=== PATIENT | female | born 1955 | race African-American/Black ===

== ENCOUNTER 2020-02-21 07:45 | Outpatient (REF) | payer SELFPAY | END 2020-02-21 07:46 | disposition home or self-care (01) | LOC: HO.HAP 07:45 | PROVIDERS: Visit Provider Emergency Medicine | DX: Z46.1 Encounter for fitting and adjustment of hearing aid (principal) | CPT/HCPCS: 92700 ==

== ENCOUNTER → 2020-03-29 11:01 | Outpatient (BNVA) | payer MEDICARE, SELFPAY | PROVIDERS: Visit Provider Internal Medicine | DX: E05.20 Thyrotoxicosis with toxic multinodular goiter without thyrotoxic crisis or storm (principal); E21.3 Hyperparathyroidism, unspecified; E55.9 Vitamin D deficiency, unspecified; M85.80 Other specified disorders of bone density and structure, unspecified site; Z79.899 Other long term (current) drug therapy | CPT/HCPCS: Q3014 ==

== ENCOUNTER 2020-03-30 10:06 | Outpatient (REF) | payer MEDICARE, SELFPAY ==
[2020-03-30 11:06] LABS: Albumin Level 4.4 g/dL (3.5-5.0); Estimated Glomerular Filt Rate > 60; Phosphorus 2.7 mg/dL (2.7-4.5)
[2020-03-30 11:31] LABS: Free T4 (Free Thyroxine) 0.82 ng/dL (0.71-1.85); Vitamin D 25-OH Total 26.2 ng/mL (>30)
[2020-03-31 09:12] LABS: Triiodothyronine T3 Total 123 ng/dL (76-181)
[2020-04-02 13:12] LABS: Calcium (PTHI) 10.4 mg/dL (8.6-10.4); PTHI 72 pg/mL (14-64)
== END 2020-03-30 10:07 | disposition home or self-care (01) ==
LOC: HO.LAB 10:06
PROVIDERS: PCP Emergency Medicine; Visit Provider Internal Medicine
DX: E21.3 Hyperparathyroidism, unspecified (principal); E05.20 Thyrotoxicosis with toxic multinodular goiter without thyrotoxic crisis or storm; E55.9 Vitamin D deficiency, unspecified
CPT/HCPCS: 82040; 82306; 82310; 82565; 83970; 84100; 84439; 84443; 84480

== ENCOUNTER → 2020-05-14 12:40 | Outpatient (BNVA) | payer MEDICARE, SELFPAY | PROVIDERS: PCP Emergency Medicine; Visit Provider Internal Medicine | DX: E05.20 Thyrotoxicosis with toxic multinodular goiter without thyrotoxic crisis or storm (principal); E21.3 Hyperparathyroidism, unspecified; E55.9 Vitamin D deficiency, unspecified; M85.80 Other specified disorders of bone density and structure, unspecified site; Z79.899 Other long term (current) drug therapy | CPT/HCPCS: Q3014 ==

== ENCOUNTER 2020-05-15 13:45 | Outpatient (REF) | payer SELFPAY | END 2020-05-15 13:46 | disposition home or self-care (01) | LOC: HO.HAP 13:45 | PROVIDERS: Visit Provider Emergency Medicine | DX: Z46.1 Encounter for fitting and adjustment of hearing aid (principal) | CPT/HCPCS: V5266 ==

== ENCOUNTER 2020-05-18 10:39 | Outpatient (REF) | payer SELFPAY | END 2020-05-18 10:40 | disposition home or self-care (01) | LOC: HO.HAP 10:39 | PROVIDERS: Visit Provider Emergency Medicine | DX: Z46.1 Encounter for fitting and adjustment of hearing aid (principal); H90.3 Sensorineural hearing loss, bilateral | CPT/HCPCS: V5267 ==

== ENCOUNTER → 2020-05-23 11:17 | Outpatient (BNVA) | payer MEDICARE, SELFPAY | PROVIDERS: PCP Emergency Medicine; Visit Provider Internal Medicine | DX: E05.20 Thyrotoxicosis with toxic multinodular goiter without thyrotoxic crisis or storm (principal); E21.3 Hyperparathyroidism, unspecified; E55.9 Vitamin D deficiency, unspecified; M85.80 Other specified disorders of bone density and structure, unspecified site | CPT/HCPCS: Q3014 ==

== ENCOUNTER 2020-05-24 11:27 | Outpatient (REF) | payer MEDICARE, SELFPAY ==
[2020-05-24 12:52] LABS: Albumin Level 4.4 g/dL (3.5-5.0); Calcium 9.9 mg/dL (8.4-10.2); Estimated Glomerular Filt Rate > 60
[2020-05-24 13:19] LABS: Free T4 (Free Thyroxine) 0.81 ng/dL (0.71-1.85); Thyroid Stimulating Hormone 0.19 uIU/mL (0.32-4.0); Vitamin D 25-OH Total 23.5 ng/mL (>30)
[2020-05-25 05:27] LABS: Triiodothyronine T3 Total 127 ng/dL (76-181)
[2020-05-25 16:52] LABS: Calcium (PTHI) 10.4 mg/dL (8.6-10.4); PTHI 121 pg/mL (14-64)
[2020-05-26 10:33] LABS: Calcium, Ionized 5.5 mg/dL (4.8-5.6)
== END 2020-05-24 11:28 | disposition home or self-care (01) ==
LOC: HO.LAB 11:27
PROVIDERS: PCP Nurse Practitioner Primary Care; Visit Provider Internal Medicine
DX: E05.20 Thyrotoxicosis with toxic multinodular goiter without thyrotoxic crisis or storm (principal); E21.3 Hyperparathyroidism, unspecified; E55.9 Vitamin D deficiency, unspecified
CPT/HCPCS: 36415; 82040; 82306; 82310; 82330; 82565; 83970; 84100; 84439; 84443; 84480

== ENCOUNTER → 2020-06-05 08:10 | Outpatient (REF) | payer MEDICARE, SELFPAY ==
--- NOTE | 2020-06-05 08:12 | NM_ITS ---
EXAMINATION: NM PARATHYROID SCAN CLINICAL INFORMATION: Hyperparathyroidism. COMPARISON: None TECHNIQUE: A double radionuclide study of the thyroid bed region and upper chest in multiple projections was performed 4 hours after the oral administration of 0.920 microcuries I-123 sodium iodide and immediately following the intravenous administration of 30 mCi Tc-99m sestamibi. Repeat imaging was performed 2 hours later. The iodide images were electronically subtracted from the sestamibi images using different weighting factors. FINDINGS: There is homogeneous uptake of radioiodine throughout both lobes. The thyroid gland appears asymmetrical with the left thyroid lobe appearing larger and lobulated. There are no focal areas of increased or diminished uptake. Technetium 99m sestamibi images demonstrate increased activity in the left thyroid gland with lobulation. The right thyroid lobe has normal activity. There are no focal areas of increased or decreased Technetium 99m sestamibi activity. Computer-generated digital subtraction images reveal excess sestamibi activity along the lateral border of the lower pole of the enlarged left thyroid gland. NM/NM parathyroid IMPRESSION: On subtracted images, there is focal sestamibi activity seen along the lateral aspect of the lower pole of the left thyroid gland highly suspicious for parathyroid adenoma.
== END ==
LOC: HO.NUCMED 08:10
PROVIDERS: Visit Provider Internal Medicine
DX: E21.3 Hyperparathyroidism, unspecified (principal)
CPT/HCPCS: 78070; A9500; A9516

== ENCOUNTER → 2020-06-27 08:01 | Outpatient (BNVA) | payer MEDICARE, SELFPAY | PROVIDERS: PCP Nurse Practitioner Primary Care; Visit Provider Internal Medicine | DX: Z76.89 Persons encountering health services in other specified circumstances (principal) | CPT/HCPCS: Q3014 ==

== ENCOUNTER 2020-07-05 12:15 | Outpatient (REF) | payer MEDICARE, SELFPAY ==
[2020-07-05 13:34] LABS: Albumin Level 4.5 g/dL (3.5-5.0); Calcium 10.8 mg/dL (8.4-10.2); Phosphorus 3.8 mg/dL (2.7-4.5)
[2020-07-05 13:50] LABS: Free T4 (Free Thyroxine) 0.76 ng/dL (0.71-1.85); Thyroid Stimulating Hormone 0.29 uIU/mL (0.32-4.0); Vitamin D 25-OH Total 30.5 ng/mL (>30)
[2020-07-06 02:06] LABS: Triiodothyronine T3 Total 140 ng/dL (76-181)
[2020-07-09 13:56] LABS: Calcium (PTHI) 11.2 mg/dL (8.6-10.4); PTHI 62 pg/mL (14-64)
== END 2020-07-05 12:16 | disposition home or self-care (01) ==
LOC: HO.LAB 12:15
PROVIDERS: Visit Provider Internal Medicine
DX: E21.3 Hyperparathyroidism, unspecified (principal); E05.20 Thyrotoxicosis with toxic multinodular goiter without thyrotoxic crisis or storm; E55.9 Vitamin D deficiency, unspecified
CPT/HCPCS: 36415; 82040; 82306; 82310; 83970; 84100; 84439; 84443; 84480

== ENCOUNTER 2020-08-14 11:59 | Outpatient (REF) | payer MEDICARE, SELFPAY ==
[2020-08-14 12:55] LABS: Albumin Level 4.4 g/dL (3.5-5.0); Calcium 9.4 mg/dL (8.4-10.2)
[2020-08-14 13:24] LABS: Free T4 (Free Thyroxine) 0.67 ng/dL (0.71-1.85); Vitamin D 25-OH Total 29.7 ng/mL (>30)
[2020-08-15 09:47] LABS: Triiodothyronine T3 Total 107 ng/dL (76-181)
[2020-08-15 15:01] LABS: Calcium (PTHI) 9.3 mg/dL (8.6-10.4); PTHI 72 pg/mL (14-64)
== END 2020-08-14 12:00 | disposition home or self-care (01) ==
LOC: HO.LAB 11:59
PROVIDERS: PCP Nurse Practitioner Primary Care; Visit Provider Internal Medicine
DX: E21.3 Hyperparathyroidism, unspecified (principal); E55.9 Vitamin D deficiency, unspecified; E05.20 Thyrotoxicosis with toxic multinodular goiter without thyrotoxic crisis or storm
CPT/HCPCS: 36415; 82040; 82306; 82310; 83970; 84439; 84480

== ENCOUNTER → 2020-08-22 12:38 | Outpatient (BNVA) | payer MEDICARE, SELFPAY | PROVIDERS: PCP Nurse Practitioner Primary Care; Visit Provider Internal Medicine | DX: E05.20 Thyrotoxicosis with toxic multinodular goiter without thyrotoxic crisis or storm (principal); E21.3 Hyperparathyroidism, unspecified; E55.9 Vitamin D deficiency, unspecified; M85.80 Other specified disorders of bone density and structure, unspecified site | CPT/HCPCS: 99212 ==

== ENCOUNTER 2020-10-01 09:43 | Outpatient (REF) | payer MEDICARE, SELFPAY ==
--- NOTE | ~2020-10-01 | MM_ITS ---
EXAMINATION: MM SCREENING DIGITAL BREAST TOMOSYNTHESIS, BILATERAL CLINICAL INFORMATION: Screening. Asymptomatic. The lifetime risk of breast cancer based on the Tyrer-Cuzick Model is 2.9%. COMPARISON: Mammography: September 23, 2018 TECHNIQUE: Digital breast tomosynthesis is performed in both the craniocaudal and mediolateral oblique views along with computer-aided detection (CAD). Synthesized 2D images are generated from the tomosynthesis. FINDINGS: The breasts are extremely dense, which lowers the sensitivity of mammography (ACR BI-RADS breast composition Category d). There is a stable parenchymal pattern of the left breast no new abnormal dominant mass or suspicious grouping of microcalcifications. There is a well-circumscribed slightly lobulated density about the lateral aspect of the right breast measuring approximately 1 x 0.7 cm in size approximately 7 cm from the nipple. This was seen on one view on previous study (craniocaudal) and appears stable. This likely represents intramammary lymph node. MM/MM tomosynthesis screening BI IMPRESSION: There are no significant changes from prior study. ASSESSMENT: BI-RADS 2: Benign RECOMMENDATION: Routine annual mammography screening. This patient's information was entered into a reminder system with a target due date for their next mammogram.
== END 2020-10-01 09:44 | disposition home or self-care (01) ==
LOC: HO.MAMMO 09:43
PROVIDERS: PCP Nurse Practitioner Primary Care; Visit Provider Nurse Practitioner Primary Care
DX: Z12.31 Encounter for screening mammogram for malignant neoplasm of breast (principal)
CPT/HCPCS: 77063; 77067

== ENCOUNTER 2020-10-15 09:14 | Outpatient (REF) | payer SELFPAY | END 2020-10-15 09:15 | disposition home or self-care (01) | LOC: HO.HAP 09:14 | PROVIDERS: Visit Provider Nurse Practitioner Primary Care | DX: E05.20 Thyrotoxicosis with toxic multinodular goiter without thyrotoxic crisis or storm (principal); E21.3 Hyperparathyroidism, unspecified; M85.80 Other specified disorders of bone density and structure, unspecified site; E55.9 Vitamin D deficiency, unspecified; H90.3 Sensorineural hearing loss, bilateral; Z46.1 Encounter for fitting and adjustment of hearing aid | CPT/HCPCS: Q3014; V5266 ==

== ENCOUNTER 2020-10-18 10:02 | Outpatient (REF) | payer MEDICARE, SELFPAY ==
[2020-10-18 11:53] LABS: Alanine Aminotransferase 14 U/L (0-31); Albumin Level 4.3 g/dL (3.5-5.0); Alkaline Phosphatase 110 U/L (39-117); Anion Gap 11 (12-20); Aspartate Amino Transferase 15 U/L (5-31); Bilirubin Total 0.6 mg/dL (0.0-1.0); Blood Urea Nitrogen 13 mg/dL (9-16); Calcium 9.4 mg/dL (8.4-10.2); Carbon Dioxide 22 mmol/L (22-29); Chloride 112 mmol/L (96-108); Estimated Glomerular Filt Rate > 60; Glucose Random 105 mg/dL (60-115); Phosphorus 3.8 mg/dL (2.7-4.5); Sodium 141 mmol/L (135-145)
[2020-10-18 11:58] LABS: Free T4 (Free Thyroxine) 0.74 ng/dL (0.71-1.85); Thyroid Stimulating Hormone 0.63 uIU/mL (0.32-4.0); Vitamin D 25-OH Total 31.1 ng/mL (>30)
[2020-10-19 12:42] LABS: Triiodothyronine T3 Total 112 ng/dL (76-181)
[2020-10-19 15:57] LABS: Calcium (PTHI) 9.5 mg/dL (8.6-10.4); PTHI 78 pg/mL (14-64)
== END 2020-10-18 10:03 | disposition home or self-care (01) ==
LOC: HO.LAB 10:02
PROVIDERS: PCP Nurse Practitioner Primary Care; Visit Provider Internal Medicine
DX: E05.20 Thyrotoxicosis with toxic multinodular goiter without thyrotoxic crisis or storm (principal); E55.9 Vitamin D deficiency, unspecified; E21.3 Hyperparathyroidism, unspecified
CPT/HCPCS: 36415; 80053; 82306; 83970; 84100; 84439; 84443; 84480

== ENCOUNTER 2020-10-18 10:41 | Outpatient (REF) | payer SELFPAY ==
--- NOTE | 2020-10-18 11:44 | MHC.AU.HFU ---
Hearing Instrument Follow-Up Date of Visit: 10/18/20 Tree Climber Used: [place]ger- In Person Right Ear: [place] Sampler: Phonak Model: Simplex HealthcareEO [id number] Serial Number: [id number] Repair Warranty: 06/20/2022 Loss and Damage Warranty: Service Plan: Battery Size: 13 Color: SAND BEIGE Doll Eye Setter: 0M Type of Dome: SMALL POWER Type of Wax Guard: CERUSHIELD Dispensed By: [facility] Follow-Up Summary: Patient reports that after the hearing aid visit on 10/15/20, the hearing aid was initially working okay. Later in the day, it started producing beeps again. Patient describes these beeps as the same as the volume control alerts, even though nothing is touching the volume button. She also feels she has not been hearing well from it. It will be sent to [employer] for repair. Patient was provided with a loaner Phonak Audeo [id number] #[id number] w/size 0S build automation engineer and small power dome. Recommendations: Recommendations: Patient will be contacted when materials have arrived. Diagnosis Code(s): Primary Diagnosis: H90.3 Bilateral Sensorineural Hearing Loss Signature: Provider: Uri Del Valle CCC-A
== END 2020-10-18 10:42 | disposition home or self-care (01) ==
LOC: HO.HAP 10:41
PROVIDERS: Visit Provider Nurse Practitioner Primary Care
DX: Z13.89 Encounter for screening for other disorder (principal)

== ENCOUNTER 2020-10-29 10:38 | Outpatient (REF) | payer SELFPAY | END 2020-10-29 10:39 | disposition home or self-care (01) | LOC: HO.HAP 10:38 | PROVIDERS: Visit Provider Nurse Practitioner Primary Care | DX: Z13.89 Encounter for screening for other disorder (principal) ==

== ENCOUNTER 2021-01-01 07:54 | Outpatient (REF) | payer MEDICARE, SELFPAY ==
--- NOTE | ~2021-01-01 | MM_ITS ---
EXAMINATION: BONE DENSITOMETRY CLINICAL INDICATION: Osteopenia. COMPARISON: Baseline BD dated 11/30/2018. TECHNIQUE: Using a [employer] DXA System (software version: 13.1) manufactured by [employer], dual-energy x-ray absorptiometry was performed of the lumbar spine, left hip, and right forearm radius 33%. The images are of good technical quality. Summary results are attached. FINDINGS: AP SPINE L1-L4: Current: BMD 0.945 g/cm2, Z-score -0.4, T-score -2.0, osteopenia, 2.6% increase from baseline (<5% change is not significant). Baseline: BMD 0.921 g/cm2. LEFT FEMUR, NECK: Current: BMD 0.776 g/cm2, Z-score -0.4, T-score -1.9, osteopenia. Baseline: BMD 0.735 g/cm2. LEFT FEMUR, TOTAL: Current: BMD 0.846 g/cm2, Z-score 0.0, T-score -1.3, osteopenia, 2.3% increase from baseline (<5% change is not significant). Baseline: BMD 0.827 g/cm2. RIGHT FOREARM RADIUS 33%: BMD 0.642 g/cm2, Z-score -1.1, T-score -2.7, osteoporosis. IDENTIFIED RISK FACTORS: Early menopause, family history (parent hip fracture), hyperparathyroid, hysterectomy, low calcium intake, secondary osteoporosis, tobacco use (current smoker). HISTORY OF FRACTURE: None listed. MEDICATIONS: Calcium, vitamin D. MM/XR DEXA appendicular skeleton IMPRESSION: 1. DIAGNOSIS: Osteoporosis based on the lowest T-score value of -2.7 in the forearm radius 33% applying World Health Organization criteria. 2. 10-YEAR FRACTURE RISK PREDICTION, FRAX: Major osteoporotic fracture (clinical spine, forearm, hip or shoulder) 11.0%. Hip fracture 2.4%. 3. Treatment Recommendations: NOF guidelines recommend consideration for treatment in postmenopausal women and men age 50 and older presenting with the following: -A hip or vertebral (clinical or morphometric) fracture. -T-score less than or equal to -2.5 at the femoral neck or spine after appropriate evaluation to exclude secondary causes. -Low bone mass at the hip or spine and a 10-year fracture probability by FRAX of greater than or equal to 3% for hip fracture or greater than or equal to 20% for major osteoporotic fracture based on the [place] adapted WHO algorithm. 4. Other Recommendations: All treatment decisions require clinical judgment and consideration of individual patient factors, including patient preferences, comorbidities, previous drug use, risk factors not captured in the FRAX model (e.g. frailty, falls, vitamin D deficiency, increased bone turnover, interval significant decline in bone density) and possible under or overestimation of fracture risk by FRAX. Additional medical evaluation for secondary cause of low bone mineral density may be appropriate. FUTURE SCAN RECOMMENDATION: People with diagnosed cases of osteoporosis or at high risk for fracture should have regular bone mineral density tests. For patients eligible for Medicare, routine testing is allowed once every 2 years. The testing frequency can be increased to one year for patients who have rapidly progressing disease, those who are receiving or discontinuing medical therapy to restore bone mass, or have additional risk factors.
== END 2021-01-01 07:55 | disposition home or self-care (01) ==
LOC: HO.MAMMO 07:54
PROVIDERS: Visit Provider Internal Medicine
DX: Z13.820 Encounter for screening for osteoporosis (principal); M85.80 Other specified disorders of bone density and structure, unspecified site; E21.3 Hyperparathyroidism, unspecified; F17.200 Nicotine dependence, unspecified, uncomplicated; Z90.710 Acquired absence of both cervix and uterus; Z78.0 Asymptomatic menopausal state
CPT/HCPCS: 77081

== ENCOUNTER → 2021-01-03 11:00 | Outpatient (BNVA) | payer SELFPAY | PROVIDERS: PCP Nurse Practitioner Primary Care; Visit Provider Internal Medicine | DX: Z13.89 Encounter for screening for other disorder (principal) ==

== ENCOUNTER 2021-04-22 13:42 | Outpatient (REF) | payer SELFPAY ==
--- NOTE | 2021-04-22 14:13 | MHC.AU.P13 ---
Hearing Instrument Problem Date of Visit: 04/22/21 Right Ear: Regulatory Attorney: [employer] Model: AUDEO M50-13T Serial Number: [id number] Repair Warranty: 06/20/2022 Battery Size: 13 Color: SAND BEIGE Roller Leveler: 0 Power Type of Dome: SMALL POWER Type of Wax Guard: STEPHANIEUSHIELD Dispensed By: [facility] Date of Fittin04/05/2019 Follow-Up Summary: Right hearing aid making intermittent clicking sound even with new glacing machine tender. Sent to [employer] for in warranty repair. Recommendations: Recommendations: Patient will be contacted when materials have arrived. Diagnosis Code(s): Primary Diagnosis: H90.3 Bilateral Sensorineural Hearing Loss Signature: Provider: MICK Verdugo
== END 2021-04-22 13:43 | disposition home or self-care (01) ==
LOC: HO.HAP 13:42
DX: Z46.1 Encounter for fitting and adjustment of hearing aid (principal); H90.3 Sensorineural hearing loss, bilateral
CPT/HCPCS: V5266

== ENCOUNTER 2021-04-30 11:27 | Outpatient (REF) | payer SELFPAY | END 2021-04-30 11:28 | disposition home or self-care (01) | LOC: HO.HAP 11:27 | PROVIDERS: Visit Provider Nurse Practitioner Primary Care | DX: Z13.89 Encounter for screening for other disorder (principal) ==

== ENCOUNTER 2021-05-02 08:53 | Outpatient (REF) | payer MEDICARE, SELFPAY | END 2021-05-02 08:54 | disposition home or self-care (01) | LOC: HO.LAB 08:53 | PROVIDERS: PCP Nurse Practitioner Primary Care | DX: N39.0 Urinary tract infection, site not specified (principal); N32.81 Overactive bladder | CPT/HCPCS: 51798; 87086; 99212 ==

== ENCOUNTER 2021-06-27 13:51 | Outpatient (REF) | payer MEDICARE, SELFPAY | END 2021-06-27 13:52 | disposition home or self-care (01) | LOC: HO.LAB 13:51 | PROVIDERS: PCP Nurse Practitioner Primary Care; Referring Provider Nurse Practitioner Primary Care; Visit Provider Nurse Practitioner | DX: Z01.818 Encounter for other preprocedural examination (principal) | CPT/HCPCS: 36415; 80053; 85025; 99202 ==

== ENCOUNTER 2021-07-04 10:50 | Outpatient (REF) | payer MEDICARE, SELFPAY ==
[2021-07-04 12:09] LABS: Alanine Aminotransferase 17 U/L (0-31); Albumin Level 4.1 g/dL (3.5-5.0); Alkaline Phosphatase 87 U/L (39-117); Anion Gap 8 (12-20); Aspartate Amino Transferase 14 U/L (5-31); Bilirubin Total 0.4 mg/dL (0.0-1.0); Blood Urea Nitrogen 13 mg/dL (9-16); Calcium 9.3 mg/dL (8.4-10.2); Carbon Dioxide 28 mmol/L (22-29); Chloride 110 mmol/L (96-108); Estimated Glomerular Filt Rate > 60; Glucose Random 103 mg/dL (60-115); Phosphorus 3.5 mg/dL (2.7-4.5); Sodium 142 mmol/L (135-145); Total Protein 6.8 g/dL (6.5-8.0)
[2021-07-04 12:20] LABS: Free T4 (Free Thyroxine) 0.67 ng/dL (0.71-1.85); Thyroid Stimulating Hormone 0.93 uIU/mL (0.32-4.0); Vitamin D 25-OH Total 25.8 ng/mL (>30)
[2021-07-05 17:16] LABS: Calcium (PTHI) 9.1 mg/dL (8.6-10.4); PTHI 66 pg/mL (14-64)
[2021-07-08 20:36] LABS: N-Telopeptide 46 (see note); NTXCreaRU 125 mg/dL (20-275)
== END 2021-07-04 10:51 | disposition home or self-care (01) ==
LOC: HO.LAB 10:50
PROVIDERS: PCP Nurse Practitioner Primary Care; Visit Provider Internal Medicine
DX: M81.0 Age-related osteoporosis without current pathological fracture (principal); E05.20 Thyrotoxicosis with toxic multinodular goiter without thyrotoxic crisis or storm; E55.9 Vitamin D deficiency, unspecified
CPT/HCPCS: 36415; 80053; 82306; 82523; 83970; 84100; 84439; 84443

== ENCOUNTER → 2021-07-08 08:09 | Outpatient (BNVA) | payer MEDICARE, SELFPAY | PROVIDERS: PCP Nurse Practitioner Primary Care; Visit Provider Internal Medicine | DX: E21.3 Hyperparathyroidism, unspecified (principal); E05.20 Thyrotoxicosis with toxic multinodular goiter without thyrotoxic crisis or storm; E55.9 Vitamin D deficiency, unspecified; M81.0 Age-related osteoporosis without current pathological fracture; Z79.899 Other long term (current) drug therapy | CPT/HCPCS: Q3014 ==

== ENCOUNTER 2021-10-09 08:06 | Day surgery (SDC) | payer MEDICARE, SELFPAY ==
--- NOTE | 2021-10-08 10:17 | HO.ANESPROP2 ---
Documented by User: Regina Dutta NP 10/08/21 10:17 HPI - Anesthesia Eval Consult details Narrative: 66yo F forColonoscopy PMFSH Active Problems Active Problems: All Active Problems (Updated 06/27/21 @ 14:32 by FIDEL Gandara) Colon cancer screening (Acute) Subclinical hyperthyroidism (Acute) High cholesterol (Acute) Hard of hearing (Acute) OAB (overactive bladder) (Acute) UTI (urinary tract infection) (Acute) Osteoporosis (Acute) Hyperparathyroidism (Acute) Vitamin D deficiency (Acute) Osteopenia (Acute) Toxic multinodul goiter (Acute) Past Medical History Medical History Hyperparathyroidism OAB (overactive bladder) Osteopenia Osteoporosis Stress incontinence in female Toxic multinodul goiter UTI (urinary tract infection) Vitamin D deficiency Family History Family History Father No problems noted. Mother Hypertension Arthritis Osteoporosis Surgical History Surgical History H/O parathyroidectomy History of ear surgery Hx of hysterectomy Social History Social History Alcohol intake: current Alcohol intake frequency: does not drink Patient Tobacco Use Status: Current everyday Tobacco user Tobacco use type: Cigarette Cigarettes Per Day: 4 Years Smoked: 45 Use of substances other than those prescribed or required for medical reasons: No Are you DNR?: No Advance Directives: No Advance Directives Information Provided: Yes Meds Allergies Allergy/AdvReac Type Severity Reaction Status Date / Time No Known Allergies Allergy Verified 10/03/21 12:27 Home Medications Medication Instructions Recorded Confirmed Last Taken Type atorvastatin 10 mg tablet 10 mg PO DAILY 10/15/20 10/03/21 Unknown History calcium 325 mg-vit D3 12.5 1 tab PO DAILY 07/08/21 07/08/21 Unknown History mcg-zinc 2.75 [id number]-hjiblgxga tablet (Citracal-D3 Maximum Plus) Exam Exam Date and Time: October 08, 2021 1017 Assessment and Plan Assessment Anesthesia Assessment: Chart Reviewed Documented by User: Tonja Ng MD 10/09/21 09:26 ON LICENSE OF [facility] Past Medical History Medical History Hyperparathyroidism OAB (overactive bladder) Osteopenia Osteoporosis Stress incontinence in female Toxic multinodul goiter UTI (urinary tract infection) Vitamin D deficiency Family History Family History Father No problems noted. Mother Hypertension Arthritis Osteoporosis Family history of problems with anesthesia: No Surgical History Surgical History H/O parathyroidectomy History of ear surgery Hx of hysterectomy History of Problems with Anesthesia: No Social History Social History Alcohol intake: current Alcohol intake frequency: does not drink Patient Tobacco Use Status: Current everyday Tobacco user Tobacco use type: Cigarette Cigarettes Per Day: 4 Years Smoked: 45 Use of substances other than those prescribed or required for medical reasons: No Are you DNR?: No Advance Directives: No Advance Directives Information Provided: Yes Meds Allergies Allergy/AdvReac Type Severity Reaction Status Date / Time No Known Allergies Allergy Verified 10/03/21 12:27 Home Medications Medication Instructions Recorded Confirmed Last Taken Type atorvastatin 10 mg tablet 10 mg PO DAILY 10/15/20 10/03/21 Unknown History calcium 325 mg-vit D3 12.5 1 tab PO DAILY 07/08/21 07/08/21 Unknown History mcg-zinc 2.75 uh-dtkzlr-lbggcpbjk tablet (Citracal-D3 Maximum Plus) Exam Airway Mallampati Class: II TM Dist: >3cm Neck ROM: Full Heart: rrr Lungs: cta Assessment and Plan Assessment Anesthesia Assessment: Anesthesia Plan Discussed and Chart Reviewed Final Anesthetic Review Family History of Problems with Anesthesia: No History of Problems with Anesthesia: No NPO: Yes ASA Class: II Final Preanesthetic Review: No Changes in Pt Med Stat, Meds/Allgs Chart Reviewed and Consent Obtained/Reviewed Patient Risk: Intermediate Procedure Risk: Intermediate Anesthetic Plan Anesthetic Plan: MAC: Disposition: Standard PACU
--- NOTE | 2021-10-09 08:30 | MHC.SHP ---
Pre-Procedural Eval Section A Date of Service: 10/09/21 Section B Chief Complaint: screening Relevant Family History (Specify if Yes): No Relevant Social History: Tobacco Use Present Medications: see Short Stay Collaborative assessment Medical History: Significant History (Hyperparathyroidism OAB (overactive bladder) Osteopenia Osteoporosis Stress incontinence in female Toxic multinodul goiter UTI (urinary tract infection) Vitamin D deficiency) History of Previous Operations: Relevant previous surgery/procedure and date(s) (H/O parathyroidectomy History of ear surgery Hx of hysterectomy) Allergies: Allergies Allergy/AdvReac Type Severity Reaction Status Date / Time No Known Allergies Allergy Verified 10/03/21 12:27 Review of Systems Sugical H&P ROS: Negative: Constitution, Cardiovascular, Respiratory, Neurological, Psychiatric, Hem-Onc, Allergic/Immunologic, Gastrointestinal, Genitourinary, Musculoskeletal, Integumentary, Endocrine and Eyes/Ears/Nose/Throat Exam Surgical H&P Exam: Normal: HEENT, Normal: Heart, Normal: Lungs, Normal: Extremities, Normal: Abdomen, Normal: Skin and Normal: Neurological Plan Diagnosis/Plan: Unchanged I have reviewed the history and physical and performed a pertinent physical examination on my patient. No changes have occurred unless specified.
[2021-10-09 08:48] VITALS: BMI 29.9
[2021-10-09 08:53] VITALS: BP 134/71; PULSE 64; RESP 16; TEMP 36.1; O2SAT 98
[2021-10-09] MEDS: Lactated Ringers 1,000 ML 100 ML IVCONT (08:56)
--- NOTE | 2021-10-09 09:16 | P.BOP_ITS ---
Brief Operative Note Date of Service: 10/09/21 Pre-op diagnosis: colon screening Post-op diagnosis: same Procedure: see op note Surgeon: Alley Trinidad MD Anesthesia: MAC Was an Investment Broker used for this Procedure?: No Estimated blood loss (mL): 0 Condition: stable Disposition: PACU
--- NOTE | 2021-10-09 09:16 | W.PM.OPN ---
Operative Note Operative Note Date of Service: 10/09/21 Narrative: Operative Information Procedure Description: Colonoscopy Indication: screening Anesthesia: MAC COLONOSCOPY Instrument: Olympus variable stiffness pediatric scope 190L Colonoscopy Monitoring: Vital signs and clinical assessment, continuous EKG monitoring, Pulse oximetry, Carbon Dioxide monitoring and blood pressure monitoring were done throughout the procedure. Colon withdrawal time was 9 minutes. Procedure: The patient was placed in the left lateral decubitis position and pre-procedure medications were administered. After a digital rectal examination of the ano-rectum, the video colonoscope was inserted into the rectum and advanced through the colon to the cecum/TI. The colonoscope was slowly withdrawn in a retrograde panoramic fashion and the colon mucosa was carefully examined including a retroflexed view of the rectum. Findings and interventions are described below. Procedure Difficulty: easy Findings: Terminal Ileum-normal Cecum:normal Ascending Colon: normal Transverse Colon -normal Descending Colon:normal Sigmoid Colon: moderate dvierticulosis Rectum: Retroflexion with small internal hemorrhoids, grade I Anorectum - normal Colon preparation: [place] Bowel Preparation Scale Right colon; 2 Transverse colon: 2 Left colon; 2 (0 = Unprepared colon segment with mucosa not seen due to solid stool that cannot be cleared. 1 = Portion of mucosa of the colon segment seen, but other areas of the colon segment not well seen due to staining, residual stool and/or opaque liquid. 2 = Minor amount of residual staining, small fragments of stool and/or opaque liquid, but mucosa of colon segment seen well. 3 = Entire mucosa of colon segment seen well with no residual staining, small fragments of stool or opaque liquid) Impression and Post Procedure Diagnosis: internal hemorrhoids diverticular disease Plan: High fiber diet leaflet Avoid straining at stool, epsom salts and sitz bath, anusol supps or cream Repeat Colonoscopy in 10 years or earlier if clinically indicated Above findings were reviewed with the patient and relevant handouts were provided if indicated.
[2021-10-09 09:51] VITALS: BP 117/69; PULSE 62; RESP 16; TEMP 36.3; O2SAT 98
[2021-10-09 10:30] VITALS: BP 136/94; PULSE 61; RESP 16; TEMP 36.7; O2SAT 99
== END 2021-10-09 11:37 | disposition home or self-care (01) ==
PROVIDERS: PCP Nurse Practitioner Primary Care; Visit Provider Internal Medicine Gastroenterology
PROC: 0DJD8ZZ Inspection of Lower Intestinal Tract, Via Natural or Artificial Opening Endoscopic (ICD-10-PCS; CPT 45378; principal; 2021-10-09 09:20)
DX: Z12.11 Encounter for screening for malignant neoplasm of colon (principal); K57.30 Diverticulosis of large intestine without perforation or abscess without bleeding; K64.0 First degree hemorrhoids; H91.90 Unspecified hearing loss, unspecified ear; E05.80 Other thyrotoxicosis without thyrotoxic crisis or storm; E21.3 Hyperparathyroidism, unspecified; E78.00 Pure hypercholesterolemia, unspecified; E55.9 Vitamin D deficiency, unspecified; M85.80 Other specified disorders of bone density and structure, unspecified site; Z79.899 Other long term (current) drug therapy; F17.210 Nicotine dependence, cigarettes, uncomplicated; Z98.890 Other specified postprocedural states
CPT/HCPCS: G0121

== ENCOUNTER 2021-10-16 11:03 | Outpatient (REF) | payer SELFPAY | END 2021-10-16 11:04 | disposition home or self-care (01) | LOC: HO.HAP 11:03 | PROVIDERS: Visit Provider Nurse Practitioner Primary Care | DX: Z46.1 Encounter for fitting and adjustment of hearing aid (principal); H90.3 Sensorineural hearing loss, bilateral | CPT/HCPCS: V5266 ==

== ENCOUNTER 2021-11-07 13:52 | Outpatient (REF) | payer MEDICARE, SELFPAY ==
--- NOTE | ~2021-11-07 | US_ITS ---
EXAMINATION: US PELVIS CLINICAL INFORMATION: Pelvic and perineal pain. COMPARISON: None TECHNIQUE: Ultrasound of the pelvis is performed using both transabdominal and transvaginal transducers along with Doppler. Transvaginal imaging is performed due to inadequate visualization transabdominally. FINDINGS: The uterus has been surgically removed and not visualized. Ovaries are not visualized. No adnexal mass or free fluid seen. The exam is slightly limited due to peristalsing bowel loops within the pelvis. US/US pelvic and transvaginal IMPRESSION: Unremarkable pelvis exam.
== END 2021-11-07 13:53 | disposition home or self-care (01) ==
LOC: HO.HMGCX 13:52
PROVIDERS: Visit Provider Advanced Practice Midwife
DX: R10.2 Pelvic and perineal pain (principal)
CPT/HCPCS: 76830; 76856

== ENCOUNTER 2021-11-21 10:49 | Outpatient (REF) | payer MEDICARE, SELFPAY ==
[2021-11-21 12:31] LABS: Alanine Aminotransferase 19 U/L (0-31); Albumin Level 4.5 g/dL (3.5-5.0); Alkaline Phosphatase 98 U/L (39-117); Anion Gap 12 (12-20); Aspartate Amino Transferase 15 U/L (5-31); Bilirubin Total 0.6 mg/dL (0.0-1.0); Blood Urea Nitrogen 16 mg/dL (9-16); Calcium 9.4 mg/dL (8.4-10.2); Carbon Dioxide 25 mmol/L (22-29); Chloride 111 mmol/L (96-108); Estimated Glomerular Filt Rate > 60; Glucose Random 96 mg/dL (60-115); Phosphorus 3.9 mg/dL (2.7-4.5); Potassium 4.3 mmol/L (3.3-5.1); Sodium 144 mmol/L (135-145); Total Protein 7.4 g/dL (6.5-8.0)
[2021-11-21 12:55] LABS: Free T4 (Free Thyroxine) 0.84 ng/dL (0.71-1.85); Thyroid Stimulating Hormone 0.98 uIU/mL (0.32-4.0); Vitamin D 25-OH Total 28.2 ng/mL (>30)
[2021-11-22 13:26] LABS: Calcium (PTHI) 9.4 mg/dL (8.6-10.4); PTHI 50 pg/mL (16-77)
== END 2021-11-21 10:50 | disposition home or self-care (01) ==
LOC: HO.LAB 10:49
PROVIDERS: PCP Nurse Practitioner Primary Care; Visit Provider Internal Medicine
DX: E05.20 Thyrotoxicosis with toxic multinodular goiter without thyrotoxic crisis or storm (principal); E55.9 Vitamin D deficiency, unspecified; E21.3 Hyperparathyroidism, unspecified
CPT/HCPCS: 36415; 80053; 82306; 83970; 84100; 84439; 84443

== ENCOUNTER → 2021-11-28 13:35 | Outpatient (BNVA) | payer MEDICARE, SELFPAY | PROVIDERS: PCP Nurse Practitioner Primary Care; Visit Provider Internal Medicine | DX: E05.20 Thyrotoxicosis with toxic multinodular goiter without thyrotoxic crisis or storm (principal); E21.3 Hyperparathyroidism, unspecified; E55.9 Vitamin D deficiency, unspecified; M81.0 Age-related osteoporosis without current pathological fracture | CPT/HCPCS: Q3014 ==

== ENCOUNTER → 2021-11-29 09:34 | Outpatient (BNVA) | payer MEDICARE, SELFPAY | PROVIDERS: PCP Nurse Practitioner Primary Care; Visit Provider Nurse Practitioner | DX: K57.30 Diverticulosis of large intestine without perforation or abscess without bleeding (principal); K64.0 First degree hemorrhoids; Z98.890 Other specified postprocedural states | CPT/HCPCS: 99212 ==

== ENCOUNTER 2022-03-25 10:29 | Outpatient (REF) | payer SELFPAY | END 2022-03-25 10:30 | disposition home or self-care (01) | LOC: HO.HAP 10:29 | PROVIDERS: Visit Provider Nurse Practitioner Primary Care | DX: Z13.89 Encounter for screening for other disorder (principal) ==

== ENCOUNTER 2022-03-26 10:48 | Outpatient (REF) | payer SELFPAY | END 2022-03-26 10:49 | disposition home or self-care (01) | LOC: HO.HAP 10:48 | PROVIDERS: Visit Provider Nurse Practitioner Primary Care | DX: Z46.1 Encounter for fitting and adjustment of hearing aid (principal); H90.3 Sensorineural hearing loss, bilateral | CPT/HCPCS: V5266 ==

== ENCOUNTER 2022-06-24 08:54 | Outpatient (REF) | payer MEDICARE, SELFPAY ==
[2022-06-24 11:26] LABS: Blood Urea Nitrogen 16 mg/dL (9-16); Estimated Glomerular Filt Rate > 60
[2022-06-24 11:32] LABS: Urine Cytology See Pathology rpt
== END 2022-06-24 08:55 | disposition home or self-care (01) ==
LOC: HO.LAB 08:54
PROVIDERS: PCP Nurse Practitioner Primary Care; Visit Provider Nurse Practitioner Family
DX: R31.29 Other microscopic hematuria (principal); R32 Unspecified urinary incontinence; N32.81 Overactive bladder
CPT/HCPCS: 36415; 51798; 82565; 84520; 88112; 99212

== ENCOUNTER 2022-07-31 10:27 | Outpatient (REF) | payer MEDICARE, SELFPAY ==
[2022-07-31 13:12] LABS: Alanine Aminotransferase 20 U/L (0-31); Albumin Level 4.3 g/dL (3.5-5.0); Alkaline Phosphatase 89 U/L (39-117); Anion Gap 11 (12-20); Aspartate Amino Transferase 18 U/L (5-31); Bilirubin Total 0.7 mg/dL (0.0-1.0); Blood Urea Nitrogen 12 mg/dL (9-16); Calcium 9.1 mg/dL (8.4-10.2); Carbon Dioxide 26 mmol/L (22-29); Chloride 112 mmol/L (96-108); Estimated Glomerular Filt Rate > 60; Glucose Random 96 mg/dL (60-115); Phosphorus 3.1 mg/dL (2.7-4.5); Potassium 4.4 mmol/L (3.3-5.1); Sodium 145 mmol/L (135-145); Total Protein 6.9 g/dL (6.5-8.0)
[2022-07-31 13:17] LABS: Free T4 (Free Thyroxine) 0.79 ng/dL (0.71-1.85); Thyroid Stimulating Hormone 1.11 uIU/mL (0.32-4.0); Vitamin D 25-OH Total 34.4 ng/mL (>30)
[2022-08-01 16:23] LABS: Calcium (PTHI) 9.3 mg/dL (8.6-10.4); PTHI 63 pg/mL (16-77)
== END 2022-07-31 10:28 | disposition home or self-care (01) ==
LOC: HO.LAB 10:27
PROVIDERS: PCP Nurse Practitioner Primary Care; Visit Provider Internal Medicine
DX: E05.20 Thyrotoxicosis with toxic multinodular goiter without thyrotoxic crisis or storm (principal); M81.0 Age-related osteoporosis without current pathological fracture; E55.9 Vitamin D deficiency, unspecified
CPT/HCPCS: 36415; 80053; 82306; 83970; 84100; 84439; 84443

== ENCOUNTER 2022-08-04 13:20 | Outpatient (REF) | payer MEDICARE, SELFPAY ==
--- NOTE | ~2022-08-04 | MM_ITS ---
EXAMINATION: MM SCREENING DIGITAL BREAST TOMOSYNTHESIS, BILATERAL CLINICAL INFORMATION: Screening. Asymptomatic. The lifetime risk of breast cancer based on the Tyrer-Cuzick Model is 2%. COMPARISON: Mammography: 10/01/2020, 09/23/2018 (new baseline), right breast ultrasound 09/23/2018 TECHNIQUE: Digital breast tomosynthesis is performed in both the craniocaudal and mediolateral oblique views along with computer-aided detection (CAD). Synthesized 2D images are generated from the tomosynthesis. FINDINGS: The breasts are heterogeneously dense, which may obscure small masses (ACR BI-RADS breast composition Category c). The left breast has a new circumscribed smooth nodule mid upper outer quadrant measuring 0.9 cm, possibly a cyst. Patient will be recalled for additional imaging with targeted ultrasound. The remainder the breasts show no significant changes in the parenchymal pattern from prior studies. There is no architectural abnormality or abnormal calcifications. The axilla and skin contours are unremarkable. MM/MM tomosynthesis screening BI IMPRESSION: Left: -New smooth circumscribed 0.9 cm nodule mid upper outer quadrant, possibly a cyst. Right: -No mammographic evidence of malignancy. ASSESSMENT: BI-RADS 0: Incomplete - Need Additional Imaging Evaluation RECOMMENDATION: 1. Targeted ultrasound left breast. 2. Radiology department staff will contact the patient for additional imaging. This patient's information was entered into a reminder system with a target due date for their next mammogram.
== END 2022-08-04 13:21 | disposition home or self-care (01) ==
LOC: HO.MAMMO 13:20
PROVIDERS: PCP Nurse Practitioner Primary Care; Visit Provider Nurse Practitioner Primary Care
DX: Z12.31 Encounter for screening mammogram for malignant neoplasm of breast (principal)
CPT/HCPCS: 77063; 77067

== ENCOUNTER 2022-08-08 08:53 | Outpatient (REF) | payer MEDICARE, SELFPAY ==
--- NOTE | ~2022-08-08 | US_ITS ---
EXAMINATION: US DIAGNOSTIC ULTRASOUND BREAST, LEFT CLINICAL INFORMATION: Left breast nodule. COMPARISON: 08/04/2022 and studies dating back to 09/23/2018. TECHNIQUE: Ultrasound of the breast is performed with real-time warren scale imaging and color Doppler. FINDINGS: About the 2 o'clock position approximately 7 cm from the nipple there is a well-circumscribed nearly anechoic structure with smooth back wall and increased through sound transmission. No internal vascularity is identified. This measures approximately 8 x 7 x 7 mm in size. There is no solid mass, architectural abnormality, duct ectasia, or edema in the soft tissue planes. Results are discussed with the patient at time of visit. US/US breast LT limited IMPRESSION: Mammographic density corresponds to a simple cyst. ASSESSMENT: BI-RADS 2: Benign. RECOMMENDATION: Routine annual mammography screening due in 12 months. This patient's information was entered into a reminder system with a target due date for their next mammogram.
== END 2022-08-08 08:54 | disposition home or self-care (01) ==
LOC: HO.MAMMO 08:53
PROVIDERS: PCP Nurse Practitioner Primary Care; Visit Provider Nurse Practitioner Primary Care
DX: N63.21 Unspecified lump in the left breast, upper outer quadrant (principal)
CPT/HCPCS: 76642

== ENCOUNTER → 2022-08-11 13:25 | Outpatient (BNVA) | payer MEDICARE, SELFPAY | PROVIDERS: PCP Nurse Practitioner Primary Care; Visit Provider Internal Medicine | DX: E21.3 Hyperparathyroidism, unspecified (principal); E05.20 Thyrotoxicosis with toxic multinodular goiter without thyrotoxic crisis or storm; E55.9 Vitamin D deficiency, unspecified; E04.2 Nontoxic multinodular goiter; M81.0 Age-related osteoporosis without current pathological fracture | CPT/HCPCS: 99212 ==

== ENCOUNTER 2022-08-12 14:21 | Outpatient (REF) | payer MEDICARE, SELFPAY ==
--- NOTE | ~2022-08-12 | CT_ITS ---
EXAMINATION: CT ABDOMEN AND PELVIS WITHOUT AND WITH CONTRAST CLINICAL INFORMATION: Microscopic hematuria COMPARISON: None available. TECHNIQUE: Noncontrast CT of the abdomen and pelvis is performed followed by split bolus contrast-enhanced images using 85 mL Omnipaque 350 contrast.? Postcontrast imaging is performed during the combined nephrogram and excretion phase. Sagittal and coronal reformatted images were obtained on the technologist's workstation for both the precontrast and postcontrast phases. This CT examination was performed using dose optimization techniques as appropriate, variously including the following: *Automated exposure control *Adjustment of mA and/or kV according to patient size (this includes techniques or standardized protocols for targeted exams where dose is matched to indication/reason for exam; i.e. extremities or head) *Use of iterative reconstruction technique DLP: 677 mGy-cm FINDINGS: LUNG BASES: 3 mm calcified right base pulmonary nodule probably representing a calcified granuloma. Lung bases are otherwise clear. LIVER, GALLBLADDER, AND BILIARY TREE: The liver is normal in size, shape, and attenuation. No focal hepatic lesion or biliary ductal dilatation is present. The gallbladder is unremarkable with no evidence of radiopaque gallstones, gallbladder wall thickening, or obvious pericholecystic inflammatory changes. PANCREAS: Unremarkable. SPLEEN: Unremarkable. ADRENAL GLANDS: Unremarkable. KIDNEYS AND URETERS: The kidneys are normal in size, shape, and attenuation. No hydronephrosis, hydroureter, or calculi seen. The collecting systems are normal-appearing. Small bilateral renal cysts. Largest cyst measures 1.6 cm in the posterior upper pole of the right kidney. Tiny subcentimeter hyperdense cyst exophytic to the upper pole of the right kidney. No imaging follow-up. BLADDER: Unremarkable. GASTROINTESTINAL TRACT: Mild diverticulosis. No evidence of diverticulitis. The small and large bowel are otherwise unremarkable. The appendix is unremarkable. ABDOMINAL WALL: Small umbilical hernia containing fat. LYMPH NODES: Normal. VASCULAR: Unremarkable. PELVIC VISCERA: The uterus has been removed. No pelvic mass. OSSEUS STRUCTURES: Degenerative changes of the lower lumbar spine. CT/CT urogram IMPRESSION: No cause of hematuria seen.
[2022-08-12] MEDS: iohexoL 350 MG/ML 100 ML INFUS..BTL IV (16:27)
== END 2022-08-12 14:22 | disposition home or self-care (01) ==
LOC: HO.CT 14:21
PROVIDERS: PCP Nurse Practitioner Primary Care; Visit Provider Nurse Practitioner Family
DX: R31.29 Other microscopic hematuria (principal)
CPT/HCPCS: 74178; Q9967

== ENCOUNTER 2022-09-01 15:06 | Outpatient (REF) | payer MEDICARE, SELFPAY ==
[2022-09-01 17:11] LABS: Urine Cytology See Pathology rpt
== END 2022-09-01 15:07 | disposition home or self-care (01) ==
LOC: HO.LAB 15:06
PROVIDERS: PCP Nurse Practitioner Primary Care; Visit Provider Urology
DX: R31.29 Other microscopic hematuria (principal); R39.15 Urgency of urination; N32.81 Overactive bladder; R32 Unspecified urinary incontinence; Z87.891 Personal history of nicotine dependence
CPT/HCPCS: 52000; 88112; 99212

== ENCOUNTER → 2022-09-17 11:05 | Outpatient (BNVA) | payer MEDICARE, SELFPAY | PROVIDERS: PCP Nurse Practitioner Primary Care; Visit Provider Urology | DX: R39.15 Urgency of urination (principal); R32 Unspecified urinary incontinence; R35.0 Frequency of micturition | CPT/HCPCS: 99212 ==

== ENCOUNTER 2022-10-14 10:48 | Outpatient (REF) | payer SELFPAY | END 2022-10-14 10:49 | disposition home or self-care (01) | LOC: HO.HAP 10:48 | PROVIDERS: Visit Provider Nurse Practitioner Primary Care | DX: Z46.1 Encounter for fitting and adjustment of hearing aid (principal); H90.3 Sensorineural hearing loss, bilateral | CPT/HCPCS: V5266 ==

== ENCOUNTER → 2023-01-02 08:45 | Outpatient (BNV) | payer MEDICARE, SELFPAY | PROVIDERS: PCP Nurse Practitioner Primary Care; Visit Provider Radiology Diagnostic Radiology | DX: E21.3 Hyperparathyroidism, unspecified (principal) | CPT/HCPCS: 77080; 77081 ==

== ENCOUNTER 2023-01-02 08:49 | Outpatient (REF) | payer MEDICARE, SELFPAY ==
--- NOTE | ~2023-01-02 | MM_ITS ---
EXAMINATION: BONE DENSITOMETRY CLINICAL INDICATION: Hyperparathyroidism, unspecified. COMPARISON: Previous BD dated 01/01/2021 and baseline BD dated 11/30/2018, spine and left hip. TECHNIQUE: Using a Xradia DXA System (software version: 13.1) manufactured by [employer], dual-energy x-ray absorptiometry was performed of the lumbar spine, left hip and left forearm radius 33%. The images are of good technical quality. Summary results are attached. FINDINGS: LEFT FEMUR, NECK: Current: BMD 0.747 g/cm2, Z-score -0.6, T-score -2.1, osteopenia. Prior: BMD 0.776 g/cm2. Baseline: BMD 0.735 g/cm2. LEFT FEMUR, TOTAL: Current: BMD 0.831 g/cm2, Z-score -0.1, T-score -1.4, osteopenia, 1.8% decrease from previous, 0.5% increase from baseline (<5% change is not significant). Prior: BMD 0.846 g/cm2. Baseline: BMD 0.827 g/cm2. AP SPINE L1-L4: Current: BMD 0.922 g/cm2, Z-score -0.7, T-score -2.2, osteopenia, 2.4% decrease from previous, 0.1% increase from baseline (<5% change is not significant). Prior: BMD 0.945 g/cm2. Baseline: BMD 0.921 g/cm2. LEFT FOREARM RADIUS 33%: BMD 0.627 g/cm2, Z-score -1.1, T-score -2.8, osteoporosis. IDENTIFIED RISK FACTORS: Early menopause, secondary osteoporosis, family history (parental hip fracture), hyperparathyroidism, hysterectomy, low calcium intake, osteoporosis, recurrent falls, tobacco use (current smoker). HISTORY OF FRACTURE: None listed. MEDICATIONS: Calcium supplements or multivitamin, vitamin D. MM/XR DEXA appendicular skeleton IMPRESSION: 1. DIAGNOSIS: Osteoporosis based on the lowest T-score value of -2.8 in the forearm radius 33% applying World Health Organization criteria. 2. 10-YEAR FRACTURE RISK PREDICTION, FRAX: According to the guidelines, FRAX calculation should only be performed on patients in the osteopenia bone density category. Therefore, FRAX was not performed on this patient. 3. Treatment Recommendations: NOF guidelines recommend consideration for treatment in postmenopausal women and men age 50 and older presenting with the following: -A hip or vertebral (clinical or morphometric) fracture. -T-score less than or equal to -2.5 at the femoral neck or spine after appropriate evaluation to exclude secondary causes. -Low bone mass at the hip or spine and a 10-year fracture probability by FRAX of greater than or equal to 3% for hip fracture or greater than or equal to 20% for major osteoporotic fracture based on the [place] adapted WHO algorithm. 4. Other Recommendations: All treatment decisions require clinical judgment and consideration of individual patient factors, including patient preferences, comorbidities, previous drug use, risk factors not captured in the FRAX model (e.g. frailty, falls, vitamin D deficiency, increased bone turnover, interval significant decline in bone density) and possible under or overestimation of fracture risk by FRAX. Additional medical evaluation for secondary cause of low bone mineral density may be appropriate. FUTURE SCAN RECOMMENDATION: People with diagnosed cases of osteoporosis or at high risk for fracture should have regular bone mineral density tests. For patients eligible for Medicare, routine testing is allowed once every 2 years. The testing frequency can be increased to one year for patients who have rapidly progressing disease, those who are receiving or discontinuing medical therapy to restore bone mass, or have additional risk factors.
== END 2023-01-02 08:50 | disposition home or self-care (01) ==
LOC: HO.MAMMO 08:49
PROVIDERS: PCP Nurse Practitioner Primary Care; Visit Provider Internal Medicine
DX: E21.3 Hyperparathyroidism, unspecified (principal)
CPT/HCPCS: 77081

== ENCOUNTER 2023-01-22 09:24 | Outpatient (AMB) | payer MEDICARE, SELFPAY ==
--- NOTE | 2023-01-22 09:29 | A.OFFVIS_ITS ---
Intake Intake Visit Reasons: Urinary incontinence Allergies No Known Allergies Allergy (Verified 01/22/23 09:30) HPI HPI Comments History of Present Illness Details Chelsie is a 67-year-old female who presents today to the office for a follow-up. 01/22/2023? She is followed today for?urinary incontinence. The patient is a [place] speaking female. Certified language interpreter was present during the visit. She was last seen by me on 09/17/2022 for urodynamics procedure. Trial of Gemtesa ? was discussed and the patient was instructed that the medication will not help with ISD, and she is here for follow up. She states having urinary leakage with standing, and walking. Patient states that the medication has not helped with her urinary incontinence. She is not t aking any blood thinners. I reviewed the risks related to the sling procedure to include infections, bleeding, and exposure of mesh material. Discussed need for the other procedures related to the complications. 01/22/2023: Evaluation today--UA--leukoc ytes: negative; blood: 3 +; bladder scan PVR: 0 mL. Review of chart: CMG phase: there was no instability noted during the filling phase.? There was leakage with cough and valsalva, with? a leak low point pressure? Max capacity 400 ml.? the findings were consistent with pelvic floor weakness and intrinsic sphincter deficiency.? Treatment plan discussed to include pelvic floor physical therapy; minimally invasive therapy to include bulking agent to the urethra as well as sling procedure.? The patient stated she wanted try a medication. she is not interested in pelvic floor physical therapy. CT urogram results --08/12/2022 revealed urinary tract within normal limits; small renal cyst; no renal calculi; bladder: unremarkable. 01/22/2023: Plan: Schedule transvaginal sling with mesh. [facility] Medical History Multinodular thyroid OAB (overactive bladder) UTI (urinary tract infection) Stress incontinence in female Osteoporosis Hyperparathyroidism Vitamin D deficiency Osteopenia Toxic multinodul goiter Surgical History H/O parathyroidectomy Hx of hysterectomy History of ear surgery Family History Father No problems noted. Mother Hypertension Arthritis Osteoporosis Social History Alcohol intake: current Alcohol intake frequency: does not drink Patient Tobacco Use Status: Current everyday Tobacco user Tobacco use type: Cigarette Cigarettes Per Day: 4 Years Smoked: 45 Review of Systems Const Reports as per HPI Eyes Reports no additional complaints ENT Reports no additional complaints Card Reports no additional complaints Resp Reports no additional complaints GI Reports no additional complaints Reports as per HPI Musc Reports no additional complaints Neuro Reports no additional complaints Psych Reports no additional complaints Endo Reports no additional complaints Kristian/Lymph Reports no additional complaints Aller/Immun Reports no additional complaints Office Procedures Post Void Residual Post Residual Void Post Void Residual (PVR): 0 [id number] Void Residual by ultrasound Results AMB Urinalysis, Automated UA Leukoctes Bud/uL Last Edit by Radha York CMA on 01/22/23 09:43 UA Nitrite Last Edit by Radha York CMA on 01/22/23 09:43 UA Urobilinogen 0.2 mg/dL Last Edit by Radha York CMA on 01/22/23 09:43 UA Protein 15 mg/dL Last Edit by Radha York CMA on 01/22/23 09:43 UA pH 5.5 Last Edit by Radha York CMA on 01/22/23 09:43 UA Blood 200 Taye/uL Last Edit by Radha York CMA on 01/22/23 09:43 UA Specific Piru 1.025 Last Edit by Radha York CMA on 01/22/23 09:43 UA Ketone Positive Last Edit by Radha York CMA on 01/22/23 09:43 UA Bilirubin 1 mg/dL Last Edit by Radha York CMA on 01/22/23 09:43 UA Glucose mg/dL Last Edit by Radha York CMA on 01/22/23 09:43 Results Reviewed Results Reviewed: Laboratory Last Values Urine pH (Auto) 5.5 01/22/23 09:42 Specific Piru (Auto) 1.025 01/22/23 09:42 Urine Protein (Auto) 15 mg/dL 01/22/23 09:42 Urine Ketones (Auto) Positive 01/22/23 09:42 Urine Blood (Auto) 200 Taye/uL 01/22/23 09:42 Urine Bilirubin (Auto) 1 mg/dL 01/22/23 09:42 Urine Urobilinogen (Auto) 0.2 mg/dL 01/22/23 09:42 Date of Service: 08/12/22 EXAMINATION: CT ABDOMEN AND PELVIS WITHOUT AND WITH CONTRAST CLINICAL INFORMATION: Microscopic hematuria COMPARISON: None available. FINDINGS: LUNG BASES: 3 mm calcified right base pulmonary nodule probably representing a calcified granuloma. Lung bases are otherwise clear. LIVER, GALLBLADDER, AND BILIARY TREE: The liver is normal in size, shape, and attenuation. No focal hepatic lesion or biliary ductal dilatation is present. The gallbladder is unremarkable with no evidence of radiopaque gallstones, gallbladder wall thickening, or obvious pericholecystic inflammatory changes. PANCREAS: Unremarkable. SPLEEN: Unremarkable. ADRENAL GLANDS: Unremarkable. KIDNEYS AND URETERS: The kidneys are normal in size, shape, and attenuation. No hydronephrosis, hydroureter, or calculi seen. The collecting systems are normal-appearing. Small bilateral renal cysts. Largest cyst measures 1.6 cm in the posterior upper pole of the right kidney. Tiny subcentimeter hyperdense cyst exophytic to the upper pole of the right kidney. No imaging follow-up. BLADDER: Unremarkable. GASTROINTESTINAL TRACT: Mild diverticulosis. No evidence of diverticulitis. The small and large bowel are otherwise unremarkable. The appendix is unremarkable. ABDOMINAL WALL: Small umbilical hernia containing fat. LYMPH NODES: Normal. VASCULAR: Unremarkable. PELVIC VISCERA: The uterus has been removed. No pelvic mass. OSSEUS STRUCTURES: Degenerative changes of the lower lumbar spine. IMPRESSION: No cause of hematuria seen. Assessment & Plan Assessment & Plan (1) Urinary urgency: Code(s): R39.15 - Urgency of urination (2) Urinary incontinence: Code(s): R32 - Unspecified urinary incontinence (3) Urinary frequency: Code(s): R35.0 - Frequency of micturition Plan To schedule a vaginal sling.? Orders: Orders AMB Urinalysis Automated 01/22/23 R32 - Unspecified urinary incontinence Urine Culture 01/22/23 N39.0 - Urinary tract infection, site not specified AMB Post Void Residual by ultrasound 01/22/23 R32 - Unspecified urinary incontinence Complete Blood Count Auto Diff 01/23/23 Z01.818 - Encounter for other prepr ocedural examination Electrolytes 01/23/23 Z01.818 - Encounter for other preprocedural examination Patient Instructions: The patient had an opportunity to ask questions regarding treatment plan. All questions were answered. Imaging, Laboratory studies and physical exam results were discussed and reviewed in detail. No major barriers to understanding were identified. The patient expressed understanding and agreement with the above treatment plan.? ? ? The patient is aware they should contact our office by phone for worsening of their current condition or the appearance of new symptoms. Compliance is encouraged with any medications and followup testing that is ordered.? ? ? It is a privilege to be allowed the opportunity to participate in the urologic care of your patient. If you have any questions or concerns regarding treatment for the above conditions please do not hesitate to contact me. The office t elephone contact is [phone].? ? ? This note is constructed in part using voice recognition software. While every effort has been made to ensure accuracy card services specialist errors may have been included.? ? ? Yours sincerely,? ? ? Odalis Engel MD? Coding Level of Care Code Est Pt Level 4 (03359) Diagnoses Urinary urgency R39.15 Urinary incontinence R32 Urinary frequency R35.0 CPT Codes Post Residual Void - PVR CPT Code: 77672-Iwdc Void Residual by ultrasound ([id number]) Time Spent (min) 35
== END 2023-01-22 10:29 | disposition home or self-care (01) ==
PROVIDERS: PCP Nurse Practitioner Primary Care; Visit Provider Urology
DX: R39.15 Urgency of urination (principal); R32 Unspecified urinary incontinence; R35.0 Frequency of micturition
CPT/HCPCS: 99214

== ENCOUNTER 2023-01-22 09:24 | Outpatient (REF) | payer MEDICARE, SELFPAY | END 2023-01-22 09:25 | disposition home or self-care (01) | LOC: HO.LAB 09:24 | PROVIDERS: PCP Nurse Practitioner Primary Care; Visit Provider Urology | DX: N39.0 Urinary tract infection, site not specified (principal) | CPT/HCPCS: 51798; 81003; 87086; 99212 ==

== ENCOUNTER 2023-02-05 08:29 | Outpatient (AMB) | payer MEDICARE, SELFPAY ==
--- NOTE | 2023-02-05 08:30 | A.OFFVIS_ITS ---
Intake Intake Visit Reasons: Follow up to Discuss gel Intake Note: Patient presents today via phone visit to discuss gel: Meds- Pyridium & Tolterodine Allergies to Antibiotic- No Known Allergies Blood Thinner- None Caregivers Non Medical Required: Yes Caregivers Non Medical Language: Kinyarwanda Information Interpreted: non-clinical & clinical Accompanied by: Self / Same As Patient Allergies No Known Allergies Allergy (Verified 01/22/23 09:30) HPI HPI Comments History of Present Illness Details I have Discussed the risks of bulking injection to the bladder neck/urethra to include but not limited to urine retention, requiring a lino catheter and need to repeat the procedure, hematuria, urgency. She had UDS 09/17/22 with findings c/w ISD. PFSH Medical History Multinodular thyroid OAB (overactive bladder) UTI (urinary tract infection) Stress incontinence in female Osteoporosis Hyperparathyroidism Vitamin D deficiency Osteopenia Toxic multinodul goiter Surgical History H/O parathyroidectomy Hx of hysterectomy History of ear surgery Family History Father No problems noted. Mother Hypertension Arthritis Osteoporosis Social History Alcohol intake: current Alcohol intake frequency: does not drink Patient Tobacco Use Status: Current everyday Tobacco user Tobacco use type: Cigarette Cigarettes Per Day: 4 Years Smoked: 45 Results Reviewed Results Reviewed: Ordered:? Urine Culture? Procedure?Result?Verified?Site ? Urine Culture? Final?01/24/23-8 ? Report Result?10,000 to 50,000 cfu/ml ? Mixed bacterial vick characteristic of ? urogenital contamination Assessment & Plan Assessment & Plan (1) Urinary incontinence: Code(s): R32 - Unspecified urinary incontinence (2) Intrinsic (urethral) sphincter deficiency (ISD): Code(s): N36.42 - Intrinsic sphincter deficiency (ISD) Plan To schedule Cystoscopy bulking agent injection. Discussed the risks that include but not limited to urine retention, and need to repeat the procedure. Patient Instructions: The patient had an opportunity to ask questions regarding treatment plan. All questions were answered. Imaging, Laboratory studies and physical exam results were discussed and reviewed in detail. No major barriers to understanding were identified. The patient expressed understanding and agreement with the above treatment plan.? ? ? The patient is aware they should contact our office by phone for worsening of their current condition or the appearance of new symptoms. Compliance is encouraged with any medications and followup testing that is ordered.? ? ? It is a privilege to be allowed the opportunity to participate in the urologic care of your patient. If you have any questions or concerns regarding treatment for the above conditions please do not hesitate to contact me. The office telephone contact is [phone].? ? ? This note is constructed in part using voice recognition software. While every effort has been made to ensure accuracy greenhouse instructor errors may have been included.? ? ? Yours sincerely,? ? ? Odalis Engel MD? Telehealth Telehealth Location of provider rendering services: practice address Location of patient: address on file Patient Identification confirmed using: Name, : Yes Telehealth method: voice only Patient verbally consented to treatment: Yes Patient verbally consented to billing insurance company: Yes Patient informed of any privacy concerns related to visit: Yes Minutes spent on Phone/Video with Pt.: 21 Coding Level of Care Code Tele New Pt Level 4 (40267) Diagnoses Urinary incontinence R32 Intrinsic (urethral) sphincter deficiency (ISD) N36.42
== END 2023-02-05 15:32 | disposition home or self-care (01) ==
LOC: HO.HUSH 08:29
PROVIDERS: PCP Nurse Practitioner Primary Care; Visit Provider Urology
DX: R32 Unspecified urinary incontinence (principal); N36.42 Intrinsic sphincter deficiency (ISD)
CPT/HCPCS: 99443

== ENCOUNTER → 2023-02-05 08:29 | Outpatient (BNVA) | payer MEDICARE, SELFPAY | PROVIDERS: PCP Nurse Practitioner Primary Care; Visit Provider Urology ==

== ENCOUNTER 2023-03-19 12:54 | Outpatient (REF) | payer MEDICARE, SELFPAY ==
[2023-03-19 13:09] LABS: MANUAL DIFF FLAG NO
[2023-03-19 13:28] LABS: Basophils Percent Auto 0.4 % (0-2); Eosinophils Absolute Auto 0.1 X10*3/uL (0.0-0.4); Eosinophils Percent Auto 1.5 % (0-4); Hematocrit 37.5 % (37.0-47.0); Hemoglobin 12.6 g/dl (12.0-16.0); Imm Gran Abs Auto 0.03 X10*3/uL (0.00-0.03); Imm Gran Pct Auto 0.4 % (0.0-0.4); Lymphocytes Absolute Auto 2.1 X10*3/uL (1.2-4.9); Lymphocytes Percent Auto 25.5 % (20-40); Mean Corpuscular HGB Conc 33.6 g/dl (31.0-35.0); Mean Corpuscular Hemoglobin 31.5 pg (27.0-33.0); Mean Corpuscular Volume 93.8 fL (80.0-98.0); Mean Platelet Volume 10.3 fL (9.4-12.3); Monocytes Absolute Auto 0.5 X10*3/uL (0.1-1.2); Monocytes Percent Auto 6.1 % (2-11); Neutrophils Absolute Auto 5.4 x10*3/uL (2.0-8.3); Neutrophils Percent Auto 66.1 % (45-73); Platelet Count 211 X10*3/uL (160-400); White Blood Count 8.2 X10*3/uL (4.8-10.8)
[2023-03-19 14:07] LABS: Alanine Aminotransferase 16 U/L (0-31); Albumin Level 4.4 g/dL (3.5-5.0); Alkaline Phosphatase 91 U/L (39-117); Anion Gap 11 (12-20); Aspartate Amino Transferase 16 U/L (5-31); Bilirubin Total 0.4 mg/dL (0.0-1.0); Blood Urea Nitrogen 15 mg/dL (9-16); Calcium 9.1 mg/dL (8.4-10.2); Carbon Dioxide 26 mmol/L (22-29); Chloride 108 mmol/L (96-108); Estimated Glomerular Filt Rate > 60; Glucose Random 94 mg/dL (60-115); Phosphorus 3.5 mg/dL (2.7-4.5); Sodium 141 mmol/L (135-145); Total Protein 7.5 g/dL (6.5-8.0)
[2023-03-19 14:22] LABS: Thyroid Stimulating Hormone 0.79 uIU/mL (0.32-4.0)
[2023-03-19 14:26] LABS: Free T4 (Free Thyroxine) 0.79 ng/dL (0.71-1.85); Vitamin D 25-OH Total 32.7 ng/mL (>30)
[2023-03-23 17:17] LABS: Calcium (PTHI) 9.4 mg/dL (8.6-10.4); PTHI 81 pg/mL (16-77)
== END 2023-03-19 12:55 | disposition home or self-care (01) ==
LOC: HO.LAB 12:54
PROVIDERS: Absent Provider Urology; PCP Nurse Practitioner Primary Care; Visit Provider Internal Medicine
DX: Z01.818 Encounter for other preprocedural examination (principal); E21.3 Hyperparathyroidism, unspecified; E04.2 Nontoxic multinodular goiter; E05.20 Thyrotoxicosis with toxic multinodular goiter without thyrotoxic crisis or storm; E55.9 Vitamin D deficiency, unspecified
CPT/HCPCS: 36415; 80053; 82306; 83970; 84100; 84439; 84443; 85025

== ENCOUNTER 2023-03-25 14:33 | Outpatient (REF) | payer OTHER, SELFPAY | END 2023-03-25 14:34 | disposition home or self-care (01) | LOC: HO.US 14:33 | PROVIDERS: PCP Nurse Practitioner Primary Care; Visit Provider Internal Medicine Endocrinology, Diabetes & Metabolism | DX: E04.2 Nontoxic multinodular goiter (principal) | CPT/HCPCS: 76536 ==

== ENCOUNTER 2023-03-25 15:35 | Outpatient (REF) | payer SELFPAY ==
--- NOTE | ~2023-03-25 | US_ITS ---
EXAMINATION: US THYROID CLINICAL INFORMATION: Nontoxic multinodular goiter. COMPARISON: Ultrasound-guided thyroid biopsy 12/15/2019. Thyroid ultrasound 06/16/2019. TECHNIQUE: Linear transducer warren-scale and color Doppler examination with attention to the region of the thyroid. FINDINGS: SIZE: Measurements of the solitary right thyroid lobe and nodules are given in sagittal, anteroposterior and transverse dimensions respectively. Right Thyroid Lobe: 4.8 x 1.2 x 2.1 cm, volume 6.5 mL. Previously 4.9 x 1.4 x 1.6 cm, volume 5.7 mL. Parenchyma: The gland echotexture is homogeneous. Thyroid vascularity is normal. Left Thyroid Lobe: Surgically absent. Isthmus: 0.2 cm in maximum AP dimension. Previously 0.3 cm. Estimated total number of nodules greater than or equal to 1 cm: 0. Largest 3 nodules are described as follows: Multiple small colloid cysts. 1. Location: Right mid. Size: 0.7 x 0.5 x 0.7 cm, volume 0.1 mL. Previously: 0.6 x 0.5 x 0.6 cm, volume 0.09 mL. Nodule characteristics: Composition: Solid (2). Echogenicity: Very hypoechoic (3). Shape: Not taller than wide (0). Margins: Lobulated (2). Echogenic Foci: None (0). ACR TI-RADS total points: 7 ACR TI-RADS category: 4 Significant change in size (>/= 20% in 2 dimensions and minimal increase of 2 mm or 50% or greater increase in volume): No Change in features: Yes Change in ACR TI-RADS risk category: Yes 2. Location: Right mid inferior. Size: 0.8 x 0.6 x 0.7 cm, volume 0.2 mL. Previously: 0.5 x 0.3 x 0.4 cm, volume 0.03 mL. Nodule characteristics: Composition: Spongiform (0). Echogenicity: Anechoic (0). Shape: Not taller than wide (0). Margins: Smooth (0). Echogenic Foci: None (0). ACR TI-RADS total points: 0 ACR TI-RADS category: 1 Significant change in size (>/= 20% in 2 dimensions and minimal increase of 2 mm or 50% or greater increase in volume): No Change in features: No Change in ACR TI-RADS risk category: No 3. Location: Right inferior. Size: 0.9 x 0.7 x 0.9 cm, volume 0.3 mL. Previously: 0.8 x 0.7 x 0.7 cm, volume 0.2 mL. Nodule characteristics: Composition: Solid (2). Echogenicity: Hypoechoic (2). Shape: Not taller than wide (0). Margins: Ill-defined (0). Echogenic Foci: None (0). ACR TI-RADS total points: 4 ACR TI-RADS category: 4 Significant change in size (>/= 20% in 2 dimensions and minimal increase of 2 mm or 50% or greater increase in volume): No Change in features: No Change in ACR TI-RADS risk category: No NODES: No lymphadenopathy is seen in the tissue surrounding the thyroid gland. US/US thyroid IMPRESSION: Multiple solid and cystic right nodules. Suspicious nodule in the mid right lobe. According to TI RADS criteria, follow-up ultrasound every year for 5 years would be recommended. ACR TI-RADS RECOMMENDATION REFERENCE: Ultrasound-guided fine-needle aspiration, follow up ultrasound, no further followup. * TR1 (0 point) and TR2 (2 points): No FNA or followup * TR3 (3 points): FNA if more than or equal to 2.5 cm in maximum dimension, follow up ultrasound in 1, 3 and 5 years if 1.5 to 2.4 cm in maximum dimension. * TR4 (4-6 points): FNA if more than or equal to 1.5 cm in maximum dimension, follow up ultrasound in 1, 2, 3 and 5 years if 1 to 1.4 cm in maximum dimension. * TR5 (more than or equal to 7 points): FNA if more than or equal to 1 cm in maximum dimension, follow up ultrasound every year for 5 years if 0.5 to 0.9 cm in maximum dimension. * TR3, TR4 or TR5 nodules that are below the size threshold for follow up receive no followup.
== END 2023-03-25 15:36 | disposition home or self-care (01) ==
LOC: HO.HAP 15:35
PROVIDERS: Visit Provider Nurse Practitioner Primary Care
DX: Z46.1 Encounter for fitting and adjustment of hearing aid (principal); H90.3 Sensorineural hearing loss, bilateral
CPT/HCPCS: 76536; V5266

== ENCOUNTER 2023-04-01 13:45 | Outpatient (AMB) | payer MEDICARE, SELFPAY ==
[2023-04-01 13:47] VITALS: BP 132/76; PULSE 68; BMI 29.6
--- NOTE | 2023-04-01 13:47 | MHC.OFFVIS ---
Intake Vital Signs 04/01/23 13:47 Height 5 ft 2.2 in Weight 163 lb 2.273 oz BMI 29.6 BP 132/76 Blood Pressure Location Lt brachial Position Sitting Pulse 68 Pulse Source Pulse Oximeter Intake Visit Reasons: ultrasound results-CONFIRMED Intake Note: Patient present for results of Ultrasound of the Thyroid done on 03/25/23 at [facility] [place] Pattern Fitter Required: Yes Pattern Fitter Language: Associate Professor Of Automation Name: [facility] medical staff Information Interpreted: non-clinical & clinical Accompanied by: Self / Same As Patient Allergies No Known Allergies Allergy (Verified 04/01/23 13:54) Medication List - Last Reconciled 04/01/23 by Rufus Banuelos MD atorvastatin 10 mg PO DAILY [id number]-[id number]-[id number]-copper-puja 325 mg-12.5 mcg -2.75 mg (Citracal-D3 Maximum Plus) 1 tab PO DAILY cholecalciferol (vitamin D3) 100 mcg (2 x 50 mcg (2,000 unit)) PO DAILY ibuprofen 800 mg PO TID HPI HPI Comments History of Present Illness Details 67 YO F with PMHx Osteopenia who is seen in F/U for 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 She is now S/P a L thyroid lobectomy and a L inferior parathyroidectomy. . The patient last saw Dr. Garcia on 08/11/2002 1) Toxic MNG: She had TSH checked 09/14/18 which revealed hyperthyroidism with TSH of 0.08. This was repeated 11/09/18 with TSH of 0.14 with FT4 WNL at 0.75 and TT3 WNL at 132. TRAB antibodies were checked and were negative. Labs were then repeated 12/27/18 with TSH 0.1 with FT4 and TT3 WNL, and negative TSI, TRAB, TPO, and TG Antibodies. She had a thyroid US which revealed a multinodular thyroid with multiple nodules within the L lobe meeting indication for FNA biopsy. She had a Thyroid Uptake and Scan completed 07/27/2019 which revealed normal uptake but marked heterogeneity within the gland, consistent with a toxic MNG. She was subsequently started on Methimazole 5 mg PO daily, and this was later titrated upward to 7.5 mg PO daily. She was scheduled for FNA biopsy of her L upper pole 1.2 cm nodule, L mid pole 2.1 cm nodule, L lower 1.5 cm nodule and her L lower 1.0 cm nodule. She was unable to tolerate even the first pass of the first nodule, and refused further attempts at FNA. She refused additional FNA. She was referred to Dr. Styles to discuss a surgical thyroidectomy. After her intitial consultation she opted not to proceed with this, but subsequently changed her mind. She underwent L hemithyroidectomy 08/06/2020. Official surgical path was benign. She was not started on thyroid hormone replacement postoperatively. TSH has remained WNL. She reports feeling well currently. She was also noted to have hyperparathyroidism, and underwent a L inferior parathyroidectomy. Postoperative her PTH remains WNL. However, her last PTH was slightly elevated with borderline low 25- vitamin-D levels DEXA revealed Osteoporosis of the distal forearm, and Osteopenia of the hip and spine. DXA 01/01/2021: FINDINGS: AP SPINE L1-L4: Current: BMD 0.945 g/cm2, Z-score -0.4, T-score -2.0, osteopenia, 2.6% increase from baseline (<5% change is not significant). Baseline: BMD 0.921 g/cm2. LEFT FEMUR, NECK: Current: BMD 0.776 g/cm2, Z-score -0.4, T-score -1.9, osteopenia. Baseline: BMD 0.735 g/cm2. LEFT FEMUR, TOTAL: Current: BMD 0.846 g/cm2, Z-score 0.0, T-score -1.3, osteopenia, 2.3% increase from baseline (<5% change is not significant). Baseline: BMD 0.827 g/cm2. RIGHT FOREARM RADIUS 33%: BMD 0.642 g/cm2, Z-score -1.1, T-score -2.7, osteoporosis. Labs: Laboratory Tests Recent thyroid ultrasound showed subcentimeter nodules in the right lobe with 1 nodule subcentimeter containing some suspicious features 07/31/22 07/31/22 10:40 10:40 Creatinine 0.80 Estimated GFR > 60 25-OH Vitamin D To sneha 34.4 TSH 1.11 Free T4 0.79 PTH Intact 63 Calcium (PTH Intac t) 9.3 [facility] Medical History Multinodular thyroid OAB (overactive bladder) UTI (urinary tract infection) Stress incontinence in female Osteoporosis Hyperparathyroidism Vitamin D deficiency Osteopenia Toxic multinodul goiter Surgical History H/O parathyroidectomy Hx of hysterectomy History of ear surgery Family History Father No problems noted. Mother Hypertension Arthritis Osteoporosis Alcohol intake: current Alcohol intake frequency: does not drink Patient Tobacco Use Status: Current everyday Tobacco user Tobacco use type: Cigarette Cigarettes Per Day: 4 Years Smoked: 45 Physical Exam Vital Signs: Last Vital Signs Pulse 68 04/01/23 13:47 BP 132/76 04/01/23 13:47 BMI result Body Mass Index 29.6 Const Other: Healed scar status post hemithyroidectomy Assessment & Plan Assessment & Plan (1) Hyperparathyroidism: Code(s): E21.3 - Hyperparathyroidism, unspecified (2) Vitamin D deficiency: Code(s): E55.9 - Vitamin D deficiency, unspecified Plan: Mild vitamin-D deficiency with slight elevation of PTH status post parathyroidectomy with removal of 1 parathyroid gland. Differential includes persistent primary hyperparathyroidism with failed parathyroid exploration versus secondary hyperparathyroidism due to vitamin-D deficiency. Plan is to increase the vitamin D3 to 4000-units per day. Will recheck 25 hydroxy vitamin-D, calcium, PTH in 3 months (3) Toxic multinodul goiter: Code(s): E05.20 - Thyrotoxicosis with toxic multinodular goiter without thyrotoxic crisis or storm Plan: Status post hemithyroidectomy with normalization of TSH. There are subcentimeter nodules on recent ultrasound of the right lobe 1 which has suspicious feature. She appears to be clinically and biochemically euthyroid The plan is for follow-up thyroid ultrasound in about 6 months to 1 year's time Orders: Orders Vitamin D 25-OH Total 3 Months E21.3 - Hyperparathyroidism, unspecified, E55.9 - Vitamin D deficiency, unspecified PTHI 3 Months E21.3 - Hyperparathyroidism, unspecified, E55.9 - Vitamin D deficiency, unspecified Albumin Level 3 Months E21.3 - Hyperparathyroidism, unspecified, E55.9 - Vitamin D deficiency, unspecified Medications: Changed From cholecalciferol (vitamin D3) 50 mcg PO DAILY 30 caps 0RF E55.9 - Vitamin D deficiency, unspecified To cholecalciferol (vitamin D3) 100 mcg (2 x 50 mcg (2,000 unit)) PO DAILY 60 caps 4RF E55.9 - Vitamin D deficiency, unspecified Coding Level of Care Code Est Pt Level 3 (63655) Diagnoses Hyperparathyroidism E21.3 Vitamin D deficiency E55.9 Toxic multinodul goiter E05.20
== END 2023-04-01 14:57 | disposition home or self-care (01) ==
PROVIDERS: PCP Nurse Practitioner Primary Care; Visit Provider Internal Medicine Endocrinology, Diabetes & Metabolism
DX: E21.3 Hyperparathyroidism, unspecified (principal); E55.9 Vitamin D deficiency, unspecified; E05.20 Thyrotoxicosis with toxic multinodular goiter without thyrotoxic crisis or storm
CPT/HCPCS: 99213

== ENCOUNTER → 2023-04-01 13:45 | Outpatient (BNVA) | payer MEDICARE, SELFPAY | PROVIDERS: PCP Nurse Practitioner Primary Care; Visit Provider Internal Medicine Endocrinology, Diabetes & Metabolism | DX: E89.0 Postprocedural hypothyroidism (principal); E21.3 Hyperparathyroidism, unspecified; E05.20 Thyrotoxicosis with toxic multinodular goiter without thyrotoxic crisis or storm; M81.0 Age-related osteoporosis without current pathological fracture; E55.9 Vitamin D deficiency, unspecified | CPT/HCPCS: 99212 ==

== ENCOUNTER 2023-06-30 | Outpatient (REF) | payer OTHER, SELFPAY | END 2023-06-30 00:01 | disposition home or self-care (01) | LOC: HO.HHCX | PROVIDERS: Visit Provider Registered Nurse | DX: M54.6 Pain in thoracic spine (principal); M25.561 Pain in right knee; G89.29 Other chronic pain | CPT/HCPCS: 72070; 73564 ==

== ENCOUNTER 2023-06-30 11:17 | Outpatient (REF) | payer SELFPAY ==
--- NOTE | ~2023-06-30 | XR_ITS ---
EXAMINATION: XR THORACIC SPINE XR KNEE, RIGHT CLINICAL INFORMATION: Acute thoracic back pain, fell from standing height 3 weeks ago. Patient stated it is mid back pain and chronic right knee pain, suspect osteoarthritis. COMPARISON: None TECHNIQUE: Three views of the thoracic spine. Five views of the right knee. FINDINGS: RIGHT KNEE: Trace joint effusion. Tiny tricompartmental osteophytes. Minimal bilateral medial joint space narrowing. THORACIC SPINE: Slight leftward curvature of the thoracic spine. Skhw-hp-qgsfmrbe multilevel degenerative changes in the thoracic spine. Slight loss of height of T12 vertebral body of indeterminate age. The visualization of the upper thoracic spine is limited due to overlying bone and soft tissues. Degenerative changes noted incidentally on very limited imaging of the cervical spine. XR/XR knee RT 4V IMPRESSION: 1. Mild degenerative changes right knee. 2. Qjjr-mp-ogbzaxso multilevel degenerative changes in the thoracic spine. 3. Slight loss of height of T12 vertebral body of indeterminate age. Additional imaging with CT scan or MRI should be considered for better visualization as these modalities are much more sensitive for detection of fracture or other underlying pathology.
--- NOTE | ~2023-06-30 | XR_ITS ---
EXAMINATION: XR THORACIC SPINE XR KNEE, RIGHT CLINICAL INFORMATION: Acute thoracic back pain, fell from standing height 3 weeks ago. Patient stated it is mid back pain and chronic right knee pain, suspect osteoarthritis. COMPARISON: None TECHNIQUE: Three views of the thoracic spine. Five views of the right knee. FINDINGS: RIGHT KNEE: Trace joint effusion. Tiny tricompartmental osteophytes. Minimal bilateral medial joint space narrowing. THORACIC SPINE: Slight leftward curvature of the thoracic spine. Zyyx-ou-gqizeuua multilevel degenerative changes in the thoracic spine. Slight loss of height of T12 vertebral body of indeterminate age. The visualization of the upper thoracic spine is limited due to overlying bone and soft tissues. Degenerative changes noted incidentally on very limited imaging of the cervical spine. XR/XR thoracic spine 2V IMPRESSION: 1. Mild degenerative changes right knee. 2. Gdza-kb-ykyxikau multilevel degenerative changes in the thoracic spine. 3. Slight loss of height of T12 vertebral body of indeterminate age. Additional imaging with CT scan or MRI should be considered for better visualization as these modalities are much more sensitive for detection of fracture or other underlying pathology.
== END 2023-06-30 11:18 | disposition home or self-care (01) ==
LOC: HO.HAP 11:17
PROVIDERS: Visit Provider Nurse Practitioner Primary Care
DX: Z46.1 Encounter for fitting and adjustment of hearing aid (principal); H90.3 Sensorineural hearing loss, bilateral
CPT/HCPCS: 72070; 73564; V5266

== ENCOUNTER 2023-07-15 16:24 | Outpatient (REF) | payer OTHER, SELFPAY | END 2023-07-15 16:25 | disposition home or self-care (01) | LOC: HO.HHCLNP 16:24 | PROVIDERS: Visit Provider Advanced Practice Midwife | DX: N39.3 Stress incontinence (female) (male) (principal); R82.90 Unspecified abnormal findings in urine | CPT/HCPCS: 87086 ==

== ENCOUNTER → 2023-08-10 13:30 | Outpatient (BNV) | payer OTHER, SELFPAY | PROVIDERS: PCP Nurse Practitioner Primary Care; Visit Provider Radiology Diagnostic Radiology | DX: Z12.31 Encounter for screening mammogram for malignant neoplasm of breast (principal) | CPT/HCPCS: 77063; 77067 ==

== ENCOUNTER 2023-08-10 13:49 | Outpatient (REF) | payer OTHER, SELFPAY ==
--- NOTE | ~2023-08-10 | MM_ITS ---
EXAMINATION: MM SCREENING DIGITAL BREAST TOMOSYNTHESIS, BILATERAL CLINICAL INFORMATION: Screening. Asymptomatic. COMPARISON: Mammography: This study is compared with prior exams dating back to 2020. TECHNIQUE: Digital breast tomosynthesis is performed in both the craniocaudal and mediolateral oblique views along with computer-aided detection (CAD). Synthesized 2D images are generated from the tomosynthesis. FINDINGS: The breasts are heterogeneously dense, which may obscure small masses (ACR BI-RADS breast composition Category c). There are no significant masses, abnormal calcifications, or other abnormalities. MM/MM tomosynthesis screening BI IMPRESSION: No mammographic evidence of malignancy. ASSESSMENT: BI-RADS BI-RADS 1 - Negative RECOMMENDATION: Routine annual mammography screening. 1 year F/U This examination should not preclude the clinical evaluation of a suspicious palpable abnormality. This patient's information was entered into a reminder system with a target due date for their next mammogram.
== END 2023-08-10 13:50 | disposition home or self-care (01) ==
LOC: HO.MAMMO 13:49
PROVIDERS: PCP Nurse Practitioner Primary Care; Visit Provider Nurse Practitioner Primary Care
DX: Z12.31 Encounter for screening mammogram for malignant neoplasm of breast (principal)
CPT/HCPCS: 77063; 77067

== ENCOUNTER 2023-08-28 12:19 | Outpatient (REF) | payer MEDICARE, SELFPAY ==
[2023-08-28 16:42] LABS: Albumin Level 4.2 g/dL (3.5-5.0)
[2023-08-28 17:10] LABS: Vitamin D 25-OH Total 37.2 ng/mL (>30)
== END 2023-08-28 12:20 | disposition home or self-care (01) ==
LOC: HO.LAB 12:19
PROVIDERS: PCP Nurse Practitioner Primary Care; Visit Provider Internal Medicine Endocrinology, Diabetes & Metabolism
DX: E21.3 Hyperparathyroidism, unspecified (principal); E55.9 Vitamin D deficiency, unspecified
CPT/HCPCS: 36415; 82040; 82306

== ENCOUNTER 2023-08-31 12:46 | Outpatient (AMB) | payer MEDICARE, SELFPAY ==
[2023-08-31 12:50] VITALS: BP 126/68; PULSE 70; BMI 29.5
--- NOTE | 2023-08-31 12:50 | MHC.OFFVIS ---
Vital Signs 08/31/23 12:50 Height 5 ft 2.2 in Weight 162 lb 4.163 oz BMI 29.5 BP 126/68 Blood Pressure Location Lt brachial Position Sitting Pulse 70 Pulse Source Pulse Oximeter Intake Visit Reasons: f/u MNG/ hyperthyroidism-confirmed Intake Note: Patient presents today for MNG and Hyperthyroidism follow up. 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 She is now S/P a L thyroid lobectomy and a L inferior parathyroidectomy. . The patient last saw Dr. Garcia on 08/11/2002 1) Toxic MNG: She had TSH checked 09/14/18 which revealed hyperthyroidism with TSH of 0.08. This was repeated 11/09/18 with TSH of 0.14 with FT4 WNL at 0.75 and TT3 WNL at 132. TRAB antibodies were checked and were negative. Labs were then repeated 12/27/18 with TSH 0.1 with FT4 and TT3 WNL, and negative TSI, TRAB, TPO, and TG Antibodies. She had a thyroid US which revealed a multinodular thyroid with multiple nodules within the L lobe meeting indication for FNA biopsy. She had a Thyroid Uptake and Scan completed 07/27/2019 which revealed normal uptake but marked heterogeneity within the gland, consistent with a toxic MNG. She was subsequently started on Methimazole 5 mg PO daily, and this was later titrated upward to 7.5 mg PO daily. She was scheduled for FNA biopsy of her L upper pole 1.2 cm nodule, L mid pole 2.1 cm nodule, L lower 1.5 cm nodule and her L lower 1.0 cm nodule. She was unable to tolerate even the first pass of the first nodule, and refused further attempts at FNA. She refused additional FNA. She was referred to Dr. Styles to discuss a surgical thyroidectomy. After her intitial consultation she opted not to proceed with this, but subsequently changed her mind. She underwent L hemithyroidectomy 08/06/2020. Official surgical path was benign. She was not started on thyroid hormone replacement postoperatively. TSH has remained WNL. She reports feeling well currently. She was also noted to have hyperparathyroidism, and underwent a L inferior parathyroidectomy. Postoperative her PTH remains WNL. However, her last PTH was slightly elevated with borderline low 25- vitamin-D levels DEXA revealed Osteoporosis of the distal forearm, and Osteopenia of the hip and spine. DXA 01/01/2021: FINDINGS: AP SPINE L1-L4: Current: BMD 0.945 g/cm2, Z-score -0.4, T-score -2.0, osteopenia, 2.6% increase from baseline (<5% change is not significant). Baseline: BMD 0.921 g/cm2. LEFT FEMUR, NECK: Current: BMD 0.776 g/cm2, Z-score -0.4, T-score -1.9, osteopenia. Baseline: BMD 0.735 g/cm2. LEFT FEMUR, TOTAL: Current: BMD 0.846 g/cm2, Z-score 0.0, T-score -1.3, osteopenia, 2.3% increase from baseline (<5% change is not significant). Baseline: BMD 0.827 g/cm2. RIGHT FOREARM RADIUS 33%: BMD 0.642 g/cm2, Z-score -1.1, T-score -2.7, osteoporosis. Labs: Laboratory Tests Recent thyroid ultrasound showed subcentimeter nodules in the right lobe with 1 nodule subcentimeter containing some suspicious features 07/31/22 07/31/22 10:40 10:40 Creatinine 0.80 Estimated GFR > 60 25-OH Vitamin D Total 34.4 TSH 1.11 Free T4 0.79 PTH Intact 63 Calcium (PTH Intact) 9.3 PFSH Medical History Multinodular thyroid OAB (overactive bladder) UTI (urinary tract infection) Stress incontinence in female Osteoporosis Hyperparathyroidism Vitamin D deficiency Osteopenia Toxic multinodul goiter Surgical History H/O parathyroidectomy Hx of hysterectomy History of ear surgery Family History Father No problems noted. Mother Hypertension Arthritis Osteoporosis Social History Alcohol intake: current Alcohol intake frequency: does not drink Patient Tobacco Use Status: Current everyday Tobacco user Tobacco use type: Cigarette Cigarettes Per Day: 4 Years Smoked: 45 Physical Exam Vital Signs: Last Vital Signs Pulse 70 08/31/23 12:50 BP 126/68 08/31/23 12:50 BMI result Body Mass Index 29.5 Const Other: Healed scar status post hemithyroidectomy Assessment & Plan Assessment & Plan (1) Toxic multinodul goiter: Code(s): E05.20 - Thyrotoxicosis with toxic multinodular goiter without thyrotoxic crisis or storm Category: Medical Plan: Status post hemithyroidectomy with normalization of TSH. There are subcentimeter nodules on recent ultrasound of the right lobe 1 which has suspicious feature. She appears to be clinically and biochemically euthyroid The plan is check a follow-up thyroid ultrasound (2) Hyperparathyroidism: Code(s): E21.3 - Hyperparathyroidism, unspecified Category: Medical Plan: See plan for vitamin-D deficiency (3) Vitamin D deficiency: Code(s): E55.9 - Vitamin D deficiency, unspecified Category: Medical Plan: Mild vitamin-D deficiency with slight elevation of PTH status post parathyroidectomy with removal of 1 parathyroid gland. Differential includes persistent primary hyperparathyroidism with failed parathyroid exploration versus secondary hyperparathyroidism due to vitamin-D deficiency. Plan is to recheck 25 hydroxy vitamin-D, calcium, PTH in 3 months Orders: Orders Calcium Today E21.3 - Hyperparathyroidism, unspecified Albumin Level Today E21.3 - Hyperparathyroidism, unspecified US thyroid Today E05.20 - Thyrotoxicosis with toxic multinodular goiter without thyrotoxic crisis or storm Vitamin D 25-OH Total Today E21.3 - Hyperparathyroidism, unspecified Free T4 (Free Thyroxine) Today E05.20 - Thyrotoxicosis with toxic multinodular goiter without thyrotoxic crisis or storm Thyroid Stimulating Hormone Today E05.20 - Thyrotoxicosis with toxic multinodular goiter without thyrotoxic crisis or storm
== END 2023-08-31 13:08 | disposition home or self-care (01) ==
LOC: HO.ENCR 12:48
PROVIDERS: PCP Nurse Practitioner Primary Care; Visit Provider Internal Medicine Endocrinology, Diabetes & Metabolism
DX: E05.20 Thyrotoxicosis with toxic multinodular goiter without thyrotoxic crisis or storm (principal); E21.3 Hyperparathyroidism, unspecified; E55.9 Vitamin D deficiency, unspecified
CPT/HCPCS: 99213

== ENCOUNTER → 2023-08-31 12:48 | Outpatient (BNVA) | payer MEDICARE, SELFPAY | PROVIDERS: PCP Nurse Practitioner Primary Care; Visit Provider Internal Medicine Endocrinology, Diabetes & Metabolism | DX: E05.20 Thyrotoxicosis with toxic multinodular goiter without thyrotoxic crisis or storm (principal); E21.3 Hyperparathyroidism, unspecified; E55.9 Vitamin D deficiency, unspecified | CPT/HCPCS: 99212 ==

== ENCOUNTER 2023-09-18 13:44 | Outpatient (AMB) | payer MEDICARE, SELFPAY ==
--- NOTE | 2023-09-18 14:38 | A.OFFVIS_ITS ---
Intake Visit Reasons: H&P Bulkamid Intake Note: Patient presents today H&P BULKAMID: Meds- Pyridium & Tolterodine Allergies to Antibiotic- No Known Allergies Blood Thinner- None City Engineer Required: Yes City Engineer Language: Latvian Information Interpreted: non-clinical & clinical Accompanied by: Self / Same As Patient Allergies No Known Allergies Allergy (Verified 08/31/23 12:55) HPI Comments Details: 09/18/23--Chelsie is a 68-year-old female who presents today to the office for a follow-up for urinary incontinence. The patient is stateless speaking, certified labeler present. The patient states that her urinary leakage is getting worse. She leaks with coughing as well as exertional activity. CMG- 09/17/22- findings c/w ISD. Treatment options discussed including sling procedure and bulking agent. The patient wants to proceed with minimally invasive procedure. I have Discussed the risks of bulking injection to the bladder neck/urethra to include but not limited to urine retention, requiring a lino catheter and need to repeat the procedure, hematuria, urgency. The patien t asked excellent questions. All patient's questions were answered.30 minutes spent in review of records pertaining to this visit and including rikn-tu-uhor discussion with the patient and documentation of this visit. Review of chart: 01/22/2023? She is followed today for?urinary incontinence. The patient is a Latvian speaking female. Certified mental hygiene consultant was present during the visit. She was last seen by me on 09/17/2022 for urodynamics procedure. Trial of Gemtesa ? was discussed and the patient was instructed that the medication will not help with ISD, and she is here for follow up. She states having urinary leakage with standing, and walking. Patient states that the medication has not helped with her urinary incontinence. She is not taking any blood thinners. I reviewed the risks related to the sling procedure to include infections, bleeding, and exposure of mesh material. Discussed need for the other procedures related to the complications. --UA--leukocytes: negative; blood: 3 +; bladder scan PVR: 0 mL. 09/17/22--CMG --no instability noted during the filling phase.?There was leakage with cough and valsalva, with? a leak low point pressure?Max capacity 400 ml.?the findings were consistent with pelvic floor weakness and intrinsic sphincter deficiency.? Treatment plan discussed to include pelvic floor physical therapy; minimally invasive therapy to include bulking agent to the urethra as well as sling procedure.?The patient stated she wanted try a medication. she is not interested in pelvic floor physical therapy. CT urogram results --08/12/2022 revealed urinary tract within normal limits; small renal cyst; no renal calculi; bladder: unremarkable. 09/18/2023: Plan:Schedule cystoscopy bulking urethral injection with bulkamid.. PFSH Medical History Multinodular thyroid OAB (overactive bladder) UTI (urinary tract infection) Stress incontinence in female Osteoporosis Hyperparathyroidism Vitamin D deficiency Osteopenia Toxic multinodul goiter Surgical History H/O parathyroidectomy Hx of hysterectomy History of ear surgery Family History Father No problems noted. Mother Hypertension Arthritis Osteoporosis Social History Alcohol intake: current Alcohol intake frequency: does not drink Patient Tobacco Use Status: Current everyday Tobacco user Tobacco use type: Cigarette Cigarettes Per Day: 4 Years Smoked: 45 Review of Systems Const All systems reviewed & are unremarkable except as noted in HPI and below Reports no additional complaints Eyes Reports no additional complaints ENT Reports no additional complaints Card Reports no additional complaints Resp Reports no additional complaints GI Reports no additional complaints Reports as per HPI Musc Reports no additional complaints Skin/Breast Reports system reviewed and no additional complaints, except as documented Neuro Reports no additional complaints Psych Reports no additional complaints Endo Reports no additional complaints Kristian/Lymph Reports no additional complaints Aller/Immun Reports no additional complaints Physical Exam Const General: cooperative, healthy appearing and no acute distress Orientation/consciousness: patient oriented x3 HEENT Head: Yes normal to inspection, Yes normocephalic and Yes atraumatic Eyes Conjunctivae: conjunctivae normal Neck Neck: Yes normal visual inspection and Yes trachea midline Chest Chest palpation & inspection: normal inspection of the chest Resp Effort & Inspection: normal respiratory effort Cardio Rate: regular rate GI Inspection: Yes normal to inspection Neuro General: patient oriented x3 Psych Appearance: grossly normal Results AMB Urinalysis, Automated UA Leukoctes 0 Bud/uL Last Edit by Lindsey Nagy [facility] on 09/18/23 14:53 UA Nitrite Negative Last Edit by Lindsey Nagy [facility] on 09/18/23 14:53 UA Urobilinogen 0.2 mg/dL Last Edit by Lindsey Nagy [facility] on 09/18/23 14:5 3 UA Protein 0 mg/dL Last Edit by Lindsey Nagy [facility] on 09/18/23 14:53 UA pH 6.0 Last Edit by Lindsey Nagy [facility] on 09/18/23 14:53 UA Blood 80 Taye/uL Last Edit by Lindsey Nagy [facility] on 09/18/23 14:53 2+ Lindsey Nagy 09/18/23 14:53 UA Specific Theriot 1.010 Last Edit by Lindsey Nagy [facility] on 09/18/23 14: 53 UA Ketone Negative Last Edit by Lindsey Nagy [facility] on 09/18/23 14:53 UA Bilirubin 0 mg/dL Last Edit by Lindsey Nagy [facility] on 09/18/23 14:53 UA Glucose 0 mg/dL Last Edit by Lindsey Nagy [facility] on 09/18/23 14:53 Results Reviewed Results Reviewed: Laboratory Last Values Urine pH (Auto) 6.0 09/18/23 14:39 Specific Theriot (Auto) 1.010 09/18/23 14:39 Urine Protein (Auto) 0 mg/dL 09/18/23 14:39 Glucose (UA)(Auto) 0 mg/dL 09/18/23 14:39 Urine Ketones (Auto) Negative 09/18/23 14:39 Urine Blood (Auto) 80 Taye/uL 09/18/23 14:39 Urine Nitrite (Auto) Negative 09/18/23 14:39 Urine Bilirubin (Auto) 0 mg/dL 09/18/23 14:39 Urine Urobilinogen (Auto) 0.2 mg/dL 09/18/23 14:39 Leukocyte Esterase (Auto) 0 Bud/uL 09/18/23 14:39 Assessment & Plan Assessment & Plan (1) Pre-op testing: Code(s): Z01.818 - Encounter for other preprocedural examination Category: Medical (2) Urinary incontinence: Code(s): R32 - Unspecified urinary incontinence Category: Medical (3) Intrinsic (urethral) sphincter deficiency (ISD): Code(s): N36.42 - Intrinsic sphincter deficiency (ISD) Category: Medical Plan Cystoscopy bulking agent injection. Bulkamid. Discussed the risks that include but not limited to urine retention, and need to repeat the procedure. Orders: Orders Complete Blood Count Auto Diff 09/18/23 Z.818 - Encounter for other preprocedural examination Basic Metabolic Panel 09/18/23 Z.818 - Encounter for other preprocedural examination ECG 12 lead EKG 09/18/23 Z.818 - Encounter for other preprocedural examination AMB Urinalysis Automated 09/18/23 Z13.9 - Encounter for screening, unspecified Patient Instructions: The patient had an opportunity to ask questions regarding treatment plan. The patient expressed understanding and agreement with the above treatment plan. The patient is aware they should contact our office by phone for worsening of their current condition or the appearance of new symptoms. Compliance is encouraged with any medications and followup testing that is ordered. It is a privilege to be allowed the opportunity to participate in the urologic care of your patient. If you have any questions or concerns regarding treatment for the above conditions please do not hesitate to contact me. The office telephone contact is [phone]. This note is constructed in part using voice recognition software. While every effort has been made to ensure accuracy medical review specialist errors may have been included. Yours sincerely, Odalis Engel MD Coding Level of Care Code Est Pt Level 4 (07244) Diagnoses Pre-op testing Z01.818 Urinary incontinence R32 Intrinsic (urethral) sphincter deficiency (ISD) N36.42
== END 2023-09-18 15:26 | disposition home or self-care (01) ==
PROVIDERS: PCP Nurse Practitioner Primary Care; Visit Provider Urology
DX: Z01.818 Encounter for other preprocedural examination (principal); R32 Unspecified urinary incontinence; N36.42 Intrinsic sphincter deficiency (ISD)
CPT/HCPCS: 99214

== ENCOUNTER → 2023-09-18 13:44 | Outpatient (BNVA) | payer MEDICARE, SELFPAY | PROVIDERS: PCP Nurse Practitioner Primary Care; Visit Provider Urology | DX: Z01.818 Encounter for other preprocedural examination (principal); R32 Unspecified urinary incontinence; N36.42 Intrinsic sphincter deficiency (ISD) | CPT/HCPCS: 81003; 99212 ==

== ENCOUNTER → 2023-09-22 14:16 | Outpatient (BNV) | payer MEDICARE, SELFPAY | PROVIDERS: PCP Nurse Practitioner Primary Care; Visit Provider Internal Medicine Cardiovascular Disease | DX: R00.1 Bradycardia, unspecified (principal); Z01.810 Encounter for preprocedural cardiovascular examination | CPT/HCPCS: 93010 ==

== ENCOUNTER 2023-10-06 05:53 | Day surgery (SDC) | payer MEDICARE, SELFPAY ==
[2023-09-22 14:16] LABS: MANUAL DIFF FLAG NO
--- NOTE | 2023-09-22 14:16 | ECG_ITS ---
Test Reason : PREOP Blood Pressure : / mmHG Vent. Rate : 059 BPM Atrial Rate : 059 BPM P-R Int : 174 ms QRS Dur : 090 ms QT Int : 430 ms P-R-T Axes : 046 049 034 degrees QTc Int : 425 ms Sinus bradycardia Otherwise normal ECG No previous ECGs available Referred By: Odalis Engel Electronically Signed By:PRACHI HODGES MD
[2023-09-22 14:40] LABS: Basophils Percent Auto 0.6 % (0-2); Eosinophils Absolute Auto 0.1 X10*3/uL (0.0-0.4); Eosinophils Percent Auto 1.3 % (0-4); Hematocrit 35.1 % (37.0-47.0); Hemoglobin 12.3 g/dl (12.0-16.0); Imm Gran Abs Auto 0.01 X10*3/uL (0.00-0.03); Imm Gran Pct Auto 0.1 % (0.0-0.4); Lymphocytes Absolute Auto 2.2 X10*3/uL (1.2-4.9); Mean Corpuscular Hemoglobin 31.9 pg (27.0-33.0); Mean Corpuscular Volume 90.9 fL (80.0-98.0); Mean Platelet Volume 9.9 fL (9.4-12.3); Monocytes Absolute Auto 0.4 X10*3/uL (0.1-1.2); Monocytes Percent Auto 5.5 % (2-11); Neutrophils Percent Auto 59.5 % (45-73); Platelet Count 213 X10*3/uL (160-400); Red Blood Count 3.86 X10*6/uL (4.20-5.50); White Blood Count 6.8 X10*3/uL (4.8-10.8)
[2023-09-22 15:09] LABS: Alanine Aminotransferase 21 U/L (0-31); Albumin Level 4.2 g/dL (3.5-5.0); Alkaline Phosphatase 81 U/L (39-117); Anion Gap 14 (12-20); Aspartate Amino Transferase 19 U/L (5-31); Bilirubin Total 0.4 mg/dL (0.0-1.0); Blood Urea Nitrogen 18 mg/dL (9-16); Calcium 9.2 mg/dL (8.4-10.2); Carbon Dioxide 22 mmol/L (22-29); Chloride 110 mmol/L (96-108); Cholesterol 133 mg/dL (<200); Estimated Glomerular Filt Rate > 60; Glucose Random 107 mg/dL (60-115); HDL Cholesterol 37 mg/dL (>40); LDL Cholesterol Calculated 52 mg/dL (<100); Potassium 4.2 mmol/L (3.3-5.1); Sodium 142 mmol/L (135-145); Total Protein 7.2 g/dL (6.5-8.0); Triglycerides 220 mg/dL (<150)
[2023-09-23 07:55] LABS: Estimated Average Glucose 120 mg/dL; Hemoglobin A1c % 5.8 % (<6.0)
[2023-10-01 11:12] VITALS: BMI 29.5
--- NOTE | 2023-10-01 12:54 | HO.ANESPROP2 ---
Documented by User: Regina Dutta NP 10/01/23 12:56 HPI - Anesthesia Eval Consult details Narrative: 68yo F for Cystoscopy with Bulkamid PMFSH Active Problems Active Problems: All Active Problems Intrinsic (urethral) sphincter deficiency (ISD) (Acute) Pre-op testing (Acute) Urinary frequency (Acute) Urinary urgency (Acute) Urinary incontinence (Acute) Microhematuria (Acute) Colon cancer screening (Acute) Subclinical hyperthyroidism (Acute) High cholesterol (Acute) Hard of hearing (Acute) Multinodular thyroid (Acute) OAB (overactive bladder) (Acute) UTI (urinary tract infection) (Acute) Osteoporosis (Acute) Hyperparathyroidism (Acute) Vitamin D deficiency (Acute) Osteopenia (Acute) Toxic multinodul goiter (Acute) Past Medical History Medical History Multinodular thyroid OAB (overactive bladder) UTI (urinary tract infection) Stress incontinence in female Osteoporosis Hyperparathyroidism Vitamin D deficiency Osteopenia Toxic multinodul goiter Family History Family History Father No problems noted. Mother Hypertension Arthritis Osteoporosis Family history of problems with anesthesia: No Surgical History Surgical History (Updated 10/01/23 @ 11:10 by Kimberly Martinez RN) H/O colonoscopy H/O parathyroidectomy Hx of hysterectomy History of ear surgery History of Problems with Anesthesia: No Social History Social History Alcohol intake: current Alcohol intake frequency: holidays/special occasions only Patient Tobacco Use Status: Former Tobacco user Tobacco use type: Cigarette Cigarettes Per Day: 4 Years Smoked: 45 Use of substances other than those prescribed or required for medical reasons: No Are you DNR?: No Advance Directives: No Advance Directives Information Provided: Yes Meds Allergies Allergy/AdvReac Type Severity Reaction Status Date / Time No Known Allergies Allergy Verified 08/31/23 12:55 Home Medications ?Medication ?Instructions ?Recorded ?Confirmed ?Last Taken ?Type atorvastatin 10 mg tablet 10 mg PO DAILY 10/15/20 10/01/23 Unknown History calcium 325 mg-vit D3 12.5 1 tab PO DAILY 07/08/21 10/01/23 Unknown History mcg-zinc 2.75 qp-iywsov-jfcescped tablet (Citracal-D3 Maximum Plus) ibuprofen 800 mg tablet 800 mg PO TID 08/11/22 10/01/23 Unknown History Exam Height,Weight and Vital Signs: Height 5 ft 2.2 in Weight 73.6 kg Pertinent Lab Results Pertinent Lab Results: Laboratory Tests 09/22/23 14:15 WBC 6.8 RBC 3.86 L Hgb 12.3 Hct 35.1 L MCV 90.9 MCH 31.9 MCHC 35.0 RDW 13.0 Plt Count 213 MPV 9.9 Immature Gran % (Auto) 0.1 Neut % (Auto) 59.5 Lymph % (Auto) 33.0 Gaston % (Auto) 5.5 Eos % (Auto) 1.3 Baso % (Auto) 0.6 Lymph # (Auto) 2.2 Gaston # (Auto) 0.4 Eos # (Auto) 0.1 Baso # (Auto) 0.0 Abs Immat Gran (auto) 0.01 Absolute Neuts (auto) 4.0 Absolute Nucleated RBC 0.000 Nucleated RBC % (auto) 0.0 Sodium 142 Potassium 4.2 Chloride 110 H Carbon Dioxide 22 Anion Gap 14 BUN 18 H Creatinine 0.74 Estim Creat Clear Calc TNP Estimated GFR > 60 Random Glucose 107 Estimat Average Glucose 120 Hemoglobin A1c % 5.8 Calcium 9.2 Total Bilirubin 0.4 AST 19 ALT 21 Alkaline Phosphatase 81 Total Protein 7.2 Albumin 4.2 Triglycerides 220 H Cholesterol 133 LDL Cholesterol, Calc 52 HDL Cholesterol 37 L Narrative Narrative: EKG 09/2023 Vent. Rate : 059 BPM Atrial Rate : 059 BPM P-R Int : 174 ms QRS Dur : 090 ms QT Int : 430 ms P-R-T Axes : 046 049 034 degrees QTc Int : 425 ms Sinus bradycardia Otherwise normal ECG No previous ECGs available Assessment and Plan Assessment Anesthesia Assessment: Chart Reviewed Final Anesthetic Review Family History of Problems with Anesthesia: No History of Problems with Anesthesia: No Documented by User: Roberto Fuentes MD 10/06/23 08:36 [facility] Past Medical History Medical History Multinodular thyroid OAB (overactive bladder) UTI (urinary tract infection) Stress incontinence in female Osteoporosis Hyperparathyroidism Vitamin D deficiency Osteopenia Toxic multinodul goiter Family History Family History Father No problems noted. Mother Hypertension Arthritis Osteoporosis Surgical History Surgical History (Updated 10/01/23 @ 11:10 by Kimberly Martinez RN) H/O colonoscopy H/O parathyroidectomy Hx of hysterectomy History of ear surgery Social History Social History Alcohol intake: current Alcohol intake frequency: holidays/special occasions only Patient Tobacco Use Status: Former Tobacco user Tobacco use type: Cigarette Cigarettes Per Day: 4 Years Smoked: 45 Use of substances other than those prescribed or required for medical reasons: No Are you DNR?: No Advance Directives: No Advance Directives Information Provided: Yes Meds Allergies Allergy/AdvReac Type Severity Reaction Status Date / Time No Known Allergies Allergy Verified 08/31/23 12:55 Home Medications ?Medication ?Instructions ?Recorded ?Confirmed ?Last Taken ?Type atorvastatin 10 mg tablet 10 mg PO DAILY 10/15/20 10/01/23 Unknown History calcium 325 mg-vit D3 12.5 1 tab PO DAILY 07/08/21 10/01/23 Unknown History mcg-zinc 2.75 nl-idlswb-wdvvobhgy tablet (Citracal-D3 Maximum Plus) ibuprofen 800 mg tablet 800 mg PO TID 08/11/22 10/01/23 Unknown History Exam Airway Mallampati Class: II TM Dist: >3cm Neck ROM: Full Denture: Upper Loose/Missing/Broken Teeth: Yes Assessment and Plan Assessment Anesthesia Assessment: Anesthesia Plan Discussed Final Anesthetic Review NPO: Yes ASA Class: III Final Preanesthetic Review: No Changes in Pt Med Stat, Meds/Allgs Chart Reviewed, Consent Obtained/Reviewed and Anes Risks/Benef Reviewed Patient Risk: Low Procedure Risk: Low Anesthetic Plan Anesthetic Plan: MAC: Disposition: Standard PACU
[2023-10-06 07:04] VITALS: BP 140/77; PULSE 69; RESP 18; TEMP 36.1; O2SAT 96
--- NOTE | 2023-10-06 08:34 | MHC.SHP ---
Pre-Procedural Eval Section A - 24 Hr Update-Section A only Date of Service: 10/06/23 The patient is an INPATIENT: No The patient has been examined within 24 hours of the surgical procedure. The History & Physical has been completed within 30 days and I have reviewed it.: Yes Section B - Complete if H&P > 30 days Chief Complaint: Stress urinary incontinence Allergies: Allergies Allergy/AdvReac Type Severity Reaction Status Date / Time No Known Allergies Allergy Verified 08/31/23 12:55 Plan Diagnosis/Plan: Unchanged I have reviewed the history and physical and performed a pertinent physical examination on my patient. No changes have occurred unless specified. Intrinsic sphincter deficiency. Cystoscopy urethral bulking with bulkamid, proximal urethra/bladder neck Time Spent With Patient Time: Total time managing care of this patient today ____ minutes.
[2023-10-06 09:35] VITALS: BP 88/56; PULSE 73; RESP 16; TEMP 36.3; O2SAT 95
--- NOTE | 2023-10-06 09:45 | W.PM.OPN ---
Operative Note Operative Note Date of Service: 10/06/23 Narrative: Preop diagnosis: Intrinsic sphincter deficiency Postop diagnosis: Intrinsic sphincter deficiency Procedure: Cystoscopy urethral bulking with bulkamid system at the proximal urethra/bladder neck Surgeon: Dr. Odalis Engel Details of procedure: The patient was brought into the operating room placed on the OR table in supine position IV sedation was administered. Antibiotics confirmed. The patient was placed in lithotomy position prepped and draped in the usual sterile fashion. Safety time-out was done. A 14 Faroese straight catheter was used to send urine for culture. 2% lidocaine jelly was inserted transurethrally 5 mL. Using the 0 degree 11 cm cystoscope with the light cord in the 6 o'clock position, the bladder was filled with sterile water to 150 mL the bladder was visualized. With the sheath at the 5 o'clock position the needle was inserted to the 1 cm andrea and 0.5 mL of gel was injected there was good bulking noted. This was repeated on the 7 o'clock position. The 2nd needle was inserted into the sheath and an injection was done at the 2 o'clock position and again at the 11 o'clock position. There was good coaptation at the bladder neck. The patient tolerated the procedure and was taken to recovery in stable condition. Complications: None Drains: None
[2023-10-06 09:50] VITALS: BP 92/55; PULSE 56; RESP 18; O2SAT 95
[2023-10-06 10:05] VITALS: BP 95/72; PULSE 62; RESP 18; TEMP 36.3; O2SAT 95
== END 2023-10-06 11:09 | disposition home or self-care (01) ==
PROVIDERS: PCP Nurse Practitioner Primary Care; Visit Provider Urology
PROC: (CPT 51715; principal; 2023-10-06 08:30)
DX: N36.42 Intrinsic sphincter deficiency (ISD) (principal); R32 Unspecified urinary incontinence; N32.81 Overactive bladder
CPT/HCPCS: 51715; 36415; 80053; 80061; 83036; 85025; 87086; 93005; J1956; J2704; J3010; L8606; Q9967

== ENCOUNTER → 2023-10-06 05:53 | Outpatient (BNV) | payer MEDICARE, SELFPAY | PROVIDERS: PCP Nurse Practitioner Primary Care; Visit Provider Urology | DX: N36.42 Intrinsic sphincter deficiency (ISD) (principal) | CPT/HCPCS: 51715 ==

== ENCOUNTER → 2023-10-08 09:37 | Outpatient (BNVA) | payer MEDICARE, SELFPAY | PROVIDERS: PCP Nurse Practitioner Primary Care; Visit Provider Urology | DX: N32.81 Overactive bladder (principal); R32 Unspecified urinary incontinence; R35.0 Frequency of micturition; R39.15 Urgency of urination | CPT/HCPCS: 51798 ==

== ENCOUNTER 2023-12-09 10:29 | Outpatient (REF) | payer MEDICARE, SELFPAY ==
[2023-12-09 12:03] LABS: Albumin Level 4.2 g/dL (3.5-5.0); Anion Gap 10 (12-20); Blood Urea Nitrogen 16 mg/dL (9-16); Calcium 9.6 mg/dL (8.4-10.2); Carbon Dioxide 26 mmol/L (22-29); Chloride 110 mmol/L (96-108); Estimated Glomerular Filt Rate > 60; Glucose Random 105 mg/dL (60-115); Sodium 142 mmol/L (135-145)
[2023-12-09 12:22] LABS: Free T4 (Free Thyroxine) 0.71 ng/dL (0.71-1.85); Thyroid Stimulating Hormone 1.02 uIU/mL (0.32-4.0); Vitamin D 25-OH Total 42.3 ng/mL (>30)
== END 2023-12-09 10:30 | disposition home or self-care (01) ==
LOC: HO.LAB 10:29
PROVIDERS: Absent Provider Internal Medicine Endocrinology, Diabetes & Metabolism; PCP Nurse Practitioner Primary Care; Visit Provider Urology
DX: Z01.818 Encounter for other preprocedural examination (principal); E21.3 Hyperparathyroidism, unspecified; E05.20 Thyrotoxicosis with toxic multinodular goiter without thyrotoxic crisis or storm
CPT/HCPCS: 36415; 80048; 82040; 82306; 84439; 84443

== ENCOUNTER 2023-12-28 14:22 | Outpatient (REF) | payer SELFPAY | END 2023-12-28 14:23 | disposition home or self-care (01) | LOC: HO.HAP 14:22 | PROVIDERS: Visit Provider Nurse Practitioner Primary Care | DX: Z46.1 Encounter for fitting and adjustment of hearing aid (principal); H90.3 Sensorineural hearing loss, bilateral | CPT/HCPCS: V5266 ==

== ENCOUNTER 2023-12-31 13:15 | Outpatient (AMB) | payer MEDICARE, SELFPAY ==
[2023-12-31 13:30] VITALS: BP 104/64; PULSE 64; BMI 28.9
--- NOTE | 2023-12-31 13:30 | MHC.OFFVIS ---
Vital Signs 12/31/23 13:30 Height 5 ft 2.2 in Weight 159 lb 2.78 oz BMI 28.9 BP 104/64 Blood Pressure Location Rt brachial Position Sitting Pulse 64 Pulse Source Pulse Oximeter Intake Visit Reasons: f/u MNG/ secondary hyperparathyroidism Intake Note: Patient present today for MNG and Secondary Hyperparathyroidism follow up. Experimental Mechanic Spacecraft Required: Yes Experimental Mechanic Spacecraft Language: Geophysical Support Specialist Services: Experimental Mechanic Spacecraft Present Experimental Mechanic Spacecraft Name: Kimberly SWARTZ Accompanied by: Self / Same As Patient Allergies No Known Allergies Allergy (Verified 12/31/23 13:33) HPI Comments Details: 68 YO F with PMHx Osteopenia who is seen in F/U for 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 She is now S/P a L thyroid lobectomy and a L inferior parathyroidectomy. . 1) Toxic MNG: She had TSH checked 09/14/18 which revealed hyperthyroidism with TSH of 0.08. This was repeated 11/09/18 with TSH of 0.14 with FT4 WNL at 0.75 and TT3 WNL at 132. TRAB antibodies were checked and were negative. Labs were then repeated 12/27/18 with TSH 0.1 with FT4 and TT3 WNL, and negative TSI, TRAB, TPO, and TG Antibodies. She had a thyroid US which revealed a multinodular thyroid with multiple nodules within the L lobe meeting indication for FNA biopsy. She had a Thyroid Uptake and Scan completed 07/27/2019 which revealed normal uptake but marked heterogeneity within the gland, consistent with a toxic MNG. She was subsequently started on Methimazole 5 mg PO daily, and this was later titrated upward to 7.5 mg PO daily. She was scheduled for FNA biopsy of her L upper pole 1.2 cm nodule, L mid pole 2.1 cm nodule, L lower 1.5 cm nodule and her L lower 1.0 cm nodule. She was unable to tolerate even the first pass of the first nodule, and refused further attempts at FNA. She refused additional FNA. She was referred to Dr. Styles to discuss a surgical thyroidectomy. After her intitial consultation she opted not to proceed with this, but subsequently changed her mind. She underwent L hemithyroidectomy 08/06/2020. Official surgical path was benign. She was not started on thyroid hormone replacement postoperatively. TSH has remained WNL. She reports feeling well currently. She was also noted to have hyperparathyroidism, and underwent a L inferior parathyroidectomy. Postoperative her PTH remains WNL. However, her last PTH was slightly elevated with borderline low 25- vitamin-D levels DEXA revealed Osteoporosis of the distal forearm, and Osteopenia of the hip and spine. DXA 01/01/2021: FINDINGS: AP SPINE L1-L4: Current: BMD 0.945 g/cm2, Z-score -0.4, T-score -2.0, osteopenia, 2.6% increase from baseline (<5% change is not significant). Baseline: BMD 0.921 g/cm2. LEFT FEMUR, NECK: Current: BMD 0.776 g/cm2, Z-score -0.4, T-score -1.9, osteopenia. Baseline: BMD 0.735 g/cm2. LEFT FEMUR, TOTAL: Current: BMD 0.846 g/cm2, Z-score 0.0, T-score -1.3, osteopenia, 2.3% increase from baseline (<5% change is not significant). Baseline: BMD 0.827 g/cm2. RIGHT FOREARM RADIUS 33%: BMD 0.642 g/cm2, Z-score -1.1, T-score -2.7, osteoporosis. Labs: Laboratory Tests Recent thyroid ultrasound showed subcentimeter nodules in the right lobe with 1 nodule subcentimeter containing some suspicious features 07/31/22 07/31/22 10:40 10:40 Creatinine 0.80 Estimated GFR > 60 25-OH Vitamin D Total 34.4 TSH 1.11 Free T4 0.79 PTH Intact 63 Calcium (PTH Intact) 9.3 Taking calcium and vitamin D [facility] Medical History Multinodular thyroid OAB (overactive bladder) UTI (urinary tract infection) Stress incontinence in female Osteoporosis Hyperparathyroidism Vitamin D deficiency Osteopenia Toxic multinodul goiter Surgical History (Updated 10/01/23 @ 11:10 by Kimberly Martinez RN) H/O colonoscopy H/O parathyroidectomy Hx of hysterectomy History of ear surgery Family History Father No problems noted. Mother Hypertension Arthritis Osteoporosis Social History Alcohol intake: current Alcohol intake frequency: holidays/special occasions only Patient Tobacco Use Status: Former Tobacco user Tobacco use type: Cigarette Cigarettes Per Day: 4 Years Smoked: 45 Physical Exam Vital Signs: BMI result Body Mass Index 28.9 Const Other: Healed scar status post hemithyroidectomy Assessment & Plan Assessment & Plan (1) Toxic multinodul goiter: Code(s): E05.20 - Thyrotoxicosis with toxic multinodular goiter without thyrotoxic crisis or storm Category: Medical Plan: Status post hemithyroidectomy with normalization of TSH. There are subcentimeter nodules on recent ultrasound of the right lobe 1 which has suspicious feature. She appears to be clinically and biochemically euthyroid The plan is check a follow-up thyroid ultrasound . Patient was previously scheduled but did not have this performed (2) Hyperparathyroidism: Code(s): E21.3 - Hyperparathyroidism, unspecified Category: Medical Plan: See plan for vitamin-D deficiency (3) Vitamin D deficiency: Code(s): E55.9 - Vitamin D deficiency, unspecified Category: Medical Plan: Mild vitamin-D deficiency with slight elevation of PTH status post parathyroidectomy with removal of 1 parathyroid gland. Differential includes persistent primary hyperparathyroidism with failed parathyroid exploration versus secondary hyperparathyroidism due to vitamin-D deficiency. PTH was slightly elevated Plan is to recheck 25 hydroxy vitamin-D, calcium, PTH at [facility] ([facility]) to verify if PTH is elevated Orders: Orders Calcium Today E21.3 - Hyperparathyroidism, unspecified Albumin Level Today E21.3 - Hyperparathyroidism, unspecified Vitamin D 25-OH Total Today E21.3 - Hyperparathyroidism, unspecified Parathyroid Hormone Intact Today E21.3 - Hyperparathyroidism, unspecified Medications: New qcjocwi-O6-rkzd-copper-puja 325 mg-12.5 mcg -2.75 mg (Citracal-D3 Maximum Plus) 1 tab PO DAILY 30 tabs 4RF Coding Level of Care Code Est Pt Level 3 (75414) Diagnoses Toxic multinodul goiter E05.20 Hyperparathyroidism E21.3 Vitamin D deficiency E55.9
== END 2023-12-31 13:52 | disposition home or self-care (01) ==
PROVIDERS: PCP Nurse Practitioner Primary Care; Visit Provider Internal Medicine Endocrinology, Diabetes & Metabolism
DX: E05.20 Thyrotoxicosis with toxic multinodular goiter without thyrotoxic crisis or storm (principal); E21.3 Hyperparathyroidism, unspecified; E55.9 Vitamin D deficiency, unspecified
CPT/HCPCS: 99213

== ENCOUNTER → 2023-12-31 13:15 | Outpatient (BNVA) | payer MEDICARE, SELFPAY | PROVIDERS: PCP Nurse Practitioner Primary Care; Visit Provider Internal Medicine Endocrinology, Diabetes & Metabolism | DX: E05.20 Thyrotoxicosis with toxic multinodular goiter without thyrotoxic crisis or storm (principal); N25.81 Secondary hyperparathyroidism of renal origin; E89.0 Postprocedural hypothyroidism; E55.9 Vitamin D deficiency, unspecified | CPT/HCPCS: 99212 ==

== ENCOUNTER 2024-01-06 12:53 | Outpatient (AMB) | payer MEDICARE, SELFPAY ==
--- NOTE | 2024-01-06 12:54 | MHC.OFFVIS ---
Intake Visit Reasons: Bulkamid follow up/PVR Intake Note: Patient is present for bulkamid f/u PVR Urology Medication:pyridium, levofloxacin Antibiotic Allergy:none Blood Thinner:none today's pvr: 0ml's Nursing Informatics Specialist Required: Yes Nursing Informatics Specialist Services: Nursing Informatics Specialist Present Nursing Informatics Specialist Name: Jeffery Information Interpreted: non-clinical & clinical Allergies No Known Allergies Allergy (Verified 01/06/24 12:56) Medication List - Last Reconciled 01/06/24 by Odalis Engel MD atorvastatin 10 mg PO DAILY oearsax-U2-vxcw-copper-puja 325 mg-12.5 mcg -2.75 mg (Citracal-D3 Maximum Plus) 1 tab PO DAILY cholecalciferol (vitamin D3) 100 mcg (2 x 50 mcg (2,000 unit)) PO DAILY ibuprofen 800 mg PO TID levofloxacin 250 mg PO DAILY HPI Comments Details: 01/06/24--status post bulkamid 3 months ago. Patient states she no longer needs to wear a pad daily. She does get leakage with coughing but much less. She is happy with her bladder control at this time. She denies irritative voiding symptoms. Plan follow-up in 1 year. Review of chart: 09/18/23--Chelsie is a 68-year-old female who presents today to the office for a follow-up for urinary incontinence. The patient is occitan speaking, certified laborer wood preserving plant present. The patient states that her urinary leakage is getting worse. She leaks with coughing as well as exertional activity. CMG- 09/17/22- findings c/w ISD. Treatment options discussed including sling procedure and bulking agent. The patient wants to proceed with minimally invasive procedure. I have Discussed the risks of bulking injection to the bladder neck/urethra to include but not limited to urine retention, requiring a lino catheter and need to repeat the procedure, hematuria, urgency. The patient asked excellent questions. All patient's questions were answered.30 minutes spent in review of records pertaining to this visit and including iiyv-wn-awoz discussion with the patient and documentation of this visit. 01/22/2023? She is followed today for?urinary incontinence. The patient is a Greek speaking female. Certified completions manager was present during the visit. She was last seen by me on 09/17/2022 for urodynamics procedure. Trial of Gemtesa ? was discussed and the patient was instructed that the medication will not help with ISD, and she is here for follow up. She states having urinary leakage with standing, and walking. Patient states that the medication has not helped with her urinary incontinence. She is not taking any blood thinners. I reviewed the risks related to the sling procedure to include infections, bleeding, and exposure of mesh material. Discussed need for the other procedures related to the complications. --UA--leukocytes: negative; blood: 3 +; bladder scan PVR: 0 mL. 09/17/22--CMG --no instability noted during the filling phase.?There was leakage with cough and valsalva, with? a leak low point pressure?Max capacity 400 ml.?the findings were consistent with pelvic floor weakness and intrinsic sphincter deficiency.? Treatment plan discussed to include pelvic floor physical therapy; minimally invasive therapy to include bulking agent to the urethra as well as sling procedure.?The patient stated she wanted try a medication. she is not interested in pelvic floor physical therapy. CT urogram results --08/12/2022 revealed urinary tract within normal limits; small renal cyst; no renal calculi; bladder: unremarkable. [facility] Medical History Multinodular thyroid OAB (overactive bladder) UTI (urinary tract infection) Stress incontinence in female Osteoporosis Hyperparathyroidism Vitamin D deficiency Osteopenia Toxic multinodul goiter Surgical History H/O colonoscopy H/O parathyroidectomy Hx of hysterectomy History of ear surgery Family History Father No problems noted. Mother Hypertension Arthritis Osteoporosis Social History Alcohol intake: current Alcohol intake frequency: holidays/special occasions only Patient Tobacco Use Status: Former Tobacco user Tobacco use type: Cigarette Cigarettes Per Day: 4 Years Smoked: 45 Review of Systems Const All systems reviewed & are unremarkable except as noted in HPI and below Reports no additional complaints Eyes Reports no additional complaints ENT Reports no additional complaints Card Reports no additional complaints Resp Reports no additional complaints GI Reports no additional complaints Reports as per HPI Musc Reports no additional complaints Skin/Breast Reports system reviewed and no additional complaints, except as documented Neuro Reports no additional complaints Psych Reports no additional complaints Endo Reports no additional complaints Kristian/Lymph Reports no additional complaints Aller/Immun Reports no additional complaints Office Procedures Post Void Residual Post Residual Void Post Void Residual (PVR): 0 [id number]-[id number] Void Residual by ultrasound Results AMB Urinalysis, Automated UA Leukoctes 0 Bud/uL Last Edit by ROHIT Aj on 01/06/24 13:05 UA Nitrite Negative Last Edit by Adali Diggs [facility] on 01/06/24 13:05 UA Urobilinogen 0.2 mg/dL Last Edit by Adali Diggs [facility] on 01/06/24 13:05 UA Protein 15 mg/dL Last Edit by Adali Diggs [facility] on 01/06/24 13:05 UA pH 6.0 Last Edit by Adali Diggs [facility] on 01/06/24 13:05 UA Blood 200 Taye/uL Last Edit by Adali Diggs [facility] on 01/06/24 13:05 UA Specific [place] 1.030 Last Edit by Adali Diggs [facility] on 01/06/24 13:05 UA Ketone Positive Last Edit by Adali Diggs [facility] on 01/06/24 13:05 UA Bilirubin 1 mg/dL Last Edit by Adali Diggs [facility] on 01/06/24 13:05 UA Glucose 0 mg/dL Last Edit by Adali Diggs [facility] on 01/06/24 13:05 Results Reviewed Results Reviewed: Laboratory Last Values Urine pH (Auto) 6.0 01/06/24 13:04 Specific [place] (Auto) 1.030 01/06/24 13:04 Urine Protein (Auto) 15 mg/dL 01/06/24 13:04 Glucose (UA)(Auto) 0 mg/dL 01/06/24 13:04 Urine Ketones (Auto) Positive 01/06/24 13:04 Urine Blood (Auto) 200 Taye/uL 01/06/24 13:04 Urine Nitrite (Auto) Negative 01/06/24 13:04 Urine Bilirubin (Auto) 1 mg/dL 01/06/24 13:04 Urine Urobilinogen (Auto) 0.2 mg/dL 01/06/24 13:04 Leukocyte Esterase (Auto) 0 Bud/uL 01/06/24 13:04 Assessment & Plan Assessment & Plan (1) Urinary incontinence: Code(s): R32 - Unspecified urinary incontinence Category: Medical (2) Intrinsic (urethral) sphincter deficiency (ISD): Code(s): N36.42 - Intrinsic sphincter deficiency (ISD) Category: Medical Plan Stress urinary incontinence/ISD. Status post bulkamid urethral injection. Urinary symptoms significantly improved still has some dribbling with coughing. Follow-up in 1 year. She will call if urinary symptoms change. Orders: Orders AMB Urinalysis Automated Today Z13.9 - Encounter for screening, unspecified Medications: Discontinued levofloxacin Discontinued Reason: Patient Completed Course 250 mg PO DAILY 3 tabs 0RF Patient Instructions: The patient had an opportunity to ask questions regarding treatment plan. The patient expressed understanding and agreement with the above treatment plan. The patient is aware they should contact our office by phone for worsening of their current condition or the appearance of new symptoms. Compliance is encouraged with any medications and followup testing that is ordered. It is a privilege to be allowed the opportunity to participate in the urologic care of your patient. If you have any questions or concerns regarding treatment for the above conditions please do not hesitate to contact me. The office telephone contact is [phone]. This note is constructed in part using voice recognition software. While every effort has been made to ensure accuracy retort operator errors may have been included. Yours sincerely, Odalis Engel MD Coding Level of Care Code Est Pt Level 3 (55013) Diagnoses Urinary incontinence R32 Intrinsic (urethral) sphincter deficiency (ISD) N36.42 CPT Codes Post Residual Void - PVR CPT Code: 93371-[id number] Void Residual by ultrasound ([id number])
== END 2024-01-06 13:29 | disposition home or self-care (01) ==
PROVIDERS: PCP Nurse Practitioner Primary Care; Visit Provider Urology
DX: R32 Unspecified urinary incontinence (principal); N36.42 Intrinsic sphincter deficiency (ISD); Z13.9 Encounter for screening, unspecified
CPT/HCPCS: 99213

== ENCOUNTER → 2024-01-06 12:53 | Outpatient (BNVA) | payer MEDICARE, SELFPAY | PROVIDERS: PCP Nurse Practitioner Primary Care; Visit Provider Urology | DX: R32 Unspecified urinary incontinence (principal); N36.42 Intrinsic sphincter deficiency (ISD) | CPT/HCPCS: 51798; 81003; 99212 ==

== ENCOUNTER 2024-08-10 14:09 | Outpatient (REF) | payer MEDICARE, SELFPAY ==
--- OUTSIDE RECORDS SUMMARY | 2024-08-10 16:53 | XMS_ITS | Encounter Summary ---
Author Organization [employer] [facility] Address [address] [place] [address] Care Team Providers Care Siderographer Name Role Phone Sneha Tipton Primary Care Provider [phone] Encounter Details Date Type Department Care Team (Latest Contact Info) Description 12/15/2018 Abstract [facility] Dental, Provider, DDS Social History Tobacco Use Types Packs/Day Years Used Date Smoking Tobacco: Never Assessed Comments Unknown Sex and Gender Information Value Date Recorded Sex Assigned at Female 03/10/2022 10:35 AM EDT Legal Sex Female 10:35 AM EDT Gender Identity Choose not to disclose 10:35 AM EDT Sexual Orientation Choose not to disclose 2021 10:35 AM EDT documented as of this encounter Plan of Treatment Not on file documented as of this encounter Visit Diagnoses Not on filedocumented in this encounter Care Teams Siderographer Relationship Specialty Start Date End Date Sneha Tipton ANP [address] [place] [id number] PCP - General Family Medicine 03/26/20 documented as of this encounter
--- OUTSIDE RECORDS SUMMARY | 2024-08-10 16:53 | XMS_ITS | Clinical Summary ---
[facility] [address] [place] [address] Care Team Providers Care Magnetic Locater Name Role Phone Unavailable Primary Care Provider Unavailabl e Social History Tobacco Use Types Packs/Day Years Used Date Smoking Tobacco: Never Assessed Comments Unknown Sex and Gender Information Value Date Recorded Sex Assigned at Not on file Legal Sex Female 12:50 PM EST Gender Identity Not on file Sexual Orientation Not on file Plan of Treatment Health Maintenance Due Date Last Done Comments Breast Cancer Screening 1955 DTaP,Tdap,and Td Vaccines (1 - Tdap) 1972 Pneumococcal Vaccine: 50+ Ye ars (1 of 1 - PCV) 07/16/2003 Zoster Vaccines (1 of 2) 07/16/2003 COVID-19 Vaccine ( - 2023-2 5 season) 2024 Influenza Vaccine (#1) 2024 RSV Immunization Adult Patie nts (1 - 1-dose 75+ series) 2028 HIB Vaccines Aged Out No longer eligi ble based on patient's age to complete this topic HPV Vaccines Aged Out No longer eligi ble based on patient's age to complete this topic Hepatitis A Vaccines Aged Out No long er eligible based on patient's age to complete this topic Hepatitis B Vaccines Aged Out No long er eligible based on patient's age to complete this topic IPV Vaccines Aged Out No longer eligi ble based on patient's age to complete this topic MMR Vaccines Aged Out No longer eligi ble based on patient's age to complete this topic Meningococcal ACWY Vaccine Aged Out N o longer eligible based on patient's age to complete this topic Meningococcal B Vacine Aged Out No lo nger eligible based on patient's age to complete this topic RSV Immunization Patients Un tirsha 20 months Aged Out No longer eligible b ased on patient's age to complete this topic Varicella Vaccines Aged Out No longer eligible based on patient's age to complete this topic
--- OUTSIDE RECORDS SUMMARY | 2024-08-10 16:53 | XMS_ITS | Clinical Summary ---
Author Organization [employer] Address [address] [facility] [address] [place] [address] Care Team Providers Care Paper Final Inspector Name Role Phone Nilsa Brennan GENESIS Primary Care Provider [phone] Allergies No known active allergies Medications diphenhydrAMINE (BENADryl) 25 MG tablet Take 1 tablet by mouth every 4 (four) hours. Active ergocalciferol (Vitamin D-2) 1.25 MG (40587 UT) capsule take 1 capsule by oral route every week 9 Active nicotine (Nicoderm, Step 3) 7 MG/24HR patch Place 1 patch on the skin at bed time. 9 Active oxybutynin (Ditropan) 5 MG tablet Take 1 tablet by mouth every 12 (twelve) hours. 1 Active phenazopyridine (Pyridium) 200 MG tablet Take 1 tablet by mouth every 8 (eight) hours. 2 Active ibuprofen 800 MG tabletIndications: Complaint of flank pain take 1 tablet by oral route 3 times every day with food, try to avoid using more than 3 days in 1 wk 60 tablet 1 2 Active baclofen (Lioresal) 10 MG tablet Take 0.5 tablets (5 mg) by mouth 3 times daily for 10 days. 15 tablet 3 Active lidocaine (Lidoderm) 5 % patchIndications:A cute bilateral thoracic back pain Apply topically to affected areas. Leave on for up to 12 hours 30 patch 1 4 Active estradiol (Estrace) 0.1 MG/GM vaginal cream 1 g vaginally at night x 14 days, then continue to use 1g vaginally twice a week thereafter 42.5 g 1 4 Active atorvastatin (Lipitor) 10 MG tabletIndications: Mixed hyperlipidemia 1 tablet once daily at bedtime 90 tablet 1 4 Active famotidine (Pepcid) 20 MG tabletIndications: Gastroesophageal reflux disease, unspecified whether esophagitis present Take 1 tablet twice daily as needed for acid reflux 30 tablet 1 4 Active cholecalciferol VITAMIN D (Vitamin D-3) 50 MCG (2000 UT) capsule Take by mouth Once per day. 4 Active calcium citrate 315 mg + D2 6.25 mcg tablet 1 tablet. 2 Active levoFLOXacin (Levaquin) 250 MG tablet Take 1 tablet by mouth Once per day. 4 Active Active Problems Problem Noted Date Diagnosed Date Healthcare maintenance 12/28/2023 Overview (12/28/2023): Pap: no cervix Colonoscopy: Colonoscopy 10/09/2021: diverticulosis and hemorrhoids. Mammo: BIRADS1 09/01 DEXA 12/2022 Osteoporosis Izs: Shingrix at pharmacy, RSV flyer given to pt. Screening for lung cancer 10/21/2023 Overview (12/28/2023): started at 14yo, quit at [age]. Smoked 2ppd for most of the time, cutting down to 6 cigs/d around 65yo. LDCT [place] [facility] waiting for her urology bill to be paid off before seeing additional specialists. 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 Assessment & Plan (04/24/2022 3:52 PM EST): Follows w/ Dr. Ohri Toxic multinodular goiter 08/04/2019 Overview (04/24/2022): Follows w/ Dr. Garcia, Endocrinology. 07/2020 L parathyroidectomy & L annabella thyroidectomy. Microscopic hematuria 09/17/2018 Bilateral hearing loss 09/06/2018 Stress incontinence of urine 09/06/2018 Resolved Problems Problem Noted Date Diagnosed Date Resolved Date Abnormal mammogram 08/08/2022 4 Overview (12/28/2023): BI-RADS 0: Incomplete - 08/05/22, radiology coordinating w/ pt, imaging was obtained and resumed screening schedule. BIRADS 1 08/2023 Subclinical hyperthyroidism 09/20/2018 12/28/2023 Abnormal thyroid function test 09/17/2018 04/24/2022 Encounters Date Type Department Care Team Description 05/20/2024 Telephone [facility] [address] [place] [id number] Sheryl Nielsen MA July recall from Last 3 Months Immunizations Name Administration Dates Next Due Pfizer Covid-19 Vaccine 12+ 10/09/2020, Pneumococcal Conjugate PCV 13 05/25/2020 Tdap 05/25/2020 Family History Medical History Relation Name Comments Prostate cancer Father Relation Name Status Comments Father Mother Social History Tobacco Use Types Packs/Day Years Used Date Smoking Tobacco: Former Passive Smoke Exposure: Past Smokeless Tobacco: Never Tobacco Cessation:Counseling Given: Not Answered Comments:6 mo since last cigarette Alcohol Use Standard Drinks/Week Comments Yes 0 (1 standard drink = 0.6 oz pur e alcohol) socially Depression Answer Date Recorded Patient Health Questionnaire-9 Score 4 09/22/2023 Patient Health Questionnaire-9 Score 4 09/22/2023 Last PHQ-9: Questionnaire Data Not on file 0 09/22/2023 Housing Stability Answer Date Recorded What is your housing situation today? I have tonio fontaine 09/22/[address] you li ve. Do you have problems with any of the following? None of the above 09/22/2023 Food Insecurity Answer Date Recorded Within the past 12 months, y ou worried that your food would run out before you got money to buy more: Never True 09/22/2023 Within the past 12 months,th e food you bought just didn't last and you didn't have enough money to get more: Never True Transportation Answer Date Recorded In the past 12 months, has l ack of transportation kept you from medical appts, meetings, work or from getting things needed for daily living? No 09/22/2023 Utilities Answer Date Recorded In the past 12 months, has t he electric, gas, oil or water company threatened to shut off services in your home? No 09/22/2023 Depression Answer Date Recorded Patient Health Questionnaire-2 Score 0 09/22/2023 Comments No Sex and Gender Information Value Date Recorded Sex Assigned at Female 03/10/2022 10:35 AM EDT Legal Sex Female 10:35 AM EDT Gender Identity Choose not to disclose 10:35 AM EDT Sexual Orientation Choose not to disclose 2021 10:35 AM EDT Last Filed Vital Signs Vital Sign Reading Time Taken Comments Blood Pressure 126/84 12/28/2023 3:09 PM EDT Pulse 75 12/28/2023 3:09 PM EDT Temperature 36.4 ??C (97.6 ??F) 12/28/2023 3:09 PM ED T Respiratory Rate 20 12/28/2023 3:09 PM EDT Oxygen Saturation 97% 12/28/2023 3:09 PM EDT Inhaled Oxygen Concentration - - Weight 72.2 kg (159 lb 3.2 oz) 12/28/2023 3:09 P M EDT Height 157.5 cm (5' 2 ) 12/28/2023 3:09 PM EDT Body Mass Index 29.12 12/28/2023 3:09 PM EDT Plan of Treatment Health Maintenance Due Date Last Done Comments CT Colonography 1955 FIT DNA/Cologuard 1955 FIT 1955 FOBT 1955 Sigmoidoscopy 1955 Alcohol/Substance Use Screening 1965 Hepatitis C Screening 07/16/1971 Hepatitis A Vaccines (1 of 2 - Risk 2-dose series) 1972 Zoster Vaccines (1 of 2) 07/16/2003 Hepatitis B Vaccines (1 of 3 - Risk 3-dose series) 2013 Pneumococcal Vaccine: 50+ Years (2 of 2 - PPSV23) 05/25/2021 05/25/2020 COVID-19 Vaccine (4 - season) 2024 04/27/2021, 10/09/2020, 08/26/2020 Influenza Vaccine (#1) 2024 Mammogram 08/25/2024 08/26/2023, 040 05/2023, 08/08/2022, Additional history exists Depression Screening 09/21/2024 09/22/2023, 09/22/19 Diabetes: Hemoglobin A1C 09/21/2024 09/22/2023, 07/2020 SDOH Screening 09/21/2024 09/22/2023 Tobacco Screening 02/04/2025 02/05/2024 RSV Patients and Patients Aged 60 years or older (1 - 1-dose 75+ series) 2028 DTaP/Tdap/Td Vaccines (2 - Td or Tdap) 05/25/2030 05/25/2020 Colonoscopy 11/30/2031 11/29/2021 Colorectal Cancer Screening 11/30/2031 HIB Vaccines Aged Out No longer eligi ble based on patient's age to complete this topic HPV Vaccines Aged Out No longer eligi ble based on patient's age to complete this topic IPV Vaccines Aged Out No longer eligi ble based on patient's age to complete this topic Meningococcal Vaccine Aged Out No wil fredi eligible based on patient's age to complete this topic RSV under 20 months Aged Out No longe r eligible based on patient's age to complete this topic Rotavirus Vaccines Aged Out No longer eligible based on patient's age to complete this topic Procedures Procedure Name Priority Date/Time Associated Diagnosis Comments HEMOGLOBIN A1C Routine 09/22/2023 2:15 PM EDT Mixed hyperlipidemia BI MAMMOGRAM SCREENING TOMOSYNTHESIS BILATERAL Routine 08/10/2023 2:15 PM EDT Breast cancer screening by mammogram HM COLONOSCOPY Routine 11/29/2021 from Last 3 Months or Most Recently Relevant to Health Maintenance Results * Hemoglobin A1c (09/22/2023 2:15 PM EDT) Hemoglobin A1c 5.8 <6.0 % [facility] Comment:Hemoglobin A1C Refer ence Range Adults: 4.8 - 6.0 % Non diabetic: < 6.0 % Goal: < 7.0 %Additional Action Suggested: > 8.0 %Note: Hemoglobin A1c results are invalid for patients with abnormal amounts of HbF. Blood transfusions may impact the HbA1c concentration in the patient sample. Estimated Average Glucose 120 mg/dL [facility] Comment:eAG = Estimated ave rage glucose which is %A1C expressed asaverage glucose, using the formula of the P2L-JqpnymlJonyfox Glucose study (ADAG), Diabetes Care, Vol.31,#8,Dec. 2007 Blood Venous blood specimen / Unknown 09/22/2023 2:15 PM EDT 09/22/2023 8:53 PM EDT [facility] LAB BLOOD ORDERABLES Final Resul t [facility] [address] [place] [address] [phone] * BI Mammogram Screening Tomosynthesis Bilateral (08/10/2023 2:15 PM EDT) Anatomical Region Laterality Modality Breast Bilateral Mammography 08/10/2023 2:15 PM EDT Narrative 08/24/2023 5:04 AM EDT ? [facility] ? [address] ?[place] [address] ? Mammography Report ? Signed ? Patient: Capo Ayala,Chelsie L ?MR#: [id number] ?? [id number] ? : 1955 ?Acct:[id number] ? Age/Sex: 68 / F ?ADM Date: 04/01/24 ? Loc: HO.MAMMO ? Attending Dr: Nilsa Brennan GOODS LAYER ? Ordering Physician: RUBY BETANCOURT CNM ?Results: 1 ?? Negative ? Date of Service: 08/10/23 ?Follow Up: 1 Year From Orig ?? inal Mammogram ? Procedure(s): MM tomosynthesis screening BI ?? Accession Number(s): [id number] ? cc: RUBY BETANCOURT CNM; NILSA BRENNAN NP ? EXAMINATION: ?? MM SCREENING DIGITAL BREAST TOMOSYNTHESIS, BILATERAL ? CLINICAL INFORMATION: ? Screening. Asymptomatic. ? COMPARISON: ?? Mammography: This study is compared with prior exams dating back to ?? 2020. ? TECHNIQUE: ?? Digital breast tomosynthesis is performed in both the craniocaudal and ?? mediolateral oblique views along with computer-aided detection (CAD). ?? Synthesized 2D images are generated from the tomosynthesis. ? FINDINGS: ?? The breasts are heterogeneously dense, which may obscure small masses ?? (ACR BI-RADS breast composition Category c). ? There are no significant masses, abnormal calcifications, or other ?? abnormalities. ? MM/MM tomosynthesis screening BI ?? IMPRESSION: ?? No mammographic evidence of malignancy. ? ASSESSMENT: ? BI-RADS BI-RADS 1 - Negative ? RECOMMENDATION: ?? Routine annual mammography screening. ? 1 year F/U ? This examination should not preclude the clinical evaluation of a ?? suspicious palpable abnormality. ? This patient's information was entered into a reminder system with a ?? target due date for their next mammogram. ? Dictated By: ?Leatha Hatfield MD ? Signed By: ?<Electronically signed by Leatha Hatfield MD in OV> ? 08/24/23 0501 ? DD/ 1415 ? TD/TT: ? Welfare Centre Manager: ? Procedure Note Donotbillter, Image - [facility] [address] [place] [address] Mammography Report Signed Patient: Chelsie Nick LMR#: [id number] : 4Acct:[id number] Age/Sex: 68 / FADM Date: 08/10/23 Loc: HO.MAMMO Attending Dr: Nilsa Brennan NP Ordering Physician: RUBY BETANCOURTults: 1 Negative Date of Service: 08/10/23Follow Up: 1 Year From Orig inal Mammogram Procedure(s): MM tomosynthesis screening BI Accession Number(s): [id number] cc: RUBY BETANCOURT CNM; NILSA BRENNAN NP EXAMINATION: MM SCREENING DIGITAL BREAST TOMOSYNTHESIS, BILATERAL CLINICAL INFORMATION: Screening. Asymptomatic. COMPARISON: Mammography: This study is compared with prior exams dating back to 2020. TECHNIQUE: Digital breast tomosynthesis is performed in both the craniocaudal and mediolateral oblique views along with computer-aided detection (CAD). Synthesized 2D images are generated from the tomosynthesis. FINDINGS: The breasts are heterogeneously dense, which may obscure small masses (ACR BI-RADS breast composition Category c). There are no significant masses, abnormal calcifications, or other abnormalities. MM/MM tomosynthesis screening BI IMPRESSION: No mammographic evidence of malignancy. ASSESSMENT: BI-RADS BI-RADS 1 - Negative RECOMMENDATION: Routine annual mammography screening. 1 year F/U This examination should not preclude the clinical evaluation of a suspicious palpable abnormality. This patient's information was entered into a reminder system with a target due date for their next mammogram. Dictated By: Leatha Hatfield MD Signed By: <Electronically signed by Leatha Hatfield MD in OV> 08/24/23 0501 DD/ 1415 TD/TT: Welfare Centre Manager: Ruby Betancourt CNM IMG BI PROCEDURES Final R esult * Hm Colonoscopy (11/29/2021) Colonoscopy performed Historical Provider HEALTH MAINTENANCE Edited Result - Final from Last 3 Months or Most Recently Relevant to Health Maintenance [place] [address] [place] [address] [employer] Member Subscriber Plan / Payer ( fective 2023-Present) Name:Tamrafael TuckerChelsie buitrago Relation to Subscriber:Self Name:Chelsie Nick Payer ID:Not on file Group ID:[id number] Type:Not on file Address: [address] [place] [address] Care Teams Paper Final Inspector Relationship Specialty Start Date End Date Nilsa Brennan ANP [address] [place] [address] PCP - General Family Medicine 03/26/20
--- OUTSIDE RECORDS SUMMARY | 2024-08-10 16:53 | XMS_ITS | Encounter Summary ---
Author Organization [employer] Address [address] [facility] [address] [place] [address] Care Team Providers Care Maintenance Scheduler Name Role Phone Sneha Tipton Primary Care Provider [phone] Reason for Visit * Reason Comments Med Refill Encounter Details Date Type Department Care Team ([facility] st Contact Info) Description 07/29/2023 Refill [facility] [address] [place], [place] [id number] Sneha Tipton ANP [address] [place] [address] Mixed hyperlipidemia Social History Tobacco Use Types Packs/Day Years Used Date Smoking Tobacco: Former Passive Smoke Exposure: Current Smokeless Tobacco: Never Alcohol Use Standard Drinks/Week Comments Yes 0 (1 standard drink = 0.6 oz pur e alcohol) socially Housing Stability Answer Date Recorded What is your housing situation today? I have tonio fontaine 03/07/[address] you li ve. Do you have problems with any of the following? None of the above 03/07/2023 Food Insecurity Answer Date Recorded Within the past 12 months, y ou worried that your food would run out before you got money to buy more: Never True 03/07/2023 Within the past 12 months,th e food you bought just didn't last and you didn't have enough money to get more: Never True Transportation Answer Date Recorded In the past 12 months, has l ack of transportation kept you from medical appts, meetings, work or from getting things needed for daily living? No 03/07/2023 Utilities Answer Date Recorded In the past 12 months, has t he electric, gas, oil or water too.me threatened to shut off services in your home? No 03/07/2023 Depression Answer Date Recorded Patient Health Questionnaire-2 Score 0 04/24/2022 Comments No Sex and Gender Information Value Date Recorded Sex Assigned at Female 03/10/2022 10:35 AM EDT Legal Sex Female 10:35 AM EDT Gender Identity Choose not to disclose 10:35 AM EDT Sexual Orientation Choose not to disclose 2021 10:35 AM EDT documented as of this encounter Plan of Treatment Not on file documented as of this encounter Visit Diagnoses Diagnosis Mixed hyperlipidemia documented in this encounter Care Teams Maintenance Scheduler Relationship Specialty Start Date End Date Sneha Tipton ANP [address] [place] [id number] PCP - General Family Medicine 03/26/20 documented as of this encounter
--- OUTSIDE RECORDS SUMMARY | 2024-08-10 16:53 | XMS_ITS | Encounter Summary ---
Author Organization [employer] Address [address] [facility] [address] [place] [address] Care Team Providers Care Yard Caller Name Role Phone Sneha Tipton Primary Care Provider [phone] Encounter Details Date Type Department Care Team (Late st Contact Info) Description 08/26/2023 Abstract [facility] [address] [place], [place] [phone] Sneha Tipton ANP [address] [place] [address] Social History Tobacco Use Types Packs/Day Years [...] on filedocumented in this encounter Care Teams Yard Caller Relationship Specialty Start Date End Date Sneha Tipton ANP [address] [place] [id number] PCP - General Family Medicine 03/26/20 documented as of this encounter
== END 2024-08-10 14:10 | disposition home or self-care (01) ==
LOC: HO.MAMMO 14:09
PROVIDERS: PCP Nurse Practitioner Primary Care; Visit Provider Nurse Practitioner Primary Care
DX: Z12.31 Encounter for screening mammogram for malignant neoplasm of breast (principal)
CPT/HCPCS: 77063; 77067

== ENCOUNTER → 2024-08-10 15:15 | Outpatient (BNV) | payer MEDICARE, SELFPAY | PROVIDERS: PCP Nurse Practitioner Primary Care; Visit Provider Internal Medicine | DX: Z12.31 Encounter for screening mammogram for malignant neoplasm of breast (principal) | CPT/HCPCS: 77063; 77067 ==

== ENCOUNTER 2024-11-28 08:48 | Outpatient (AMB) | payer MEDICARE, SELFPAY ==
[2024-11-28 08:50] VITALS: BP 144/84; PULSE 63; O2SAT 100; BMI 29.0
--- NOTE | 2024-11-28 08:50 | MHC.OFFVIS ---
Vital Signs 11/28/24 08:50 Height 5 ft 2.2 in Weight 159 lb 6.307 oz BMI 29.0 BP 144/84 H Blood Pressure Location Lt brachial Position Sitting Pulse 63 Pulse Source Pulse Oximeter Pulse Oximetry (%) 100 Oxygen Delivery Method Room Air Intake Visit Reasons: MNG/secondary hyperparathyroidism Intake Note: Patient present today for MNG and secondary hyperparathyroidism. 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 Pietro Styles at [facility] July 2020 w pathology benign, not requiring levothyroxine postoperatively, also with a history of hyperparathyroidism status post left inferior parathyroidectomy July 2020, with a history of osteoporosis. 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 This was repeated 11/09/18 with TSH of 0.14 with FT4 WNL at 0.75 and TT3 WNL at 132. TRAB antibodies were checked and were negative. Labs were then repeated 12/27/18 with TSH 0.1 with FT4 and TT3 WNL, and negative TSI, TRAB, TPO, and TG Antibodies. She had a thyroid US which revealed a multinodular thyroid with multiple nodules within the L lobe meeting indication for FNA biopsy. She had a Thyroid Uptake and Scan completed 07/27/2019 which revealed normal uptake but marked heterogeneity within the gland, consistent with a toxic MNG. She was subsequently started on Methimazole 5 mg PO daily, and this was later titrated upward to 7.5 mg PO daily. She was scheduled for FNA biopsy of her L upper pole 1.2 cm nodule, L mid pole 2.1 cm nodule, L lower 1.5 cm nodule and her L lower 1.0 cm nodule. She was unable to tolerate even the first pass of the first nodule, and refused further attempts at FNA. She refused additional FNA. She was referred to Dr. Styles to discuss a surgical thyroidectomy. After her intitial consultation she opted not to proceed with this, but subsequently changed her mind. She underwent L hemithyroidectomy 08/06/2020. Official surgical path was benign. She was not started on thyroid hormone replacement postoperatively. TSH has remained WNL. Interval history She reports feeling well currently. Last thyroid ultrasound March 2023 showed multiple subcentimeter right-sided nodules, including a right mid 0.7 cm TR 5 solid very hypoechoic lobulated nodule, a right mid inferior 0.8 cm spongiform nodule, and a right inferior 0.9 cm solid hypoechoic TR 4 nodule. 12/09/2023: TSH 1.02, free T4 0.71 2)Hyperparathyroidism status post left inferior parathyroidectomy July 2020 Osteoporosis She was also noted to have hyperparathyroidism, and underwent a L inferior parathyroidectomy. Postoperative her PTH was WNL. However, in March 2023 PTH was slightly elevated with borderline low 25- vitamin-D levels Then No recent labs. DEXA December 2020 revealed Osteoporosis of the distal forearm, and Osteopenia of the hip and spine. last DExa Last DExa December 2022 osteopenia of the hip left fem neck -2.1, left fem total t score -1.4 , 1.8 % decrease from 202, meaning stable osteopenia of hip , spine t score -2.2, 2.4 % decrease from previous , left forearm t score -2.8 , osteoporosis. same as 2020 Due for repeat bone density Quit smoking 1.5 years ago in 2022 Calcium supplements : none, milk : none , cheese: everyday , yogurt: everyday one serving Vitamin D : supplements none currently she has been out of it Fractures: none Dental cleaning : has implants on the top, no issues currenlty , regular with dental cleaning Physical exam General: sitting comfortably in no acute distress HEENT: normocephalic/atraumatic, Neck: supple, symmetrical, Cardiac: normal heart sounds Pulm: normal breath sounds B/L, no added breath sounds Abd: not distended, no tenderness Extremities: no edema, no signs of myxedema Laboratory Tests 05/24/20 07/05/20 08/14/20 11:41 12:34 12:15 Creatinine Estimated GFR Calcium Phosphorus 25-OH Vitamin D Total TSH Free T4 PTH Intact 121 H 62 72 H 10/18/20 06/27/21 07/04/21 10:35 15:49 11:21 Creatinine Estimated GFR Calcium 9.4 9.9 9.3 D Phosphorus 25-OH Vitamin D Total TSH Free T4 PTH Intact 78 H 66 H 11/21/21 07/31/22 03/19/23 10:59 10:40 13:07 Creatinine Estimated GFR Calcium 9.4 9.1 9.1 Phosphorus 3.5 25-OH Vitamin D Total 32.7 TSH 0.79 Free T4 0.79 PTH Intact 50 63 81 H 08/28/23 09/22/23 12/09/23 12:25 14:15 10:49 Creatinine 0.76 Estimated GFR > 60 Calcium 9.2 9.6 Phosphorus 25-OH Vitamin D Total 37.2 42.3 TSH 1.02 Free T4 0.71 PTH Intact US THYROID 04/02 CLINICAL INFORMATION: Nontoxic multinodular goiter. COMPARISON: Ultrasound-guided thyroid biopsy 12/15/2019. Thyroid ultrasound 06/16/2019. TECHNIQUE: Linear transducer warren-scale and color Doppler examination with attention to the region of the thyroid. FINDINGS: SIZE: Measurements of the solitary right thyroid lobe and nodules are given in sagittal, anteroposterior and transverse dimensions respectively. Right Thyroid Lobe: 4.8 x 1.2 x 2.1 cm, volume 6.5 mL. Previously 4.9 x 1.4 x 1.6 cm, volume 5.7 mL. Parenchyma: The gland echotexture is homogeneous. Thyroid vascularity is normal. Left Thyroid Lobe: Surgically absent. Isthmus: 0.2 cm in maximum AP dimension. Previously 0.3 cm. Estimated total number of nodules greater than or equal to 1 cm: 0. Largest 3 nodules are described as follows: Multiple small colloid cysts. 1. Location: Right mid. Size: 0.7 x 0.5 x 0.7 cm, volume 0.1 mL. Previously: 0.6 x 0.5 x 0.6 cm, volume 0.09 mL. Nodule characteristics: Composition: Solid (2). Echogenicity: Very hypoechoic (3). Shape: Not taller than wide (0). Margins: Lobulated (2). Echogenic Foci: None (0). ACR TI-RADS total points: 7 ACR TI-RADS category: 4 Significant change in size (>/= 20% in 2 dimensions and minimal increase of 2 mm or 50% or greater increase in volume): No Change in features: Yes Change in ACR TI-RADS risk category: Yes 2. Location: Right mid inferior. Size: 0.8 x 0.6 x 0.7 cm, volume 0.2 mL. Previously: 0.5 x 0.3 x 0.4 cm, volume 0.03 mL. Nodule characteristics: Composition: Spongiform (0). Echogenicity: Anechoic (0). Shape: Not taller than wide (0). Margins: Smooth (0). Echogenic Foci: None (0). ACR TI-RADS total points: 0 ACR TI-RADS category: 1 Significant change in size (>/= 20% in 2 dimensions and minimal increase of 2 mm or 50% or greater increase in volume): No Change in features: No Change in ACR TI-RADS risk category: No 3. Location: Right inferior. Size: 0.9 x 0.7 x 0.9 cm, volume 0.3 mL. Previously: 0.8 x 0.7 x 0.7 cm, volume 0.2 mL. Nodule characteristics: Composition: Solid (2). Echogenicity: Hypoechoic (2). Shape: Not taller than wide (0). Margins: Ill-defined (0). Echogenic Foci: None (0). ACR TI-RADS total points: 4 ACR TI-RADS category: 4 Significant change in size (>/= 20% in 2 dimensions and minimal increase of 2 mm or 50% or greater increase in volume): No Change in features: No Change in ACR TI-RADS risk category: No NODES: No lymphadenopathy is seen in the tissue surrounding the thyroid gland. US/US thyroid IMPRESSION: Multiple solid and cystic right nodules. Suspicious nodule in the mid right lobe. According to TI RADS criteria, follow-up ultrasound every year for 5 years would be recommended. BONE DENSITOMETRY 01/02/23 CLINICAL INDICATION: Hyperparathyroidism, unspecified. COMPARISON: Previous BD dated 01/01/2021 and baseline BD dated 11/30/2018, spine and left hip. TECHNIQUE: Using a [employer] DXA System (software version: 13.1) manufactured by [employer], dual-energy x-ray absorptiometry was performed of the lumbar spine, left hip and left forearm radius 33%. The images are of good technical quality. Summary results are attached. FINDINGS: LEFT FEMUR, NECK: Current: BMD 0.747 g/cm2, Z-score -0.6, T-score -2.1, osteopenia. Prior: BMD 0.776 g/cm2. Baseline: BMD 0.735 g/cm2. LEFT FEMUR, TOTAL: Current: BMD 0.831 g/cm2, Z-score -0.1, T-score -1.4, osteopenia, 1.8% decrease from previous, 0.5% increase from baseline (<5% change is not significant). Prior: BMD 0.846 g/cm2. Baseline: BMD 0.827 g/cm2. AP SPINE L1-L4: Current: BMD 0.922 g/cm2, Z-score -0.7, T-score -2.2, osteopenia, 2.4% decrease from previous, 0.1% increase from baseline (<5% change is not significant). Prior: BMD 0.945 g/cm2. Baseline: BMD 0.921 g/cm2. LEFT FOREARM RADIUS 33%: BMD 0.627 g/cm2, Z-score -1.1, T-score -2.8, osteoporosis. IDENTIFIED RISK FACTORS: Early menopause, secondary osteoporosis, family history (parental hip fracture), hyperparathyroidism, hysterectomy, low calcium intake, osteoporosis, recurrent falls, tobacco use (current smoker). HISTORY OF FRACTURE: None listed. MEDICATIONS: Calcium supplements or multivitamin, vitamin D. MM/XR DEXA appendicular skeleton IMPRESSION: 1. DIAGNOSIS: Osteoporosis based on the lowest T-score value of -2.8 in the forearm radius 33% applying World Health Organization criteria. 2. 10-YEAR FRACTURE RISK PREDICTION, FRAX: According to the guidelines, FRAX calculation should only be performed on patients in the osteopenia bone density category. Therefore, FRAX was not performed on this patient. DXA 01/01/2021: FINDINGS: AP SPINE L1-L4: Current: BMD 0.945 g/cm2, Z-score -0.4, T-score -2.0, osteopenia, 2.6% increase from baseline (<5% change is not significant). Baseline: BMD 0.921 g/cm2. LEFT FEMUR, NECK: Current: BMD 0.776 g/cm2, Z-score -0.4, T-score -1.9, osteopenia. Baseline: BMD 0.735 g/cm2. LEFT FEMUR, TOTAL: Current: BMD 0.846 g/cm2, Z-score 0.0, T-score -1.3, osteopenia, 2.3% increase from baseline (<5% change is not significant). Baseline: BMD 0.827 g/cm2. RIGHT FOREARM RADIUS 33%: BMD 0.642 g/cm2, Z-score -1.1, T-score -2.7, osteoporosis. [facility] Medical History Multinodular thyroid OAB (overactive bladder) UTI (urinary tract infection) Stress incontinence in female Osteoporosis Hyperparathyroidism Vitamin D deficiency Osteopenia Toxic multinodul goiter Surgical History H/O colonoscopy H/O parathyroidectomy Hx of hysterectomy History of ear surgery Family History Father No problems noted. Mother Hypertension Arthritis Osteoporosis Social History Alcohol intake: current Alcohol intake frequency: holidays/special occasions only Patient Tobacco Use Status: Former Tobacco user Tobacco use type: Cigarette Cigarettes Per Day: 4 Years Smoked: 45 Physical Exam Vital Signs: Last Vital Signs Pulse 63 11/28/24 08:50 BP 144/84 H 11/28/24 08:50 Pulse Ox 100 11/28/24 08:50 Oxygen Delivery Method Room Air 11/28/24 08:50 BMI result Body Mass Index 29.0 Assessment & Plan Assessment & Plan (1) Toxic multinodul goiter: Code(s): E05.20 - Thyrotoxicosis with toxic multinodular goiter without thyrotoxic crisis or storm Category: Medical Plan: 69-year-old female with a history of subclinical hyperthyroidism due to toxic multinodular goiter Status post left hemithyroidectomy with Dr. Pietro Styles at [facility] in July 2020 with normalization of TSH. There are subcentimeter nodules on the right side on ultrasound in 2022 with a right superior TR 5 nodule. She appears to be clinically euthyroid. At this point I will have her repeat the ultrasound. Also due for repeat thyroid function tests. Plan: -ordered ultrasound of the thyroid -ordered TSH and free T4 -follow up in 8 weeks to discuss results (2) Hyperparathyroidism: Code(s): E21.3 - Hyperparathyroidism, unspecified Category: Medical Plan: Has a history of hyperparathyroidism, with osteoporosis, status post left inferior parathyroidectomy [address] Pietro Styles at [facility], with normalization of PTH. Last in 2022 she was noted to have an elevated PTH, thought to be in the setting of vitamin-D deficiency. No recent labs done. Currently she is not on any vitamin-D supplements. Does have some degree of dairy intake of calcium, but not optimal. I have asked her to increase her dairy intake. Restart vitamin-D 1000 units daily. We will have her repeat labs at [facility] since I have had some PTH variations at our lab. Also has a history of osteoporosis of the left forearm with T-score of-2.8 at last bone density in 2022. This was at least 1-1/2 years after her surgery, you would have expected some accrual of bone but this was not a very satisfying results. I will have her repeat bone density now. Plan: -ordered PTH, calcium, albumin, ionized calcium, phosphorus, vitamin-D, creatinine levels to be done at [facility] -ordered bone density scan including forearm -follow up in 8 weeks to discuss results -restart vitamin-D 1000 units daily -incorporate 2-3 servings of calcium rich foods daily (3) Vitamin D deficiency: Code(s): E55.9 - Vitamin D deficiency, unspecified Category: Medical Plan: See above (4) Osteoporosis: Code(s): M81.0 - Age-related osteoporosis without current pathological fracture Category: Medical Qualifiers: Osteoporosis type: age-related Presence of current pathological fracture: without current pathological fracture Qualified Code(s): M81.0 - Age-related osteoporosis without current pathological fracture Plan: See above Plan I spent 30 minutes in reviewing the record, seeing the patient and documenting in the medical record. Orders: Orders US thyroid Today E04.2 - Nontoxic multinodular goiter XR DEXA appendicular skeleton Today M81.0 - Age-related osteoporosis without current pathological fracture Calcium Today E04.2 - Nontoxic multinodular goiter, E21.3 - Hyperparathyroidism, unspecified, E55.9 - Vitamin D deficiency, unspecified, M81.0 - Age-related osteoporosis without current pathological fracture Calcium, Ionized Today E04.2 - Nontoxic multinodular goiter, E21.3 - Hyperparathyroidism, unspecified, E55.9 - Vitamin D deficiency, unspecified, M81.0 - Age-related osteoporosis without current pathological fracture Parathyroid Hormone Intact Today E04.2 - Nontoxic multinodular goiter, E21.3 - Hyperparathyroidism, unspecified, E55.9 - Vitamin D deficiency, unspecified, M81.0 - Age-related osteoporosis without current pathological fracture Vitamin D 25-OH Total Today E04.2 - Nontoxic multinodular goiter, E21.3 - Hyperparathyroidism, unspecified, E55.9 - Vitamin D deficiency, unspecified, M81.0 - Age-related osteoporosis without current pathological fracture Creatinine Today E04.2 - Nontoxic multinodular goiter, E21.3 - Hyperparathyroidism, unspecified, E55.9 - Vitamin D deficiency, unspecified, M81.0 - Age-related osteoporosis without current pathological fracture Free T4 (Free Thyroxine) Today E04.2 - Nontoxic multinodular goiter, E21.3 - Hyperparathyroidism, unspecified, E55.9 - Vitamin D deficiency, unspecified, M81.0 - Age-related osteoporosis without current pathological fracture Thyroid Stimulating Hormone Today E04.2 - Nontoxic multinodular goiter, E21.3 - Hyperparathyroidism, unspecified, E55.9 - Vitamin D deficiency, unspecified, M81.0 - Age-related osteoporosis without current pathological fracture Albumin Level Today E04.2 - Nontoxic multinodular goiter, E21.3 - Hyperparathyroidism, unspecified, E55.9 - Vitamin D deficiency, unspecified, M81.0 - Age-related osteoporosis without current pathological fracture Phosphorus Today E04.2 - Nontoxic multinodular goiter, E21.3 - Hyperparathyroidism, unspecified, E55.9 - Vitamin D deficiency, unspecified, M81.0 - Age-related osteoporosis without current pathological fracture Medications: New cholecalciferol (vitamin D3) 25 mcg PO DAILY 90 caps 2RF 3 months Discontinued cholecalciferol (vitamin D3) Discontinued Reason: Doctor's Order 100 mcg (2 x 50 mcg (2,000 unit)) PO DAILY 60 caps 4RF E55.9 - Vitamin D deficiency, unspecified Patient Instructions: Do bone density scan , someone will call you to schedule this Do thyroid ultrasound, someone will call you to schedule this Do blood work at [address] Please make sure they fax results to me Please do all the above before your next appointment with me Start taking vitamin D 1000 units daily , i sent prescription Continue to eat cheese and ypgurt daily, also try to incorporate a serving of milk daily Coding Level of Care Code Est Pt Level 4 (85024) Diagnoses Toxic multinodul goiter E05.20 Hyperparathyroidism E21.3 Vitamin D deficiency E55.9 Age-related osteoporosis without current pathological fracture M81.0 Osteoporosis type: age-related Presence of current pathological fracture: without current pathological fracture Time Spent (min) 30
--- OUTSIDE RECORDS SUMMARY | 2024-11-28 08:55 | XMS_ITS | Encounter Summary ---
Author Organization [email or web address] [facility] Address [address] [place] [address] Care Team Providers Care Dairy Science Teacher Name Role Phone Sneha Tipton Primary Care Provider [phone] Encounter Details Date Type Department Care Team (Latest Contact Info) Description 12/15/2018 Abstract [facility] CONVERSIONS Dental, Provider, DDS Social History Tobacco [...] as of this encounter Plan of Treatment Upcoming Encounters Date Type Department Care Team (Late st Contact Info) Description 12/30/2024 1:45 PM EDT Office Visit [facility] MEDICINE [address] [place] [address] Sneha Tipton ANP [address] [place] [address] documented as of this encounter Visit Diagnoses Not on filedocumented in this encounter Care Teams Dairy Science Teacher Relationship Specialty Start Date End Date Sneha Tipton ANP [address] [place] [address] PCP - General Family Medicine 03/26/20 documented as of this encounter
--- OUTSIDE RECORDS SUMMARY | 2024-11-28 08:55 | XMS_ITS | Clinical Summary ---
Author Organization [facility] ity Address [address] [place] [address] Care Team Providers Care Instructor Industrial Design Name Role Phone Unavailable Primary Care Provider [...] Vaccines (1 of 2) 07/16/2003 COVID-19 Vaccine (1 - 2023-2 5 season) 2024 Depression Screening 05/11/2024 Influenza Vaccine (#1) 2025 RSV Immunization Adult Patie nts (1 - [...] age to complete this topic Meningococcal B Vaccine Aged Out No l onger eligible based on patient's age to complete this topic RSV Immunization Patients Un trisha 20 months Aged Out No longer eligible b ased on patient's age to complete this topic Varicella Vaccines Aged Out No longer eligible based on patient's age to complete this topic
== END 2024-11-28 09:53 | disposition home or self-care (01) ==
LOC: HO.ENCR 08:49
PROVIDERS: PCP Nurse Practitioner Primary Care; Visit Provider Student in an Organized Health Care Education/Training Program
DX: E05.20 Thyrotoxicosis with toxic multinodular goiter without thyrotoxic crisis or storm (principal); E21.3 Hyperparathyroidism, unspecified; E55.9 Vitamin D deficiency, unspecified; M81.0 Age-related osteoporosis without current pathological fracture
CPT/HCPCS: 99214

== ENCOUNTER → 2024-11-28 08:48 | Outpatient (BNVA) | payer MEDICARE, SELFPAY | PROVIDERS: PCP Nurse Practitioner Primary Care; Visit Provider Student in an Organized Health Care Education/Training Program | DX: M81.0 Age-related osteoporosis without current pathological fracture (principal); E55.9 Vitamin D deficiency, unspecified; E21.3 Hyperparathyroidism, unspecified; E04.2 Nontoxic multinodular goiter; E05.20 Thyrotoxicosis with toxic multinodular goiter without thyrotoxic crisis or storm | CPT/HCPCS: 99212 ==

== ENCOUNTER 2024-12-05 11:08 | Outpatient (REF) | payer MEDICARE, SELFPAY ==
--- OUTSIDE RECORDS SUMMARY | 2024-12-05 12:28 | XMS_ITS | Encounter Summary ---
Author Organization [employer] [facility] Address [address] [place] [address] Care Team Providers Care Process Worker Name Role Phone Sneha Tipton Primary Care Provider [phone] Encounter Details Date Type Department Care Team (Latest Contact Info) Description 12/15/2018 Abstract [facility] CONVERSIONS Dental, Provider, DDS Social History Tobacco [...] Description 12/30/2024 1:45 PM EDT Office Visit [facility] MEDICINE [address] [place] [address] Sneha Tipton ANP [address] [place] [address] documented as of this encounter Visit Diagnoses Not on filedocumented in this encounter Care Teams Process Worker Relationship Specialty Start Date End Date Sneha Tipton ANP [address] [place] [address] PCP - General Family Medicine 03/26/20 documented as of this encounter
--- OUTSIDE RECORDS SUMMARY | 2024-12-05 12:28 | XMS_ITS | Clinical Summary ---
Author Organization [facility] ity Address [address] [place] [address] Care Team Providers Care Crab Catcher Name Role Phone Unavailable Primary Care Provider [...]
--- NOTE | 2024-12-05 16:16 | MHC.AU.HA3 ---
Hearing Instrument Follow-Up Date of Visit: 12/05/24 Right Ear: Make, Model, Color, Serial Number: Lavonne Mast 50-13T Mimi Eden Serial #[id number] Stripper [place] Repair Warranty: 06/20/2022 Stripper [employer] Loss and Damage Warranty: 06/20/2022 [facility] Service Plan: Battery Size: 13 Head Automatic Sawyer/Slim Tube: 1 Power Earmold/Dome/CShell/SlimTip:Small Power Type of Wax Guard: CERUSHIELD Dispensed By: [facility] Date of Fittin04/05/2019 Left Ear: Make, Model, Color, Serial Number: [id number] Follow-Up Summary: Aid dropped off c/o turns on but unable to hear anything . Battery in ARTHUR was . Wax guard misaligned in supervisor wrapping room. Small amount of wax build up on dome. Cleaned aid, replaced wax guard, replaced dome. Listening check positive. Paper chart says small vented dome but the hearing aid arrived with small power so I replaced with small power. Recommend updated audiogram if still having trouble after maintenance. None on record since 2019. Recommendations: Recommendations: Hearing instrument follow-up or maintenance as needed. Diagnosis Code(s): Primary Diagnosis: H90.3 Bilateral Sensorineural Hearing Loss Signature: Provider: Jeanie Borrero, [facility]
== END 2024-12-05 11:09 | disposition home or self-care (01) ==
LOC: HO.SH 11:08
PROVIDERS: Visit Provider Nurse Practitioner Primary Care
DX: Z13.89 Encounter for screening for other disorder (principal)

== ENCOUNTER 2024-12-07 10:11 | Outpatient (REF) | payer SELFPAY ==
--- OUTSIDE RECORDS SUMMARY | 2024-12-07 11:00 | XMS_ITS | Encounter Summary ---
Author Organization [email or web address] [facility] Address [address] [place] [address] Care Team Providers Care University Administrative Assistant Name Role Phone Sneha Tipton Primary Care Provider [phone] Encounter Details Date Type Department Care Team (Latest Contact Info) Description 12/15/2018 Abstract [facility] CONVERSIONS Dental, Provider, DDS Social History Tobacco [...] Description 12/30/2024 1:45 PM EDT Office Visit [facility] MEDICINE [address] [place] [address] Sneha Tipton ANP [address] [place] [address] documented as of this encounter Visit Diagnoses Not on filedocumented in this encounter Care Teams University Administrative Assistant Relationship Specialty Start Date End Date Sneha Tipton ANP [address] [place] [address] PCP - General Family Medicine 03/26/20 documented as of this encounter
--- OUTSIDE RECORDS SUMMARY | 2024-12-07 11:00 | XMS_ITS | Clinical Summary ---
Author Organization [facility] ity Address [address] [place] [address] Care Team Providers Care Perfumer Name Role Phone Unavailable Primary Care Provider [...]
== END 2024-12-07 10:12 | disposition home or self-care (01) ==
LOC: HO.HAP 10:11
PROVIDERS: PCP Nurse Practitioner Primary Care; Visit Provider Nurse Practitioner Primary Care
DX: H90.3 Sensorineural hearing loss, bilateral (principal)
CPT/HCPCS: 92593

== ENCOUNTER 2024-12-08 10:53 | Outpatient (REF) | payer SELFPAY ==
--- OUTSIDE RECORDS SUMMARY | 2024-12-08 11:42 | XMS_ITS | Encounter Summary ---
Author Organization [employer] [facility] Address [address] [place] [address] Care Team Providers Care Diagnostic Imaging Manager Name Role Phone Sneha Tipton Primary Care Provider [phone] Encounter Details Date Type Department Care Team (Latest Contact Info) Description 12/15/2018 Abstract [facility] CONVERSIONS Dental, Provider, DDS Social History [...] Description 12/30/2024 1:45 PM EDT Office Visit [facility] MEDICINE [address] [place] [address] Sneha Tipton ANP [address] [place] [address] documented as of this encounter Visit Diagnoses Not on filedocumented in this encounter Care Teams Diagnostic Imaging Manager Relationship Specialty Start Date End Date Sneha Tipton ANP [address] [place] [address] PCP - General Family Medicine 03/26/20 documented as of this encounter
--- OUTSIDE RECORDS SUMMARY | 2024-12-08 11:43 | XMS_ITS | Clinical Summary ---
Author Organization [facility] ity Address [address] [place] [address] Care Team Providers Care Recovery Room Nurse Name Role Phone Unavailable Primary Care Provider [...]
--- NOTE | 2024-12-09 12:22 | MHC.AU.HA3 ---
Hearing Instrument Follow-Up Date of Visit: 12/09/24 Right Ear: Make, Model, Color, Serial Number: Lavonne Mast 50-13T Mimi Eden Serial #[id number] Stunner Animal Repair Warranty: 06/20/2022 Stunner Animal Loss and Damage Warranty: 06/20/2022 [facility] Service Plan: Battery Size: 13 Source Inspector/Slim Tube: 1 Power Earmold/Dome/CShell/SlimTip:Small Power Type of Wax Guard: CERUSHIELD Dispensed By: [facility] Date of Fittin04/05/2019 Left Ear: Make, Model, Color, Serial Number: [id number] Follow-Up Summary: Right aid dropped off 01/08. Aid just picked up after drop off on 12/07. C/O aid making noise every half hour. Kept aid on all morning and listened to it for over an hour without hearing any unusual sounds. Patient needs an appointment if issues persist. Recommendations: Recommendations: Patient will call if problems persist. Diagnosis Code(s): Primary Diagnosis: H90.3 Bilateral Sensorineural Hearing Loss Signature: Provider: Jeanie Borrero, [facility]
== END 2024-12-08 10:54 | disposition home or self-care (01) ==
LOC: HO.HAP 10:53
PROVIDERS: Visit Provider Nurse Practitioner Primary Care
DX: Z13.89 Encounter for screening for other disorder (principal)

== ENCOUNTER 2024-12-13 10:45 | Outpatient (REF) | payer SELFPAY ==
--- OUTSIDE RECORDS SUMMARY | 2024-12-13 11:29 | XMS_ITS | Encounter Summary ---
Author Organization [facility] [employer] [facility] Address [address] [place] [address] Care Team Providers Care Oxyacetylene Welder Name Role Phone Sneha Tipton Primary Care Provider [phone] Encounter Details Date Type Department Care Team (Latest Contact Info) Description 12/15/2018 Abstract [facility] CONVERSIONS Dental, Provider, DDS Social [...] 12/30/2024 1:45 PM EDT Office Visit [facility] MEDICINE [address] [place] [address] Sneha Tipton ANP [address] [place] [address] documented as of this encounter Visit Diagnoses Not on filedocumented in this encounter Care Teams Oxyacetylene Welder Relationship Specialty Start Date End Date Sneha Tipton ANP [address] [place] [address] PCP - General Family Medicine 03/26/20 documented as of this encounter
--- OUTSIDE RECORDS SUMMARY | 2024-12-13 11:29 | XMS_ITS | Clinical Summary ---
Author Organization [facility] ity Address [address] [place] [address] Care Team Providers Care Referral Clerk Name Role Phone Unavailable Primary Care Provider [...]
== END 2024-12-13 10:46 | disposition home or self-care (01) ==
LOC: HO.HAP 10:45
PROVIDERS: Visit Provider Nurse Practitioner Primary Care
DX: Z13.89 Encounter for screening for other disorder (principal)

== ENCOUNTER 2025-01-05 12:44 | Outpatient (AMB) | payer MEDICARE, SELFPAY ==
--- OUTSIDE RECORDS SUMMARY | 2024-12-30 13:45 | XMS_ITS | Encounter Summary ---
Author Organization [employer] Address [address] [place] [address] Care Team Providers Care Consultant Intern Name Role Phone Sneha Tipton Primary Care Provider [phone] Reason for Visit * Reason Comments Annual Exam Encounter Details Date Type Department Care Team ([facility] st Contact Info) Description 12/30/2024 1:45 PM EDT Office Visit [facility] MEDICINE [address] [place], [place] [id number] Sneha Tipton ANP [address] [place] [address] Healthcare maintenance (Primary Dx); Mixed hyperlipidemia; Chronic right-sided low back pain, unspecified whether sciatica present; Frequent falls; Right hip pain; 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 I have tonio fontaine 12/30/[address] you li ve. Do you have problems with any of the following? None of the above 12/30/2024 Food Insecurity Answer Date Recorded Within the past 12 months, y ou worried that your food would run out before you got money to buy more: Sometimes True 2024 Within the past 12 months,th e food you bought just didn't last and you didn't have enough money to get more: Sometimes True 12/30/2024 Transportation Answer Date Recorded In the past 12 months, has l ack of transportation kept you from medical appts, meetings, work or from getting things needed for daily living? No 12/30/2024 Utilities Answer Date Recorded In the past 12 months, has t he electric, gas, oil or water company threatened to shut off services in your home? No 12/30/2024 Depression Answer Date Recorded Patient Health Questionnaire-2 Score 1 12/30/2024 Internet Access Answer Date Recorded Internet Access Q1 Yes 12/30/2024 Internet Access Q2 Not on file 12/30/2024 Comments No Sex and Gender Information Value Date Recorded Sex Assigned at Female 03/10/2022 10:35 AM EDT Legal Sex Female 10:35 AM EDT Gender Identity Female 12/30/2024 4:02 PM EDT Sexual Orientation Straight 12/30/2024 4: 02 PM EDT documented as of this encounter Last Filed Vital Signs Vital Sign Reading Time Taken Comments Blood Pressure 140/78 12/30/2024 1:53 PM EDT Pulse 64 12/30/2024 1:53 PM EDT Temperature 36.9 C (98.4 F) 12/30/2024 1:53 PM EDT Respiratory Rate 14 12/30/2024 1:53 PM EDT Oxygen Saturation 98% 12/30/2024 1:53 PM EDT Inhaled Oxygen Concentration - - Weight 73.1 kg (161 lb 3.2 oz) 12/30/2024 1:53 P M EDT Height - - Body Mass Index 29.48 12/28/2023 3:09 PM EDT documented in this encounter Functional Status * Over the past 2 weeks, how often have you been bothered by any of the following problems? Question Answer Date of Assessment Author Patient Health Questionnaire-2 Score 1 12/10 2:47 PM EDT Shabnam High [place] * Little interest or pleasure in doing things Answer Date of Assessment Author Several days 12/30/2024 2:47 PM EDT Shabnam High [place] * Feeling down, depressed, or hopeless Answer Date of Assessment Author Not at all 12/30/2024 2:47 PM EDT Shabnam High [place] * Trouble falling or staying asleep, or sleeping too much Answer Date of Assessment Author Nearly every day 12/30/2024 2:47 PM EDT Shabnam High [place] * Feeling tired or having little energy Answer Date of Assessment Author More than half the days 12/30/2024 2:47 PM EDT Shabnam High [place] * Poor appetite or overeating Answer Date of Assessment Author Not at all 12/30/2024 2:47 PM EDT Shabnam High [place] * Feeling bad about yourself - or that you are a failure or have let yourself or your family down Answer Date of Assessment Author More than half the days 12/30/2024 2:47 PM EDT Shabnam Hawk [place] * Trouble concentrating on things, such as reading the newspaper or watching television Answer Date of Assessment Author Several days 12/30/2024 2:47 PM QUOCT Shabnam High [place] * Moving or speaking so slowly that other people could have noticed? Or the opposite - being so fidgety or restless that you have been moving around a lot more than usual. Answer Date of Assessment Author Several days 12/30/2024 2:47 PM EDShabnam Sagastume [place] * Thoughts that you would be better off or hurting yourself in some way Answer Date of Assessment Author Not at all 12/30/2024 2:47 PM Shabnam Briseno [place] * Patient Health Questionnaire-9 Score Answer Date of Assessment Author 10 12/30/2024 2:47 PM EDT Shabnam High [place] * Over the last 2 weeks, how often have you been bothered by any of the following problems? Question Answer Date of Assessment Author Feeling nervous, anxious, or on edge 0 12/10 2:49 PM EDT Shabnam High [place] Not being able to stop or co ntrol worrying 1 12/30/2024 2:49 PM QUOCT Shabnam High M A Worrying too much about diff erent things 0 12/30/2024 2:49 PM Shabnam Briseno M A Being so restless that it is hard to sit still 0 12/30/2024 2:49 PM EDT Shabnam High M A Becoming easily annoyed or irritable 0 12/10 2:49 PM EDT Shabnam High [place] Feeling afraid as if somethi ng awful might happen 1 12/30/2024 2:49 PM EDT Shabnam High M A documented as of this encounter Plan of Treatment Scheduled Orders Name Type Priority Associated Diagnoses Orde r Schedule XR Hip 2 or 3 Views Right Imaging Routine Frequent falls Right hip pain 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 Expected: 12/30/2024, Expires: 12/30/2025 XR Pelvis 1-2 Views Imaging Routine Frequent falls Right hip pain 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 Expected: 12/30/2024, Expires: 12/30/2025 Lipid Panel, Standard Lab Routine Mixed hyperlipidemia Expected: 12/30/2024 (Approximate), Expires: 12/30/2025 Comprehensive Metabolic Panel Lab Routine Mixed hyperlipidemia Expected: 12/30/2024 (Approximate), Expires: 12/30/2025 Vitamin D, 25-Hydroxy, Total, Immunoassay Lab Routine 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 Expected: 12/30/2024 (Approximate), Expires: 12/30/2025 Hemoglobin A1c Lab Routine Healthcare maintenance Expected: 12/30/2024 (Approximate), Expires: 12/30/2025 documented as of this encounter Visit Diagnoses Diagnosis Healthcare maintenance- Primary Mixed hyperlipidemia Chronic right-sided low back pain, unspecified whether sciatica present Frequent falls Right hip pain Pain in joint, pelvic region and thigh 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
--- NOTE | 2025-01-05 12:54 | MHC.OFFVIS ---
Intake Visit Reasons: 1y follow up Intake Note: Patient is present for: 1yr follow up Urology Medication:none Blood Thinner:none today's pvr: 0ml's Dredge Operator Supervisor Required: Yes Dredge Operator Supervisor Services: Dredge Operator Supervisor Present Dredge Operator Supervisor Name: Lisa [id number] Accompanied by: Daughter Allergies No Known Allergies Allergy (Verified 01/05/25 13:01) Medication List - Last Reconciled 01/05/25 by Odalis Engel MD atorvastatin 10 mg PO DAILY [id number] 325 mg-12.5 mcg -2.75 mg (Citracal-D3 Maximum Plus) 1 tab PO DAILY cholecalciferol (vitamin D3) 25 mcg PO DAILY 3 months ibuprofen 800 mg PO TID HPI Comments Details: 01/05/25--Chelsie is a 69-year-old female who is followed for stress urinary incontinence. She is status post bulking med 1 year ago, 10/06/23. She states that the urine leakage is worsening with coughing and laughing, also urge symptoms are bothersome. I have discussed she has mixed urinary symptoms. We will prescribed VESIcare for overactive bladder symptoms. I have discussed repeating the bulk of med versus transvaginal sling. The patient is here with her daughter and want to proceed with transvaginal sling. 01/06/24--status post bulkamid 3 months ago. Patient states she no longer needs to wear a pad daily. She does get leakage with coughing but much less. She is happy with her bladder control at this time. She denies irritative voiding symptoms. Plan follow-up in 1 year. 09/18/23--Chelsie is a 68-year-old female who presents today to the office for a follow-up for urinary incontinence. The patient is yoruba speaking, certified measurement supervisor present. The patient states that her urinary leakage is getting worse. She leaks with coughing as well as exertional activity. CMG- 09/17/22- findings c/w ISD. Treatment options discussed including sling procedure and bulking agent. The patient wants to proceed with minimally invasive procedure. I have Discussed the risks of bulking injection to the bladder neck/urethra to include but not limited to urine retention, requiring a lino catheter and need to repeat the procedure, hematuria, urgency. The patient asked excellent questions. All patient's questions were answered.30 minutes spent in review of records pertaining to this visit and including [id number] discussion with the patient and documentation of this visit. 01/22/2023? She is followed today for?urinary incontinence. The patient is a Georgian speaking female. Certified tar roofer was present during the visit. She was last seen by me on 09/17/2022 for urodynamics procedure. Trial of Gemtesa ? was discussed and the patient was instructed that the medication will not help with ISD, and she is here for follow up. She states having urinary leakage with standing, and walking. Patient states that the medication has not helped with her urinary incontinence. She is not taking any blood thinners. I reviewed the risks related to the sling procedure to include infections, bleeding, and exposure of mesh material. Discussed need for the other procedures related to the complications. --UA--leukocytes: negative; blood: 3 +; bladder scan PVR: 0 mL. 09/17/22--CMG --no instability noted during the filling phase.?There was leakage with cough and valsalva, with? a leak low point pressure?Max capacity 400 ml.?the findings were consistent with pelvic floor weakness and intrinsic sphincter deficiency.? Treatment plan discussed to include pelvic floor physical therapy; minimally invasive therapy to include bulking agent to the urethra as well as sling procedure.?The patient stated she wanted try a medication. she is not interested in pelvic floor physical therapy. CT urogram results --08/12/2022 revealed urinary tract within normal limits; small renal cyst; no renal calculi; bladder: unremarkable. [facility] Medical History Multinodular thyroid OAB (overactive bladder) UTI (urinary tract infection) Stress incontinence in female Osteoporosis Hyperparathyroidism Vitamin D deficiency Osteopenia Toxic multinodul goiter Surgical History H/O colonoscopy H/O parathyroidectomy Hx of hysterectomy History of ear surgery Family History Father No problems noted. Mother Hypertension Arthritis Osteoporosis Social History Alcohol intake: current Alcohol intake frequency: holidays/special occasions only Patient Tobacco Use Status: Former Tobacco user Tobacco use type: Cigarette Cigarettes Per Day: 4 Years Smoked: 45 Review of Systems Const All systems reviewed & are unremarkable except as noted in HPI and below Reports no additional complaints Eyes Reports no additional complaints ENT Reports no additional complaints Card Reports no additional complaints Resp Reports no additional complaints GI Reports no additional complaints Reports as per HPI Musc Reports no additional complaints Skin/Breast Reports system reviewed and no additional complaints, except as documented Neuro Reports no additional complaints Psych Reports no additional complaints Endo Reports no additional complaints Kristian/Lymph Reports no additional complaints Aller/Immun Reports no additional complaints Office Procedures Post Void Residual Post Residual Void Post Void Residual (PVR): 0 [id number] Void Residual by ultrasound Results AMB Urinalysis, Automated UA Leukoctes 0 Bud/uL Last Edit by ROHIT Spencer on 01/05/25 13:16 UA Nitrite Negative Last Edit by ROHIT Spencer on 01/05/25 13:16 UA Urobilinogen 0 mg/dL Last Edit by Harini Dietz CCM on 01/05/25 13:16 UA Protein 0 mg/dL Last Edit by Harini Dietz CCM on 01/05/25 13:16 UA pH 6.0 Last Edit by ROHIT Spencer on 01/05/25 13:16 UA Blood 80 Taye/uL Last Edit by Harini Dietz CCM on 01/05/25 13:16 UA Specific Harmony 1.020 Last Edit by ROHIT Spencer on 01/05/25 13:16 UA Ketone Negative Last Edit by ROHIT Spencer on 01/05/25 13:16 UA Bilirubin 0 mg/dL Last Edit by ROHIT Spencer on 01/05/25 13:16 UA Glucose 0 mg/dL Last Edit by ROHIT Spencer on 01/05/25 13:16 Results Reviewed Results Reviewed: Laboratory Last Values Urine pH (Auto) 6.0 01/05/25 13:15 Specific Harmony (Auto) 1.020 01/05/25 13:15 Urine Protein (Auto) 0 mg/dL 01/05/25 13:15 Glucose (UA)(Auto) 0 mg/dL 01/05/25 13:15 Urine Ketones (Auto) Negative 01/05/25 13:15 Urine Blood (Auto) 80 Taye/uL 01/05/25 13:15 Urine Nitrite (Auto) Negative 01/05/25 13:15 Urine Bilirubin (Auto) 0 mg/dL 01/05/25 13:15 Urine Urobilinogen (Auto) 0 mg/dL 01/05/25 13:15 Leukocyte Esterase (Auto) 0 Bud/uL 01/05/25 13:15 Date of Service: 08/12/22 EXAMINATION: CT ABDOMEN AND PELVIS WITHOUT AND WITH CONTRAST CLINICAL INFORMATION: Microscopic hematuria COMPARISON: None available. FINDINGS: LUNG BASES: 3 mm calcified right base pulmonary nodule probably representing a calcified granuloma. Lung bases are otherwise clear. LIVER, GALLBLADDER, AND BILIARY TREE: The liver is normal in size, shape, and attenuation. No focal hepatic lesion or biliary ductal dilatation is present. The gallbladder is unremarkable with no evidence of radiopaque gallstones, gallbladder wall thickening, or obvious pericholecystic inflammatory changes. PANCREAS: Unremarkable. SPLEEN: Unremarkable. ADRENAL GLANDS: Unremarkable. KIDNEYS AND URETERS: The kidneys are normal in size, shape, and attenuation. No hydronephrosis, hydroureter, or calculi seen. The collecting systems are normal-appearing. Small bilateral renal cysts. Largest cyst measures 1.6 cm in the posterior upper pole of the right kidney. Tiny subcentimeter hyperdense cyst exophytic to the upper pole of the right kidney. No imaging follow-up. BLADDER: Unremarkable. GASTROINTESTINAL TRACT: Mild diverticulosis. No evidence of diverticulitis. The small and large bowel are otherwise unremarkable. The appendix is unremarkable. ABDOMINAL WALL: Small umbilical hernia containing fat. LYMPH NODES: Normal. VASCULAR: Unremarkable. PELVIC VISCERA: The uterus has been removed. No pelvic mass. OSSEUS STRUCTURES: Degenerative changes of the lower lumbar spine. IMPRESSION: No cause of hematuria seen. Assessment & Plan Assessment & Plan (1) Urinary incontinence: Code(s): R32 - Unspecified urinary incontinence Category: Medical (2) Intrinsic (urethral) sphincter deficiency (ISD): Code(s): N36.42 - Intrinsic sphincter deficiency (ISD) Category: Medical (3) OAB (overactive bladder): Code(s): N32.81 - Overactive bladder Category: Medical Plan Schedule Transvaginal sling, cystoscopy Orders: Orders AMB Post Void Residual by ultrasound Today R39.15 - Urgency of urination AMB Urinalysis Automated Today Z13.9 - Encounter for screening, unspecified Medications: New solifenacin (Vesicare) 10 mg PO DAILY 90 tabs 3RF Patient Instructions: The patient had an opportunity to ask questions regarding treatment plan. The patient expressed understanding and agreement with the above treatment plan. The patient is aware they should contact our office by phone for worsening of their current condition or the appearance of new symptoms. Compliance is encouraged with any medications and followup testing that is ordered. It is a privilege to be allowed the opportunity to participate in the urologic care of your patient. If you have any questions or concerns regarding treatment for the above conditions please do not hesitate to contact me. The office telephone contact is [phone]. This note is constructed in part using voice recognition software. While every effort has been made to ensure accuracy citrix systems administrator errors may have been included. Yours sincerely, Odalis Engel MD Coding Level of Care Code Est Pt Level 4 (45733) Diagnoses Urinary incontinence R32 Intrinsic (urethral) sphincter deficiency (ISD) N36.42 OAB (overactive bladder) N32.81 CPT Codes Post Residual Void - PVR CPT Code: 94459-[id number] Void Residual by ultrasound ([id number])
--- OUTSIDE RECORDS SUMMARY | 2025-01-05 13:21 | XMS_ITS | Encounter Summary ---
Author Organization [employer] [facility] Address [address] 7t [place] [address] Care Team Providers Care Floor Runner Name Role Phone Sneha Tipton Primary Care Provider Encounter Details Date Type Department Care Team (Latest Contact Info) Description 12/15/2018 Abstract [facility] CONVERSIONS Dental, Provider, DDS Social History Tobacco Use Types Packs/Day Years Used Date Smoking Tobacco: Never Assessed Comments Unknown Sex and Gender Information Value Date Recorded Sex Assigned at Female 03/10/2022 10:35 AM EDT Legal Sex Female 10:35 AM EDT Gender Identity Female 12/30/2024 4:02 PM EDT Sexual Orientation Straight 12/30/2024 4: 02 PM EDT documented as of this encounter Plan of Treatment Not on file documented as of this encounter Visit Diagnoses Not on filedocumented in this encounter Care Teams Floor Runner Relationship Specialty Start Date End Date Sneha Tipton ANP [address] [place] [address] PCP - General Family Medicine 03/26/20 documented as of this encounter
--- OUTSIDE RECORDS SUMMARY | 2025-01-05 13:21 | XMS_ITS | Encounter Summary ---
Author Organization [employer] Address [address] [place] [address] Care Team Providers Care Rn Documentation Specialist Name Role Phone Sneha Tipton Primary Care Provider [phone] Encounter Details Date Type Department Care Team (Late st Contact Info) Description 08/26/2023 Abstract [facility] MEDICINE [address] [place], [place] [phone] Sneha Tipton ANP [address] [place] [address] Social History Tobacco Use Types Packs/Day Years Used Date Smoking Tobacco: Former Passive Smoke Exposure: Current Smokeless Tobacco: Never Alcohol Use Standard Drinks/Week Comments Yes 0 (1 standard drink = 0.6 oz pur e alcohol) socially Housing Stability Answer Date Recorded What is your housing situation today? I have toniosundeep fontaine 03/07/[address] you [...] 4:02 PM EDT Sexual Orientation Straight 12/30/2024 4 :02 PM EDT documented as of this encounter Plan of Treatment Not on file documented as of this encounter Visit Diagnoses Not on filedocumented in this encounter Care Teams Rn Documentation Specialist Relationship Specialty Start Date End Date Sneha Tipton ANP [address] [place] [address] PCP - General Family Medicine 03/26/20 documented as of this encounter
--- OUTSIDE RECORDS SUMMARY | 2025-01-05 13:21 | XMS_ITS | Clinical Summary ---
Author Organization [facility] ity Address [address] [place] [address] Care Team Providers Care Student Accounts Manager Name Role Phone Unavailable Primary Care Provider [...]
--- OUTSIDE RECORDS SUMMARY | 2025-01-05 13:21 | XMS_ITS | Encounter Summary ---
Author Organization [employer] Address [address] [place] [address] Care Team Providers Care Can Patcher Name Role Phone Sneha Tipton Primary Care Provider [phone] Reason for Visit * Reason Comments Med Refill Encounter Details Date Type Department Care Team ([facility] st Contact Info) Description 07/29/2023 Refill [facility] MEDICINE [address] [place], [place] [phone] Sneha Tipton ANP [address] [place] [address] Mixed hyperlipidemia Social History Tobacco Use Types [...] the past 12 months, has t he [employer], oil or water company threatened to shut [...] hyperlipidemia documented in this encounter Care Teams Can Patcher Relationship Specialty Start Date End Date Sneha Tipton ANP [address] [place] [address] PCP - General Family Medicine 03/26/20 documented as of this encounter
--- OUTSIDE RECORDS SUMMARY | 2025-01-05 13:21 | XMS_ITS | Clinical Summary ---
Author Organization [employer] Address [address] [facility] 7t [place] [address] Care Team Providers Care It Support Specialist Name Role Phone Danuta Nilsa HURTADO Primary Care Provider [phone] Allergies No known active allergies Medications diphenhydrAMINE (BENADryl) 25 MG tablet Take 1 tablet by mouth every 4 (four) hours. Active nicotine (Nicoderm, Step 3) 7 MG/24HR patch Place 1 patch on the skin at bed time. 019 Active oxybutynin (Ditropan) 5 MG tablet Take 1 tablet by mouth every 12 (twelve) hours. 021 Active phenazopyridine (Pyridium) 200 MG tablet Take 1 tablet by mouth every 8 (eight) hours. 022 Active baclofen (Lioresal) 10 MG tablet Take 0.5 tablets (5 mg) by mouth 3 times daily for 10 days. 15 tablet 023 Active lidocaine (Lidoderm) 5 % patchIndications: Acute bilateral thoracic back pain Apply topically to affected areas. Leave on for up to 12 hours 30 patch 1 024 Active famotidine (Pepcid) 20 MG tabletIndications :Gastroesophageal reflux disease, unspecified whether esophagitis present Take 1 tablet twice daily as needed for acid reflux 30 tablet 1 024 Active levoFLOXacin (Levaquin) 250 MG tablet Take 1 tablet by mouth Once per day. 024 Active atorvastatin (Lipitor) 10 MG tabletIndications :Mixed hyperlipidemia 1 tablet once daily 90 tablet 3 025 Active estradiol (Estrace) 0.1 MG/GM vaginal cream 1 g vaginally at night x 14 days, then continue to use 1g vaginally twice a week thereafter 42.5 g 1 025 Active ergocalciferol (Vitamin D-2) 1.25 MG (42543 UT) capsule take 1 capsule by oral route every week 019 2024 Discontinued ibuprofen 800 MG tabletIndications :Complaint of flank pain take 1 tablet by oral route 3 times every day with food, try to avoid using more than 3 days in 1 wk 60 tablet 1 022 2024 Discontinued(T herapy completed) estradiol (Estrace) 0.1 MG/GM vaginal cream 1 g vaginally at night x 14 days, then continue to use 1g vaginally twice a week thereafter 42.5 g 1 024 2024 Discontinued(R eorder (will not trigger notification to Pharmacy)) atorvastatin (Lipitor) 10 MG tabletIndications :Mixed hyperlipidemia 1 tablet once daily at bedtime 90 tablet 1 024 2024 Discontinued(R eorder (will not trigger notification to Pharmacy)) cholecalciferol VITAMIN D (Vitamin D-3) 50 MCG (2000 UT) capsule Take by mouth Once per day. 024 2024 Discontinued calcium citrate 315 mg + D2 6.25 mcg tablet 1 tablet. 022 2024 Discontinued Active Problems Problem Noted Date Diagnosed Date [...] 65yo. LDCT form has been faxed to [facility]. Pt waiting for her urology bill to [...] (04/24/2022 3:52 PM EST): Follows w/ Dr. 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 I have toniosundeep fontaine 12/30/[address] you [...] Orientation Straight 12/30/2024 4: 02 PM EDT Last Filed Vital Signs Vital Sign [...] oz) 12/30/2024 1:53 P M EDT Height 157.5 cm (5' 2 ) 12/28/2023 3:09 PM EDT Body Mass Index 29.48 12/28/2023 3:09 PM EDT Plan of Treatment Health Maintenance Due Date Last Done Comments CT Colonography 1955 FIT DNA/Cologuard 1955 FIT 1955 FOBT 1955 Sigmoidoscopy 1955 Alcohol/Substance Use Screening 1965 Hepatitis C Screening 07/16/1971 Zoster Vaccines (1 of 2) 07/16/2003 COVID-19 Vaccine ( season) 2024 04/27/2021, 10/09/2020, 08/26/2020 Influenza Vaccine (#1) 2025 Depression Monitoring 07/02/2025 12/30/2024, 025 Mammogram 08/12/2025 08/12/2024, 04/0 06/2024, 08/26/2023, Additional history exists SDOH Screening 12/30/2025 12/30/2024 Tobacco Screening 12/30/2025 12/30/2024 RSV Patients and Patients Aged 60 years or older (1 - 1-dose 75+ series) 2028 DTaP/Tdap/Td Vaccines (2 - Td or Tdap) 05/25/2030 05/25/2020 Colonoscopy 11/30/2031 11/29/2021 Colorectal Cancer Screening 11/30/2031 Pneumococcal Vaccine: 50+ Years Completed 12/30/2024, 05/25/2020 HIB Vaccines Aged Out No longer eligi [...] Procedure Name Priority Date/Time Associated Diagnosis Comments BI MAMMOGRAM SCREENING TOMOSYNTHESIS BILATERAL Routine 08/10/2024 2:45 PM EDT HM COLONOSCOPY Routine 11/29/2021 from Last 3 Months or Most Recently Relevant to Health Maintenance Results * BI Mammogram Screening Tomosynthesis Bilateral (08/10/2024 2:45 PM EDT) Anatomical Region Laterality Modality Breast Bilateral Mammography 08/10/2024 2:45 PM EDT Narrative 08/15/2024 5:14 PM EDT [facility] [address] [place] [address] Mammography Report Signed Patient: Chelsie Nick MR#: [id number] : 1955 Acct:[id number] Age/Sex: 69 / F ADM Date: 08/10/24 Loc: [facility] Attending Dr: Nilsa Brennan TOBACCO SPRAYER Ordering Physician: NILSA BRENNAN NP Results: 1Negative Date of Service: 08/10/24 Follow Up: 1 Year From Orig inal Mammogram Procedure(s): MM tomosynthesis screening BI Accession Number(s): [id number] cc: NILSA BRENNAN NP EXAMINATION: MM SCREENING DIGITAL BREAST TOMOSYNTHESIS, BILATERAL CLINICAL INFORMATION: Screening. Asymptomatic. COMPARISON: Mammography: Comparison is made with available priors TECHNIQUE: Digital breast mammography with tomosynthesis is performed in both the craniocaudal and mediolateral oblique views along with computer-aided detection (CAD). FINDINGS: The breasts are heterogeneously dense, which [...] target due date for their next mammogram. Electronically signed by: Shaye Raza DO 08/15/2024 05:11 PM EDT Dictated By: Shaye Raza DO Signed By: <Electronically signed by Shaye Raza DO in OV> 08/15/24 1711 DD/ 1445 TD/TT: 08/10/24 1457 Social Work Msw: Procedure Note Donotuseinterpreter, Image - 08/15/2024 [facility] [address] [place] [address] Mammography Report Signed Patient: Chelsie Nick LMR#: [id number] : 1955cct:[id number] Age/Sex: 69 / FADM Date: 08/10/24 Loc: [facility] Attending Dr: Nilsa Brennan NP Ordering Physician: NILSA BRENNAN NPResults: 1Negative Date of Service: 08/10/24Follow Up: 1 Year From Orig ina Mammogram Procedure(s): MM tomosynthesis screening BI Accession Number(s): [id number] cc: NILSA BRENNAN NP EXAMINATION: MM SCREENING DIGITAL BREAST TOMOSYNTHESIS, BILATERAL CLINICAL INFORMATION: Screening. Asymptomatic. COMPARISON: Mammography: Comparison is made with available priors TECHNIQUE: Digital breast mammography with tomosynthesis is performed in both the craniocaudal and mediolateral oblique views along with computer-aided detection (CAD). FINDINGS: The breasts are heterogeneously dense, which [...] target due date for their next mammogram. Electronically signed by: Shaye aRza DO 08/15/2024 05:11 PM EDT RP Dictated By: Shaye Raza DO Signed By: <Electronically signed by Shaye Raza DO in OV> 08/15/24 1711 DD/ 1445 TD/TT: 08/10/24 1457 Social Work Msw: Nilsa Brennan ANP IMG BI PROCEDURES Final Result * Colonoscopy (11/29/2021) Colonoscopy performed Historical Provider HEALTH MAINTENANCE Edited Result - Final from Last 3 Months or Most Recently Relevant to Health Maintenance [place] [address] [place] [address] MCR ADV HS FULL [facility] Care Teams It Support Specialist Relationship Specialty Start Date End Date Nilsa Brennan ANP [address] [place] [phone] PCP - General Family Medicine 03/26/20
== END 2025-01-05 13:55 | disposition home or self-care (01) ==
LOC: HO.HUSH 12:44
PROVIDERS: PCP Nurse Practitioner Primary Care; Visit Provider Urology
DX: R32 Unspecified urinary incontinence (principal); N36.42 Intrinsic sphincter deficiency (ISD); N32.81 Overactive bladder; Z13.9 Encounter for screening, unspecified
CPT/HCPCS: 99214

== ENCOUNTER → 2025-01-05 12:44 | Outpatient (BNVA) | payer MEDICARE, SELFPAY | PROVIDERS: PCP Nurse Practitioner Primary Care; Visit Provider Urology | DX: N36.42 Intrinsic sphincter deficiency (ISD) (principal); R32 Unspecified urinary incontinence; N32.81 Overactive bladder | CPT/HCPCS: 51798; 81003; 99212 ==

== ENCOUNTER 2025-01-20 15:26 | Outpatient (REF) | payer MEDICARE, SELFPAY ==
--- NOTE | ~2025-01-20 | US_ITS ---
EXAMINATION: US THYROID HISTORY: E04.2 - Nontoxic multinodular goiter TECHNIQUE: Real-time grayscale ultrasound imaging was performed and images were reviewed. COMPARISON: Comparison is made with the prior examination dated 03/25/2023. FINDINGS: SIZE: The right thyroid lobe measures 3.9 x 1.3 x 1.7 cm. The left thyroid lobe is surgically absent. The isthmus measures 2 mm. FLOW: Flow to the gland is normal. ECHOGENICITY: The echotexture of the gland is homogeneous. NODULES: Multiple nodules are again noted as described below: Nodule #: 1 Location: Midportion of the right thyroid lobe measuring 6 x 6 x 6 mm (previously 8 x 6 x 7 mm). Shape: Round (0 points) Margins: Smooth (0 points) Echotexture: Indeterminate (1 point) Composition: Mixed (1 point) Calcifications: None (0 points) Total points: 2 TIRADS: TR2: Not suspicious Nodule #: 2 Location: Midportion of the right thyroid lobe measuring 7 x 6 x 6 mm (previously 7 x 5 x 7 mm). Shape: Wider than tall (0 points) Margins: Smooth (0 points) Echotexture: Isoechoic (1 point) Composition: Mostly solid (2 points) Calcifications: None (0 points) Total points: 3 TIRADS: TR3: Mildly suspicious. Nodule #: 3 Location: Lower pole of the right thyroid lobe measuring 9 x 8 x 9 mm (previously 9 x 7 x 9 mm). Shape: Wider than tall (0 points) Margins: Smooth (0 points) Echotexture: Isoechoic (1 point) Composition: Solid (2 points) Calcifications: None (0 points) Total points: 3 TIRADS: TR3: Mildly suspicious. US/US thyroid IMPRESSION: Status post left thyroidectomy. Multiple subcentimeter right thyroid nodules as described, without significant change. ACR TI-RADS Guidelines TR1 (0 points): Benign. No follow-up or biopsy required TR2 (2 points): Not Suspicious. No biopsy or follow up indicated TR3 (3 points): Mildly Suspicious. FNA if >= 2.5 cm, Follow if >= 1.5 cm TR4 (4-6 points): Moderately Suspicious. FNA if >= 1.5 cm, Follow if >= 1.0 cm TR5 (>=7 points): Highly Suspicious. FNA if >= 1.0 cm, Follow if >= 0.5 cm Electronically signed by: Rufus Gloria MD 01/23/2025 07:01 AM EDT
--- OUTSIDE RECORDS SUMMARY | 2025-01-20 17:42 | XMS_ITS | Encounter Summary ---
Author Organization [employer] Address [address] [facility] 7t [place] [address] Care Team Providers Care Hospitality Ambassador Name Role Phone Sneha Tipton Primary Care Provider [phone] Encounter Details Date Type Department Care Team (Late st Contact Info) Description 08/26/2023 Abstract [facility] [address] [place], [place] [phone] Sneha Tipton ANP [address] [place] [address] Social History Tobacco Use Types Packs/Day Years [...] on filedocumented in this encounter Care Teams Hospitality Ambassador Relationship Specialty Start Date End Date Sneha Tipton ANP [address] [place] [phone] PCP - General Family Medicine 03/26/20 documented as of this encounter
--- OUTSIDE RECORDS SUMMARY | 2025-01-20 17:42 | XMS_ITS | Encounter Summary ---
Author Organization [employer] Address [address] [facility] 7t [place] [address] Care Team Providers Care Antenna Specialist Name Role Phone Sneha Tipton Primary Care Provider Reason for Visit * Reason Comments Med Refill Encounter Details Date Type Department Care Team ([facility] st Contact Info) Description 07/29/2023 Refill [facility] [address] [place], [place] [phone] Sneha Tipton ANP [address] [place] [address] Mixed hyperlipidemia Social History Tobacco Use Types [...] the past 12 months, has t he [employer], oil or water company threatened to shut [...] hyperlipidemia documented in this encounter Care Teams Antenna Specialist Relationship Specialty Start Date End Date Sneha Tipton ANP [address] [place] [address] PCP - General Family Medicine 03/26/20 documented as of this encounter
--- OUTSIDE RECORDS SUMMARY | 2025-01-20 17:42 | XMS_ITS | Clinical Summary ---
Author Organization [employer] Address [address] [facility] 7t [place] [address] Care Team Providers Care Hiv Counselor Name Role Phone Danuta Nilsa HURTADO Primary Care Provider [phone] Allergies No known active allergies Medications diphenhydrAMINE [...] 025 Active ergocalciferol (Vitamin D-2) 1.25 MG (98916 UT) capsule take 1 capsule by oral [...] 65yo. LDCT form has been faxed to [facility]. 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..] of 2) 07/16/2003 COVID-19 Vaccine ( season) 2025 04/27/2021, 10/09/2020, 08/26/2020 Influenza Vaccine (#1) 2025 Depression Monitoring 07/02/2025 12/30/2024, 025 Mammogram 08/12/2025 08/12/2024, 04/0 06/2024, 08/26/2023, Additional history exists SDOH Screening 12/30/2025 12/30/2024 Tobacco Screening 01/16/2026 01/16/2025 RSV Patients and Patients Aged 60 years [...] PM EDT Narrative 08/15/2024 5:14 PM EDT [facility] [address] [place] [address] Mammography Report Signed Patient: Chelsie Nick MR#: [id number] : 1955 Acct:[id number] Age/Sex: 69 / F ADM Date: 08/10/24 Loc: [facility] Attending Dr: Nilsa Brennan NP Ordering Physician: NILSA BRENNAN NP Results: 1Negative Date of Service: 08/10/24 Follow Up: 1 Year From Orig inal Mammogram Procedure(s): MM tomosynthesis screening BI Accession Number(s): [id number] cc: BRENNAN,NILSA CATCHER HELPER EXAMINATION: MM SCREENING DIGITAL BREAST TOMOSYNTHESIS, BILATERAL [...] Shaye Raza DO 08/15/2024 05:11 PM EDT RP Dictated By: Shaye Raza DO Signed By: <Electronically signed by Shaye Raza DO in OV> 08/15/24 1711 DD/ 1445 TD/TT: 08/10/24 1457 Research And Development Engineer: Procedure Note Donotuseinterpreter, Image - 08/15/2024 [facility] [address] [place] [address] Mammography Report Signed Patient: Chelsie Nick R#: [id number] : 1955cct:[id number] Age/Sex: 69 / FADM Date: 08/10/24 Loc: ROBB Attending Dr: Nilsa Brennan CATCHER HELPER Ordering Physician: NILSA BRENNAN NPResults: 1Negative Date of Service: 08/10/24Follow Up: 1 Year From Orig inal Mammogram Procedure(s): MM tomosynthesis screening BI Accession Number(s): [id number] cc: NILSA BRENNAN NP EXAMINATION: MM SCREENING [...] 08/15/24 1711 DD/ 1445 TD/TT: 08/10/24 1457 Research And Development Engineer: Nilsa HURTADO IMIsaura BI PROCEDURES Final Result * Hm Colonoscopy (11/29/2021) Colonoscopy performed Historical Provider HEALTH MAINTENANCE Edited Result - Final from Last 3 Months or Most Recently Relevant to Health Maintenance [place] [address] MCR ADV HSN FULL [id number] , [address] [place] [phone] Care Teams Hiv Counselor Relationship Specialty Start Date End Date Nilsa Brennan ANP [address] [place] [phone] PCP - General Family Medicine 03/26/20
--- OUTSIDE RECORDS SUMMARY | 2025-01-20 17:42 | XMS_ITS | Clinical Summary ---
Author Organization [facility] ity Address [address] [place] [address] Care Team Providers Care Pension Consultant Name Role Phone Unavailable Primary Care Provider [...]
--- OUTSIDE RECORDS SUMMARY | 2025-01-20 17:42 | XMS_ITS | Encounter Summary ---
Author Organization [employer] [facility] Address [address] [facility] 7t [place] [address] Care Team Providers Care Grain Miller Helper Name Role Phone Sneha Tipton Primary Care Provider [phone] Encounter Details Date Type Department Care Team (Latest Contact Info) Description 12/15/2018 Abstract [facility] Dental, Provider, DDS Social History [...] on filedocumented in this encounter Care Teams Grain Miller Helper Relationship Specialty Start Date End Date Sneha Tipton ANP [address] [place] [address] PCP - General Family Medicine 03/26/20 documented as of this encounter
== END 2025-01-20 15:27 | disposition home or self-care (01) ==
LOC: HO.US 15:26
PROVIDERS: PCP Nurse Practitioner Primary Care; Visit Provider Student in an Organized Health Care Education/Training Program
DX: E04.2 Nontoxic multinodular goiter (principal)
CPT/HCPCS: 76536

== ENCOUNTER → 2025-01-20 15:28 | Outpatient (BNV) | payer MEDICARE, SELFPAY | PROVIDERS: PCP Nurse Practitioner Primary Care; Visit Provider Radiology Diagnostic Radiology | DX: E04.2 Nontoxic multinodular goiter (principal) | CPT/HCPCS: 76536 ==

== ENCOUNTER 2025-01-24 10:55 | Outpatient (AMB) | payer MEDICARE, SELFPAY ==
--- NOTE | 2025-01-24 11:10 | MHC.OFFVIS ---
Vital Signs 01/24/25 11:11 Height 5 ft 2.2 in Weight 158 lb 15.253 oz BMI 28.9 BP 108/66 Blood Pressure Location Lt brachial Position Sitting Pulse 65 Pulse Source Pulse Oximeter Pulse Oximetry (%) 97 Oxygen Delivery Method Room Air Intake Visit Reasons: MNG/secondary hyperparathyroidism Intake Note: Patient present today for MNG and secondary hyperparathyroidism. 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 Pietro Styles at [facility] July 2020 w pathology benign, not requiring levothyroxine postoperatively, also with a history of hyperparathyroidism status post left inferior parathyroidectomy July 2020, with a history of osteoporosis. 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 This was repeated 11/09/18 with TSH of 0.14 with FT4 WNL at 0.75 and TT3 WNL at 132. TRAB antibodies were checked and were negative. Labs were then repeated 12/27/18 with TSH 0.1 with FT4 and TT3 WNL, and negative TSI, TRAB, TPO, and TG Antibodies. She had a thyroid US which revealed a multinodular thyroid with multiple nodules within the L lobe meeting indication for FNA biopsy. She had a Thyroid Uptake and Scan completed 07/27/2019 which revealed normal uptake but marked heterogeneity within the gland, consistent with a toxic MNG. She was subsequently started on Methimazole 5 mg PO daily, and this was later titrated upward to 7.5 mg PO daily. She was scheduled for FNA biopsy of her L upper pole 1.2 cm nodule, L mid pole 2.1 cm nodule, L lower 1.5 cm nodule and her L lower 1.0 cm nodule. She was unable to tolerate even the first pass of the first nodule, and refused further attempts at FNA. She refused additional FNA. She was referred to Dr. Styles to discuss a surgical thyroidectomy. After her intitial consultation she opted not to proceed with this, but subsequently changed her mind. She underwent L hemithyroidectomy 08/06/2020. Official surgical path was benign. She was not started on thyroid hormone replacement postoperatively. TSH has remained WNL. She reports feeling well currently. thyroid ultrasound March 2023 showed multiple subcentimeter right-sided nodules, including a right mid 0.7 cm TR 5 solid very hypoechoic lobulated nodule, a right mid inferior 0.8 cm spongiform nodule, and a right inferior 0.9 cm solid hypoechoic TR 4 nodule. 12/09/2023: TSH 1.02, free T4 0.71 Interval history 11/28/2024, normal TSH and free T4 01/20/2025: Ultrasound thyroid showed stable size of the subcentimeter right-sided nodules, all of these appear low risk, we will consider doing a repeat thyroid ultrasound in 2-3 years sometime between January 2027 and January 2028 2)Hyperparathyroidism status post left inferior parathyroidectomy July 2020 Osteoporosis She was also noted to have hyperparathyroidism, and underwent a L inferior parathyroidectomy. Postoperative her PTH was WNL. However, in March 2023 PTH was slightly elevated with borderline low 25- vitamin-D levels Then No recent labs. DEXA December 2020 revealed Osteoporosis of the distal forearm, and Osteopenia of the hip and spine. last DExa Last DExa December 2022 osteopenia of the hip left fem neck -2.1, left fem total t score -1.4 , 1.8 % decrease from 202, meaning stable osteopenia of hip , spine t score -2.2, 2.4 % decrease from previous , left forearm t score -2.8 , osteoporosis. same as 2020 Due for repeat bone density Quit smoking 1.5 years ago in 2022 Calcium supplements : none, milk : none , cheese: everyday , yogurt: everyday one serving Vitamin D : supplements none currently she has been out of it Fractures: none Dental cleaning : has implants on the top, no issues currenlty , regular with dental cleaning Interval history Labs done at [facility] 12/06/2024 showed vitamin-D of 32, calcium 9.6, we albumin 4.5, corrected calcium 9.1, EGFR 86, creatinine 0.74, phosphorus 3.2, PTH 52, ionized calcium 5.2 Bone density appointment on 02/02/2025 Physical exam General: sitting comfortably in no acute distress HEENT: normocephalic/atraumatic, Neck: supple, symmetrical, Cardiac: normal heart sounds Pulm: normal breath sounds B/L, no added breath sounds Abd: not distended, no tenderness Extremities: no edema, no signs of myxedema Laboratory Tests 05/24/20 07/05/20 08/14/20 11:41 12:34 12:15 Creatinine Estimated GFR Calcium Phosphorus 25-OH Vitamin D Total TSH Free T4 PTH Intact 121 H 62 72 H 10/18/20 06/27/21 07/04/21 10:35 15:49 11:21 Creatinine Estimated GFR Calcium 9.4 9.9 9.3 D Phosphorus 25-OH Vitamin D Total TSH Free T4 PTH Intact 78 H 66 H 11/21/21 07/31/22 03/19/23 10:59 10:40 13:07 Creatinine Estimated GFR Calcium 9.4 9.1 9.1 Phosphorus 3.5 25-OH Vitamin D Total 32.7 TSH 0.79 Free T4 0.79 PTH Intact 50 63 81 H 08/28/23 09/22/23 12/09/23 12:25 14:15 10:49 Creatinine 0.76 Estimated GFR > 60 Calcium 9.2 9.6 Phosphorus 25-OH Vitamin D Total 37.2 42.3 TSH 1.02 Free T4 0.71 PTH Intact EXAMINATION: US THYROID 01/20/25 HISTORY: E04.2 - Nontoxic multinodular goiter TECHNIQUE: Real-time grayscale ultrasound imaging was performed and images were reviewed. COMPARISON: Comparison is made with the prior examination dated 03/25/2023. FINDINGS: SIZE: The right thyroid lobe measures 3.9 x 1.3 x 1.7 cm. The left thyroid lobe is surgically absent. The isthmus measures 2 mm. FLOW: Flow to the gland is normal. ECHOGENICITY: The echotexture of the gland is homogeneous. NODULES: Multiple nodules are again noted as described below: Nodule #: 1 Location: Midportion of the right thyroid lobe measuring 6 x 6 x 6 mm (previously 8 x 6 x 7 mm). Shape: Round (0 points) Margins: Smooth (0 points) Echotexture: Indeterminate (1 point) Composition: Mixed (1 point) Calcifications: None (0 points) Total points: 2 TIRADS: TR2: Not suspicious Nodule #: 2 Location: Midportion of the right thyroid lobe measuring 7 x 6 x 6 mm (previously 7 x 5 x 7 mm). Shape: Wider than tall (0 points) Margins: Smooth (0 points) Echotexture: Isoechoic (1 point) Composition: Mostly solid (2 points) Calcifications: None (0 points) Total points: 3 TIRADS: TR3: Mildly suspicious. Nodule #: 3 Location: Lower pole of the right thyroid lobe measuring 9 x 8 x 9 mm (previously 9 x 7 x 9 mm). Shape: Wider than tall (0 points) Margins: Smooth (0 points) Echotexture: Isoechoic (1 point) Composition: Solid (2 points) Calcifications: None (0 points) Total points: 3 TIRADS: TR3: Mildly suspicious. US/US thyroid IMPRESSION: Status post left thyroidectomy. Multiple subcentimeter right thyroid nodules as described, without significant change. US THYROID 04/02 CLINICAL INFORMATION: Nontoxic multinodular goiter. COMPARISON: Ultrasound-guided thyroid biopsy 12/15/2019. Thyroid ultrasound 06/16/2019. TECHNIQUE: Linear transducer warren-scale and color Doppler examination with attention to the region of the thyroid. FINDINGS: SIZE: Measurements of the solitary right thyroid lobe and nodules are given in sagittal, anteroposterior and transverse dimensions respectively. Right Thyroid Lobe: 4.8 x 1.2 x 2.1 cm, volume 6.5 mL. Previously 4.9 x 1.4 x 1.6 cm, volume 5.7 mL. Parenchyma: The gland echotexture is homogeneous. Thyroid vascularity is normal. Left Thyroid Lobe: Surgically absent. Isthmus: 0.2 cm in maximum AP dimension. Previously 0.3 cm. Estimated total number of nodules greater than or equal to 1 cm: 0. Largest 3 nodules are described as follows: Multiple small colloid cysts. 1. Location: Right mid. Size: 0.7 x 0.5 x 0.7 cm, volume 0.1 mL. Previously: 0.6 x 0.5 x 0.6 cm, volume 0.09 mL. Nodule characteristics: Composition: Solid (2). Echogenicity: Very hypoechoic (3). Shape: Not taller than wide (0). Margins: Lobulated (2). Echogenic Foci: None (0). ACR TI-RADS total points: 7 ACR TI-RADS category: 4 Significant change in size (>/= 20% in 2 dimensions and minimal increase of 2 mm or 50% or greater increase in volume): No Change in features: Yes Change in ACR TI-RADS risk category: Yes 2. Location: Right mid inferior. Size: 0.8 x 0.6 x 0.7 cm, volume 0.2 mL. Previously: 0.5 x 0.3 x 0.4 cm, volume 0.03 mL. Nodule characteristics: Composition: Spongiform (0). Echogenicity: Anechoic (0). Shape: Not taller than wide (0). Margins: Smooth (0). Echogenic Foci: None (0). ACR TI-RADS total points: 0 ACR TI-RADS category: 1 Significant change in size (>/= 20% in 2 dimensions and minimal increase of 2 mm or 50% or greater increase in volume): No Change in features: No Change in ACR TI-RADS risk category: No 3. Location: Right inferior. Size: 0.9 x 0.7 x 0.9 cm, volume 0.3 mL. Previously: 0.8 x 0.7 x 0.7 cm, volume 0.2 mL. Nodule characteristics: Composition: Solid (2). Echogenicity: Hypoechoic (2). Shape: Not taller than wide (0). Margins: Ill-defined (0). Echogenic Foci: None (0). ACR TI-RADS total points: 4 ACR TI-RADS category: 4 Significant change in size (>/= 20% in 2 dimensions and minimal increase of 2 mm or 50% or greater increase in volume): No Change in features: No Change in ACR TI-RADS risk category: No NODES: No lymphadenopathy is seen in the tissue surrounding the thyroid gland. US/US thyroid IMPRESSION: Multiple solid and cystic right nodules. Suspicious nodule in the mid right lobe. According to TI RADS criteria, follow-up ultrasound every year for 5 years would be recommended. BONE DENSITOMETRY 01/02/23 CLINICAL INDICATION: Hyperparathyroidism, unspecified. COMPARISON: Previous BD dated 01/01/2021 and baseline BD dated 11/30/2018, spine and left hip. TECHNIQUE: Using a Giggle DXA System (software version: 13.1) manufactured by [employer] dual-energy x-ray absorptiometry was performed of the lumbar spine, left hip and left forearm radius 33%. The images are of good technical quality. Summary results are attached. FINDINGS: LEFT FEMUR, NECK: Current: BMD 0.747 g/cm2, Z-score -0.6, T-score -2.1, osteopenia. Prior: BMD 0.776 g/cm2. Baseline: BMD 0.735 g/cm2. LEFT FEMUR, TOTAL: Current: BMD 0.831 g/cm2, Z-score -0.1, T-score -1.4, osteopenia, 1.8% decrease from previous, 0.5% increase from baseline (<5% change is not significant). Prior: BMD 0.846 g/cm2. Baseline: BMD 0.827 g/cm2. AP SPINE L1-L4: Current: BMD 0.922 g/cm2, Z-score -0.7, T-score -2.2, osteopenia, 2.4% decrease from previous, 0.1% increase from baseline (<5% change is not significant). Prior: BMD 0.945 g/cm2. Baseline: BMD 0.921 g/cm2. LEFT FOREARM RADIUS 33%: BMD 0.627 g/cm2, Z-score -1.1, T-score -2.8, osteoporosis. IDENTIFIED RISK FACTORS: Early menopause, secondary osteoporosis, family history (parental hip fracture), hyperparathyroidism, hysterectomy, low calcium intake, osteoporosis, recurrent falls, tobacco use (current smoker). HISTORY OF FRACTURE: None listed. MEDICATIONS: Calcium supplements or multivitamin, vitamin D. MM/XR DEXA appendicular skeleton IMPRESSION: 1. DIAGNOSIS: Osteoporosis based on the lowest T-score value of -2.8 in the forearm radius 33% applying World Health Organization criteria. 2. 10-YEAR FRACTURE RISK PREDICTION, FRAX: According to the guidelines, FRAX calculation should only be performed on patients in the osteopenia bone density category. Therefore, FRAX was not performed on this patient. DXA 01/01/2021: FINDINGS: AP SPINE L1-L4: Current: BMD 0.945 g/cm2, Z-score -0.4, T-score -2.0, osteopenia, 2.6% increase from baseline (<5% change is not significant). Baseline: BMD 0.921 g/cm2. LEFT FEMUR, NECK: Current: BMD 0.776 g/cm2, Z-score -0.4, T-score -1.9, osteopenia. Baseline: BMD 0.735 g/cm2. LEFT FEMUR, TOTAL: Current: BMD 0.846 g/cm2, Z-score 0.0, T-score -1.3, osteopenia, 2.3% increase from baseline (<5% change is not significant). Baseline: BMD 0.827 g/cm2. RIGHT FOREARM RADIUS 33%: BMD 0.642 g/cm2, Z-score -1.1, T-score -2.7, osteoporosis. [facility] Medical History Multinodular thyroid OAB (overactive bladder) UTI (urinary tract infection) Stress incontinence in female Osteoporosis Hyperparathyroidism Vitamin D deficiency Osteopenia Toxic multinodul goiter Surgical History H/O colonoscopy H/O parathyroidectomy Hx of hysterectomy History of ear surgery Family History Father No problems noted. Mother Hypertension Arthritis Osteoporosis Social History Alcohol intake: current Alcohol intake frequency: holidays/special occasions only Patient Tobacco Use Status: Former Tobacco user Tobacco use type: Cigarette Cigarettes Per Day: 4 Years Smoked: 45 Physical Exam Vital Signs: Last Vital Signs Pulse 65 01/24/25 11:11 BP 108/66 01/24/25 11:11 Pulse Ox 97 01/24/25 11:11 Oxygen Delivery Method Room Air 01/24/25 11:11 BMI result Body Mass Index 28.9 Assessment & Plan Assessment & Plan (1) Toxic multinodul goiter: Code(s): E05.20 - Thyrotoxicosis with toxic multinodular goiter without thyrotoxic crisis or storm Category: Medical Plan: 69-year-old female with a history of subclinical hyperthyroidism due to toxic multinodular goiter Status post left hemithyroidectomy with Dr. Pietro Styles at [facility] in July 2020 with normalization of TSH. There are subcentimeter nodules on the right side on ultrasound in 2022 with a right superior TR 5 nodule. Most recent ultrasound January 2025 showed stable size of the subcentimeter right-sided nodules which all appear low risk, has been downgraded and features. At this point we will plan to repeat an ultrasound in 2-3 years from this 1. Normal TSH and free T4 from November 2024. Plan: -next ultrasound of the thyroid would be due sometime between January 2027 to January 2028 -ordered TSH and free T4 to be done prior to next follow up in 6 months (2) Hyperparathyroidism: Code(s): E21.3 - Hyperparathyroidism, unspecified Category: Medical Plan: Has a history of hyperparathyroidism, with osteoporosis, status post left inferior parathyroidectomy [address] Pietro Styles at [facility], with normalization of PTH. Last in 2022 she was noted to have an elevated PTH, thought to be in the setting of vitamin-D deficiency. No recent labs done. Currently she is not on any vitamin-D supplements. Does have some degree of dairy intake of calcium, but not optimal. I have asked her to increase her dairy intake. Restart vitamin-D 1000 units daily. Repeat labs at [facility] from November 2024 showed normal PTH, calcium, vitamin-D 32, normal kidney function. Also has a history of osteoporosis of the left forearm with T-score of-2.8 at last bone density in 2022. This was at least 1-1/2 years after her surgery, you would have expected some accrual of bone but this was not a very satisfying results. She is due for repeat bone density now, had ordered this last visit, not done prior to this appointment, has a appointment 02/02/2025. Plan: -ordered calcium, albumin, ionized calcium, phosphorus, vitamin-D, creatinine, bone resorption markers levels to be done prior to follow up in 6 months -follow up in 6 months to review bone density scan results -restart vitamin-D 1000 units daily -incorporate 2-3 servings of calcium rich foods daily (3) Vitamin D deficiency: Code(s): E55.9 - Vitamin D deficiency, unspecified Category: Medical Plan: See above (4) Osteoporosis: Code(s): M81.0 - Age-related osteoporosis without current pathological fracture Category: Medical Qualifiers: Osteoporosis type: age-related Presence of current pathological fracture: without current pathological fracture Qualified Code(s): M81.0 - Age-related osteoporosis without current pathological fracture Plan: See above Plan See above Orders: Orders Albumin Level 06/26/25 E05.20 - Thyrotoxicosis with toxic multinodular goiter without thyrotoxic crisis or storm, E21.3 - Hyperparathyroidism, unspecified, M81.0 - Age-related osteoporosis without current pathological fracture Alkaline Phosphatase Bone 06/26/25 E05.20 - Thyrotoxicosis with toxic multinodular goiter without thyrotoxic crisis or storm, E21.3 - Hyperparathyroidism, unspecified, M81.0 - Age-related osteoporosis without current pathological fracture Collagen Type I C-Telopeptide 06/26/25 E05.20 - Thyrotoxicosis with toxic multinodular goiter without thyrotoxic crisis or storm, E21.3 - Hyperparathyroidism, unspecified, M81.0 - Age-related osteoporosis without current pathological fracture Phosphorus 06/26/25 E05.20 - Thyrotoxicosis with toxic multinodular goiter without thyrotoxic crisis or storm, E21.3 - Hyperparathyroidism, unspecified, M81.0 - Age-related osteoporosis without current pathological fracture Vitamin D 25-OH Total 06/26/25 E05.20 - Thyrotoxicosis with toxic multinodular goiter without thyrotoxic crisis or storm, E21.3 - Hyperparathyroidism, unspecified, M81.0 - Age-related osteoporosis without current pathological fracture Thyroid Stimulating Hormone 06/26/25 E04.9 - Nontoxic goiter, unspecified, E05.20 - Thyrotoxicosis with toxic multinodular goiter without thyrotoxic crisis or storm, E21.3 - Hyperparathyroidism, unspecified, M81.0 - Age-related osteoporosis without current pathological fracture Calcium 06/26/25 E05.20 - Thyrotoxicosis with toxic multinodular goiter without thyrotoxic crisis or storm, E21.3 - Hyperparathyroidism, unspecified, M81.0 - Age-related osteoporosis without current pathological fracture Creatinine 06/26/25 E05.20 - Thyrotoxicosis with toxic multinodular goiter without thyrotoxic crisis or storm, E21.3 - Hyperparathyroidism, unspecified, M81.0 - Age-related osteoporosis without current pathological fracture Free T4 (Free Thyroxine) 06/26/25 E04.9 - Nontoxic goiter, unspecified, E05.20 - Thyrotoxicosis with toxic multinodular goiter without thyrotoxic crisis or storm, E21.3 - Hyperparathyroidism, unspecified, M81.0 - Age-related osteoporosis without current pathological fracture Patient Instructions: vitamin-D 1000 units daily incorporate 2-3 servings of calcium rich foods daily Do fasting 8 AM blood 1-2 weeks prior to next follow up Do bone density Vitamina D 1000 unidades diarias Incorpore 2-3 porciones de alimentos ricos en calcio al d?a Realice un an?lisis de stefania en ayunas a las 8 a. m. 1-2 semanas antes del siguiente control Realice niyah densitometr?a ?sea Coding Level of Care Code Est Pt Level 3 (02383) Diagnoses Toxic multinodul goiter E05.20 Hyperparathyroidism E21.3 Vitamin D deficiency E55.9 Age-related osteoporosis without current pathological fracture M81.0 Osteoporosis type: age-related Presence of current pathological fracture: without current pathological fracture
[2025-01-24 11:11] VITALS: BP 108/66; PULSE 65; O2SAT 97; BMI 28.9
--- OUTSIDE RECORDS SUMMARY | 2025-01-24 14:40 | XMS_ITS | Encounter Summary ---
Author Organization [employer] [facility] Address [address] [place] [address] Care Team Providers Care Snow Removal/Plowing Name Role Phone Sneha Tipton Primary Care Provider [phone] Encounter Details Date Type Department Care Team (Latest Contact Info) Description 12/15/2018 Abstract [facility] CONVERSIONS Dental, Provider, DDS Social History [...] Care Team (Late st Contact Info) Description 01/31/2025 2:00 PM EDT Office Visit [facility] MEDICINE [address] [place] [id number] Deidre Vieyra CNM [address] [place] [address] 03/23/2025 11:00 AM EST Office Visit [facility] MEDICINE [address] [place] [id number] Sneha Tipton ANP [address] [place] [phone] documented as of this encounter Visit Diagnoses Not on filedocumented in this encounter Care Teams Snow Removal/Plowing Relationship Specialty Start Date End Date Sneha Tipton ANP [address] [place] [id number] PCP - General Family Medicine 03/26/20 documented as of this encounter
--- OUTSIDE RECORDS SUMMARY | 2025-01-24 14:40 | XMS_ITS | Clinical Summary ---
Author Organization [employer] Address 75 [facility] 7t [place] [address] Care Team Providers Care Nuclear Equipment Research Engineer Name Role Phone Danuta Nilsa HURTADO Primary Care Provider [phone] Allergies No known active allergies Medications diphenhydrAMINE [...] 025 Active ergocalciferol (Vitamin D-2) 1.25 MG (12085 UT) capsule take 1 capsule by oral [...] 65yo. LDCT form has been faxed to [facility]. 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; Low libido; Screening for lung cancer; Atypical chest pain 12/30/2024 Travel 12/29/2024 Telephone [facility] [address] [place] [address] Nilsa Brennan ANP chartprep 12/26/2024 Telephone [facility] [address] [place] [address] Nilsa Brennan ANP Referral from Last 3 [...] 12/28/2023 3:09 PM EDT Plan of Treatment Upcoming Encounters Date Type Department Care Team (Late st Contact Info) Description 01/31/2025 2:00 PM EDT Office Visit [facility] [address] [place] [address] Deidre Vieyra CNM [address] [place] [address] 03/23/2025 11:00 AM EST Office Visit [facility] [address] [place] [address] Nilsa Brennan, GENESIS [address] [place] [address] Health Maintenance Due Date Last Done Comments [...] Procedure Name Priority Date/Time Associated Diagnosis Comments US THYROID Routine 01/20/2025 3:45 PM EDT BI MAMMOGRAM SCREENING TOMOSYNTHESIS BILATERAL Routine 08/10/2024 2:45 PM EDT HM COLONOSCOPY Routine 11/29/2021 from Last 3 Months or Most Recently Relevant to Health Maintenance Results * US Thyroid (01/20/2025 3:45 PM EDT) Anatomical Region Laterality Modality Head, Neck Ultrasound 01/20/2025 3:45 PM EDT Narrative 01/23/2025 7:04 AM EDT [address] [address] Ultrasound Report Signed Patient: Chelsie Nick MR#: [id number] : 1955 Acct:[id number] Age/Sex: 69 / F ADM Date: 01/20/25 Loc: HO.US Attending Dr: Rashida Leslie MD Ordering Physician: Rashida Leslie MD Date of Service: 01/20/25 Procedure(s): US thyroid Accession Number(s): [id number] cc: Rashida Leslie MD; NILSA BRENNAN NP Reason for Exam: E04.2 - Nontoxic multinodular goiter EXAMINATION: US THYROID HISTORY: E04.2 - Nontoxic multinodular goiter TECHNIQUE: Real-time grayscale ultrasound imaging was performed and images were reviewed. COMPARISON: Comparison is made with the prior examination dated 03/25/2023. FINDINGS: SIZE: The right thyroid lobe measures 3.9 x 1.3 x 1.7 cm. The left thyroid lobe is surgically absent. The isthmus measures 2 mm. FLOW: Flow to the gland is normal. ECHOGENICITY: The echotexture of the gland is homogeneous. NODULES: Multiple nodules are again noted as described below: Nodule #: 1 Location: Midportion of the right thyroid lobe measuring 6 x 6 x 6 mm (previously 8 x 6 x 7 mm). Shape: Round (0 points) Margins: Smooth (0 points) Echotexture: Indeterminate (1 point) Composition: Mixed (1 point) Calcifications: None (0 points) Total points: 2 TIRADS: TR2: Not suspicious Nodule #: 2 Location: Midportion of the right thyroid lobe measuring 7 x 6 x 6 mm (previously 7 x 5 x 7 mm). Shape: Wider than tall (0 points) Margins: Smooth (0 points) Echotexture: Isoechoic (1 point) Composition: Mostly solid (2 points) Calcifications: None (0 points) Total points: 3 TIRADS: TR3: Mildly suspicious. Nodule #: 3 Location: Lower pole of the right thyroid lobe measuring 9 x 8 x 9 mm (previously 9 x 7 x 9 mm). Shape: Wider than tall (0 points) Margins: Smooth (0 points) Echotexture: Isoechoic (1 point) Composition: Solid (2 points) Calcifications: None (0 points) Total points: 3 TIRADS: TR3: Mildly suspicious. US/US thyroid IMPRESSION: Status post left thyroidectomy. Multiple subcentimeter right thyroid nodules as described, without significant change. ACR TI-RADS Guidelines TR1 (0 points): Benign. No follow-up or biopsy required TR2 (2 points): Not Suspicious. No biopsy or follow up indicated TR3 (3 points): Mildly Suspicious. FNA if >= 2.5 cm, Follow if >= 1.5 cm TR4 (4-6 points): Moderately Suspicious. FNA if >= 1.5 cm, Follow if >= 1.0 cm TR5 (>=7 points): Highly Suspicious. FNA if >= 1.0 cm, Follow if >= 0.5 cm Electronically signed by: Rufus Gloria MD 01/23/2025 07:01 AM EDT Dictated By: Rufus Gloria MD Signed By: <Electronically signed by Rufus Gloria MD in OV> 01/23/25 0701 DD/ 1545 TD/TT: 01/20/25 1554 Wall Taper Helper: Procedure Note Donotuseinterpreter, Image - 01/23/[address] [address] Ultrasound Report Signed Patient: Chelsie Nick LMR#: [id number] : 4Acct:[id number] Age/Sex: 69 / FADM Date: 01/20/25 Loc: HO.US Attending Dr: Rashida Leslie MD Ordering Physician: Rashida Leslie MD Date of Service: 01/20/25 Procedure(s): US thyroid Accession Number(s): [id number] cc: Rashida Leslie MD; NILSA BRENNAN NP Reason for Exam: E04.2 - Nontoxic multinodular goiter EXAMINATION: US THYROID HISTORY: E04.2 - Nontoxic multinodular goiter TECHNIQUE: Real-time grayscale ultrasound imaging was performed and images were reviewed. COMPARISON: Comparison is made with the prior examination dated 03/25/2023. FINDINGS: SIZE: The right thyroid lobe measures 3.9 x 1.3 x 1.7 cm. The left thyroid lobe is surgically absent. The isthmus measures 2 mm. FLOW: Flow to the gland is normal. ECHOGENICITY: The echotexture of the gland is homogeneous. NODULES: Multiple nodules are again noted as described below: Nodule #: 1 Location: Midportion of the right thyroid lobe measuring 6 x 6 x 6 mm (previously 8 x 6 x 7 mm). Shape: Round (0 points) Margins: Smooth (0 points) Echotexture: Indeterminate (1 point) Composition: Mixed (1 point) Calcifications: None (0 points) Total points: 2 TIRADS: TR2: Not suspicious Nodule #: 2 Location: Midportion of the right thyroid lobe measuring 7 x 6 x 6 mm (previously 7 x 5 x 7 mm). Shape: Wider than tall (0 points) Margins: Smooth (0 points) Echotexture: Isoechoic (1 point) Composition: Mostly solid (2 points) Calcifications: None (0 points) Total points: 3 TIRADS: TR3: Mildly suspicious. Nodule #: 3 Location: Lower pole of the right thyroid lobe measuring 9 x 8 x 9 mm (previously 9 x 7 x 9 mm). Shape: Wider than tall (0 points) Margins: Smooth (0 points) Echotexture: Isoechoic (1 point) Composition: Solid (2 points) Calcifications: None (0 points) Total points: 3 TIRADS: TR3: Mildly suspicious. US/US thyroid IMPRESSION: Status post left thyroidectomy. Multiple subcentimeter right thyroid nodules as described, without significant change. ACR TI-RADS Guidelines TR1 (0 points): Benign. No follow-up or biopsy required TR2 (2 points): Not Suspicious. No biopsy or follow up indicated TR3 (3 points): Mildly Suspicious. FNA if >= 2.5 cm, Follow if >= 1.5 cm TR4 (4-6 points): Moderately Suspicious. FNA if >= 1.5 cm, Follow if >= 1.0 cm TR5 (>=7 points): Highly Suspicious. FNA if >= 1.0 cm, Follow if >= 0.5 cm Electronically signed by: Rufus Gloria MD 01/23/2025 07:01 AM EDT Dictated By: Rufus Gloria MD Signed By: <Electronically signed by Rufus Gloria MD in OV> 01/23/25 0701 DD/ 1545 TD/TT: 01/20/25 1554 Wall Taper Helper: us [facility] External Provider IMG US PROCEDURES Edited Result - Final * BI Mammogram Screening Tomosynthesis Bilateral (08/10/2024 2:45 PM EDT) Anatomical Region Laterality Modality Breast Bilateral Mammography 08/10/2024 2:45 PM EDT Narrative 08/15/2024 5:14 PM EDT [facility] [place] [address] Mammography Report Signed Patient: Chelsie Nick MR#: [id number] : 1955 Acct:[id number] Age/Sex: 69 / F ADM Date: 08/10/24 Loc: ROBB Attending Dr: Nilsa Brennan NP Ordering Physician: NILSA BRENNAN NP Results: 1Negative Date of Service: 08/10/24 Follow Up: 1 Year From Orig ina Mammogram Procedure(s): MM tomosynthesis screening BI Accession Number(s): [id number] cc: NILSA BRENNAN NP EXAMINATION: MM SCREENING [...] 08/15/24 1711 DD/ 1445 TD/TT: 08/10/24 1457 Wall Taper Helper: Procedure Note Donotuseinterpreter, Image - 08/15/2024 [facility] [address] [place] [address] Mammography Report Signed Patient: Chelsie Nick LMR#: [id number] : 4Acct:[id number] Age/Sex: 69 / FADM Date: 08/10/24 Loc: ROBB Attending Dr: Nilsa Brennan NP Ordering Physician: NILSA BRENNAN NPResults: 1Negative Date of Service: 08/10/24Follow Up: 1 Year From Orig ina Mammogram Procedure(s): MM tomosynthesis screening BI Accession Number(s): [id number] cc: NILSA BRENNAN NP EXAMINATION: MM SCREENING [...] 08/15/24 1711 DD/ 1445 TD/TT: 08/10/24 1457 Wall Taper Helper: Nilsa Brennan ANP IMG BI PROCEDURES Final Result * Colonoscopy (11/29/2021) Colonoscopy performed Historical Provider HEALTH MAINTENANCE Edited Result - Final from Last 3 Months or Most Recently Relevant to Health Maintenance Insurance [employer] ADV Member Subscriber Plan / Payer (Ef fective 2023-Present) Name:Chelsie Nick Relation to Subscriber:Self Name:Chelsie Nick Payer ID:Not on file Group ID:[id number] Type:Not on file Address: [address] [facility] Care Teams Nuclear Equipment Research Engineer Relationship Specialty Start Date End Date Nilsa Brennan ANP [address] [place] [address] PCP - General Family Medicine 03/26/20
--- OUTSIDE RECORDS SUMMARY | 2025-01-24 14:40 | XMS_ITS | Encounter Summary ---
Author Organization [employer] Address 75 [facility] 7t [place] [address] Care Team Providers Care Telehealth Case Manager Name Role Phone Danuta Nilsa HURTADO Primary Care Provider [phone] Encounter Details Date Type Department Care Team (Late st Contact Info) Description 01/20/2025 Orders Only [facility] External Provider, [facility] Social History Tobacco Use Types Packs/Day Years [...] Description 01/31/2025 2:00 PM EDT Office Visit [facility] [address] [place] [address] Deidre Vieyra, CNM [address] [place] [address] 03/23/2025 11:00 AM EST Office Visit [address] [address] Nilsa Brennan, ANP [address] [place] [address] documented as of this encounter Procedures Procedure Name Priority Date/Time Associated Diagnosis Comments US THYROID Routine 01/20/2025 3:45 PM EDT documented in this encounter Results * US Thyroid (01/20/2025 3:45 PM EDT) Anatomical Region Laterality Modality Head, Neck Ultrasound 01/20/2025 3:45 PM EDT Narrative 01/23/2025 7:04 AM EDT [address] [address] Ultrasound Report Signed Patient: Chelsie Nick MR#: [id number] : 1955 Acct:[id number] Age/Sex: 69 / F ADM Date: 01/20/25 Loc: HO.US Attending Dr: Rashida Leslie MD Ordering Physician: Rashida Leslie MD Date of Service: 01/20/25 Procedure(s): US thyroid Accession Number(s): [id number] cc: Rashida Leslie MD; NILSA BRENNAN NP [...] 01/23/25 0701 DD/ 1545 TD/TT: 01/20/25 1554 Cement Loader: Procedure Note Donotuseinterpreter, Image - 01/23/2025 [place] [address] Ultrasound Report Signed Patient: Chelsie Nick LMR#: [id number] : 4Acct:[id number] Age/Sex: 69 / FADM Date: 01/20/25 Loc: HO.US Attending Dr: Rashida Leslie MD Ordering Physician: Rashida Leslie MD Date of Service: 01/20/25 Procedure(s): US thyroid Accession Number(s): [id number] cc: Rashida Leslie MD; NILSA BRENNAN NP [...] 01/23/25 0701 DD/ 1545 TD/TT: 01/20/25 1554 Cement Loader: [facility] External Provider IMG US PROCEDURES Edited Result - Final documented in this encounter Visit Diagnoses Not on filedocumented in this encounter Additional Health Concerns Assessment Noted Time PHQ-9 Depression Total Score: 10 025 2:47 PM EDT documented as of this encounter Care Teams Telehealth Case Manager Relationship Specialty Start Date End Date Nilsa Brennan ANP [address] [place] [address] PCP - General Family Medicine 03/26/20 documented as of this encounter
--- OUTSIDE RECORDS SUMMARY | 2025-01-24 14:40 | XMS_ITS | Clinical Summary ---
Author Organization [facility] Address [address] [place] [address] Care Team Providers Care Hematology Technician Name Role Phone Unavailable Primary Care Provider [...] 07/16/2003 Zoster Vaccines (1 of 2) 07/16/2003 Depression Screening 05/11/2024 COVID-19 Vaccine (1 - 2023-2 5 season) 2025 Influenza Vaccine (#1) 2025 RSV Immunization Adult [...]
--- OUTSIDE RECORDS SUMMARY | 2025-01-24 14:40 | XMS_ITS | Encounter Summary ---
Author Organization [employer] Address 75 [facility] 7t [place] [address] Care Team Providers Care Bottle Packer Name Role Phone Sneha Tipton Primary Care Provider [phone] Encounter Details Date Type Department Care Team ([facility] st Contact Info) Description 08/26/2023 Abstract [facility] [address] [place], [place] [phone] Sneha Tipton ANP [address] [place] [address] Social History Tobacco Use Types Packs/Day Years [...] Description 01/31/2025 2:00 PM EDT Office Visit [facility] [address] [place] [address] Deidre Vieyra CNM [address] [place] [address] 03/23/2025 11:00 AM EST Office Visit [address] [address] Sneha Tipton ANP [address] [place] [address] documented as of this encounter Visit Diagnoses Not on filedocumented in this encounter Care Teams Bottle Packer Relationship Specialty Start Date End Date Sneha Tipton ANP [address] [place] [address] PCP - General Family Medicine 03/26/20 documented as of this encounter
--- OUTSIDE RECORDS SUMMARY | 2025-01-24 14:40 | XMS_ITS | Encounter Summary ---
Author Organization [employer] Address 75 [facility] 7t [place] [address] Care Team Providers Care Material Distributor Name Role Phone Sneha Tipton Primary Care Provider [phone] Reason for Visit * Reason Comments Med Refill Encounter Details Date Type Department Care Team ([facility] st Contact Info) Description 07/29/2023 Refill [facility] [address] [place], [place] [phone] Sneha Tipton ANP [address] [place] [address] Mixed hyperlipidemia Social History Tobacco Use Types [...] the past 12 months, has t he [employer], [employer], oil or water [employer] threatened to shut off services in your [...] Description 01/31/2025 2:00 PM EDT Office Visit [facility] [address] [place] [address] Deidre Vieyra CNM [address] [place] [address] 03/23/2025 11:00 AM EST Office Visit [facility] [address] [place] [address] Sneha Tipton ANP [address] [place] [address] documented as of this encounter Visit Diagnoses Diagnosis Mixed hyperlipidemia documented in this encounter Care Teams Material Distributor Relationship Specialty Start Date End Date Sneha Tipton ANP [address] [place] [address] PCP - General Family Medicine 03/26/20 documented as of this encounter
== END 2025-01-24 11:30 | disposition home or self-care (01) ==
LOC: HO.ENCR 10:56
PROVIDERS: PCP Nurse Practitioner Primary Care; Visit Provider Student in an Organized Health Care Education/Training Program
DX: E05.20 Thyrotoxicosis with toxic multinodular goiter without thyrotoxic crisis or storm (principal); E21.3 Hyperparathyroidism, unspecified; E55.9 Vitamin D deficiency, unspecified; M81.0 Age-related osteoporosis without current pathological fracture
CPT/HCPCS: 99213

== ENCOUNTER → 2025-01-24 10:55 | Outpatient (BNVA) | payer MEDICARE, SELFPAY | PROVIDERS: PCP Nurse Practitioner Primary Care; Visit Provider Student in an Organized Health Care Education/Training Program | DX: E05.20 Thyrotoxicosis with toxic multinodular goiter without thyrotoxic crisis or storm (principal); E21.3 Hyperparathyroidism, unspecified; E55.9 Vitamin D deficiency, unspecified; M81.0 Age-related osteoporosis without current pathological fracture | CPT/HCPCS: 99212 ==

== ENCOUNTER 2025-02-07 12:31 | Outpatient (REF) | payer MEDICARE, SELFPAY ==
--- NOTE | ~2025-02-07 | MM_ITS ---
EXAMINATION: DXA BONE DENSITY EXTREMITY HISTORY: M81.0 - Age-related osteoporosis without current pathological fracture TECHNIQUE: [employer] Dual energy absorptiometry (DEXA) of the lumbar spine, total left hip, femoral neck, and distal forearm was performed. COMPARISON: Comparison is made with the prior examination dated 01/02/2023. FINDINGS: The bone mineral density of the lumbar spine is 0.939 g/cm2, corresponding to a T-score of -2.0, and a Z-score of -0.6. This is indicative of osteopenia. This represents a BMD change of 1.8% compared to the prior exam. This is not statistically significant. The bone mineral density of the left total hip is 0.847 g/cm2, corresponding to a T-score of -1.3, and a Z-score of 0.1. This is indicative of osteopenia. This represents a BMD change of 1.9% compared to the prior exam. This is not statistically significant. The bone mineral density of the left femoral neck is 0.808 g/cm2, corresponding to a T-score of -1.7, and a Z-score of -0.1. This is indicative of osteopenia. This represents a BMD change of 8.2% compared to the prior exam. The bone mineral density of the distal forearm is 0.655 g/cm2, corresponding to a T-score of -2.5, and a Z-score of -0.6. This is indicative of osteoporosis. This represents a BMD change of 2.0% compared to the prior exam. FRACTURE RISK: The FRAX index suggests a ten year probability of major osteoporotic fracture of 9.5%, and of hip fracture 2.7%. MM/XR DEXA appendicular skeleton IMPRESSION: Based on bone mineral density, and according to World Health Organization (WHO) criteria, the diagnosis is consistent with osteoporosis. Statistically, 68% of repeat scans fall within 1 SD (+/- 0.010 g/cm2 for AP spine L1-L4) and 1 SD (+/- 0.012 g/cm2 for femur total) FRAX is a trademark of the [employer]'s [place] for Metabolic Bone Disease, a World Health Organization (WHO) Collaborating Center. Electronically signed by: Rufus lGoria MD 02/07/2025 01:24 PM EDT RP
--- OUTSIDE RECORDS SUMMARY | 2025-02-07 13:39 | XMS_ITS | Encounter Summary ---
Author Organization [facility] Address [address] [facility] 7t [place] [address] Care Team Providers Care Residential Sales Representative Name Role Phone Sneha Tipton Primary Care Provider [phone] Encounter Details Date Type Department Care Team (Latest Contact Info) Description 12/15/2018 Abstract [facility] CONVERSIONS Dental, Provider, DDS Social [...] Care Team (Late st Contact Info) Description 03/23/2025 11:00 AM EST Office Visit [facility] [address] [place] [address] Sneha Tiptno ANP 230 [place] [address] documented as of this encounter Visit Diagnoses Not on filedocumented in this encounter Care Teams Residential Sales Representative Relationship Specialty Start Date End Date Sneha Tipton ANP [address] [place] [address] PCP - General Family Medicine 03/26/20 documented as of this encounter
--- OUTSIDE RECORDS SUMMARY | 2025-02-07 13:39 | XMS_ITS | Encounter Summary ---
Author Organization [employer] Address 75 [facility] 7t [place] [address] Care Team Providers Care Minibus Driver Name Role Phone Sneha Tipton Primary Care Provider [phone] Reason for Visit * Reason Comments Med Refill Encounter Details Date Type Department Care Team ([facility] st Contact Info) Description 07/29/2023 Refill [facility] [address] [place], [place] [phone] Sneha Tipton ANP [address] [place] [address] Mixed hyperlipidemia Social History Tobacco Use Types [...] the past 12 months, has t he [employer], oil or water company threatened to shut [...] Description 03/23/2025 11:00 AM EST Office Visit [facility] [address] [place] [address] Sneha Tipton ANP [address] [place] [address] documented as of this encounter Visit Diagnoses Diagnosis Mixed hyperlipidemia documented in this encounter Care Teams Minibus Driver Relationship Specialty Start Date End Date Sneha Tipton ANP [address] [place] [address] PCP - General Family Medicine 03/26/20 documented as of this encounter
--- OUTSIDE RECORDS SUMMARY | 2025-02-07 13:39 | XMS_ITS | Clinical Summary ---
Author Organization [facility] Address [address] [place] [address] Care Team Providers Care Aeronautics Teacher Name Role Phone Unavailable Primary Care Provider [...]
--- OUTSIDE RECORDS SUMMARY | 2025-02-07 13:39 | XMS_ITS | Encounter Summary ---
Author Organization [employer] Address [address] [facility] 7t [place] [address] Care Team Providers Care Payroll And Benefits Analyst Name Role Phone Sneha Tipton Primary Care Provider [phone] Encounter Details Date Type Department Care Team (Late st Contact Info) Description 08/26/2023 Abstract [facility] MED[facility]INE [address] [place], [place] [phone] Sneha Tipton ANP [address] [place] [address] Social History Tobacco Use Types Packs/Day Years [...] Description 03/23/2025 11:00 AM EST Office Visit [facility] [address] [place] [address] Sneha Tipton ANP [address] [place] [address] documented as of this encounter Visit Diagnoses Not on filedocumented in this encounter Care Teams Payroll And Benefits Analyst Relationship Specialty Start Date End Date Sneha Tipton ANP [address] [place] [address] PCP - General Family Medicine 03/26/20 documented as of this encounter
--- OUTSIDE RECORDS SUMMARY | 2025-02-07 13:39 | XMS_ITS | Clinical Summary ---
Author Organization [employer] Address [address] [facility] 7t [place] [address] Care Team Providers Care Collision Repair Technician Name Role Phone Danuta Nilsa HURTADO Primary Care Provider [phone] Allergies No known active allergies Medications diphenhydrAMINE (BENADryl) 25 MG tablet Take 1 tablet by mouth every 4 (four) hours. Active nicotine (Nicoderm, Step 3) 7 MG/24HR patch Place 1 patch on the skin at bed time. 11/10/19 19 Active oxybutynin (Ditropan) 5 MG tablet Take 1 tablet by mouth every 12 (twelve) hours. 04/12/20 21 Active phenazopyridine (Pyridium) 200 MG tablet Take 1 tablet by mouth every 8 (eight) hours. 10/17/19 22 Active baclofen (Lioresal) 10 MG tablet Take 0.5 tablets (5 mg) by mouth 3 times daily for 10 days. 15 tablet 05/05/20 23 Active lidocaine (Lidoderm) 5 % patchIndications: Acute bilateral thoracic back pain Apply topically to affected areas. Leave on for up to 12 hours 30 patch 1 07/03/19 24 Active famotidine (Pepcid) 20 MG tabletIndications :Gastroesophageal reflux disease, unspecified whether esophagitis present Take 1 tablet twice daily as needed for acid reflux 30 tablet 1 01/13/20 24 Active levoFLOXacin (Levaquin) 250 MG tablet Take 1 tablet by mouth Once per day. 10/07/19 24 Active atorvastatin (Lipitor) 10 MG tabletIndications :Mixed hyperlipidemia 1 tablet once daily 90 tablet 3 12/31/19 25 Active estradiol (Estrace) 0.1 MG/GM vaginal cream 1 g vaginally at night x 14 days, then continue to use 1g vaginally twice a week thereafter 42.5 g 1 12/31/19 25 2024 Discontinued Active Problems Problem Noted Date [...] 65yo. LDCT form has been faxed to [facility]. Pt waiting for her urology bill to [...] Toxic multinodular goiter 08/04/2019 Overview (04/24/2022): Follows flor/ Dr. Garcia, Endocrinology. 07/2020 L parathyroidectomy & L annabella thyroidectomy. Microscopic hematuria 09/17/2018 Bilateral hearing loss 09/06/2018 Stress incontinence of urine 09/06/2018 Resolved Problems Problem Noted Date Diagnosed Date Resolved Date Abnormal mammogram 08/08/2022 Overview (12/28/2023): BI-RADS 0: Incomplete - 08/05/22, radiology coordinating w/ pt, imaging was obtained and resumed screening schedule. BIRADS 1 08/2023 Subclinical hyperthyroidism 09/20/2018 12/28/2023 Abnormal thyroid function test 09/17/2018 04/24/2022 Encounters Date Type Department Care Team Description 01/31/2025 2:00 PM EDT Office Visit [facility] [address] [place] [phone] Deidre Vieyra CNM Visit for pelvic exam (Primary Dx); Stress incontinence of urine 01/31/2025 Travel 01/30/2025 Telephone [facility] [address] [place] [address] Shabnam High [place] 01/20/2025 Orders Only [facility] External Provider, [facility] 01/05/[address] [address] Nilsa Brennan ANP Appointment Request 12/30/2024 1:45 PM EDT Office Visit [address] [address] Nilsa Brennan ANP Healthcare maintenance (Primary Dx); Mixed hyperlipidemia; Chronic right-sided low back pain, unspecified whether sciatica present; Frequent falls; Right hip pain; 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; Low libido; Screening for lung cancer; Atypical chest pain 12/30/2024 Travel 12/29/[address] [address] Nilsa Brennan ANP chartprep 12/26/[address] [address] Nilsa Brennan ANP Referral from Last 3 Months Immunizations Immunization Administration Dates Next Due Pfizer Covid-19 Vaccine 12+ 10/09/2020, Pneumococcal Conjugate PCV 13 05/25/2020 Pneumococcal Conjugate PCV 20 12/30/2024 Tdap 05/25/2020 Family History Medical History Relation Name Comments Prostate cancer Father Breast cancer Neg Hx Ovarian cancer Neg Hx Relation Name Status Comments Father Mother Social History Tobacco Use Types Packs/Day Years Used Date Smoking Tobacco: Former Passive Smoke Exposure: Past Smokeless Tobacco: Never Comments:6 mo since last cig arette Alcohol Use Standard Drinks/Week Comments Not Currently 0 (1 standard drink = 0.6 oz [...] Sign Reading Time Taken Comments Blood Pressure 130/78 01/31/2025 1:51 PM EDT Pulse 71 01/31/2025 1:51 PM EDT Temperature 37 C (98.6 F) 01/31/2025 1:51 PM EDT Respiratory Rate 16 01/31/2025 1:51 PM EDT Oxygen Saturation 97% 01/31/2025 1:51 PM EDT Inhaled Oxygen Concentration - - Weight 72.4 kg (159 lb 9.6 oz) 01/31/2025 1:51 P M EDT Height 157.5 cm (5' 2 ) 01/31/2025 1:51 PM EDT Body Mass Index 29.19 01/31/2025 1:51 PM EDT Plan of Treatment Upcoming Encounters Date Type Department Care Team (Late st Contact Info) Description 03/23/2025 11:00 AM EST Office Visit [facility] [address] [place], [place] [phone] Nilsa Brennan, ANP [address] [place], [place] [phone] Health Maintenance Due Date Last Done Comments CT Colonography 1955 FIT DNA/Cologuard 1955 FIT 1955 FOBT 1955 Sigmoidoscopy 1955 Hepatitis C Screening 07/16/1971 Zoster Vaccines (1 of 2) 07/16/2003 COVID-19 Vaccine ( season) 2025 04/27/2021, 10/09/2020, 08/26/2020 Influenza Vaccine (#1) 2025 Depression Monitoring 07/02/2025 12/30/2024, 025 Mammogram 08/12/2025 08/12/2024, 04/0 06/2024, 08/26/2023, Additional history exists SDOH Screening 12/30/2025 12/30/2024 Alcohol/Substance Use Screening 01/31/2026 01/31/2025 Tobacco Screening 01/31/2026 01/31/2025 RSV Patients and Patients Aged 60 years [...] Procedure Name Priority Date/Time Associated Diagnosis Comments XR DEXA APPENDICULAR SKELETON Routine 02/07/2025 12:52 PM EDT US THYROID Routine 01/20/2025 3:45 PM EDT BI MAMMOGRAM SCREENING TOMOSYNTHESIS BILATERAL Routine 08/10/2024 2:45 PM EDT HM COLONOSCOPY Routine 11/29/2021 from Last 3 Months or Most Recently Relevant to Health Maintenance Results * XR DEXA APPENDICULAR SKELETON (02/07/2025 12:52 PM EDT) Anatomical Region Laterality Modality Abdomen Radiographic Blaire ging 02/07/2025 12:5 2 PM EDT Narrative 02/07/2025 1:27 PM EDT [place] [facility] [address] [place] [address] Mammography Report Signed Patient: Chelsie Nick MR#: [id number] : 1955 Acct:[id number] Age/Sex: 69 / F ADM Date: 02/07/25 Loc: ROBB Attending Dr: Rashida Leslie MD Ordering Physician: Rashida Leslie MD Results: Date of Service: 02/07/25 Follow Up: Procedure(s): XR DEXA appendicular skeleton Accession Number(s): [id number] cc: Rashida Leslie MD; NILSA BRENNAN NP Reason For Exam: M81.0 - Age-related osteoporosis without current pathological fracture EXAMINATION: DXA BONE DENSITY EXTREMITY HISTORY: M81.0 - Age-related osteoporosis without current pathological fracture TECHNIQUE: [employer] Dual energy absorptiometry (DEXA) of the lumbar spine, total left hip, femoral neck, and distal forearm was performed. COMPARISON: Comparison is made with the prior examination dated 01/02/2023. FINDINGS: The bone mineral density of the lumbar spine is 0.939 g/cm2, corresponding to a T-score of -2.0, and a Z-score of -0.6. This is indicative of osteopenia. This represents a BMD change of 1.8% compared to the prior exam. This is not statistically significant. The bone mineral density of the left total hip is 0.847 g/cm2, corresponding to a T-score of -1.3, and a Z-score of 0.1. This is indicative of osteopenia. This represents a BMD change of 1.9% compared to the prior exam. This is not statistically significant. The bone mineral density of the left femoral neck is 0.808 g/cm2, corresponding to a T-score of -1.7, and a Z-score of -0.1. This is indicative of osteopenia. This represents a BMD change of 8.2% compared to the prior exam. The bone mineral density of the distal forearm is 0.655 g/cm2, corresponding to a T-score of -2.5, and a Z-score of -0.6. This is indicative of osteoporosis. This represents a BMD change of 2.0% compared to the prior exam. FRACTURE RISK: The FRAX index suggests a ten year probability of major osteoporotic fracture of 9.5%, and of hip fracture 2.7%. MM/XR DEXA appendicular skeleton IMPRESSION: Based on bone mineral density, and according to World Health Organization (WHO) criteria, the diagnosis is consistent with osteoporosis. Statistically, 68% of repeat scans fall within 1 SD (+/- 0.010 g/cm2 for AP spine L1-L4) and 1 SD (+/- 0.012 g/cm2 for femur total) FRAX is a trademark of the [employer] [place] for Metabolic Bone Disease, a World Health Organization (WHO) Collaborating Center. Electronically signed by: Rufus Gloria MD 02/07/2025 01:24 PM EDT RP Dictated By: Rufus Gloria MD Signed By: <Electronically signed by Rufus Gloria MD in OV> 02/07/25 1324 DD/ 1252 TD/TT: 02/07/25 1305 Operations Developer: Procedure Note Donotuseinterpreter, Image - 02/07/2025 [facility] [address] [place] [address] Mammography Report Signed Patient: Chelsie Nick LMR#: [id number] : 4Acct:[id number] Age/Sex: 69 / FADM Date: 02/07/25 Loc: ROBB Attending Dr: Rashida Leslie MD Ordering Physician: Rashida Leslieesults: Date of Service: 02/07/25Follow Up: Procedure(s): XR DEXA appendicular skeleton Accession Number(s): [id number] cc: Rashida Leslie MD; NILSA BRENNAN NP Reason For Exam: M81.0 - Age-related osteoporosis without currentpathological fracture EXAMINATION: DXA BONE DENSITY EXTREMITY HISTORY: M81.0 - Age-related osteoporosis without current pathological fracture TECHNIQUE: [employer] Dual energy absorptiometry (DEXA) of the lumbar spine, total left hip, femoral neck, and distal forearm was performed. COMPARISON: Comparison is made with the prior examination dated 01/02/2023. FINDINGS: The bone mineral density of the lumbar spine is 0.939 g/cm2, corresponding to a T-score of -2.0, and a Z-score of -0.6. This is indicative of osteopenia. This represents a BMD change of 1.8% compared to the prior exam. This is not statistically significant. The bone mineral density of the left total hip is 0.847 g/cm2, corresponding to a T-score of -1.3, and a Z-score of 0.1. This is indicative of osteopenia. This represents a BMD change of 1.9% compared to the prior exam. This is not statistically significant. The bone mineral density of the left femoral neck is 0.808 g/cm2, corresponding to a T-score of -1.7, and a Z-score of -0.1. This is indicative of osteopenia. This represents a BMD change of 8.2% compared to the prior exam. The bone mineral density of the distal forearm is 0.655 g/cm2, corresponding to a T-score of -2.5, and a Z-score of -0.6. This is indicative of osteoporosis. This represents a BMD change of 2.0% compared to the prior exam. FRACTURE RISK: The FRAX index suggests a ten year probability of major osteoporotic fracture of 9.5%, and of hip fracture 2.7%. MM/XR DEXA appendicular skeleton IMPRESSION: Based on bone mineral density, and according to World Health Organization (WHO) criteria, the diagnosis is consistent with osteoporosis. Statistically, 68% of repeat scans fall within 1 SD (+/- 0.010 g/cm2 for AP spine L1-L4) and 1 SD (+/- 0.012 g/cm2 for femur total) FRAX is a trademark of the [employer] [place] for Metabolic Bone Disease, a World Health Organization (WHO) Collaborating Center. Electronically signed by: Rufus Gloria MD 02/07/2025 01:24 PM EDT Dictated By: Rufus Gloria MD Signed By: <Electronically signed by Rufus Gloria MD in OV> 02/07/25 1324 DD/ 1252 TD/TT: 02/07/25 1305 Operations Developer: us [facility] External Provider IMG XR PROCEDURES Final Result * US Thyroid (01/20/2025 3:45 PM EDT) Anatomical Region Laterality Modality Head, Neck Ultrasound 01/20/2025 3:45 PM EDT Narrative 01/23/2025 7:04 AM EDT [address] [address] Ultrasound Report Signed Patient: Chelsie Nick MR#: [id number] : 1955 Acct:[id number] Age/Sex: 69 / F ADM Date: 01/20/25 Loc: HO.US Attending Dr: Rashida Leslie MD Ordering Physician: Rashida Leslie MD Date of Service: 01/20/25 Procedure(s): US thyroid Accession Number(s): [id number] cc: Rashida Leslie MD; NILSA BRENNAN NP [...] 01/23/25 0701 DD/ 1545 TD/TT: 01/20/25 1554 Operations Developer: Procedure Note Donotuseinterpreter, Image - 01/23/[address] [address] Ultrasound Report Signed Patient: Chelsie Nick LMR#: [id number] : 1955cct:[id number] Age/Sex: 69 / FADM Date: 01/20/25 Loc: HO.US Attending Dr: Rashida Leslie MD Ordering Physician: Rashida Leslie MD Date of Service: 01/20/25 Procedure(s): US thyroid Accession Number(s): [id number] cc: Rashida Leslie MD; NILSA BRENNAN NP [...] 01/23/25 0701 DD/ 1545 TD/TT: 01/20/25 1554 Operations Developer: [facility] External Provider IMG US PROCEDURES Edited Result - Final * BI Mammogram Screening Tomosynthesis Bilateral (08/10/2024 2:45 PM EDT) Anatomical Region Laterality Modality Breast Bilateral Mammography 08/10/2024 2:45 PM EDT Narrative 08/15/2024 5:14 PM EDT [address] [place] [address] Mammography Report Signed Patient: Chelsie Nick MR#: [id number] : 1955 Acct:[id number] Age/Sex: 69 / F ADM Date: 08/10/24 Loc: ROBB Attending Dr: Nilsa Brennan NP Ordering Physician: NILSA BRENNAN NP Results: 1Negative Date of Service: 08/10/24 Follow Up: 1 Year From Orig inal Mammogram Procedure(s): MM tomosynthesis screening BI Accession Number(s): [id number] cc: NILSA BRENNAN NP EXAMINATION: MM SCREENING [...] 08/15/24 1711 DD/ 1445 TD/TT: 08/10/24 1457 Operations Developer: Procedure Note Donotuseinterpreter, Image - 08/15/2024 [facility] [address] [place] [address] Mammography Report Signed Patient: Chelsie Nick LMR#: [id number] : 1955cct:[id number] Age/Sex: 69 / FADM Date: 08/10/24 Loc: ROBB Attending Dr: Nilsa Brennan NP Ordering Physician: NILSA BRENNAN NPResults: 1Negative Date of Service: 08/10/24Follow Up: 1 Year From Orig ina Mammogram Procedure(s): MM tomosynthesis screening BI Accession Number(s): [id number] cc: NILSA BRENNAN NP EXAMINATION: MM SCREENING [...] 08/15/24 1711 DD/ 1445 TD/TT: 08/10/24 1457 Operations Developer: Nilsa Danuta HURTADO IMIsaura BI PROCEDURES Final Result * Hm Colonoscopy (11/29/2021) Colonoscopy performed Historical Provider HEALTH MAINTENANCE Edited Result - Final from Last 3 Months or Most Recently Relevant to Health Maintenance Insurance [facility] Care Teams Collision Repair Technician Relationship Specialty Start Date End Date Nilsa Brennan ANP [address] [place] [phone] PCP - General Family Medicine 03/26/20
== END 2025-02-07 12:32 | disposition home or self-care (01) ==
LOC: HO.MAMMO 12:31
PROVIDERS: PCP Nurse Practitioner Primary Care; Visit Provider Student in an Organized Health Care Education/Training Program
DX: M81.0 Age-related osteoporosis without current pathological fracture (principal); E21.3 Hyperparathyroidism, unspecified
CPT/HCPCS: 77081

== ENCOUNTER → 2025-02-07 13:00 | Outpatient (BNV) | payer MEDICARE, SELFPAY | PROVIDERS: PCP Nurse Practitioner Primary Care; Visit Provider Radiology Diagnostic Radiology | DX: E28.39 Other primary ovarian failure (principal) | CPT/HCPCS: 77081 ==

== ENCOUNTER → 2025-02-14 09:43 | Day surgery (SDC) | payer MEDICARE, SELFPAY ==
--- OUTSIDE RECORDS SUMMARY | 2025-01-25 12:53 | XMS_ITS | Encounter Summary ---
Author Organization [employer] Address 75 [facility] 7t [place] [address] Care Team Providers Care Life Sciences Director Name Role Phone Danuta Nilsa HURTADO Primary Care Provider [phone] Encounter Details Date Type Department Care Team (Late st Contact Info) Description 01/20/2025 Orders Only [facility] External Provider, [facility] Social History Tobacco Use Types Packs/Day Years [...] Description 01/31/2025 2:00 PM EDT Office Visit [facility] [address] [place] [address] Deidre Vieyra, CNM [address] [place] [address] 03/23/2025 11:00 AM EST Office Visit [address] [address] Nilsa Brennan, ANP [address] [place] [address] documented as of this encounter Procedures Procedure Name Priority Date/Time Associated Diagnosis Comments US THYROID Routine 01/20/2025 3:45 PM EDT documented in this encounter Results * US Thyroid (01/20/2025 3:45 PM EDT) Anatomical Region Laterality Modality Head, Neck Ultrasound 01/20/2025 3:45 PM EDT Narrative 01/23/2025 7:04 AM EDT [address] [address] Ultrasound Report Signed Patient: Chelsie Nick MR#: [id number] : 1955 Acct:[id number] Age/Sex: 69 / F ADM Date: 01/20/25 Loc: HO.US Attending Dr: Rashida Leslie MD Ordering Physician: Rashida Leslie MD Date of Service: 01/20/25 Procedure(s): US thyroid Accession Number(s): [id number] cc: Rashida Leslie MD; NILSA BRENNAN NP [...] 01/23/25 0701 DD/ 1545 TD/TT: 01/20/25 1554 Certified Flex Endoscope Reprocessor: Procedure Note Donotuseinterpreter, Image - 01/23/2025 [place] [address] Ultrasound Report Signed Patient: Chelsie Nick LMR#: [id number] : 4Acct:[id number] Age/Sex: 69 / FADM Date: 01/20/25 Loc: HO.US Attending Dr: Rashida Leslie MD Ordering Physician: Rashida Leslie MD Date of Service: 01/20/25 Procedure(s): US thyroid Accession Number(s): [id number] cc: Rashida Leslie MD; NILSA BRENNAN NP [...] 01/23/25 0701 DD/ 1545 TD/TT: 01/20/25 1554 Certified Flex Endoscope Reprocessor: [facility] External Provider IMG US PROCEDURES Edited Result - Final documented in this encounter Visit Diagnoses Not on filedocumented in this encounter Additional Health Concerns Assessment Noted Time PHQ-9 Depression Total Score: 10 025 2:47 PM EDT documented as of this encounter Care Teams Life Sciences Director Relationship Specialty Start Date End Date Nilsa Brennan ANP [address] [place] [address] PCP - General Family Medicine 03/26/20 documented as of this encounter
--- OUTSIDE RECORDS SUMMARY | 2025-01-25 12:53 | XMS_ITS | Encounter Summary ---
Author Organization [employer] Address 75 [facility] 7t [place] [address] Care Team Providers Care Party Plan Sales Director Name Role Phone Sneha T[place]on Primary Care Provider [phone] Encounter Details Date Type Department Care Team ([facility] st Contact Info) Description 08/26/2023 Abstract [facility] [address] [place], [place] [phone] Sneha Tipton ANP [address] [place] [address] Social History Tobacco Use Types Packs/Day Years [...] 01/31/2025 2:00 PM EDT Office Visit [facility] [address] [place] [address] Deidre Vieyra CNM [address] [place] [address] 03/23/2025 11:00 AM EST Office Visit [address] [address] Sneha Tipton ANP [address] [place] [address] documented as of this encounter Visit Diagnoses Not on filedocumented in this encounter Care Teams Party Plan Sales Director Relationship Specialty Start Date End Date Sneha Tipton ANP [address] [place] [address] PCP - General Family Medicine 03/26/20 documented as of this encounter
--- OUTSIDE RECORDS SUMMARY | 2025-01-25 12:53 | XMS_ITS | Clinical Summary ---
Author Organization [facility] ity Address [address] [place] [address] Care Team Providers Care Fur Dressing Supervisor Name Role Phone Unavailable Primary Care Provider [...]
--- OUTSIDE RECORDS SUMMARY | 2025-01-25 12:53 | XMS_ITS | Encounter Summary ---
Author Organization [employer] Address 75 [facility] 7t [place] [address] Care Team Providers Care Project Internship Name Role Phone Sneha Tipton Primary Care Provider [phone] Reason for Visit * Reason Comments Med Refill Encounter Details Date Type Department Care Team ([facility] st Contact Info) Description 07/29/2023 Refill [facility] [address] [place], [place] [phone] Sneha Tipton ANP [address] [place] [address] Mixed hyperlipidemia Social History Tobacco Use Types [...] the past 12 months, has t he [employer], [employer], oil or water [employer] threatened to shut off services in your [...] Description 01/31/2025 2:00 PM EDT Office Visit [facility] [address] [place] [address] Deidre Vieyra CNM [address] [place] [address] 03/23/2025 11:00 AM EST Office Visit [facility] [address] [place] [address] Sneha Tipton ANP [address] [place] [address] documented as of this encounter Visit Diagnoses Diagnosis Mixed hyperlipidemia documented in this encounter Care Teams Project Internship Relationship Specialty Start Date End Date Sneha Tipton ANP [address] [place] [address] PCP - General Family Medicine 03/26/20 documented as of this encounter
--- OUTSIDE RECORDS SUMMARY | 2025-01-25 12:53 | XMS_ITS | Clinical Summary ---
Author Organization [employer] Address [address] [facility] 7t [place] [address] Care Team Providers Care Pearl Glue Operator Name Role Phone Danuta Nilsa HURTADO Primary Care Provider [phone] Allergies No known active allergies Medications diphenhydrAMINE [...] 025 Active ergocalciferol (Vitamin D-2) 1.25 MG (79234 UT) capsule take 1 capsule by oral [...] 65yo. LDCT form has been faxed to [facility]. 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; Low libido; Screening for lung cancer; Atypical chest pain 12/30/2024 Travel 12/29/2024 Telephone [facility] [address] [place] [address] Nilsa Brennan ANP chartprep 12/26/2024 Telephone [facility] [address] [place] [address] Nilsa Brennan ANP Referral from Last 3 [...] Description 01/31/2025 2:00 PM EDT Office Visit [facility] [address] [place] [address] Deidre Vieyra CNM [address] [place] [address] 03/23/2025 11:00 AM EST Office Visit [facility] [address] [place] [address] Nilsa Brennan, GENESIS [address] [place] [address] Health Maintenance Due Date Last Done Comments [...] PM EDT Narrative 01/23/2025 7:04 AM EDT [address] [address] Ultrasound Report Signed Patient: Chelsie Nick MR#: [id number] : 1955 Acct:[id number] Age/Sex: 69 / F ADM Date: 01/20/25 Loc: HO.US Attending Dr: Rashida Leslie MD Ordering Physician: Rashida Leslie MD Date of Service: 01/20/25 Procedure(s): US thyroid Accession Number(s): [id number] cc: Rashida Leslie MD; NILSA BRENNAN NP [...] 01/23/25 0701 DD/ 1545 TD/TT: 01/20/25 1554 Customer Associate: Procedure Note Donotuseinterpreter, Image - 01/23/[address] [address] Ultrasound Report Signed Patient: Chelsie Nick LMR#: [id number] : 4Acct:[id number] Age/Sex: 69 / FADM Date: 01/20/25 Loc: HO.US Attending Dr: Rashida Leslie MD Ordering Physician: Rashida Leslie MD Date of Service: 01/20/25 Procedure(s): US thyroid Accession Number(s): [id number] cc: Rashida Leslie MD; NILSA BRENNAN NP [...] 01/23/25 0701 DD/ 1545 TD/TT: 01/20/25 1554 Customer Associate: us [facility] External Provider IMG US PROCEDURES Edited Result - Final * BI Mammogram Screening Tomosynthesis Bilateral (08/10/2024 2:45 PM EDT) Anatomical Region Laterality Modality Breast Bilateral Mammography 08/10/2024 2:45 PM EDT Narrative 08/15/2024 5:14 PM EDT [facility] [place] [address] Mammography Report Signed Patient: Chelsie Nick MR#: [id number] : 1955 Acct:[id number] Age/Sex: 69 / F ADM Date: 08/10/24 Loc: ROBB Attending Dr: Nilsa Brennan NP Ordering Physician: NILSA BRENNAN NP Results: 1Negative Date of Service: 08/10/24 Follow Up: 1 Year From Orig ina Mammogram Procedure(s): MM tomosynthesis screening BI Accession Number(s): [id number] cc: NILSA BRENNAN NP EXAMINATION: MM SCREENING [...] 08/15/24 1711 DD/ 1445 TD/TT: 08/10/24 1457 Customer Associate: Procedure Note Donotuseinterpreter, Image - 08/15/2024 [facility] [address] [place] [address] Mammography Report Signed Patient: Chelsie Nick LMR#: [id number] : 4Acct:[id number] Age/Sex: 69 / FADM Date: 08/10/24 Loc: ROBB Attending Dr: Nilsa Brennan NP Ordering Physician: NILSA BRENNAN NPResults: 1Negative Date of Service: 08/10/24Follow Up: 1 Year From Orig ina Mammogram Procedure(s): MM tomosynthesis screening BI Accession Number(s): [id number] cc: NILSA BRENNAN NP EXAMINATION: MM SCREENING [...] 08/15/24 1711 DD/ 1445 TD/TT: 08/10/24 1457 Customer Associate: Nilsa Brennan ANP IMG BI PROCEDURES Final Result * Colonoscopy (11/29/2021) Colonoscopy performed Historical Provider HEALTH MAINTENANCE Edited Result - Final from Last 3 Months or Most Recently Relevant to Health Maintenance Insurance [employer] Member Subscriber Plan / Payer (Ef fective 2023-Present) Name:Chelsie Nick Relation to Subscriber:Self Name:Chelsie Nick Payer ID:Not on file Group ID:[id number] Type:Not on file Address: [address] [facility] Care Teams Pearl Glue Operator Relationship Specialty Start Date End Date Nilsa Brennan ANP [address] [place] [phone] PCP - General Family Medicine 03/26/20
--- OUTSIDE RECORDS SUMMARY | 2025-01-25 12:53 | XMS_ITS | Encounter Summary ---
Author Organization [facility] Address [address] [facility] 7[address] [place] [address] Care Team Providers Care Chief Clerk Shelter Name Role Phone Sneha Tipton Primary Care Provider [phone] Encounter Details Date Type Department Care Team (Latest Contact Info) Description 12/15/[address] [facility] CONVERSIONS Dental, Provider, DDS Social History [...] Description 01/31/2025 2:00 PM EDT Office Visit [facility] [address] [place] [phone] Deidre Vieyra CNM [address] [place] [address] 03/23/2025 11:00 AM EST Office Visit [facility] [address] [place] [address] Sneha Tipton ANP [address] [place] [address] documented as of this encounter Visit Diagnoses Not on filedocumented in this encounter Care Teams Chief Clerk Shelter Relationship Specialty Start Date End Date Sneha Tipton ANP [address] [place] [address] PCP - General Family Medicine 03/26/20 documented as of this encounter
== END ==
LOC: HO.SSS 09:45
PROVIDERS: PCP Nurse Practitioner Primary Care; Visit Provider Urology
DX: N39.3 Stress incontinence (female) (male) (principal); Z53.8 Procedure and treatment not carried out for other reasons

== ENCOUNTER 2025-02-23 09:28 | Outpatient (AMB) | payer MEDICARE, SELFPAY ==
--- NOTE | 2025-02-23 09:46 | MHC.OFFVIS ---
Vital Signs 02/23/25 09:47 Height 5 ft 2.2 in Weight 156 lb 8.451 oz BMI 28.4 BP 122/78 Blood Pressure Location Lt brachial Position Sitting Pulse 73 Intake Visit Reasons: Pulmonary Function Technician / Sneha Tipton/ CP/ preop Urology Intake Note: New patient dx chest pain and pre-op urology per patient takes her statin when she has chest pain about once a week Economics Teacher Required: Yes Economics Teacher Services: Economics Teacher Present Economics Teacher Name: [facility] Allergies No Known Allergies Allergy (Verified 01/24/25 11:14) Medication List - Last Reconciled 02/23/25 by Wallace Barry MD atorvastatin 10 mg PO DAILY [id number] 325 mg-12.5 mcg -2.75 mg (Citracal-D3 Maximum Plus) 1 tab PO DAILY cholecalciferol (vitamin D3) 25 mcg PO DAILY 3 months ibuprofen 800 mg PO TID solifenacin (Vesicare) 10 mg PO DAILY HPI Comments Details: Chelsie was referred here for cardiology evaluation for 2 reasons, she has been having chest pressure as well as for preop cardiovascular risk stratification. History was obtained with help of a in-person warp tester due to her language barrier as well as hearing impairment. Patient is a 69 year female with prior history of smoking which she stopped about a year ago, hyperlipidemia for which she takes intermittent statins when she is chest pressure. She has been having episodes of retrosternal chest pressure radiating to the back happens without any clear exertional activity. Happens at rest. She then takes her statins and says that resolves her symptoms. Symptoms last for about 10 minutes. She says she does get short of breath when she climbs a flight of stairs. She is not able to exert much and walk a lot because of right hip discomfort sore exercise capacity is less than 4 Mets. She is scheduled to undergo bladder procedure under general anesthesia due to prolapse/incontinence. This procedure has been postponed due to her symptoms. She denies any heart failure symptoms of orthopnea, PND, leg edema. Denies any symptoms of claudication. Denies any prolonged palpitation irregular heartbeat. No lightheadedness, syncope. She has no prior history of hypertension or diabetes. No strong family history for premature coronary artery disease. [facility] Medical History (Updated 02/10/25 @ 10:52 by Jeny Ryan, RN) Atypical chest pain Personal history of nicotine dependence Multinodular thyroid OAB (overactive bladder) UTI (urinary tract infection) Stress incontinence in female Osteoporosis Hyperparathyroidism Vitamin D deficiency Toxic multinodul goiter Surgical History (Updated 01/31/25 @ 08:07 by Navya Kinney PA-C) History of cystoscopy History of colonoscopy History of hysterectomy History of parathyroidectomy History of partial thyroidectomy History of ear surgery Family History Father No problems noted. Mother Hypertension Arthritis Osteoporosis Social History Alcohol intake: current Alcohol intake frequency: holidays/special occasions only Patient Tobacco Use Status: Former Tobacco user Tobacco use type: Cigarette Cigarettes Per Day: 4 Years Smoked: 45 Review of Systems Const Denies chills, Denies daytime sleepiness, Denies fatigue, Denies fever(s), Denies frequent falls, Denies poor appetite, Denies snoring, Denies stops breathing during sleep, Denies weakness, Denies weight gain and Denies weight loss Eyes Denies loss of vision ENT Denies dizziness and Denies hearing loss Card Reports chest pain, Denies claudication, Denies leg edema, Denies lightheadedness, Denies palpitations, Denies dyspnea, Reports dyspnea on exertion and Denies orthopnea Resp Denies cough, Denies excessive phlegm production, Denies dyspnea, Reports dyspnea on exertion, Denies snoring and Denies wheezing GI Denies abdominal pain, Denies hematochezia, Denies change in bowel habits, Denies nausea and Denies vomiting Denies urinary frequency and Denies dysuria Musc Denies muscle weakness, Denies numbness and Reports other (Right hip pain) Skin/Breast Denies nail changes and Denies rash Neuro Denies Abnormal speech present, Denies dizziness, Denies frequent falls, Denies loss of vision, Denies memory loss, Denies numbness and Denies weakness Psych Denies depression and Denies memory loss Endo Denies fatigue and Denies palpitations Kristian/Lymph Reports easy bruising and Reports other (anemia) Aller/Immun Denies wheezing Physical Exam Vital Signs: Last Vital Signs Pulse 73 02/23/25 09:47 BP 122/78 02/23/25 09:47 BMI result Body Mass Index 28.4 Const General: cooperative, comfortable, no acute distress, alert and awake Nutritional Appearance: obese Orientation/consciousness: patient oriented x3 Limitations: no limitations HEENT Head: Yes normocephalic and Yes atraumatic Neck Neck: Yes trachea midline, Yes supple and Yes no JVD Resp Effort & Inspection: normal respiratory effort Auscultation: clear to auscultation bilaterally Cardio Jugular venous distension: no JVD Rate: regular rate Rhythm: regular rhythm Heart sounds: S1 normal heart sound present, S2 normal heart sound present, no click, no gallops, no murmurs and no rubs GI Auscultation: normal bowel sounds Skin General skin exam: no rashes or lesions noted Neuro General: patient oriented x3 and no focal motor deficits Speech: No Abnormal speech present Extrem General: Yes no clubbing, cyanosis or edema Psych Appearance: grossly normal Office Procedures EKG Details: EKG shows normal sinus rhythm with low-voltage QRS with small Q-waves in lead 3 and AVF most suggestive of pseudo infarct pattern due to body habitus as well as poor R-wave progression due to lead placement and body habitus [place] [address]-Zckehqamljitwoooh, Complete Assessment & Plan Assessment & Plan (1) Atypical chest pain: Code(s): R07.89 - Other chest pain Plan: Patient presents with a 1 year history of chest pain which is atypical in terms of triggers but has classic symptoms of chest pressure radiating to back lasting for 10 minutes. She has risk factors of age, hyperlipidemia as well as prior smoking. She has limited exercise capacity and does have exertional shortness of breath. Structural heart disease needs to be ruled out. Will suggest a vasodilating myocardial perfusion imaging in very near future to assess for myocardial ischemia. Also suggest an echocardiogram to assess for LV systolic and diastolic function to evaluate for valvular abnormalities. These tests will be scheduled in near future. Further treatment based on the finding of the test results. We have discussed that she needs to take statins on a daily basis rather on a PRN basis. Also discussed that there was no role of statins as a PRN use for chest pain. Smoking cessation was applauded. (2) Preoperative cardiovascular examination: Code(s): Z01.810 - Encounter for preprocedural cardiovascular examination Plan: Preoperative cardiovascular risk stratification for bladder surgery under general anesthesia, intermediate risk surgery. Patient has limited exercise activity and has ongoing symptoms of chest discomfort and shortness of breath. Needs further evaluation for evaluation for myocardial ischemia as LV function for further risk stratification prior to surgery. This was discussed with her with help of warp tester. She understands agrees. With the test are within acceptable limits with no significant myocardial ischemia and normal LV function, she would then be optimized to undergo surgery with low risk. This was discussed with her as well. Follow up in the clinic in 6 weeks time, sooner p.r.n.. Thank you for allowing me to partake in her care Coding Level of Care Code New Pt Level 4 (75302) Complex EM visit Add On G2211 Diagnoses Atypical chest pain R07.89 Preoperative cardiovascular examination Z01.810 CPT Codes EKG - CPT: 38717-Widbijwmbthzhdzcv, Complete ([id number])
[2025-02-23 09:47] VITALS: BP 122/78; PULSE 73; BMI 28.4
== END 2025-02-23 10:23 | disposition home or self-care (01) ==
LOC: HO.HCS 09:29
PROVIDERS: PCP Nurse Practitioner Primary Care; Visit Provider Internal Medicine Cardiovascular Disease
DX: R07.89 Other chest pain (principal); Z01.810 Encounter for preprocedural cardiovascular examination
CPT/HCPCS: 93010; 99214; G2211

== ENCOUNTER → 2025-02-23 09:28 | Outpatient (BNVA) | payer MEDICARE, SELFPAY | PROVIDERS: PCP Nurse Practitioner Primary Care; Visit Provider Internal Medicine Cardiovascular Disease | DX: R07.89 Other chest pain (principal); Z01.810 Encounter for preprocedural cardiovascular examination; Z87.891 Personal history of nicotine dependence | CPT/HCPCS: 93005; 99212 ==

== ENCOUNTER 2025-03-09 15:01 | Outpatient (AMB) | payer MEDICARE, SELFPAY ==
--- NOTE | 2025-03-09 15:29 | MHC.OFFVIS ---
Intake Visit Reasons: Transvaginal sling, f/u Intake Note: Patient is present for a follow up Urology Medication:None Blood Thinner:None Antibiotic Allergy:None Culinary Manager Required: Yes Culinary Manager Services: Culinary Manager Present Culinary Manager Name: Lisa Thornton7 Accompanied by: Daughter Allergies No Known Allergies Allergy (Verified 03/09/25 15:29) PFSH Medical History Atypical chest pain Personal history of nicotine dependence Multinodular thyroid OAB (overactive bladder) UTI (urinary tract infection) Stress incontinence in female Osteoporosis Hyperparathyroidism Vitamin D deficiency Toxic multinodul goiter Surgical History History of cystoscopy History of colonoscopy History of hysterectomy History of parathyroidectomy History of partial thyroidectomy History of ear surgery Family History Father No problems noted. Mother Hypertension Arthritis Osteoporosis Social History Alcohol intake: current Alcohol intake frequency: holidays/special occasions only Patient Tobacco Use Status: Former Tobacco user Tobacco use type: Cigarette Cigarettes Per Day: 4 Years Smoked: 45 Results AMB Urinalysis, Automated UA Leukoctes 0 Bud/uL Last Edit by Twila Jesus on 03/09/25 17:13 UA Nitrite Negative Last Edit by Twila Jesus on 03/09/25 17:13 UA Urobilinogen 0.2 mg/dL Last Edit by Twila Jesus on 03/09/25 17:13 UA Protein 15 mg/dL Last Edit by Twila Jesus on 03/09/25 17:13 UA pH 6.0 Last Edit by Twila Jesus on 03/09/25 17:13 UA Blood 200 Taye/uL Last Edit by Twila Jesus on 03/09/25 17:13 UA Specific Effie 1.025 Last Edit by Twila Jesus on 03/09/25 17:13 UA Ketone Negative Last Edit by Twila Jesus on 03/09/25 17:13 UA Bilirubin 0 mg/dL Last Edit by Twila Jesus on 03/09/25 17:13 UA Glucose 0 mg/dL Last Edit by Twila Jesus on 03/09/25 17:13 Assessment & Plan Assessment & Plan Orders: Orders AMB Urinalysis Automated Today Z13.9 - Encounter for screening, unspecified Medications: New oxybutynin chloride ER 10 mg PO DAILY 90 tabs 3RF Discontinued solifenacin (Vesicare) Discontinued Reason: Doctor's Order 10 mg PO DAILY 90 tabs 3RF N32.81 - Overactive bladder Coding
--- OUTSIDE RECORDS SUMMARY | 2025-03-09 17:53 | XMS_ITS | Clinical Summary ---
Author Organization [employer] Address [address] [facility] [address] [place] [address] Care Team Providers Care Family Therapist Name Role Phone Danuta Nilsa HURTADO Primary Care Provider [phone] Allergies No known active allergies Medications diphenhydrAMINE [...] mouth every 8 (eight) hours. 2 Active baclofen (Lioresal) 10 MG tablet Take 0.5 tablets (5 mg) by mouth 3 times daily for 10 days. 15 tablet 3 Active lidocaine (Lidoderm) 5 % patchIndications:A cute bilateral thoracic back pain Apply topically to affected areas. Leave on for up to 12 hours 30 patch 1 4 Active famotidine (Pepcid) 20 MG tabletIndications: Gastroesophageal reflux disease, unspecified whether esophagitis present Take 1 tablet twice daily as needed for acid reflux 30 tablet 1 4 Active levoFLOXacin (Levaquin) 250 MG tablet Take 1 tablet by mouth Once per day. 4 Active atorvastatin (Lipitor) 10 MG tabletIndications: Mixed hyperlipidemia 1 tablet once daily 90 tablet 3 5 Active Active Problems Problem Noted Date Diagnosed [...] 65yo. LDCT form has been faxed to [facility]. Pt waiting for her urology bill to [...] Encounters Date Type Department Care Team Description 02/10/[address] [address] Nilsa Brennan ANP call back request 01/31/2025 2:00 PM EDT Office Visit [address] [address] Deidre Vieyra CNM Visit for pelvic exam (Primary Dx); Stress incontinence of urine 01/31/2025 Travel 01/30/2025 Telephone [facility] [address] [place] [address] Shabnam High [place] 01/20/2025 Orders Only [facility] External Provider, [facility] 01/05/[address] [address] Nilsa Brennan ANP Appointment Request 12/30/2024 1:45 PM EDT Office Visit [address] [address] Nilsa Brennan ANP Healthcare maintenance (Primary Dx); Mixed hyperlipidemia; Chronic right-sided low back pain, unspecified whether sciatica present; Frequent falls; Right hip pain; 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; Low libido; Screening for lung cancer; Atypical chest pain 12/30/2024 Travel 12/29/[address] [address] Nilsa Bernnan ANP chartprep 12/26/[address] [address] Nilsa Brennan ANP Referral from Last 3 [...] Description 03/23/2025 11:00 AM EST Office Visit [facility] [address] [place], [place] [phone] Nilsa Brennan, [facility] [address] [place], [place] [phone] Health Maintenance Due Date Last Done Comments CT Colonography 1955 FIT DNA/Cologuard 1955 FIT 1955 FOBT 1955 Sigmoidoscopy 1955 Hepatitis C Screening 07/16/1971 Zoster Vaccines (1 of 2) 07/16/2003 COVID-19 Vaccine ( season) 2025 04/27/2021, 10/09/2020, 08/26/2020 Influenza Vaccine (#1) 2025 Depression Monitoring 07/02/2025 12/30/2024, 025 Mammogram 08/12/2025 08/12/2024, 06/2024, 08/26/2023, Additional history exists SDOH Screening [...] PM EDT Narrative 02/07/2025 1:27 PM EDT [facility] [address] [place] [address] Mammography Report Signed Patient: Chelsie Nick MR#: [id number] : 1955 Acct:[id number] Age/Sex: 69 / F ADM Date: 02/07/25 Loc: MAMMYasmine Attending Dr: Rashida Leslie MD Ordering Physician: Rashida Leslie MD Results: Date of Service: 02/07/25 Follow Up: Procedure(s): XR DEXA appendicular skeleton Accession Number(s): [id number] cc: Rashida Leslie MD; NILSA BRENNAN NP Reason For Exam: M81.0 - Age-related osteoporosis without current pathological fracture EXAMINATION: DXA BONE DENSITY EXTREMITY HISTORY: M81.0 - Age-related osteoporosis without current pathological fracture TECHNIQUE: [employer] Dual energy absorptiometry (DEXA) of the lumbar [...] total) FRAX is a trademark of the [facility] [employer] [place] for Metabolic Bone Disease, a World Health Organization (WHO) Collaborating Center. Electronically signed by: Rufus Gloria MD 02/07/2025 01:24 PM EDT RP Dictated By: Rufus Gloria MD Signed By: <Electronically signed by Rufus Gloria MD in OV> 02/07/25 1324 DD/ 1252 TD/TT: 02/07/25 1305 Commercial Drone Pilot: Procedure Note Donotuseinterpreter, Image - 02/07/2025 [facility] [place] [address] Mammography Report Signed Patient: Chelsie Nick LMR#: [id number] : 4Acct:[id number] Age/Sex: 69 / FADM Date: 02/07/25 Loc: ROBB Attending Dr: Rashida Leslie MD Ordering Physician: Rashida Leslieesults: Date of Service: 02/07/25Follow Up: Procedure(s): XR DEXA appendicular skeleton Accession Number(s): [id number] cc: Rashida Leslie MD; NILSA BRENNAN NP Reason For Exam: M81.0 - Age-related osteoporosis without currentpathological fracture EXAMINATION: DXA BONE DENSITY EXTREMITY HISTORY: M81.0 - Age-related osteoporosis without current pathological fracture TECHNIQUE: [employer] Dual energy absorptiometry (DEXA) of the lumbar [...] is a trademark of the [employer] [place] for Metabolic Bone Disease, a World Health Organization (WHO) Collaborating Center. Electronically signed by: Rufus Gloria MD 02/07/2025 01:24 PM EDT Dictated By: Rufus Gloria MD Signed By: <Electronically signed by Rufus Gloria MD in OV> 02/07/25 1324 DD/ 1252 TD/TT: 02/07/25 1305 Commercial Drone Pilot: [facility] External Provider IMG XR PROCEDURES Final Result * US Thyroid (01/20/2025 3:45 PM EDT) Anatomical Region Laterality Modality Head, Neck Ultrasound 01/20/2025 3:45 PM EDT Narrative 01/23/2025 7:04 AM EDT [place] [address] Ultrasound Report Signed Patient: Chelsie Nick MR#: [id number] : 1955 Acct:[id number] Age/Sex: 69 / F ADM Date: 01/20/25 Loc: HO.US Attending Dr: Rashida Leslie MD Ordering Physician: Rashida Leslie MD Date of Service: 01/20/25 Procedure(s): US thyroid Accession Number(s): [id number] cc: Rashida Leslie MD; NILSA BRENNAN NP [...] 01/23/25 0701 DD/ 1545 TD/TT: 01/20/25 1554 Commercial Drone Pilot: Procedure Note Donotuseinterpreter, Image - 01/23/[address] [address] Ultrasound Report Signed Patient: Chelsie Nick LMR#: [id number] : 4Acct:[id number] Age/Sex: 69 / FADM Date: 01/20/25 Loc: HO.US Attending Dr: Rashida Leslie MD Ordering Physician: Rashida Leslie MD Date of Service: 01/20/25 Procedure(s): US thyroid Accession Number(s): [id number] cc: Rashida Leslie MD; NILSA BRENNAN NP [...] 01/23/25 0701 DD/ 1545 TD/TT: 01/20/25 1554 Commercial Drone Pilot: [facility] External Provider IMG US PROCEDURES Edited Result - Final * BI Mammogram Screening Tomosynthesis Bilateral (08/10/2024 2:45 PM EDT) Anatomical Region Laterality Modality Breast Bilateral Mammography 08/10/2024 2:45 PM EDT Narrative 08/15/2024 5:14 PM EDT [address] [place] [address] Mammography Report Signed Patient: Chelsie Nick MR#: [id number] : 1955 Acct:[id number] Age/Sex: 69 / F ADM Date: 08/10/24 Loc: SMITH Attending Dr: Nilsa Brennan NP Ordering Physician: NILSA BRENNAN NP Results: 1Negative Date of Service: 08/10/24 Follow Up: 1 Year From [facility] ina Mammogram Procedure(s): MM tomosynthesis screening BI Accession Number(s): [id number] cc: NILSA BRENNAN NP EXAMINATION: MM SCREENING [...] 08/15/24 1711 DD/ 1445 TD/TT: 08/10/24 1457 Commercial Drone Pilot: Procedure Note Donotuseinterpreter, Image - 08/15/2024 [facility] [address] [place] [address] Mammography Report Signed Patient: Chelsie Nick LMR#: [id number] : 1955cct:[id number] Age/Sex: 69 / FADM Date: 08/10/24 Loc: MEGHNA.MAMMO Attending Dr: Nilsa Brennan NP Ordering Physician: NILSA BRENNAN NPResults: 1Negative Date of Service: 08/10/24Follow Up: 1 Year From [facility] Mammogram Procedure(s): MM tomosynthesis screening BI Accession Number(s): [id number] cc: NILSA BRENNAN NP EXAMINATION: MM SCREENING [...] 08/15/24 1711 DD/ 1445 TD/TT: 08/10/24 1457 Commercial Drone Pilot: Nilsa Danuta CH[facility]STIANSON BI PROCEDURES Final Result * Hm Colonoscopy (11/29/2021) Colonoscopy performed Historical Provider HEALTH MAINTENANCE Edited Result - Final from Last 3 Months or Most Recently Relevant to Health Maintenance Insurance [facility] Care Teams Family Therapist Relationship Specialty Start Date End Date Nilsa Brennan ANP [address] [place] [id number] PCP - General Family Medicine 03/26/20
--- OUTSIDE RECORDS SUMMARY | 2025-03-09 17:53 | XMS_ITS | Encounter Summary ---
Author Organization [employer] [facility] Address [address] [facility] 7t [place] [address] Care Team Providers Care Gum Dipper Name Role Phone Sneha Tipton Primary Care Provider [phone] Encounter Details Date Type Department Care Team (Latest Contact Info) Description 12/15/2018 Abstract [facility] CONVERSIONS Dental, Provider, DDS Social History [...] Description 03/23/2025 11:00 AM EST Office Visit [facility] [address] [place] [address] Sneha Tipton ANP [address] [place] [address] documented as of this encounter Visit Diagnoses Not on filedocumented in this encounter Care Teams Gum Dipper Relationship Specialty Start Date End Date Sneha Tipton ANP [address] [place] [address] PCP - General Family Medicine 03/26/20 documented as of this encounter
--- OUTSIDE RECORDS SUMMARY | 2025-03-09 17:53 | XMS_ITS | Clinical Summary ---
Author Organization [facility] Address [address] [place] [address] Care Team Providers Care Sales Service Coordinator Name Role Phone Unavailable Primary Care Provider [...] Last Done Comments Breast Cancer Screening 1955 Zoster Vaccines (1 of 2) 07/16/2003 Depression Screening 05/11/2024 COVID-19 Vaccine (3 - 2024-2 6 season) 2025 10/09/2020, 08/26/2020 Influenza Vaccine (#1) 2025 RSV Immunization Adult Patients (1 - 1-dose 75+ series) 2028 DTaP,Tdap,and Td Vaccines (2 - Td or Tdap) 05/25/2030 05/25/2020 Pneumococcal Vaccine: 50+ Years Completed 12/30/2024, 05/25/2020 [...] to complete this topic RSV Immunization Patients Under 20 months Aged Out No longer eligible b ased on patient's age to complete this topic Varicella Vaccines Aged Out No longer eligible based on patient's age to complete this topic
--- OUTSIDE RECORDS SUMMARY | 2025-03-09 17:53 | XMS_ITS | Encounter Summary ---
Author Organization [employer] Address [address] [facility] 7t [place] [address] Care Team Providers Care Communications Tower Climber Name Role Phone Sneha Tipton Primary Care Provider [phone] Encounter Details Date Type Department Care Team (Late st Contact Info) Description 08/26/2023 Abstract [facility] [address] [place], [place] [phone] Sneha Tipton ANP [address] [place] [address] Social History Tobacco Use Types Packs/Day Years [...] Description 03/23/2025 11:00 AM EST Office Visit [facility] [address] [place] [address] Sneha Tipton ANP [address] [place] [address] documented as of this encounter Visit Diagnoses Not on filedocumented in this encounter Care Teams Communications Tower Climber Relationship Specialty Start Date End Date Sneha Tipton ANP [address] [place] [address] PCP - General Family Medicine 03/26/20 documented as of this encounter
--- OUTSIDE RECORDS SUMMARY | 2025-03-09 17:53 | XMS_ITS | Encounter Summary ---
Author Organization [employer] Address 75 [facility] 7t [place] [address] Care Team Providers Care Customer Service Representative Name Role Phone Sneha Tipton Primary Care Provider [phone] Reason for Visit * Reason Comments Med Refill Encounter Details Date Type Department Care Team ([facility] st Contact Info) Description 07/29/2023 Refill [facility] MEDICINE [address] [place], [place] [phone] Sneha Tipton ANP 230 [place] [address] Mixed hyperlipidemia Social History Tobacco Use Types [...] the past 12 months, has t he [employer], [employer], oil or water company threatened to shut [...] Description 03/23/2025 11:00 AM EST Office Visit [facility] MEDICINE [address] [place] [address] Sneha Tipton ANP 230 [place] [address] documented as of this encounter Visit Diagnoses Diagnosis Mixed hyperlipidemia documented in this encounter Care Teams Customer Service Representative Relationship Specialty Start Date End Date Sneha Tipton ANP [address] [place] [address] PCP - General Family Medicine 03/26/20 documented as of this encounter
== END 2025-03-09 16:08 | disposition home or self-care (01) ==
PROVIDERS: PCP Nurse Practitioner Primary Care; Visit Provider Urology
DX: Z13.9 Encounter for screening, unspecified (principal)

== ENCOUNTER → 2025-03-09 15:01 | Outpatient (BNVA) | payer MEDICARE, SELFPAY | PROVIDERS: PCP Nurse Practitioner Primary Care; Visit Provider Urology | DX: N32.81 Overactive bladder (principal); R32 Unspecified urinary incontinence; N36.42 Intrinsic sphincter deficiency (ISD); Z13.9 Encounter for screening, unspecified; Z87.891 Personal history of nicotine dependence | CPT/HCPCS: 81003; 99212 ==

== ENCOUNTER 2025-03-21 10:04 | Outpatient (REF) | payer MEDICARE, SELFPAY ==
--- NOTE | ~2025-03-21 | XR_ITS ---
EXAMINATION: XR HIP, RIGHT CLINICAL INFORMATION: atraumatic hip pain, leg instability COMPARISON: None available. TECHNIQUE: AP and frog-leg lateral views of the right hip. FINDINGS: The joint spaces preserved. Minimal osteophytes are noted the acetabular roof and femoral head margin. No abnormality is evident. XR/XR hip RT min 2V IMPRESSION: Minimal changes of osteoarthritis. Electronically signed by: Anam Toscano MD 03/21/2025 10:51 AM [facility]
--- NOTE | ~2025-03-21 | XR_ITS ---
EXAMINATION: XR PELVIS CLINICAL INFORMATION: R hip pain COMPARISON: None available. TECHNIQUE: AP view of the pelvis. FINDINGS: Minimal degenerative changes are seen in the SI joints. Minimal marginal osteophytes are present involving both acetabular roofs. Hip joint spaces are preserved and symmetrical. No other abnormalities are seen. XR/XR pelvis 1-2V IMPRESSION: Minimal degenerative change in the hips and SI joints. Electronically signed by: Anam Toscano MD 03/21/2025 10:52 AM [facility]
--- OUTSIDE RECORDS SUMMARY | 2025-03-21 11:35 | XMS_ITS | Encounter Summary ---
Author Organization [employer] Address 75 [facility] 7t [place] [address] Care Team Providers Care Materials Mgmt Tech Name Role Phone Sneha Tipton Primary Care Provider Encounter Details Date Type Department Care Team (Late st Contact Info) Description 08/26/2023 Abstract [facility] MEDICINE [address] [place], [place] [phone] Sneha Tipton ANP 230 [place] [address] Social History Tobacco Use Types Packs/Day Years [...] Description 03/23/2025 11:00 AM EST Office Visit [facility] MEDICINE [address] [place] [address] Sneha Tipton ANP 230 [place] [address] documented as of this encounter Visit Diagnoses Not on filedocumented in this encounter Care Teams Materials Mgmt Tech Relationship Specialty Start Date End Date Sneha Tipton ANP [address] [place] [address] PCP - General Family Medicine 03/26/20 documented as of this encounter
--- OUTSIDE RECORDS SUMMARY | 2025-03-21 11:35 | XMS_ITS | Clinical Summary ---
Author Organization [facility] Address [address] [place] [address] Care Team Providers Care Partner Marketing Intern Name Role Phone Unavailable Primary Care Provider [...]
--- OUTSIDE RECORDS SUMMARY | 2025-03-21 11:35 | XMS_ITS | Encounter Summary ---
Author Organization [employer] Address 75 [facility] 7t [place] [address] Care Team Providers Care Employee Service Officer Name Role Phone Sneha Tipton Primary Care Provider [phone] Reason for Visit * Reason Comments Med Refill Encounter Details Date Type Department Care Team ([facility] st Contact Info) Description 07/29/2023 Refill [facility] MEDICINE [address] [place], [place] [phone] Sneha Tipton ANP 230 [place] [address] Mixed hyperlipidemia Social History Tobacco Use Types [...] the past 12 months, has t he [employer], [employer], oil or water company threatened to shut [...] Description 03/23/2025 11:00 AM EST Office Visit [facility] MEDICINE [address] [place] [address] Sneha Tipton ANP 230 [place] [address] documented as of this encounter Visit Diagnoses Diagnosis Mixed hyperlipidemia documented in this encounter Care Teams Employee Service Officer Relationship Specialty Start Date End Date Sneha Tipton ANP [address] [place] [address] PCP - General Family Medicine 03/26/20 documented as of this encounter
--- OUTSIDE RECORDS SUMMARY | 2025-03-21 11:35 | XMS_ITS | Encounter Summary ---
Author Organization [employer] Address 75 [facility] 7t [place] [address] Care Team Providers Care Hand Laster Name Role Phone Sneha Tipton Primary Care Provider [phone] Reason for Visit * Reason Onset Date Comments chart prep 03/21/2025 Encounter Details Date Type Department Care Team ([facility] st Contact Info) Description 03/21/2025 Telephone [facility] MEDICINE 230 [place], [place] [phone] Sneha Tipton ANP 230 [place] [address] chart prep Social History Tobacco Use Types Packs/Day Years [...] PM EDT documented as of this encounter Miscellaneous Notes * Telephone Encounter - Claritza Canales [place] - 03/21/2025 8:45 AM EST Chart Prep Labs: not done Patient contacted and notified will get done today Images: done Referrals: complete Vaccines due: Covid, Flu, and Zoster Screenings: not applicable Overdue care gaps: Oral health screening documented in this encounter Plan of Treatment Upcoming Encounters Date Type Department Care Team (Late st Contact Info) Description 03/23/2025 11:00 AM EST Office Visit [facility] MEDICINE [address] [place] [address] Sneha Tipton ANP 230 [place] [address] documented as of this encounter Visit Diagnoses Not on filedocumented in this encounter Additional Health Concerns Assessment Noted Time PHQ-9 Depression Total Score: 10 025 2:47 PM EDT documented as of this encounter Care Teams Hand Laster Relationship Specialty Start Date End Date Sneha Tipton ANP [address] [place] [address] PCP - General Family Medicine 11/16/20 documented as of this encounter
--- OUTSIDE RECORDS SUMMARY | 2025-03-21 11:35 | XMS_ITS | Clinical Summary ---
Author Organization [employer] Address 75 [facility] 7t [place] [address] Care Team Providers Care Senior Software Engineer Name Role Phone Danuta Nilsa HURTADO Primary Care Provider Allergies No known active allergies Medications diphenhydrAMINE [...] 65yo. LDCT form has been faxed to [facility]. Pt waiting for her urology bill to [...] Encounters Date Type Department Care Team Description 03/21/[address] [address] Nilsa Brennan ANP chart prep 02/10/[address] [address] Nilsa Brennan ANP call back request 01/31/2025 2:00 PM EDT Office Visit [address] [address] Deidre Vieyra CNM Visit for pelvic exam (Primary Dx); Stress incontinence of urine 01/31/2025 Travel 01/30/2025 Telephone [facility] [address] [place] [address] Shabnam High [place] 01/20/2025 Orders Only [facility] External Provider, [facility] 01/05/[address] [address] Nilsa Brennan ANP Appointment Request 12/30/2024 1:45 PM EDT Office Visit [address] [address] Nilsa Brennan ANP Healthcare maintenance (Primary Dx); Mixed hyperlipidemia; Chronic right-sided low back pain, unspecified whether sciatica present; Frequent falls; Right hip pain; 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; Low libido; Screening for lung cancer; Atypical chest pain 12/30/2024 Travel 12/29/[address] [address] Nilsa Brennan ANP chartprep 12/26/[address] [address] Nilsa Brennan ANP Referral from Last 3 [...] Description 03/23/2025 11:00 AM EST Office Visit [facility] MEDICINE 230 [place], [place] [phone] Nilsa Brennan, GEN[facility]IS 230 [place], [place] [phone] Health Maintenance Due Date Last Done Comments [...] Name Priority Date/Time Associated Diagnosis Comments XR PELVIS 1-2 VIEWS Routine 03/21/2025 1 0:44 AM EST Frequent falls Right hip pain 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 XR HIP 2 OR 3 VIEWS RIGHT Routine 03/21/2025 10:42 AM EST Frequent falls Right hip pain 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 XR DEXA APPENDICULAR SKELETON Routine 02/07/2025 12:52 PM EDT US THYROID Routine 01/20/2025 3:45 PM EDT BI MAMMOGRAM SCREENING TOMOSYNTHESIS BILATERAL Routine 08/10/2024 2:45 PM EDT HM COLONOSCOPY Routine 11/29/2021 from Last 3 Months or Most Recently Relevant to Health Maintenance Results * XR Pelvis 1-2 Views (03/21/2025 10:44 AM EST) Anatomical Region Laterality Modality Body, Pelvis Radiographic Blaire ging 03/21/2025 10:4 4 AM EST Narrative 03/21/2025 10:54 AM EST [address] [address] XRay Report Signed Patient: Chelsie Nick MR#: [id number] : 1955 Acct:[id number] Age/Sex: 69 / F ADM Date: 03/21/25 Loc: NHUNGX Attending Dr: Nilsa Brennan NP Ordering Physician: NILSA BRENNAN NP Date of Service: 03/21/25 Procedure(s): XR pelvis 1-2V Accession Number(s): [id number] cc: NILSA BRENNAN NP Reason for Exam: R hip pain EXAMINATION: XR PELVIS CLINICAL INFORMATION: R hip pain COMPARISON: None available. TECHNIQUE: AP view of the pelvis. FINDINGS: Minimal degenerative changes are seen in the SI joints. Minimal marginal osteophytes are present involving both acetabular roofs. Hip joint spaces are preserved and symmetrical. No other abnormalities are seen. XR/XR pelvis 1-2V IMPRESSION: Minimal degenerative change in the hips and SI joints. Electronically signed by: Anam Toscano MD 03/21/2025 10:52 AM [facility] Dictated By: Anam Toscano MD Signed By: <Electronically signed by Anam Toscano MD in OV> 03/21/25 1052 DD/ 1044 TD/TT: 03/21/25 1044 Teller Supervisor: Procedure Note Donotuseinterpreter, Image - 03/21/[address] [address] XRay Report Signed Patient: Chelsie Nick LMR#: [id number] : 1955cct:[id number] Age/Sex: 69 / FADM Date: 03/21/25 Loc: EMILY Attending Dr: Nilsa Brennan NP Ordering Physician: NILSA BRENNAN NP Date of Service: 03/21/25 Procedure(s): XR pelvis 1-2V Accession Number(s): [id number] cc: NILSA BRENNAN NP Reason for Exam: R hip pain EXAMINATION: XR PELVIS CLINICAL INFORMATION: R hip pain COMPARISON: None available. TECHNIQUE: AP view of the pelvis. FINDINGS: Minimal degenerative changes are seen in the SI joints. Minimal marginal osteophytes are present involving both acetabular roofs. Hip joint spaces are preserved and symmetrical. No other abnormalities are seen. XR/XR pelvis 1-2V IMPRESSION: Minimal degenerative change in the hips and SI joints. Electronically signed by: Anam Toscano MD 03/21/2025 10:52 AM EST RP Dictated By: Anam Toscano MD Signed By: <Electronically signed by Anam Toscano MD in OV> 03/21/25 1052 DD/ 1044 TD/TT: 03/21/25 1044 Teller Supervisor: Nilsa Brennan ANP IMG XR PROCEDURES Edited Result - Final * XR Hip 2 or 3 Views Right (03/21/2025 10:42 AM EST) Anatomical Region Laterality Modality Lower Extremities, Hip Right Radiograp hic Imaging 03/21/2025 10:4 2 AM EST Narrative 03/21/2025 10:54 [place] [address] XRay Report Signed Patient: Chelsie Nick MR#: [id number] : 1955 Acct:[id number] Age/Sex: 69 / F ADM Date: 03/21/25 Loc: HO.HHCX Attending Dr: Nilsa Brennan NP Ordering Physician: NILSA BRENNAN NP Date of Service: 03/21/25 Procedure(s): XR hip RT min 2V Accession Number(s): [id number] cc: NILSA BRENNAN NP Reason for Exam: atraumatic hip pain, leg instability EXAMINATION: XR HIP, RIGHT CLINICAL INFORMATION: atraumatic hip pain, leg instability COMPARISON: None available. TECHNIQUE: AP and frog-leg lateral views of the right hip. FINDINGS: The joint spaces preserved. Minimal osteophytes are noted the acetabular roof and femoral head margin. No abnormality is evident. XR/XR hip RT min 2V IMPRESSION: Minimal changes of osteoarthritis. Electronically signed by: Anam Toscano MD 03/21/2025 10:51 AM EST RP Dictated By: Anam Toscano MD Signed By: <Electronically signed by Anam Toscano MD in OV> 03/21/25 1051 DD/ 1042 TD/TT: 03/21/25 1042 Teller Supervisor: Procedure Note Donotuseinterpreter, Image - 03/21/2025 [facility] [address] [place] [address] XRay Report Signed Patient: Chelsie Nick LMR#: [id number] : 4Acct:[id number] Age/Sex: 69 / FADM Date: 03/21/25 Loc: HO.HHCX Attending Dr: Nilsa Brennan NP Ordering Physician: NILSA BRENNAN NP Date of Service: 03/21/25 Procedure(s): XR hip RT min 2V Accession Number(s): [id number] cc: NILSA BRENNAN NP Reason for Exam: atraumatic hip pain, leg instability EXAMINATION: XR HIP, RIGHT CLINICAL INFORMATION: atraumatic hip pain, leg instability COMPARISON: None available. TECHNIQUE: AP and frog-leg lateral views of the right hip. FINDINGS: The joint spaces preserved. Minimal osteophytes are noted the acetabular roof and femoral head margin. No abnormality is evident. XR/XR hip RT min 2V IMPRESSION: Minimal changes of osteoarthritis. Electronically signed by: Anam Toscano MD 03/21/2025 10:51 AM [facility] Dictated By: Anam Toscano MD Signed By: <Electronically signed by Anam Toscano MD in OV> 03/21/25 1051 DD/ 1042 TD/TT: 03/21/25 1042 Teller Supervisor: Nilsa Brennan ANP IMG XR PROCEDURES Edited Result - Final * XR DEXA APPENDICULAR SKELETON (02/07/2025 12:52 PM EDT) Anatomical Region Laterality Modality Abdomen Radiographic Blaire ging 02/07/2025 12:5 2 PM EDT Narrative 02/07/2025 1:27 PM EDT [address] [place] [address] Mammography Report Signed Patient: Chelsie Nick MR#: [id number] : 1955 Acct:[id number] Age/Sex: 69 / F ADM Date: 02/07/25 Loc: ROBB Attending Dr: Rashida Leslie MD Ordering Physician: Rashida Leslie MD Results: Date of Service: 02/07/25 Follow Up: Procedure(s): XR DEXA appendicular skeleton Accession Number(s): [id number] cc: Rashida Leslie MD; NILSA BRENNAN NP Reason For Exam: M81.0 - Age-related osteoporosis without current pathological fracture EXAMINATION: DXA BONE DENSITY EXTREMITY HISTORY: M81.0 - Age-related osteoporosis without current pathological fracture TECHNIQUE: [employer] Dual energy absorptiometry (DEXA) of the lumbar [...] is a trademark of the [employer]'s [place] for Metabolic Bone Disease, a World Health Organization (WHO) Collaborating Center. Electronically signed by: Rufus Gloria MD 02/07/2025 01:24 PM EDT RP Dictated By: Rufus Gloria MD Signed By: <Electronically signed by Rufus Gloria MD in OV> 02/07/25 1324 DD/ 1252 TD/TT: 02/07/25 1305 Teller Supervisor: Procedure Note Donotuseinterpreter, Image - 02/07/2025 [place] [facility]'s [address] [place] [address] Mammography Report Signed Patient: Chelsie Nick LMR#: [id number] : 1955cct:[id number] Age/Sex: 69 / FADM Date: 02/07/25 Loc: MAMMO Attending Dr: Rashida Leslie MD Ordering Physician: Rashida Leslieesults: Date of Service: 02/07/25Follow Up: Procedure(s): XR DEXA appendicular skeleton Accession Number(s): [id number] cc: Rashida Leslie MD; NILSA BRENNAN NP Reason For Exam: M81.0 - Age-related osteoporosis without currentpathological fracture EXAMINATION: DXA BONE DENSITY EXTREMITY HISTORY: M81.0 - Age-related osteoporosis without current pathological fracture TECHNIQUE: [employer] Dual energy absorptiometry (DEXA) of the lumbar [...] of the [employer] [place] for Metabolic Bone Disease, a World Health Organization (WHO) Collaborating Center. Electronically signed by: Rufus Gloria MD 02/07/2025 01:24 PM EDT RP Dictated By: Rufus Gloria MD Signed By: <Electronically signed by Rufus Gloria MD in OV> 02/07/25 1324 DD/ 1252 TD/TT: 02/07/25 1305 Teller Supervisor: us [facility] External Provider IMG XR PROCEDURES Final Result * US Thyroid (01/20/2025 3:45 PM EDT) Anatomical Region Laterality Modality Head, Neck Ultrasound 01/20/2025 3:45 PM EDT Narrative 01/23/2025 7:04 AM EDT [address] [address] Ultrasound Report Signed Patient: Chelsie Nick MR#: [id number] : 1955 Acct:[id number] Age/Sex: 69 / F ADM Date: 01/20/25 Loc: HO.US Attending Dr: Rashida Leslie MD Ordering Physician: Rashida Leslie MD Date of Service: 01/20/25 Procedure(s): US thyroid Accession Number(s): [id number] cc: Rashida Leslie MD; NILSA BRENNAN NP [...] 01/23/25 0701 DD/ 1545 TD/TT: 01/20/25 1554 Teller Supervisor: Procedure Note Donotuseinterpreter, Image - 01/23/[address] [address] Ultrasound Report Signed Patient: Chelsie Nick LMR#: [id number] : 4Acct:[id number] Age/Sex: 69 / FADM Date: 01/20/25 Loc: HO.US Attending Dr: Rashida Leslie MD Ordering Physician: Rashida Leslie MD Date of Service: 01/20/25 Procedure(s): US thyroid Accession Number(s): [id number] cc: Rashida Leslie MD; NILSA BRENNAN NP [...] 01/23/25 0701 DD/ 1545 TD/TT: 01/20/25 1554 Teller Supervisor: us [facility] External Provider IMG US PROCEDURES Edited Result - Final * BI Mammogram Screening Tomosynthesis Bilateral (08/10/2024 2:45 PM EDT) Anatomical Region Laterality Modality Breast Bilateral Mammography 08/10/2024 2:45 PM EDT Narrative 08/15/2024 5:14 PM EDT [facility] [address] [place], [place] [address] Mammography Report Signed Patient: Chelsie Nick MR#: [id number] : 1955 Acct:[id number] Age/Sex: 69 / F ADM Date: 08/10/24 Loc: HO.MAMMO Attending Dr: Nilsa Brennan NP Ordering Physician: NILSA BRENNAN NP Results: 1Negative Date of Service: 08/10/24 Follow Up: 1 Year From [facility]a Mammogram Procedure(s): MM tomosynthesis screening BI Accession Number(s): [id number] cc: NILSA BRENNAN NP EXAMINATION: MM SCREENING [...] 08/15/24 1711 DD/ 1445 TD/TT: 08/10/24 1457 Teller Supervisor: Procedure Note Donotuseinterpreter, Image - 08/15/2024 [facility] [address] [place] [address] Mammography Report Signed Patient: Chelsie Nick LMR#: [id number] : 4Acct:[id number] Age/Sex: 69 / FADM Date: 08/10/24 Loc: ROBB Attending Dr: Nilsa Brennan NP Ordering Physician: NILSA BRENNAN NPResults: 1Negative Date of Service: 08/10/24Follow Up: 1 Year From Orig inal Mammogram Procedure(s): MM tomosynthesis screening BI Accession Number(s): [id number] cc: NILSA BRENNAN NP EXAMINATION: MM SCREENING [...] 08/15/24 1711 DD/ 1445 TD/TT: 08/10/24 1457 Teller Supervisor: Nilsa HURTADO IMG BI PROCEDURES Final Result * Hm Colonoscopy (11/29/2021) Colonoscopy performed Historical Provider HEALTH MAINTENANCE Edited Result - Final from Last 3 Months or Most Recently Relevant to Health Maintenance Insurance HSN FULL [facility] Care Teams Senior Software Engineer Relationship Specialty Start Date End Date Nilsa Brennan ANP [address] [place] [address] PCP - General Family Medicine 03/26/20
--- OUTSIDE RECORDS SUMMARY | 2025-03-21 11:35 | XMS_ITS | Encounter Summary ---
Author Organization [employer] [facility] Address 75 [facility] 7t [place] [address] Care Team Providers Care Checker Cashier Name Role Phone Sneha Tipton Primary Care Provider [phone] Encounter Details Date Type Department Care Team (Latest Contact Info) Description 12/15/2018 Abstract [facility] CONVERSIONS Dental, Provider, DDS Social [...] Description 03/23/2025 11:00 AM EST Office Visit [facility] MEDICINE [address] [place] [address] Sneha Tipton ANP 230 [place] [address] documented as of this encounter Visit Diagnoses Not on filedocumented in this encounter Care Teams Checker Cashier Relationship Specialty Start Date End Date Sneha Tipton ANP 230 [place] [address] PCP - General Family Medicine 03/26/20 documented as of this encounter
== END 2025-03-21 10:05 | disposition home or self-care (01) ==
LOC: HO.HHCX 10:04
PROVIDERS: PCP Nurse Practitioner Primary Care; Visit Provider Nurse Practitioner Primary Care
DX: R29.6 Repeated falls (principal); M25.551 Pain in right hip; M81.8 Other osteoporosis without current pathological fracture; E34.9 Endocrine disorder, unspecified
CPT/HCPCS: 72170; 73502

== ENCOUNTER → 2025-03-21 10:17 | Outpatient (BNV) | payer MEDICARE, SELFPAY | PROVIDERS: PCP Nurse Practitioner Primary Care; Visit Provider Radiology Diagnostic Radiology | DX: M16.11 Unilateral primary osteoarthritis, right hip (principal); M25.551 Pain in right hip | CPT/HCPCS: 72170; 73502 ==

== ENCOUNTER 2025-03-22 10:33 | Outpatient (REF) | payer MEDICARE, SELFPAY ==
--- OUTSIDE RECORDS SUMMARY | 2025-03-22 12:39 | XMS_ITS | Encounter Summary ---
Author Organization [employer] Address 75 [facility] 7t [place] [address] Care Team Providers Care World Language Teacher Name Role Phone Sneha Tipton Primary Care Provider [phone] Reason for Visit * Reason Onset Date Comments chart prep 03/21/2025 Encounter Details Date Type Department Care Team ([facility] st Contact Info) Description 03/21/2025 Telephone [facility] MEDICINE 230 [place], [place] [phone] Sneha Tipton ANP [address] [place] [address] chart prep Social History Tobacco Use Types [...] Description 03/23/2025 11:00 AM EST Office Visit [facility] MEDICINE [address] [place] [address] Sneha Tipton ANP [address] [place] [address] documented as of this encounter Visit Diagnoses Not on filedocumented in this encounter Additional Health Concerns Assessment Noted Time PHQ-9 Depression Total Score: 10 025 2:47 PM EDT documented as of this encounter Care Teams World Language Teacher Relationship Specialty Start Date End Date Sneha Tipton ANP [address] [place] [address] PCP - General Family Medicine 11/16/20 documented as of this encounter
--- OUTSIDE RECORDS SUMMARY | 2025-03-22 12:39 | XMS_ITS | Encounter Summary ---
Author Organization [employer] Address 75 [facility] 7t [place] [address] Care Team Providers Care Academic Coach Name Role Phone Sneha Tipton Primary Care Provider [phone] Reason for Visit * Reason Comments Med Refill Encounter Details Date Type Department Care Team ([facility] st Contact Info) Description 07/29/2023 Refill [facility] MEDICINE 230 [place], [place] [phone] Sneha Tipton ANP 230 [place] [address] Mixed hyperlipidemia Social History Tobacco Use Types [...] the past 12 months, has t he [employer], [employer], oil or water company threatened to shut [...] Description 03/23/2025 11:00 AM EST Office Visit [facility] MEDICINE [address] [place] [address] Sneha Tipton ANP [address] [place] [address] documented as of this encounter Visit Diagnoses Diagnosis Mixed hyperlipidemia documented in this encounter Care Teams Academic Coach Relationship Specialty Start Date End Date Sneha Tipton ANP [address] [place] [address] PCP - General Family Medicine 03/26/20 documented as of this encounter
--- OUTSIDE RECORDS SUMMARY | 2025-03-22 12:39 | XMS_ITS | Encounter Summary ---
Author Organization [facility] Address 75 [facility] 7t [place] [address] Care Team Providers Care Collector Of Port Name Role Phone Sneha Tipton Primary Care Provider [phone] Encounter Details Date Type Department Care Team (Latest Contact Info) Description 12/15/2018 Abstract [facility] CONVERSIONS Dental, Provider, DDS Social [...] Description 03/23/2025 11:00 AM EST Office Visit [facility] MEDICINE 230 [place] [address] Sneha Tipton ANP [address] [place] [address] documented as of this encounter Visit Diagnoses Not on filedocumented in this encounter Care Teams Collector Of Port Relationship Specialty Start Date End Date Sneha Tipton ANP [address] [place] [address] PCP - General Family Medicine 03/26/20 documented as of this encounter
--- OUTSIDE RECORDS SUMMARY | 2025-03-22 12:39 | XMS_ITS | Encounter Summary ---
Author Organization [employer] Address [address] [facility] 7t [place] [address] Care Team Providers Care Box Person Name Role Phone Sneha [place] Primary Care Provider [phone] Encounter Details Date Type Department Care Team (Late st Contact Info) Description 08/26/2023 Abstract [facility] MEDICINE [address] [place], [place] [phone] Sneha [place] ANP [address] [place] [address] Social History Tobacco Use Types Packs/Day Years [...] Office Visit [facility] MED[facility] [address] [place] [address] Sneha [place] ANP [address] [place] [address] documented as of this encounter Visit Diagnoses Not on filedocumented in this encounter Care Teams Box Person Relationship Specialty Start Date End Date Sneha [place] ANP [address] [place] [address] PCP - General Family Medicine 03/26/20 documented as of this encounter
--- OUTSIDE RECORDS SUMMARY | 2025-03-22 12:39 | XMS_ITS | Clinical Summary ---
Author Organization [employer] Address [address] [facility] 7t [place] [address] Care Team Providers Care Service Engine Repairer Name Role Phone Danuta Nilsa HURTADO Primary Care Provider [phone] Allergies No known active allergies Medications diphenhydrAMINE [...] 65yo. LDCT form has been faxed to [facility]. Pt waiting for her urology bill to [...] Type Department Care Team Description 03/21/[address] [address] Nilsa Brennan ANP chart prep 02/10/[address] [address] Nilsa Brennan ANP call back request 01/31/2025 2:00 PM EDT Office Visit [address] [address] Deidre Vieyra CNM Visit for pelvic exam (Primary Dx); Stress incontinence of urine 01/31/2025 Travel 01/30/2025 Telephone [facility] [address] [place] [address] Shabnam High [place] 01/20/2025 Orders Only [facility] External Provider, [facility] 01/05/[address] [address] Nilsa Brennan ANP Appointment Request 12/30/2024 1:45 PM EDT Office Visit [address] [address] Nilsa Brennan ANP Healthcare maintenance (Primary Dx); Mixed hyperlipidemia; Chronic right-sided low back pain, unspecified whether sciatica present; Frequent falls; Right hip pain; 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; Low libido; Screening for lung cancer; Atypical chest pain 12/30/2024 Travel 12/29/[address] [address] Nilsa Brennan ANP chartprep 12/26/[address] [address] Nilsa Brennan ANP Referral from Last 3 [...] Description 03/23/2025 11:00 AM EST Office Visit [facility] MEDICINE [address] [place], [place] [phone] Nilsa Brennan, GENESIS [address] [place], [place] [phone] Health Maintenance Due Date Last Done Comments [...] Date/Time Associated Diagnosis Comments HEMOGLOBIN A1C Routine 03/22/2025 10:42 AM EST Healthcare maintenance XR PELVIS 1-2 VIEWS Routine 03/21/2025 1 [...] to Health Maintenance Results * Hemoglobin A1c (03/22/2025 10:42 AM EST) Hemoglobin A1c 5.7 <6.0 % [facility] Comment:Hemoglobin A1C Refer ence Range Adults: 4.8 - 6.0 % Non diabetic: < 6.0 % Goal: < 7.0 %Additional Action Suggested: > 8.0 %Note: Hemoglobin A1c results are invalid for patients with abnormal amounts of HbF. Blood transfusions may impact the HbA1c concentration in the patient sample. Estimated Average Glucose 117 mg/dL [facility] Comment:eAG = Estimated ave rage glucose which is %A1C expressed asaverage glucose, using the formula of the X8E-TgtrpotIjavsdt Glucose study (ADAG), Diabetes Care, Vol.31,#8,Dec. 2007 Blood Venous blood specimen / Unknown 03/22/2025 10:42 AM EST 03/22/2025 12:00 PM EST Nilsa Brennan ANP LAB BLOOD ORDERABLES Final Resul t Performing Organization Address City/State/[facility] Co de Phone Number [facility] [address] [place] [phone] * XR Pelvis 1-2 Views (03/21/2025 10:44 AM EST) Anatomical Region Laterality Modality Body, Pelvis Radiographic Blaire ging 03/21/2025 10:4 4 AM EST Narrative 03/21/2025 10:54 AM EST [facility] [address] [place] [address] XRay Report Signed Patient: Chelsie Nick MR#: [id number] : 1955 Acct:[id number] Age/Sex: 69 / F ADM Date: 03/21/25 Loc: HO.HHCX Attending Dr: Nilsa Brennan NP Ordering Physician: NILSA BRENNAN NP Date of Service: 03/21/25 Procedure(s): XR pelvis 1-2V Accession Number(s): [id number] cc: NILSA BRENNAN NP Reason for Exam: [...] Toscano MD in OV> 03/21/25 1052 DD/ 43 TD/TT: 03/21/251043 As400 Programmer: Procedure Note Donotuseinterpreter, Image - 03/21/[address] [address] XRay Report Signed Patient: Chelsie Nick LMR#: [id number] : 4Acct:[id number] Age/Sex: 69 / FADM Date: 03/21/25 Loc: HO.HHCX Attending Dr: Nilsa Brennan NP Ordering Physician: NILSA BRENNAN NP Date of Service: 03/21/25 Procedure(s): XR pelvis 1-2V Accession Number(s): [id number] cc: NILSA BRENNAN NP Reason for Exam: [...] Toscano MD in OV> 03/21/25 1052 DD/ 43 TD/TT: 03/21/251043 As400 Programmer: Nilsa HURTADO IMG XR PROCEDURES Edited Result - Final * XR Hip 2 or 3 Views Right (03/21/2025 10:42 AM EST) Anatomical Region Laterality Modality Lower Extremities, Hip Right Radiograp hic Imaging 03/21/2025 10:4 2 AM EST Narrative 03/21/2025 10:54 AM EST [address] [address] XRay Report Signed Patient: Chelsie Nick MR#: [id number] : 1955 Acct:[id number] Age/Sex: 69 / F ADM Date: 03/21/25 Loc: HO.HHCX Attending Dr: Nilsa Brennan ESTATE CONSERVATOR Ordering Physician: NILSA RBENNAN NP Date of Service: 03/21/25 Procedure(s): XR hip RT min 2V Accession Number(s): [id number] cc: NILSA BRENNAN NP Reason for Exam: [...] Anam Toscano MD 03/21/2025 10:51 AM EST Dictated By: Anam Toscano MD Signed By: <Electronically signed by Anam Toscano MD in OV> 03/21/25 1051 DD/ 1042 TD/TT: 03/21/25 1042 As400 Programmer: Procedure Note Donotuseinterpreter, Image - 03/21/[address] [address] XRay Report Signed Patient: Chelsie Nick LMR#: [id number] : 1955cct:[id number] Age/Sex: 69 / FADM Date: 03/21/25 Loc: HO.HHCX Attending Dr: Nilsa Brennan ESTATE CONSERVATOR Ordering Physician: NILSA BRENNAN NP Date of Service: 03/21/25 Procedure(s): XR hip RT min 2V Accession Number(s): [id number] cc: NILSA BRENNAN NP Reason for Exam: [...] Anam Toscano MD 03/21/2025 10:51 AM EST Dictated By: Anam Toscano MD Signed By: <Electronically signed by Anam Toscano MD in OV> 03/21/25 1051 DD/ 1042 TD/TT: 03/21/25 1042 As400 Programmer: Nilsa Brennan ANP IMG XR PROCEDURES Edited Result - Final * XR DEXA APPENDICULAR SKELETON (02/07/2025 12:52 PM EDT) Anatomical Region Laterality Modality Abdomen Radiographic Blaire ging 02/07/2025 12:5 2 PM EDT Narrative 02/07/2025 1:27 PM EDT [facility] [address] [place] [address] Mammography Report Signed Patient: Chelsie Nick MR#: [id number] : 1955 Acct:[id number] Age/Sex: 69 / F ADM Date: 02/07/25 Loc: HO.MAMMO Attending Dr: Rashida Leslie MD Ordering Physician: Rashida Leslie MD Results: Date of Service: 02/07/25 Follow Up: Procedure(s): XR DEXA appendicular skeleton Accession Number(s): [id number] cc: Rashida Leslie MD; NILSA BRENNAN NP Reason For Exam: M81.0 - Age-related osteoporosis without current pathological fracture EXAMINATION: DXA BONE DENSITY EXTREMITY HISTORY: M81.0 - Age-related osteoporosis without current pathological fracture TECHNIQUE: AdAdapted Dual energy absorptiometry (DEXA) of the lumbar [...] is a trademark of the [employer] [place] for Metabolic Bone Disease, a World Health Organization (WHO) Collaborating Center. Electronically signed by: Rufus Gloria MD 02/07/2025 01:24 PM EDT RP Dictated By: Rufus Gloria MD Signed By: <Electronically signed by Rufus Gloria MD in OV> 02/07/25 1324 DD/ 1252 TD/TT: 02/07/25 1305 As400 Programmer: Procedure Note Donotuseinterpreter, Image - 02/07/2025 [facility] [address] [place], [place] [address] Mammography Report Signed Patient: Chelsie Nick LMR#: [id number] : 1955cct:[id number] Age/Sex: 69 / FADM Date: 02/07/25 Loc: HO.MAMMO Attending Dr: Rashida Leslie MD Ordering Physician: Rashida Leslieesults: Date of Service: 02/07/25Follow Up: Procedure(s): XR DEXA appendicular skeleton Accession Number(s): [id number] cc: Rashida Leslie MD; NILSA BRENNAN NP Reason For Exam: M81.0 - Age-related osteoporosis without currentpathological fracture EXAMINATION: DXA BONE DENSITY EXTREMITY HISTORY: M81.0 - Age-related osteoporosis without current pathological fracture TECHNIQUE: AdAdapted Dual energy absorptiometry (DEXA) of the lumbar [...] is a trademark of the [employer] [place] for Metabolic Bone Disease, a World Health Organization (WHO) Collaborating Center. Electronically signed by: Rufus Gloria MD 02/07/2025 01:24 PM EDT Dictated By: Rufus Gloria MD Signed By: <Electronically signed by Rufus Gloria MD in OV> 02/07/25 1324 DD/ 1252 TD/TT: 02/07/25 1305 As400 Programmer: us [facility] External Provider IMG XR PROCEDURES Final Result * US Thyroid (01/20/2025 3:45 PM EDT) Anatomical Region Laterality Modality Head, Neck Ultrasound 01/20/2025 3:45 PM EDT Narrative 01/23/2025 7:04 AM EDT [address] [address] Ultrasound Report Signed Patient: Chelsie Nick MR#: [id number] : 1955 Acct:[id number] Age/Sex: 69 / F ADM Date: 01/20/25 Loc: HO.US Attending Dr: Rashida Leslie MD Ordering Physician: Rashida Leslie MD Date of Service: 01/20/25 Procedure(s): US thyroid Accession Number(s): [id number] cc: Rashida Leslie MD; NILSA BRENNAN NP [...] 01/23/25 0701 DD/ 1545 TD/TT: 01/20/25 1554 As400 Programmer: Procedure Note Oneydater, Image - 01/23/2025 [place] [address] Ultrasound Report Signed Patient: Chelsie Nick LMR#: [id number] : 4Acct:[id number] Age/Sex: 69 / FADM Date: 01/20/25 Loc: HO.US Attending Dr: Rashida Leslie MD Ordering Physician: Rashida Leslie MD Date of Service: 01/20/25 Procedure(s): US thyroid Accession Number(s): [id number] cc: Rashida Leslie MD; NILSA BRENNAN NP [...] 01/23/25 0701 DD/ 1545 TD/TT: 01/20/25 1554 As400 Programmer: us [facility] External Provider IMG US PROCEDURES Edited Result - Final * BI Mammogram Screening Tomosynthesis Bilateral (08/10/2024 2:45 PM EDT) Anatomical Region Laterality Modality Breast Bilateral Mammography 08/10/2024 2:45 PM EDT Narrative 08/15/2024 5:14 PM EDT [address] [place] [address] Mammography Report Signed Patient: Chelsie Nick MR#: [id number] : 1955 Acct:[id number] Age/Sex: 69 / F ADM Date: 08/10/24 Loc: .MAMMO Attending Dr: Nilsa Brennan NP Ordering Physician: NILSA BRENNAN NP Results: 1Negative Date of Service: 08/10/24 Follow Up: 1 Year From Orig ina Mammogram Procedure(s): MM tomosynthesis screening BI Accession Number(s): [id number] cc: NILSA BRENNAN NP EXAMINATION: MM SCREENING [...] 08/15/24 1711 DD/ 1445 TD/TT: 08/10/24 1457 As400 Programmer: Procedure Note Amado, Image - 08/15/2024 [facility] [address] [place] [address] Mammography Report Signed Patient: Chelsie Nick LMR#: [id number] : 1955cct:[id number] Age/Sex: 69 / FADM Date: 08/10/24 Loc: ROBB Attending Dr: Nisla Brennan NP Ordering Physician: NILSA BRENNAN NPResults: 1Negative Date of Service: 08/10/24Follow Up: 1 Year From Orig ina Mammogram Procedure(s): MM tomosynthesis screening BI Accession Number(s): [id number] cc: NILSA BRENNAN NP EXAMINATION: MM SCREENING [...] 08/15/24 1711 DD/ 1445 TD/TT: 08/10/24 1457 As400 Programmer: Nilsa Brennan ANP IMG BI PROCEDURES Final Result * Colonoscopy (11/29/2021) Colonoscopy performed Historical Provider HEALTH MAINTENANCE Edited Result - Final from Last 3 Months or Most Recently Relevant to Health Maintenance Insurance [facility] , [address] [place] [address] Care Teams Service Engine Repairer Relationship Specialty Start Date End Date Nilsa Brennan ANP [address] [place] [address] PCP - General Family Medicine 03/26/20
--- OUTSIDE RECORDS SUMMARY | 2025-03-22 12:39 | XMS_ITS | Clinical Summary ---
Author Organization [facility] Address [address] [place] [address] Care Team Providers Care Corncob Pipes Assembler Name Role Phone Unavailable Primary Care Provider [...]
[2025-03-22 12:54] LABS: Alanine Aminotransferase 17 U/L (0-31); Albumin Level 4.6 g/dL (3.5-5.0); Alkaline Phosphatase 93 U/L (39-117); Anion Gap 9 (12-20); Aspartate Amino Transferase 22 U/L (5-31); Blood Urea Nitrogen 16 mg/dL (9-16); Calcium 9.5 mg/dL (8.4-10.2); Carbon Dioxide 27 mmol/L (22-29); Chloride 109 mmol/L (96-108); Cholesterol 187 mg/dL (<200); Estimated Glomerular Filt Rate > 60; HDL Cholesterol 43 mg/dL (>40); Potassium 4.3 mmol/L (3.3-5.1); Sodium 141 mmol/L (135-145); Total Protein 7.5 g/dL (6.5-8.0); Triglycerides 143 mg/dL (<150)
== END 2025-03-22 10:34 | disposition home or self-care (01) ==
LOC: HO.HHCL 10:33
PROVIDERS: PCP Nurse Practitioner Primary Care; Visit Provider Nurse Practitioner Primary Care
DX: Z00.00 Encounter for general adult medical examination without abnormal findings (principal); M81.8 Other osteoporosis without current pathological fracture; E34.9 Endocrine disorder, unspecified; E78.2 Mixed hyperlipidemia; Z13.1 Encounter for screening for diabetes mellitus
CPT/HCPCS: 36415; 80053; 80061; 82306; 83036

== ENCOUNTER 2025-03-31 10:04 | Outpatient (AMB) | payer MEDICARE, SELFPAY ==
--- NOTE | 2025-03-31 08:06 | MHC.OFFVIS ---
Intake Visit Reasons: LDCT Allergies No Known Allergies Allergy (Verified 03/09/25 15:29) HPI HPI LDCT: Details: [place]er speaking patient - interpretive services used - ID: [id number] - Rodri Initial visit for this 69yo former smoker with a 50PYH. Patient started smoking at age 14 for 54 years at 1ppd. Quit 1 year ago 2023. . Denies marijuana use. Denies second hand smoke exposure. Denies exposure to chemicals or substances like asbestos. . Reports family history of lung cancer. Mother Denies personal history of cancers. Denies chest CT in last year. . Denies recent travel outside the [place]. Denies recent respiratory illness or recent hospitalization for respiratory issues. Denies testing positive for COVID. Admits receiving COVID Vaccine. x 3. . Denies fever, chills, new/worsening cough, hemoptysis, hoarseness or dysphagia. Denies significant chest pain, significant dyspnea or unintentional weight loss. Patient Lung Cancer Screening Questionnaire reviewed with patient by provider. . Shared Decision Making Completed. Patient meets criteria. Discussed in detail with patient, the risk vs benefit of LDCT screening. Patient consents to proceed with scan. Discussed and encouraged continued smoking cessation. [facility] Medical History (Updated 03/31/25 @ 11:01 by Navya Kinney PA-C) Atypical chest pain Personal history of nicotine dependence Multinodular thyroid OAB (overactive bladder) UTI (urinary tract infection) Stress incontinence in female Osteoporosis Hyperparathyroidism Vitamin D deficiency Toxic multinodul goiter Surgical History (Updated 03/31/25 @ 10:32 by Navya Kinney PA-C) History of cystoscopy History of colonoscopy History of hysterectomy History of parathyroidectomy History of partial thyroidectomy History of ear surgery Family History Father No problems noted. Mother Hypertension Arthritis Osteoporosis Social History (Updated 03/31/25 @ 11:01 by Navya Kinney PA-C) Alcohol intake: current Alcohol intake frequency: holidays/special occasions only Patient Tobacco Use Status: Former Tobacco user Tobacco use type: Cigarette Years Smoked: (onset 14yo, 1ppd x 54yrs, 50pyh - quit 2023) Assessment & Plan Assessment & Plan (1) Personal history of nicotine dependence: Comment: (onset 14yo, 1ppd x 54yrs, 50pyh - quit 2023) Code(s): Z87.891 - Personal history of nicotine dependence Category: Medical Plan: - SDM visit completed today in office. - Patient meets criteria for LDCT for lung cancer screening purposes and is asymptomatic. - Smoking cessation counseling offered. Patients can always call [phone]. - Will arrange for a LDCT scan of the chest for screening purposes at [facility]. - Risks, benefits, and alternatives were discussed in detail and the patient agrees to proceed. - Risks discussed include but are not limited to: radiation exposure, anxiety during testing and while awaiting results, false negatives, false positives and possibility of additional intervention such as further imaging or surgical procedures for benign disease. - Benefits are obviously detection of lung cancer at an early stage which can lead to improved outcomes. - Discussed the importance of screening program compliance with adherence to yearly LDCT scan as scheduled - or sooner interval scans for personalized screening regimen. - Discussed follow up plan. Our office will send a letter discussing results and if needed set up phone call and office visit based on CT findings. - Patient educated on results categorization and the management decisions for suspicious findings potentially found on the screening LDCT scan. Any patient with a Lung RADS score of 3 or 4 will be reviewed by a multidisciplinary team at [facility] to form a plan of action in regards to scan findings. - If further work up is warranted for a suspicious lung finding this will be followed by the Lung Cancer Screening program in conjunction with the Thoracic Surgery Department at [facility]. - A copy of the office note and LDCT will be sent to the patient's PCP - as well as documentation on any associated further plans of care. - Incidental findings on LDCT are the PCP's responsibility. These findings are indicated with an S finding on the LDCT Assessment. A note discussing the findings will be sent to the PCP who is then responsible for further management. - All questions answered.? Coding Level of Care Code Lung Cancer Screening G0296 Diagnoses Personal history of nicotine dependence Z87.891
--- OUTSIDE RECORDS SUMMARY | 2025-03-31 10:41 | XMS_ITS | Clinical Summary ---
Author [facility] Address [address] [place] [address] Care Team Providers Care Engineering Faculty Name Role Phone Unavailable Primary Care Provider [...]
== END 2025-03-31 10:46 | disposition home or self-care (01) ==
LOC: HO.HPS 10:05
PROVIDERS: PCP Nurse Practitioner Primary Care; Visit Provider Physician Assistant Medical
DX: Z87.891 Personal history of nicotine dependence (principal)
CPT/HCPCS: G0296

== ENCOUNTER 2025-03-31 10:40 | Outpatient (REF) | payer MEDICARE, SELFPAY ==
--- NOTE | ~2025-03-31 | CT_ITS ---
EXAMINATION: CT LOW-DOSE SCREENING CHEST WITHOUT CONTRAST CLINICAL INFORMATION: Z87.891 - Personal history of nicotine dependence COMPARISON: None available. TECHNIQUE: Multidetector volumetric CT imaging of the chest is performed on a Siemens SOMATOM Definition scanner without contrast using low dose technique. Additional 2D coronal and sagittal reformatted images and axial 3D maximum intensity projection (MIP) images are generated on the CT workstation. This CT examination was performed using dose optimization techniques as appropriate, variously including the following: *Automated exposure control *Adjustment of mA and/or kV according to patient size (this includes techniques or standardized protocols for targeted exams where dose is matched to indication/reason for exam; i.e. extremities or head) *Use of iterative reconstruction technique CTDIvol: 1.47 mGy. FINDINGS: PULMONARY NODULES: Few scattered nodules, for example: Right upper lobe 0.2 cm (6:59/484) and right/upper lobe 0.2 cm (6:258/184). LUNGS: Central airways are patent. No lung consolidation. PLEURA: No pleural effusion or pneumothorax. MEDIASTINUM: Status post left thyroidectomy. No right thyroid nodules. Heart is normal in size. No pericardial effusion. Scattered calcifications along the thoracic aorta. CORONARY ARTERY CALCIFICATION: None visualized on this study. CHEST WALL/AXILLA: Unremarkable. UPPER ABDOMEN: Included portions of the solid organs in the upper abdomen unremarkable on noncontrast imaging. OSSEOUS STRUCTURES: No suspicious focal findings. CT/CT lung screening IMPRESSION: Scattered pulmonary nodules measuring 0.2 cm. ASSESSMENT: 1. Lung-RADS Category 2: Benign appearance or behavior of nodules. 2. Lung-RADS Category S: Negative. There are no clinically significant or potentially clinically significant findings not related to the lungs requiring urgent additional evaluation. RECOMMENDATION: Continued routine annual low-dose CT lung screening in 1 year is recommended. An order for CT CHEST LOW DOSE CANCER SCREENING ([id number]) can be placed. Electronically signed by: Efrem Barnett MD 03/31/2025 11:52 AM [facility]
--- OUTSIDE RECORDS SUMMARY | 2025-03-31 11:25 | XMS_ITS | Encounter Summary ---
Author Organization [employer] Address [address] [facility] 7t [place] [address] Care Team Providers Care Software Test Developer Name Role Phone Sneha [place] Primary Care Provider Encounter Details Date Type Department Care Team (Late st Contact Info) Description 08/26/2023 Abstract [facility] MEDICINE [address] [place], [place] [phone] Sneha [place] ANP [address] [place] [address] Social History Tobacco Use Types Packs/Day Years [...] Care Team (Late st Contact Info) Description 06/01/2025 11:00 AM EST Office Visit [facility] MEDICINE [address] [place] [address] Sneha [place] ANP [address] [place] [address] documented as of this encounter Visit Diagnoses Not on filedocumented in this encounter Care Teams Software Test Developer Relationship Specialty Start Date End Date Sneha [place] ANP [address] [place] [address] PCP - General Family Medicine 03/26/20 documented as of this encounter
--- OUTSIDE RECORDS SUMMARY | 2025-03-31 11:25 | XMS_ITS | Encounter Summary ---
Author Organization [facility] Address [address] [facility] 7t [place] [address] Care Team Providers Care Rehabilitation Tech Name Role Phone Sneha [place] Primary Care Provider [phone] Encounter Details Date Type Department Care Team (Latest Contact Info) Description 12/15/2018 Abstract [facility] CONVERSIONS Dental, Provider, DDS Social History [...] Description 06/01/2025 11:00 AM EST Office Visit [facility] MEDICINE [address] [place] [address] Sneha [place] ANP [address] [place] [address] documented as of this encounter Visit Diagnoses Not on filedocumented in this encounter Care Teams Rehabilitation Tech Relationship Specialty Start Date End Date Sneha [place] ANP [address] [place] [address] PCP - General Family Medicine 03/26/20 documented as of this encounter
--- OUTSIDE RECORDS SUMMARY | 2025-03-31 11:25 | XMS_ITS | Clinical Summary ---
Author Organization [employer] Address [address] [facility] 7t [place] [address] Care Team Providers Care Embedded Software Design Engineer Name Role Phone Danuta Nilsa HURTADO Primary Care Provider [phone] Allergies No known active allergies Medications diphenhydrAMINE [...] 65yo. LDCT form has been faxed to [facility]. Pt waiting for her urology bill to [...] Encounters Date Type Department Care Team Description 03/23/2025 Telephone [facility] [address] [place] [phone] Nilsa Brennan ANP Insurance 03/23/2025 Travel 03/21/[address] [address] Nilsa Brennan ANP chart prep 02/10/[address] [address] Nilsa Brennan ANP call back request 01/31/2025 2:00 PM EDT Office Visit [address] [address] Deidre Vieyra CNM Visit for pelvic exam (Primary Dx); Stress incontinence of urine 01/31/2025 Travel 01/30/2025 Telephone [facility] [address] [place] [address] Shabnam High [place] 01/20/2025 Orders Only [facility] External Provider, [facility] 01/05/[address] [address] Nilsa Brennan ANP Appointment Request 12/30/2024 1:45 PM EDT Office Visit [address] [address] Nilsa Brennan ANP Healthcare maintenance (Primary Dx); Mixed hyperlipidemia; Chronic right-sided low back pain, unspecified whether sciatica present; Frequent falls; Right hip pain; 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; Low libido; Screening for lung cancer; Atypical chest pain 12/30/2024 Travel 12/29/[address] [address] Nilsa Brennan ANP chartprep from Last 3 Months Immunizations Immunization Administration [...] Description 06/01/2025 11:00 AM EST Office Visit [facility] [address] [place], [place] [phone] Nilsa Brennan ANP [address] [place], [place] [phone] Health Maintenance Due Date Last Done Comments [...] Screening 01/31/2026 01/31/2025 Tobacco Screening 01/31/2026 01/31/2025 Diabetes: Hemoglobin A1C 03/22/2026 025, 09/22/2023, 01/11/2021 RSV Patients and Patients Aged 60 years [...] Routine 03/22/2025 10:42 AM EST Healthcare maintenance VITAMIN D,25-OH,TOTAL,IA Routine 03/22/2025 10:42 AM EST 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 COMPREHENSIVE METABOLIC PANEL Routine 03/22/2025 10:42 AM EST Mixed hyperlipidemia LIPID PANEL, STANDARD Routine 03/22/2025 10:42 AM EST Mixed hyperlipidemia XR PELVIS 1-2 VIEWS Routine 03/21/2025 1 [...] TOMOSYNTHESIS BILATERAL Routine 08/10/2024 2:45 PM EDT COLONOSCOPY Routine 11/29/2021 from Last 3 Months or Most Recently Relevant to Health Maintenance Results * Vitamin D, 25-Hydroxy, Total, Immunoassay (03/22/2025 10:42 AM EST) Vitamin D 25-OH Total 35.1 >30 ng/mL [facility] Comment: Health Based Reference Values*< 20 ng/mL Iiusofpbu48-66 ng/mL Insufficient> 30 ng/mL Sufficient*Jose J GARCIA. N Engl J Med. 2007;357:266-280There is no well-established upper level of normal vitamin Dlevels. Some laboratories use 50 ng/mL as an upper limit ofnormal. However, toxicity is patient-dependent and may occurat any level. Careful correlation with the patient'spresentation is necessary and, if there is concern forvitamin D toxicity, treatment should be consideredirrespective of the serum level.Care must be taken in interpreting Vitamin D results fromdifferent laboratories and methodologies. Published datademonstrated that results from patients undergoinghemodialysis may show a negative bias when tested withvarious automated 25-OH vitamin D assays when compared toLC-MS/MS.When testing samples from patients whose predominant form ofVitamin D is Vitamin D2, such as patients receiving VitaminD2 supplementation, results that are subtherapeutic shouldbe confirmed with another method such as LC-MS/MS. Blood Venous blood specimen / Unknown 03/22/2025 10:42 AM EST 03/22/2025 12:06 PM EST us Nilsa Brennan [facility] BLOOD ORDERABLES Final Resul t [facility] [address] [place] [phone] * Hemoglobin A1c (03/22/2025 10:42 AM EST) Hemoglobin A1c 5.7 <6.0 % [facility] Comment:Hemoglobin A1C Refer ence Range Adults: 4.8 - 6.0 % Non diabetic: < 6.0 % Goal: < 7.0 %Additional Action Suggested: > 8.0 %Note: Hemoglobin A1c results are invalid for patients with abnormal amounts of HbF. Blood transfusions may impact the HbA1c concentration in the patient sample. Estimated Average Glucose 117 mg/dL [facility] Comment:eAG = Estimated ave rage glucose which is %A1C expressed asaverage glucose, using the formula of the E7N-ZtcttmxNprnwua Glucose study (ADAG), Diabetes Care, Vol.31,#8,Dec. 2007 Blood Venous blood specimen / Unknown 03/22/2025 10:42 AM EST 03/22/2025 12:[address] [facility] BLOOD ORDERABLES Final Resul t [facility] [address] [place] [phone] * (ABNORMAL) Lipid Panel, Standard (03/22/2025 10:42 AM EST) Triglycerides 143 <150 mg/dL [facility] Comment:Desirable Triglyceri de: less than 150 mg/dLBorderline High Triglyceride 150-199 mg/dLHigh Triglyceride: 200-499 mg/dLVery High Triglyceride: greater than or equal to 5OO mg/dL Cholesterol 187 <200 mg/dL [facility] Comment:Desirable Cholestero l: less than 200 mg/dLBorderline High Cholesterol: 200-239 mg/dLHigh Cholesterol: greater than 239 mg/dL LDL Cholesterol Calculated 116(H) <100 mg/dL [facility] Comment:Desirable LDL: less than 100 mg/dLNear Optimal/Above Optimal LDL: 110- 129 mg/dLBorderline High LDL: 130-159 mg/dLHigh LDL: 160-189 mg/dLVery High LDL: greater than or equal to 190 mg/dL HDL Cholesterol 43 >40 mg/dL [facility] Comment:Desirable HDL: great er than 40 mg/dL Note: This HDL assay may give artificially low results in patients with liver disease. Blood Venous blood specimen / Unknown 03/22/2025 10:42 AM EST 03/22/2025 12:06 PM EST Nilsa Brennan ANP LAB BLOOD ORDERABLES Final Resul t Performing Organization Address City/[facility]/ZIP Co de Phone Number [facility] [address] [place] [phone] * (ABNORMAL) Comprehensive Metabolic Panel (03/22/2025 10:42 AM EST) Sodium 141 135 - 145 mmol/L [facility] Potassium 4.3 3.3 - 5.1 mmol/L [facility] Chloride 109(H) 96 - 108 mmol/L [facility] Carbon Dioxide 27 22 - 29 mmol/L [facility] Anion Gap 9(L) 12 - 20 [facility] Urea Nitrogen (BUN) 16 9 - 16 mg/dL [facility] Creatinine, Serum 0.77 0.5 - 1.4 mg/dL [facility] Estimated Glomerular Filt Rate >60 [facility] Comment:Chronic Kidney Disea se: Estimated GFR < 60 mL/min/1.67r9Datzgu Kidney Disease: Estimated GFR < 15 mL/min/1.73m2 Glucose 99 60 - 115 mg/dL [facility] Calcium 9.5 8.4 - 10.2 mg/dL [facility] Bilirubin, Total 0.5 0.0 - 1.0 mg/dL [facility] Aspartate Amino Transferase 22 5 - 31 U/L [facility] Alanine Aminotransferase 17 0 - 31 U/L [facility] Total Protein 7.5 6.5 - 8.0 g/dL [facility] Albumin Level 4.6 3.5 - 5.0 g/dL [facility] Alkaline Phosphatase 93 39 - 117 U/L [facility] Blood Venous blood specimen / Unknown 03/22/2025 10:42 AM EST 03/22/2025 12:06 PM EST Nilsa Brennan ANP LAB BLOOD ORDERABLES Final Resul t [facility] [address] [place] [phone] * XR Pelvis 1-2 Views (03/21/2025 10:44 AM EST) Anatomical Region Laterality Modality Body, Pelvis Radiographic Blaire ging 03/21/2025 10:4 4 AM EST Narrative 03/21/2025 10:54 AM EST [address] [address] XRay Report Signed Patient: Chelsie Nick MR#: [id number] : 1955 Acct:[id number] Age/Sex: 69 / F ADM Date: 03/21/25 Loc: HO.HHCX Attending Dr: Nilsa Brennan NP Ordering Physician: NILSA BRENNAN NP Date of Service: 03/21/25 Procedure(s): XR pelvis 1-2V Accession Number(s): [id number] cc: NILSA BRENNAN NP Reason for Exam: [...] Anam Toscano MD 03/21/2025 10:52 AM EST Dictated By: Anam Toscano MD Signed By: <Electronically signed by Anam Toscano MD in OV> 03/21/25 1052 DD/ 1044 TD/TT: 03/21/25 1044 Category Development Manager: Procedure Note Donotuseinterpreter, Image - 03/21/[address] [address] XRay Report Signed Patient: Chelsie Nick LMR#: [id number] : 1955cct:[id number] Age/Sex: 69 / FADM Date: 03/21/25 Loc: EMILY Attending Dr: Nilsa Brennan NP Ordering Physician: NILSA BRENNAN NP Date of Service: 03/21/25 Procedure(s): XR pelvis 1-2V Accession Number(s): [id number] cc: NILSA BRENNAN NP Reason for Exam: [...] Anam Toscano MD 03/21/2025 10:52 AM EST Dictated By: Anam Toscano MD Signed By: <Electronically signed by Anam Toscano MD in OV> 03/21/25 1052 DD/ 1044 TD/TT: 03/21/25 1044 Category Development Manager: Nilsa Brennan ANP IMG XR PROCEDURES Edited Result - Final * XR Hip 2 or 3 Views Right (03/21/2025 10:42 AM EST) Anatomical Region Laterality Modality Lower Extremities, Hip Right Radiograp hic Imaging 03/21/2025 10:4 2 AM EST Narrative 03/21/2025 10:54 AM EST [address] [address] XRay Report Signed Patient: Chelsie Nick MR#: [id number] : 1955 Acct:[id number] Age/Sex: 69 / F ADM Date: 03/21/25 Loc: EMILY Attending Dr: Nilsa Brennan NP Ordering Physician: NILSA BRENNAN NP Date of Service: 03/21/25 Procedure(s): XR hip RT min 2V Accession Number(s): [id number] cc: NILSA BRENNAN NP Reason for Exam: [...] 03/21/25 1051 DD/ 1042 TD/TT: 03/21/25 1042 Category Development Manager: Procedure Note Donotuseinterpreter, Image - 03/21/2025 [place] [address] XRay Report Signed Patient: Chelsie Nick LMR#: [id number] : 1955cct:[id number] Age/Sex: 69 / FADM Date: 03/21/25 Loc: HO.HHCX Attending Dr: Nilsa Brennan NP Ordering Physician: NILSA BRENNAN NP Date of Service: 03/21/25 Procedure(s): XR hip RT min 2V Accession Number(s): [id number] cc: NILSA BRENNAN NP Reason for Exam: [...] 03/21/25 1051 DD/ 1042 TD/TT: 03/21/25 1042 Category Development Manager: us Nilsa Brennan ANP IMG XR PROCEDURES Edited Result - Final * XR DEXA APPENDICULAR SKELETON (02/07/2025 12:52 PM EDT) Anatomical Region Laterality Modality Abdomen Radiographic Blaire ging 02/07/2025 12:5 2 PM EDT Narrative 02/07/2025 1:27 PM EDT [facility] [address] [place] [address] Mammography Report Signed Patient: Chelsie Nick MR#: [id number] : 1955 Acct:[id number] Age/Sex: 69 / F ADM Date: 02/07/25 Loc: HOBertramMAMMO Attending Dr: Rashida Leslie MD Ordering Physician: Rashida Leslie MD Results: Date of Service: 02/07/25 Follow Up: Procedure(s): XR DEXA appendicular skeleton Accession Number(s): [id number] cc: Rashida Leslie MD; NILSA BRENNAN NP Reason For Exam: M81.0 - Age-related osteoporosis without current pathological fracture EXAMINATION: DXA BONE DENSITY EXTREMITY HISTORY: M81.0 - Age-related osteoporosis without current pathological fracture TECHNIQUE: 'Rock' Your Paper Dual energy absorptiometry (DEXA) of the lumbar [...] is a trademark of the [employer]'s [place] for Metabolic Bone Disease, a World Health Organization (WHO) Collaborating Center. Electronically signed by: Rufus Gloria MD 02/07/2025 01:24 PM EDT Dictated By: Rufus Gloria MD Signed By: <Electronically signed by Rufus Gloria MD in OV> 02/07/25 1324 DD/ 1252 TD/TT: 02/07/25 1305 Category Development Manager: Procedure Note Donotuseinterpreter, Image - 02/07/2025 [place] [facility] [address] [place] [address] Mammography Report Signed Patient: Chelsie Nick LMR#: [id number] : 1955cct:[id number] Age/Sex: 69 / FADM Date: 02/07/25 Loc: HO.MAMMO Attending Dr: Rashida Leslie MD Ordering Physician: Rashida Leslieesults: Date of Service: 02/07/25Follow Up: Procedure(s): XR DEXA appendicular skeleton Accession Number(s): [id number] cc: Rashida Leslie MD; NILSA BRENNAN NP Reason For Exam: M81.0 - Age-related osteoporosis without currentpathological fracture EXAMINATION: DXA BONE DENSITY EXTREMITY HISTORY: M81.0 - Age-related osteoporosis without current pathological fracture TECHNIQUE: 'Rock' Your Paper Dual energy absorptiometry (DEXA) of the lumbar [...] is a trademark of the [employer]'s [place] for Metabolic Bone Disease, a World Health Organization (WHO) Collaborating Center. Electronically signed by: Rufus Gloria MD 02/07/2025 01:24 PM EDT RP Dictated By: Rufus Gloria MD Signed By: <Electronically signed by Rufus Gloria MD in OV> 02/07/25 1324 DD/ 1252 TD/TT: 02/07/25 1305 Category Development Manager: us [facility] External Provider IMG XR PROCEDURES Final Result * US Thyroid (01/20/2025 3:45 PM EDT) Anatomical Region Laterality Modality Head, Neck Ultrasound 01/20/2025 3:45 PM EDT Narrative 01/23/2025 7:04 AM EDT [place] [address] Ultrasound Report Signed Patient: Chelsie Nick MR#: [id number] : 1955 Acct:[id number] Age/Sex: 69 / F ADM Date: 01/20/25 Loc: HO.US Attending Dr: Rashida Leslie MD Ordering Physician: Rashida Leslie MD Date of Service: 01/20/25 Procedure(s): US thyroid Accession Number(s): [id number] cc: Rashida Leslie MD; NILSA BRENNAN NP [...] 01/23/25 0701 DD/ 1545 TD/TT: 01/20/25 1554 Category Development Manager: Procedure Note Donotuseinterpreter, Image - 01/23/2025 [place] [address] Ultrasound Report Signed Patient: Chelsie Nick LMR#: [id number] : 4Acct:[id number] Age/Sex: 69 / FADM Date: 01/20/25 Loc: HO.US Attending Dr: Rashida Leslie MD Ordering Physician: Rashida Leslie MD Date of Service: 01/20/25 Procedure(s): US thyroid Accession Number(s): [id number] cc: Rashida Leslie MD; NILSA BRENNAN NP [...] 01/23/25 0701 DD/ 1545 TD/TT: 01/20/25 1554 Category Development Manager: us [facility] External Provider IMG US PROCEDURES Edited Result - Final * BI Mammogram Screening Tomosynthesis Bilateral (08/10/2024 2:45 PM EDT) Anatomical Region Laterality Modality Breast Bilateral Mammography 08/10/2024 2:45 PM EDT Narrative 08/15/2024 5:14 PM EDT [facility] [address] [place], [place] [address] Mammography Report Signed Patient: Chelsie Nick MR#: [id number] : 1955 Acct:[id number] Age/Sex: 69 / F ADM Date: 08/10/24 Loc: MAMMO Attending Dr: Nilsa Brennan NP Ordering Physician: NILSA BRENNAN NP Results: 1Negative Date of Service: 08/10/24 Follow Up: 1 Year From Orig inal Mammogram Procedure(s): MM tomosynthesis screening BI Accession Number(s): [id number] cc: NILSA BRENNAN NP EXAMINATION: MM SCREENING [...] 08/15/24 1711 DD/ 1445 TD/TT: 08/10/24 1457 Category Development Manager: Procedure Note Donotuseinterpreter, Image - 08/15/2024 [facility] [address] [place] [address] Mammography Report Signed Patient: Chelsie Nick LMR#: [id number] : 4Acct:[id number] Age/Sex: 69 / FADM Date: 08/10/24 Loc: HO.MAMMO Attending Dr: Nilsa Brennan NP Ordering Physician: NILSA BRENNAN NPResults: 1Negative Date of Service: 08/10/24Follow Up: 1 Year From Orig inal Mammogram Procedure(s): MM tomosynthesis screening BI Accession Number(s): [id number] cc: NILSA BRENNAN NP EXAMINATION: MM SCREENING [...] 08/15/24 1711 DD/ 1445 TD/TT: 08/10/24 1457 Category Development Manager: Nilsa Brennan ANP IMG BI PROCEDURES Final Result * Hm Colonoscopy (11/29/2021) Colonoscopy performed us Historical Provider HEALTH MAINTENANCE Edited Result - Final from Last 3 Months or Most Recently Relevant to Health Maintenance Insurance HS FULL [facility] MEDICARE SUPPLEMENT Care Teams Embedded Software Design Engineer Relationship Specialty Start Date End Date Nilsa Brennan ANP [address] [place] [phone] PCP - General Family Medicine 03/26/20
--- OUTSIDE RECORDS SUMMARY | 2025-03-31 11:25 | XMS_ITS | Encounter Summary ---
Author Organization [employer] Address [address] [facility] 7t [place] [address] Care Team Providers Care Lead Cargo Mover Name Role Phone Sneha Tipton Primary Care Provider [phone] Reason for Visit * Reason Comments Med Refill Encounter Details Date Type Department Care Team ([facility] st Contact Info) Description 07/29/2023 Refill [facility] [address] [place], [place] [phone] Sneha Tipton ANP [address] [place] [address] Mixed hyperlipidemia Social History Tobacco Use Types [...] the past 12 months, has t he [employer], oil or water company threatened to shut [...] Description 06/01/2025 11:00 AM EST Office Visit [facility] [address] [place] [address] Sneha Tipton ANP [address] [place] [address] documented as of this encounter Visit Diagnoses Diagnosis Mixed hyperlipidemia documented in this encounter Care Teams Lead Cargo Mover Relationship Specialty Start Date End Date Sneha Tipton ANP [address] [place] [address] PCP - General Family Medicine 03/26/20 documented as of this encounter
== END 2025-03-31 10:41 | disposition home or self-care (01) ==
LOC: HO.CT 10:40
PROVIDERS: PCP Nurse Practitioner Primary Care; Visit Provider Physician Assistant Medical
DX: Z12.2 Encounter for screening for malignant neoplasm of respiratory organs (principal); Z87.891 Personal history of nicotine dependence
CPT/HCPCS: 71271; G0296

== ENCOUNTER → 2025-03-31 10:44 | Outpatient (BNV) | payer MEDICARE, SELFPAY | PROVIDERS: PCP Nurse Practitioner Primary Care; Visit Provider Radiology Body Imaging | DX: Z12.2 Encounter for screening for malignant neoplasm of respiratory organs (principal); Z87.891 Personal history of nicotine dependence | CPT/HCPCS: 71271 ==

== ENCOUNTER → 2025-04-14 13:20 | Outpatient (REF) | payer MEDICARE, SELFPAY ==
--- NOTE | 2025-04-14 13:22 | CA_ITS ---
Transthoracic Echocardiogram Patient (Last, First, Middle): Chelsie Nick L Gender: Female Date of : 1955 Age: 69 Procedure Date: 04/14/2025 Procedure Type: Transthoracic Echocardiogram Location: OP Height: 157.48 cm Weight: 72.58 kg BSA: 1.74 m2 Heart Rate: 67 bpm BP: 140 / 80 mmHg Retention Representative: KARLENE Referring MD: Wallace Barry MD Symptoms: R07.89 - Other chest pain Study Quality: Adequate ECG Rhythm: Sinus Conclusions: - The left ventricular systolic function is normal. The calculated ejection fraction is 64% by biplane method. - No obvious valvular pathology seen on this study. Findings Left Ventricle Normal left ventricular cavity size. There is normal left ventricular wall thickness. The left ventricular systolic function is normal. The calculated ejection fraction is 64% by biplane method. There is no evidence of regional wall motion abnormalities. Diastolic function is normal for age. Right Ventricle Normal right ventricular cavity size. There is low normal right ventricular systolic function. Atria Both atria are normal in size. Aortic Valve There is a normal trileaflet aortic valve. There is no aortic valve stenosis. There is no aortic valve regurgitation. Mitral Valve The mitral valve appears normal. There is no mitral valve regurgitation. There is no mitral valve stenosis. Pulmonic Valve The pulmonic valve is likely normal. Tricuspid Valve There is trace tricuspid valve regurgitation. There is no evidence of pulmonary hypertension. Great Vessels The asc aorta is normal in size. Venous The inferior vena cava is normal in size and collapses greater than 50% with inspiration. Pericardium/Pleural There is no evidence of pericardial effusion. Prior Study Comparison No prior study available for comparison. Recommendations, Care & Conclusions No obvious valvular pathology seen on this study. Measurements 2D Linear Measurements IVSd: 0.80 0.6-0.9/0.6-1.0 cm LVIDd: 4.29 3.9-5.3/4.2-5.9 cm LVIDd Index: 2.47 2.4-3.2/2.2-3.1 cm/m2 LVIDs: 2.38 2.0-3.6 cm LVPWd: 0.78 0.7-1.1 cm LA Diam: 3.50 2.7-3.8/3.0-4.0 cm LAIDs Index: 2.01 1.5-2.3 cm/m2 LV Mass: 128.67 67-162/88-224 g LV Mass Index: 73.95 43-95/49-115 g/m2 LVOT Diam: 2.00 3.0+(-)1.3 cm 2D Systolic Function EF 4C: 66.00 >55% EF 2C: 64.00 >55% EF BiP: 63.70 >55% Mitral Valve MV Pk E: 0.85 MV PK A: 1.03 MV Decel Time: 171.00 E/A: 0.80 E'Lateral: 8.05 E'Medial: 6.31 E/E' Med: 13.50 E/E' Lat: 10.60 PHT: 50.00 MVA PHT: 4.40 Decel Kenton: 5.00 Aortic Valve AoV Pk Joshua: 1.36 AoV Mn Joshua: 0.87 AoV VTI: 0.28 AoV Pk Grad: 7.00 Aov Mn Grad: 3.00 ALY Cont.VTI: 2.11 LVOT LVOT Pk Joshua: 0.90 LVOT Mn Joshua: 0.61 LVOT VTI: 0.19 LVOT Pk Grad: 3.00 LVOT Mn Grad: 2.00 LVOT Diam: 2.00 LVOT Area: 3.14 Diastolic Function MV Pk E: 0.85 MV Pk A: 1.03 E/A: 0.80 E'Medial: 6.31 E/E' Med: 13.50 E' Laterial: 8.05 E/E' Lat: 10.60 Right Ventricle TAPSE (mm): 17.90 TVS' Joshua: 10.10 Tricuspid Valve TR Pk Joshua: 2.15 TR Pk Grad: 18.00 RA Press: 3.00 RVSP: 21.00 Great Vessels Aorta Sinus of Valsalva: 3.00 2.0-3.5 cm Ao Asc: 3.40 2.1-3.4 cm Pulmonary Veins Pulm Vein S/D 1.70 Pulmonary Valve PV Pk Joshua: 1.14 Peak PV Grad: 5.00 Updated in Other Vendor System with Status of Final Tommy Villareal MD electronically signed on 04/15/2025 1:20:30 PM with status of Final
--- OUTSIDE RECORDS SUMMARY | 2025-04-14 17:26 | XMS_ITS | Encounter Summary ---
Author Organization [employer] Address [address] [facility] 7t [place] [address] Care Team Providers Care Animal Assisted Therapist Name Role Phone Sneha Tipton Primary Care Provider [phone] Encounter Details Date Type Department Care Team (Late st Contact Info) Description 08/26/2023 Abstract [facility] MED[facility] [address] [place], [place] [phone] Sneha Tipton ANP [address] [place] [address] Social History Tobacco Use Types Packs/Day Years [...] Description 06/01/2025 11:00 AM EST Office Visit [facility] [address] [place] [address] Sneha Tipton ANP [address] [place] [address] documented as of this encounter Visit Diagnoses Not on filedocumented in this encounter Care Teams Animal Assisted Therapist Relationship Specialty Start Date End Date Sneha Tipton ANP [address] [place] [phone] PCP - General Family Medicine 03/26/20 documented as of this encounter
--- OUTSIDE RECORDS SUMMARY | 2025-04-14 17:26 | XMS_ITS | Clinical Summary ---
Author Organization [employer] Address [address] [facility] [address] [place] [address] Care Team Providers Care Fitter Up Name Role Phone Danuta Nilsa HURTADO Primary Care Provider [phone] Allergies No known active allergies Medications diphenhydrAMINE [...] 65yo. LDCT form has been faxed to [facility]. Pt waiting for her urology bill to [...] Encounters Date Type Department Care Team Description 03/31/2025 Orders Only [facility] External Provider, [facility] 03/23/[address] [address] Nilsa Brennan ANP Insurance 03/23/2025 Travel 03/21/[address] [address] Nilsa Brennan ANP chart prep 02/10/[address] [address] Nilsa Brennan ANP call back request 01/31/2025 2:00 PM EDT Office Visit [address] [address] Deidre Vieyra CNM Visit for pelvic exam (Primary Dx); Stress incontinence of urine 01/31/2025 Travel 01/30/2025 Telephone [facility] [address] [place] [address] Shabnam High [place] 01/20/2025 Orders Only [facility] External Provider, [facility] from Last 3 Months Immunizations Immunization Administration [...] Description 06/01/2025 11:00 AM EST Office Visit [facility] MEDICINE [address] [place] [address] Nilsa Brennan ANP [address] [place] [address] Health Maintenance Due Date Last Done Comments CT Colonography 1955 FIT DNA/Cologuard 1955 FIT 1955 FOBT 1955 Sigmoidoscopy 1955 Hepatitis C Screening 07/16/1971 Zoster Vaccines (1 of 2) 07/16/2003 COVID-19 Vaccine ( season) 2025 04/27/2021, 10/09/2020, 08/26/2020 Influenza Vaccine (#1) 2025 Depression Monitoring 07/02/2025 12/30/2024, 025 Mammogram 08/12/2025 08/12/2024, 0406/2024, 08/26/2023, Additional history exists SDOH Screening 12/30/2025 [...] Procedure Name Priority Date/Time Associated Diagnosis Comments LDCT LUNG SCREENING Routine 03/31/2025 1 1:07 AM EST HEMOGLOBIN A1C Routine 03/22/2025 10:42 AM EST [...] Recently Relevant to Health Maintenance Results * CT Lung Screening Low dose (03/31/2025 11:07 AM EST) Anatomical Region Laterality Modality Lung Computed Tomogra phy 03/31/2025 11:0 7 AM EST Narrative 03/31/2025 11:[address] [address] [address] Scan Report Signed Patient: Chelsie Nick MR#: [id number] : 1955 Acct:[id number] Age/Sex: 69 / F ADM Date: 03/31/25 Loc: HO.CT Attending Dr: Navya Kinney PA-C Ordering Physician: Navya Kinney PA-C Date of Service: 03/31/25 Procedure(s): CT lung screening Accession Number(s): [id number] cc: Navya Kinney PA-C; NILSA BRENNAN NP Report Number: [id number]: Total DLP = 47.00 mGy-cm Reason for Exam: Z87.891 - Personal history of nicotine dependence EXAMINATION: CT LOW-DOSE SCREENING CHEST WITHOUT CONTRAST CLINICAL INFORMATION: Z87.891 - Personal history of nicotine dependence COMPARISON: None available. TECHNIQUE: Multidetector volumetric CT imaging of the chest is performed on a Siemens SOMATOM Definition scanner without contrast using low dose technique. Additional 2D coronal and sagittal reformatted images and axial 3D maximum intensity projection (MIP) images are generated on the CT workstation. This CT examination was performed using dose optimization techniques as appropriate, variously including the following: *Automated exposure control *Adjustment of mA and/or kV according to patient size (this includes techniques or standardized protocols for targeted exams where dose is matched to indication/reason for exam; i.e. extremities or head) *Use of iterative reconstruction technique CTDIvol: 1.47 mGy. FINDINGS: PULMONARY NODULES: Few scattered nodules, for example: Right upper lobe 0.2 cm (6:59/484) and right/upper lobe 0.2 cm (6:258/184). LUNGS: Central airways are patent. No lung consolidation. PLEURA: No pleural effusion or pneumothorax. MEDIASTINUM: Status post left thyroidectomy. No right thyroid nodules. Heart is normal in size. No pericardial effusion. Scattered calcifications along the thoracic aorta. CORONARY ARTERY CALCIFICATION: None visualized on this study. CHEST WALL/AXILLA: Unremarkable. UPPER ABDOMEN: Included portions of the solid organs in the upper abdomen unremarkable on noncontrast imaging. OSSEOUS STRUCTURES: No suspicious focal findings. CT/CT lung screening IMPRESSION: Scattered pulmonary nodules measuring 0.2 cm. ASSESSMENT: 1. Lung-RADS Category 2: Benign appearance or behavior of nodules. 2. Lung-RADS Category S: Negative. There are no clinically significant or potentially clinically significant findings not related to the lungs requiring urgent additional evaluation. RECOMMENDATION: Continued routine annual low-dose CT lung screening in 1 year is recommended. An order for CT CHEST LOW DOSE CANCER SCREENING ([id number]) can be placed. Electronically signed by: Efrem Barnett MD 03/31/2025 11:52 AM EST Dictated By: Efrem Barnett MD Signed By: <Electronically signed by Efrem Barnett MD in OV> 03/31/25 1152 DD/ 1107 TD/TT: 03/31/25 [address] Drawer: Procedure Note Donotuseinterpreter, Image - 03/31/[address] [place] [address] [address] Scan Report Signed Patient: Chelsie Nick LMR#: [id number] : 4Acct:[id number] Age/Sex: 69 / FADM Date: 03/31/25 Loc: HO.CT Attending Dr: Navya Kinney PA-C Ordering Physician: Navya Kinney PA-C Date of Service: 03/31/25 Procedure(s): CT lung screening Accession Number(s): [id number] cc: Navya Kinney PA-C; NILSA BRENNAN NP Report Number: [id number]: Total DLP = 47.00 mGy-cm Reason for Exam: Z87.891 - Personal history of nicotine dependence EXAMINATION: CT LOW-DOSE SCREENING CHEST WITHOUT CONTRAST CLINICAL INFORMATION: Z87.891 - Personal history of nicotine dependence COMPARISON: None available. TECHNIQUE: Multidetector volumetric CT imaging of the chest is performed on a Siemens SOMATOM Definition scanner without contrast using low dose technique. Additional 2D coronal and sagittal reformatted images and axial 3D maximum intensity projection (MIP) images are generated on the CT workstation. This CT examination was performed using dose optimization techniques as appropriate, variously including the following: *Automated exposure control *Adjustment of mA and/or kV according to patient size (this includes techniques or standardized protocols for targeted exams where dose is matched to indication/reason for exam; i.e. extremities or head) *Use of iterative reconstruction technique CTDIvol: 1.47 mGy. FINDINGS: PULMONARY NODULES: Few scattered nodules, for example: Right upper lobe 0.2 cm (6:59/484) and right/upper lobe 0.2 cm (6:258/184). LUNGS: Central airways are patent. No lung consolidation. PLEURA: No pleural effusion or pneumothorax. MEDIASTINUM: Status post left thyroidectomy. No right thyroid nodules. Heart is normal in size. No pericardial effusion. Scattered calcifications along the thoracic aorta. CORONARY ARTERY CALCIFICATION: None visualized on this study. CHEST WALL/AXILLA: Unremarkable. UPPER ABDOMEN: Included portions of the solid organs in the upper abdomen unremarkable on noncontrast imaging. OSSEOUS STRUCTURES: No suspicious focal findings. CT/CT lung screening IMPRESSION: Scattered pulmonary nodules measuring 0.2 cm. ASSESSMENT: 1. Lung-RADS Category 2: Benign appearance or behavior of nodules. 2. Lung-RADS Category S: Negative. There are no clinically significant or potentially clinically significant findings not related to the lungs requiring urgent additional evaluation. RECOMMENDATION: Continued routine annual low-dose CT lung screening in 1 year is recommended. An order for CT CHEST LOW DOSE CANCER SCREENING ([id number]) can be placed. Electronically signed by: Efrem Barnett MD 03/31/2025 11:52 AM EST Dictated By: Efrem Barnett MD Signed By: <Electronically signed by Efrem Barnett MD in OV> 03/31/25 1152 DD/ 1107 TD/TT: 03/31/25 [address] Drawer: [facility] External Provider IM CT PROCEDURES Final Result * Vitamin D, 25-Hydroxy, Total, Immunoassay (03/22/2025 10:42 AM EST) Vitamin D 25-OH Total 35.1 >30 ng/mL [facility] Comment: Health Based Reference Values*< 20 ng/mL Uyoztjttx25-63 ng/mL Insufficient> 30 ng/mL Sufficient*Jose J GARCIA. [...] 10:42 AM EST 03/22/2025 12:06 PM EST [facility] LAB BLOOD ORDERABLES Final Resul t [facility] [address] [place] [phone] * Hemoglobin A1c (03/22/2025 10:42 AM EST) Hemoglobin A1c 5.7 <6.0 % [facility] Comment:Hemoglobin A1C Refer ence Range Adults: 4.8 - 6.0 % Non diabetic: < 6.0 % Goal: < 7.0 %Additional Action Suggested: > 8.0 %Note: Hemoglobin A1c results are invalid for patients with abnormal amounts of HbF. Blood transfusions may impact the HbA1c concentration in the patient sample. Estimated Average Glucose 117 mg/dL [facility] Comment:eAG = Estimated ave rage glucose which is %A1C expressed asaverage glucose, using the formula of the X7W-YmexlhsRvbidwk Glucose study (ADAG), Diabetes Care, Vol.31,#8,Dec. 2007 Blood Venous blood specimen / Unknown 03/22/2025 10:42 AM EST 03/22/2025 12:00 PM EST Nilsa Brennan ANP LAB BLOOD ORDERABLES Final Resul t Performing Organization Address [facility] de Phone Number [facility] [address] [place] [address] [phone] * (ABNORMAL) Lipid Panel, Standard (03/22/2025 10:42 AM EST) Triglycerides 143 <150 mg/dL [facility] Comment:Desirable Triglyceri de: less than 150 mg/dLBorderline High Triglyceride 150-199 mg/dLHigh Triglyceride: 200-499 mg/dLVery High Triglyceride: greater than or equal to 5OO mg/dL Cholesterol 187 <200 mg/dL [facility] Comment:Desirable Cholestero l: less than 200 mg/dLBorderline High Cholesterol: 200-239 mg/dLHigh Cholesterol: greater than 239 mg/dL LDL Cholesterol Calculated 116(H) <100 mg/dL [facility] Comment:Desirable LDL: less than 100 mg/dLNear Optimal/Above Optimal LDL: 110- 129 mg/dLBorderline High LDL: 130-159 mg/dLHigh LDL: 160-189 mg/dLVery High LDL: greater than or equal to 190 mg/dL HDL Cholesterol 43 >40 mg/dL [facility] Comment:Desirable HDL: great er than 40 mg/dL Note: This HDL assay may give artificially low results in patients with liver disease. Blood Venous blood specimen / Unknown 03/22/2025 10:42 AM EST 03/22/2025 12:06 PM EST us Nilsa Brennan ANP LAB BLOOD ORDERABLES Final Resul t Performing Organization Address [facility] Co de Phone Number [facility] [address] [place] [address] [phone] * (ABNORMAL) Comprehensive Metabolic Panel (03/22/2025 10:42 AM EST) Sodium 141 135 - 145 mmol/L [facility] Potassium 4.3 3.3 - 5.1 mmol/L [facility] Chloride 109(H) 96 - 108 mmol/L [facility] Carbon Dioxide 27 22 - 29 mmol/L [facility] Anion Gap 9(L) 12 - 20 [facility] Urea Nitrogen (BUN) 16 9 - 16 mg/dL [facility] Creatinine, Serum 0.77 0.5 - 1.4 mg/dL [facility] Estimated Glomerular Filt Rate >60 [facility] Comment:Chronic Kidney Disea se: Estimated GFR < 60 mL/min/1.74k4Jeemnc Kidney Disease: Estimated GFR < 15 mL/min/1.73m2 Glucose 99 60 - 115 mg/dL [facility] Calcium 9.5 8.4 - 10.2 mg/dL [facility] Bilirubin, Total 0.5 0.0 - 1.0 mg/dL [facility] Aspartate Amino Transferase 22 5 - 31 U/L [facility] Alanine Aminotransferase 17 0 - 31 U/L [facility] Total Protein 7.5 6.5 - 8.0 g/dL [facility] Albumin Level 4.6 3.5 - 5.0 g/dL [facility] Alkaline Phosphatase 93 39 - 117 U/L [facility] Blood Venous blood specimen / Unknown 03/22/2025 10:42 AM EST 03/22/2025 12:06 PM EST [facility] LAB BLOOD ORDERABLES Final Resul t Performing Organization Address City/State/[facility] Co de Phone Number [facility] [address] [place] [address] [phone] * XR Pelvis 1-2 Views (03/21/2025 10:44 AM EST) Anatomical Region Laterality Modality Body, Pelvis Radiographic Blaire ging 03/21/2025 10:4 4 AM EST Narrative 03/21/2025 10:54 AM EST [facility] [address] [place] [address] XRay Report Signed Patient: Chelsie Nick MR#: [id number] : 1955 Acct:[id number] Age/Sex: 69 / F ADM Date: 03/21/25 Loc: HO.TARIKCX Attending Dr: Nilsa Brennan NP Ordering Physician: NILSA BRENNAN NP Date of Service: 03/21/25 Procedure(s): XR pelvis 1-2V Accession Number(s): [id number] cc: NILSA BRENNAN NP Reason for Exam: [...] by: Anam Toscano MD 03/21/2025 10:52 AM [facility] Dictated By: Anam Toscano MD Signed By: <Electronically signed by Anam Toscano MD in OV> 03/21/25 1052 DD/ 1044 TD/TT: 03/21/25 [address] Drawer: Procedure Note Donotuseinterpreter, Image - 03/21/2025 [place] [address] XRay Report Signed Patient: Chelsie Nick LMR#: [id number] : 1955cct:[id number] Age/Sex: 69 / FADM Date: 03/21/25 Loc: NHUNGX Attending Dr: Nilsa Brennan NP Ordering Physician: NILSA BRENNAN NP Date of Service: 03/21/25 Procedure(s): XR pelvis 1-2V Accession Number(s): [id number] cc: NILSA BRENNAN NP Reason for Exam: [...] 03/21/25 1052 DD/ 1044 TD/TT: 03/21/25 [address] Drawer: Nilsa Brennan ANP IMG XR PROCEDURES Edited Result - Final * XR Hip 2 or 3 Views Right (03/21/2025 10:42 AM EST) Anatomical Region Laterality Modality Lower Extremities, Hip Right Radiograp hic Imaging 03/21/2025 10:4 2 AM EST Narrative 03/21/2025 10:54 AM EST [address] [address] XRay Report Signed Patient: Chelsie Nick MR#: [id number] : 1955 Acct:[id number] Age/Sex: 69 / F ADM Date: 03/21/25 Loc: HO.HHCX Attending Dr: Nilsa Brennan NP Ordering Physician: NILSA BRENNAN NP Date of Service: 03/21/25 Procedure(s): XR hip RT min 2V Accession Number(s): [id number] cc: NILSA BRENNAN NP Reason for Exam: [...] OV> 03/21/25 1051 DD/ 1042 TD/TT: 03/21/25 [address] Drawer: Procedure Note Donotuseinterpreter, Image - 03/21/[address] [address] XRay Report Signed Patient: Chelsie Nick LMR#: [id number] : 4Acct:[id number] Age/Sex: 69 / FADM Date: 03/21/25 Loc: HO.HHCX Attending Dr: Nilsa Brennan NP Ordering Physician: NILSA BRENNAN NP Date of Service: 03/21/25 Procedure(s): XR hip RT min 2V Accession Number(s): [id number] cc: NILSA BRENNAN NP Reason for Exam: [...] OV> 03/21/25 1051 DD/ 1042 TD/TT: 03/21/25 [address] Drawer: Nilsa Brennan ANP IMG XR PROCEDURES Edited Result - Final * XR DEXA APPENDICULAR SKELETON (02/07/2025 12:52 PM EDT) Anatomical Region Laterality Modality Abdomen Radiographic Blaire ging 02/07/2025 12:5 2 PM EDT Narrative 02/07/2025 1:27 PM EDT [facility] [address] [place] [address] Mammography Report Signed Patient: Chelsie Nick MR#: [id number] : 1955 Acct:[id number] Age/Sex: 69 / F ADM Date: 02/07/25 Loc: ROBB Attending Dr: Rashida Leslie MD Ordering Physician: Rashida Leslie MD Results: Date of Service: 02/07/25 Follow Up: Procedure(s): XR DEXA appendicular skeleton Accession Number(s): [id number] cc: Rashida Leslie MD; NILSA BRENNAN NP Reason For Exam: M81.0 - Age-related osteoporosis without current pathological fracture EXAMINATION: DXA BONE DENSITY EXTREMITY HISTORY: M81.0 - Age-related osteoporosis without current pathological fracture TECHNIQUE: [employer] Dual energy absorptiometry (DEXA) of the lumbar [...] of the [employer] for Metabolic Bone Disease, a World Health Organization (WHO) Collaborating Center. Electronically signed by: Rufus Gloria MD 02/07/2025 01:24 PM EDT Dictated By: Rufus Gloria MD Signed By: <Electronically signed by Rufus Gloria MD in OV> 02/07/25 1324 DD/ 1252 TD/TT: 02/07/25 [address] Drawer: Procedure Note Donotuseinterpreter, Image - 02/07/2025 [facility] [address] [place] [address] Mammography Report Signed Patient: Chelsie Nick LMR#: [id number] : 4Acct:[id number] Age/Sex: 69 / FADM Date: 02/07/25 Loc: ROBB Attending Dr: Rashida Leslie MD Ordering Physician: Rashida Leslie MDResults: Date of Service: 02/07/25Follow Up: Procedure(s): XR DEXA appendicular skeleton Accession Number(s): [id number] cc: Rashida Leslie MD; NILSA BRENNAN NP Reason For Exam: M81.0 - Age-related osteoporosis without currentpathological fracture EXAMINATION: DXA BONE DENSITY EXTREMITY HISTORY: M81.0 - Age-related osteoporosis without current pathological fracture TECHNIQUE: [employer] Dual energy absorptiometry (DEXA) of the lumbar [...] of the [employer] for Metabolic Bone Disease, a World Health Organization (WHO) Collaborating Center. Electronically signed by: Rufus Gloria MD 02/07/2025 01:24 PM EDT RP Dictated By: Rufus Gloria MD Signed By: <Electronically signed by Rufus Gloria MD in OV> 02/07/25 1324 DD/ 1252 TD/TT: 02/07/25 [address] Drawer: us [facility] External Provider IMG XR PROCEDURES Final Result * US Thyroid (01/20/2025 3:45 PM EDT) Anatomical Region Laterality Modality Head, Neck Ultrasound 01/20/2025 3:45 PM EDT Narrative 01/23/2025 7:04 AM EDT [address] [address] Ultrasound Report Signed Patient: Chelsie Nick MR#: [id number] : 1955 Acct:[id number] Age/Sex: 69 / F ADM Date: 01/20/25 Loc: HO.US Attending Dr: Rashida Leslie MD Ordering Physician: Rashida Leslie MD Date of Service: 01/20/25 Procedure(s): US thyroid Accession Number(s): [id number] cc: Rashida Leslie MD; NILSA BRENNAN NP [...] 01/23/25 0701 DD/ 1545 TD/TT: 01/20/25 [address] Drawer: Procedure Note Donotuseinterpreter, Image - 01/23/2025 [place] [address] Ultrasound Report Signed Patient: Chelsie Nick LMR#: [id number] : 4Acct:[id number] Age/Sex: 69 / FADM Date: 01/20/25 Loc: HO.US Attending Dr: Rashida Leslie MD Ordering Physician: Rashida Leslie MD Date of Service: 01/20/25 Procedure(s): US thyroid Accession Number(s): [id number] cc: Rashida Leslie MD; NILSA BRENNAN NP [...] 01/23/25 0701 DD/ 1545 TD/TT: 01/20/25 15[address] Drawer: us [facility] External Provider IMG US PROCEDURES Edited Result - Final * BI Mammogram Screening Tomosynthesis Bilateral (08/10/2024 2:45 PM EDT) Anatomical Region Laterality Modality Breast Bilateral Mammography 08/10/2024 2:45 PM EDT Narrative 08/15/2024 5:14 PM EDT [facility] [address] [place] [address] Mammography Report Signed Patient: Chelsie Nick MR#: [id number] : 1955 Acct:[id number] Age/Sex: 69 / F ADM Date: 08/10/24 Loc: MAMMO Attending Dr: Nilsa Brennan NP Ordering Physician: NILSA BRENNAN NP Results: 1Negative Date of Service: 08/10/24 Follow Up: 1 Year From [facility] ina Mammogram Procedure(s): MM tomosynthesis screening BI Accession Number(s): [id number] cc: NILSA BRENNAN NP EXAMINATION: MM SCREENING [...] 08/15/24 1711 DD/ 1445 TD/TT: 08/10/24 [address] Drawer: Procedure Note Donotuseinterpreter, Image - 08/15/20[facility] [address] [place] [address] Mammography Report Signed Patient: Chelsie Nick LMR#: [id number] : 4Acct:[id number] Age/Sex: 69 / FADM Date: 08/10/24 Loc: MAMMO Attending Dr: Nilsa Brennan [employer] Ordering Physician: BRENNAN,NILSA NPResults: 1Negative Date of Service: 08/10/24Follow Up: 1 Year From Orig inal Mammogram Procedure(s): MM tomosynthesis screening BI Accession Number(s): [id number] cc: NILSA BRENNAN [employer] EXAMINATION: MM SCREENING DIGITAL BREAST TOMOSYNTHESIS, BILATERAL [...] 08/15/24 1711 DD/ 1445 TD/TT: 08/10/24 [address] Drawer: Nilsa Brennan ANP IMG BI PROCEDURES Final Result * Hm Colonoscopy (11/29/2021) Colonoscopy performed Historical Provider HEALTH MAINTENANCE Edited Result - Final from Last 3 Months or Most Recently Relevant to Health Maintenance Insurance [facility] FULL [facility] MEDICARE SUPPLEMENT Care Teams Fitter Up Relationship Specialty Start Date End Date Nilsa Brennan ANP [address] [place] [phone] PCP - General Family Medicine 03/26/20
--- OUTSIDE RECORDS SUMMARY | 2025-04-14 17:26 | XMS_ITS | Encounter Summary ---
Author Organization [employer] [facility] Address [address] [facility] [address] [place] [address] Care Team Providers Care Communication Clerk Name Role Phone Sneha Tipton Primary Care Provider [phone] Encounter Details Date Type Department Care Team (Latest Contact Info) Description 12/15/2018 Abstract [facility] CONVERSIONS Dental, Provider, DDS Social [...] Description 06/01/2025 11:00 AM EST Office Visit [facility] MEDICINE [address] [place] [address] Sneha Tipton ANP [address] [place] [address] documented as of this encounter Visit Diagnoses Not on filedocumented in this encounter Care Teams Communication Clerk Relationship Specialty Start Date End Date Sneha Tipton ANP [address] [place] [address] PCP - General Family Medicine 03/26/20 documented as of this encounter
--- OUTSIDE RECORDS SUMMARY | 2025-04-14 17:26 | XMS_ITS | Encounter Summary ---
Author Organization [employer] Address [address] [facility] [address] [place] [address] Care Team Providers Care Electric Melt Operator Name Role Phone Sneha Tipton Primary Care Provider [phone] Reason for Visit * Reason Comments Med Refill Encounter Details Date Type Department Care Team ([facility] st Contact Info) Description 07/29/2023 Refill [facility] MEDICINE [address] [place], [place] [phone] Sneha Tipton ANP [address] [place] [address] Mixed hyperlipidemia Social History Tobacco Use Types [...] the past 12 months, has t he [employer] Incentive, oil or water company threatened to shut [...] Description 06/01/2025 11:00 AM EST Office Visit [facility] MEDICINE [address] [place] [address] Sneha Tipton ANP [address] [place] [address] documented as of this encounter Visit Diagnoses Diagnosis Mixed hyperlipidemia documented in this encounter Care Teams Electric Melt Operator Relationship Specialty Start Date End Date Sneha Tipton ANP [address] [place] [address] PCP - General Family Medicine 03/26/20 documented as of this encounter
== END ==
LOC: HO.CARD 13:20
PROVIDERS: PCP Nurse Practitioner Primary Care; Visit Provider Internal Medicine Cardiovascular Disease
DX: R07.89 Other chest pain (principal)
CPT/HCPCS: 93306

== ENCOUNTER → 2025-04-14 13:22 | Outpatient (BNV) | payer MEDICARE, SELFPAY | PROVIDERS: PCP Nurse Practitioner Primary Care; Visit Provider Internal Medicine | DX: R07.89 Other chest pain (principal) | CPT/HCPCS: 93306 ==

== ENCOUNTER → 2025-04-26 09:45 | Outpatient (REF) | payer MEDICARE, SELFPAY ==
--- NOTE | ~2025-04-26 | NM_ITS ---
Lexiscan Myocardial perfusion study Indication: Preoperative cardiovascular stratification to evaluate for myocardial ischemia Technique: The patient was brought in for a Lexiscan perfusion study on 04/26/2025 and was injected 0.4 mg of Lexiscan intravenously. Within a minute of this injection 25 mCi of sestamibi was given intravenously. Images were obtained using the SPECT gamma camera interlaced with the gating device. Images were obtained in supine position. Resting perfusion study was performed on 04/27/2025. Patient was administered 25 mCi of sestamibi intravenously at rest. Images were then obtained in supine position. Images were processed with the software and compared side to side in short axis, horizontal long axis and vertical long axis views. Images obtained without without CT attenuation. Total DLP 85 mGy-cm. Findings: The stress perfusion study showed nonattenuated images show minimal thinning of the distal lateral wall of the LV myocardium. Remainder of the LV myocardium is normally perfused. Attenuated corrected images show normal uptake of radiotracer in all segments of the LV myocardium. There is suggestion of left ventricular hypertrophy. The gated study shows normal LV systolic function with visually estimated LVEF of greater than 55%. LV cavity is normal in size. The gated study shows normal systolic wall thickening and contraction of segments. Resting study shows no change in perfusion pattern compared to stress perfusion study. Gating at rest reveals normal systolic wall motion with ejection fraction at 55%. The findings are consistent with normal myocardial perfusion. NM/NM abelino perf SPECT rest & str Impression: 1. Myocardial perfusion imaging study shows normal myocardial perfusion 2. Gated LVEF is 55% 3. Transient ischemic dilatation not present Nondiagnostic changes on EKG. Electronically signed by: Wallace Barry MD 04/27/2025 04:47 PM EST
--- NOTE | 2025-04-26 09:48 | CA_ITS ---
Acquisition Time: 2025-04-26 09:56:04 Total Exercise Time: 00:02:00 Test Indications: CP, PREOP Medications: SEE H&P Protocol: LEXISCAN Max HR: 112 BPM 75% of Pred: 149 BPM Max BP: 132/76 mmHG Max Work Load: 1.0 METS Pharmacological stress test with Lexiscan while pt swings her legs in chair with reports of dizziness, SOB, fatigue and headache, without any arrythmias, with normotensive response to injection. Nondiagnostic EKG for ischemia. In recovery, pt treated with IVP Aminophylline 75 mg to reverse Lexiscan after which symptoms resolved and pt feeling back to baseline. Nuclear images pending. Test reviewed with Dr. Bains. Referred By: Wallace Barry Electronically Signed By: Mason Mijares
--- OUTSIDE RECORDS SUMMARY | 2025-04-26 11:25 | XMS_ITS | Clinical Summary ---
Author Organization [facility] Address [address] [place] [address] Care Team Providers Care Loan Representative Name Role Phone Unavailable Primary Care Provider [...]
--- OUTSIDE RECORDS SUMMARY | 2025-04-26 11:25 | XMS_ITS | Encounter Summary ---
Author Organization [employer] Address [address] [facility] 7t [place] [address] Care Team Providers Care Addictions Counselor Assistant Name Role Phone Sneha Tipton Primary Care Provider [phone] Encounter Details Date Type Department Care Team ([facility] st Contact Info) Description 08/26/2023 Abstract [facility] [address] [place], [place] [phone] Sneha Tipton ANP [address] [place] [address] Social History Tobacco Use Types Packs/Day Years [...] Description 06/01/2025 11:00 AM EST Office Visit [facility] [address] [place] [address] Sneha Tipton ANP [address] [place] [address] documented as of this encounter Visit Diagnoses Not on filedocumented in this encounter Care Teams Addictions Counselor Assistant Relationship Specialty Start Date End Date Sneha Tipton ANP [address] [place] [phone] PCP - General Family Medicine 03/26/20 documented as of this encounter
--- OUTSIDE RECORDS SUMMARY | 2025-04-26 11:25 | XMS_ITS | Clinical Summary ---
Author Organization [employer] Address [address] [facility] 7t [place] [address] Care Team Providers Care Lithographic Photographer Name Role Phone Danuta Nilsa HURTADO Primary Care Provider [phone] Allergies No known active allergies Medications diphenhydrAMINE [...] 65yo. LDCT form has been faxed to [facility]. Pt waiting for her urology [...] Department Care Team Description 03/31/2025 Orders Only [facility] External Provider, [facility] 03/23/[address] [address] Nilsa Brennan ANP Insurance 03/23/2025 Travel 03/21/[address] [address] Nilsa Brennan ANP chart prep 02/10/[address] [address] Nilsa Brennan ANP call back request 01/31/2025 2:00 PM EDT Office Visit [address] [address] Deidre Vieyra CNM Visit for pelvic exam (Primary Dx); Stress incontinence of urine 01/31/2025 Travel 01/30/2025 Telephone [facility] [address] [place] [phone] Shabnam High [place] from Last 3 Months Immunizations Immunization Administration [...] Description 06/01/2025 11:00 AM EST Office Visit [facility] [address] [place] [address] Nilsa Brennan, ANP [address] [place] [address] Health Maintenance Due Date Last Done Comments [...] APPENDICULAR SKELETON Routine 02/07/2025 12:52 PM EDT BI MAMMOGRAM SCREENING TOMOSYNTHESIS BILATERAL Routine 08/10/2024 2:45 PM EDT HM COLONOSCOPY Routine 11/29/2021 from Last 3 Months or Most Recently Relevant to Health Maintenance Results * CT Lung Screening Low dose (03/31/2025 11:07 AM EST) Anatomical Region Laterality Modality Lung Computed Tomogra phy 03/31/2025 11:0 7 AM EST Narrative 03/31/2025 11:55 AM EST [address] [address] [address] Scan Report Signed Patient: Chelsie Nick MR#: [id number] : 1955 Acct:[id number] Age/Sex: 69 / F ADM Date: 03/31/25 Loc: HO.CT Attending Dr: Navya Kinney PA-C Ordering Physician: Navya Kinney PA-C Date of Service: 03/31/25 Procedure(s): CT lung screening Accession Number(s): [id number] cc: Navya Kinney PA-C; NILSA BRENNAN NP Report Number: [id number]: Total DLP = 47.00 mGy-cm Reason for [...] for CT CHEST LOW DOSE CANCER SCREENING ([id number]) can be placed. Electronically signed by: Efrem Barnett MD 03/31/2025 11:52 AM EST Dictated By: Efrem Barnett MD Signed By: <Electronically signed by Efrem Barnett MD in OV> 03/31/25 1152 DD/ 1107 TD/TT: 03/31/25 1125 E Learning Manager: Procedure Note Donotuseinterpreter, Image - 03/31/[address] [address] [address] Scan Report Signed Patient: Chelsie Nick LMR#: [id number] : 4Acct:[id number] Age/Sex: 69 / FADM Date: 03/31/25 Loc: HO.CT Attending Dr: Navya Kinney PA-C Ordering Physician: Navya Kinney PA-C Date of Service: 03/31/25 Procedure(s): CT lung screening Accession Number(s): [id number] cc: Navya Kinney PA-C; NILSA BRENNAN NP Report Number: [id number]: Total DLP = 47.00 mGy-cm Reason for [...] for CT CHEST LOW DOSE CANCER SCREENING ([id number]) can be placed. Electronically signed by: Efrem Barnett MD 03/31/2025 11:52 AM EST Dictated By: Efrem Barnett MD Signed By: <Electronically signed by Efrem Barnett MD in OV> 03/31/25 1152 DD/ 1107 TD/TT: 03/31/25 1125 E Learning Manager: [facility] External Provider IMG CT PROCEDURES Final Result * Vitamin D, 25-Hydroxy, Total, Immunoassay (03/22/2025 10:42 AM EST) Vitamin D 25-OH Total 35.1 >30 ng/mL [facility] Comment: Health Based Reference Values*< 20 ng/mL Pzxasehxe74-67 ng/mL Insufficient> 30 ng/mL Sufficient*Jose J GARCIA. [...] ANP LAB BLOOD ORDERABLES Final Resul t [facility] [address] [place] [phone] * Hemoglobin A1c (03/22/2025 10:42 AM EST) Hemoglobin A1c 5.7 <6.0 % [facility] Comment:Hemoglobin A1C Refer ence Range Adults: 4.8 - 6.0 % Non diabetic: < 6.0 % Goal: < 7.0 %Additional Action Suggested: > 8.0 %Note: Hemoglobin A1c results are invalid for patients with abnormal amounts of HbF. Blood transfusions may impact the HbA1c concentration in the patient sample. Estimated Average Glucose 117 mg/dL [facility] Comment:eAG = Estimated ave rage glucose which is %A1C expressed asaverage glucose, using the formula of the S7P-LftfvcqKvcjfpn Glucose study (ADAG), Diabetes Care, Vol.31,#8,Dec. 2007 Blood Venous blood specimen / Unknown 03/22/2025 10:42 AM EST 03/22/2025 12:00 PM EST us Nilsa Brennan ANP LAB BLOOD ORDERABLES Final Resul t Performing Organization Address [facility] de Phone Number [facility] [address] [place] [address] [phone] * (ABNORMAL) Lipid Panel, Standard (03/22/2025 10:42 AM EST) Triglycerides 143 <150 mg/dL [facility] Comment:Desirable Triglyceri de: less than 150 mg/dLBorderline High Triglyceride 150-199 mg/dLHigh Triglyceride: 200-499 mg/dLVery High Triglyceride: greater than or equal to 5OO mg/dL Cholesterol 187 <200 mg/dL [facility] Comment:Desirable Cholestero l: less than 200 mg/dLBorderline High Cholesterol: 200-239 mg/dLHigh Cholesterol: greater than 239 mg/dL LDL Cholesterol Calculated 116(H) <100 mg/dL [facility] Comment:Desirable LDL: less than 100 [...] 03/22/2025 12:06 PM EST us Nilsa Brennan [facility] BLOOD ORDERABLES Final Resul t Performing Organization Address [facility] Co de Phone Number [facility] [address] [place] [address] [phone] * (ABNORMAL) Comprehensive Metabolic Panel (03/22/2025 10:42 AM EST) Sodium 141 135 - 145 mmol/L [facility] Potassium 4.3 3.3 - 5.1 mmol/L [facility] Chloride 109(H) 96 - 108 mmol/L [facility] Carbon Dioxide 27 22 - 29 mmol/L [facility] Anion Gap 9(L) 12 - 20 [facility] Urea Nitrogen (BUN) 16 9 - 16 mg/dL [facility] Creatinine, Serum 0.77 0.5 - 1.4 mg/dL [facility] Estimated Glomerular Filt Rate >60 [facility] Comment:Chronic Kidney Disea se: Estimated GFR < 60 mL/min/1.25s2Xtraqs Kidney Disease: Estimated GFR < 15 mL/min/1.73m2 Glucose 99 60 - 115 mg/dL [facility] Calcium 9.5 8.4 - 10.2 mg/dL [facility] Bilirubin, Total 0.5 0.0 - 1.0 mg/dL [facility] Aspartate Amino Transferase 22 5 - 31 U/L [facility] Alanine Aminotransferase 17 0 - 31 U/L [facility] Total Protein 7.5 6.5 - 8.0 g/dL [facility] Albumin Level 4.6 3.5 - 5.0 g/dL [facility] Alkaline Phosphatase 93 39 - 117 U/L [facility] Blood Venous blood specimen / Unknown 03/22/2025 10:42 AM EST 03/22/2025 12:06 PM EST Nilsa Brennan [facility] BLOOD ORDERABLES Final Resul t [facility] [address] [place] [phone] * XR Pelvis 1-2 Views (03/21/2025 10:44 AM EST) Anatomical Region Laterality Modality Body, Pelvis Radiographic Blaire ging 03/21/2025 10:4 4 AM EST Narrative 03/21/2025 10:54 AM EST [address] [address] XRay Report Signed Patient: Chelsie Nick MR#: [id number] : 1955 Acct:[id number] Age/Sex: 69 / F ADM Date: 03/21/25 [facility] Attending Dr: Nilsa Brennan NP Ordering Physician: NILSA BRENNAN NP Date of Service: 03/21/25 Procedure(s): XR pelvis 1-2V Accession Number(s): [id number] cc: NILSA BRENNAN NP Reason for Exam: [...] 03/21/25 1052 DD/ 1044 TD/TT: 03/21/25 1044 E Learning Manager: Procedure Note Donotuseinterpreter, Image - 03/21/2025 [place] [address] XRay Report Signed Patient: Chelsie Nick LMR#: [id number] : 4Acct:[id number] Age/Sex: 69 / FADM Date: 03/21/25 Loc: [facility] Attending Dr: Nilsa Brennan NP Ordering Physician: NILSA BRENNAN NP Date of Service: 03/21/25 Procedure(s): XR pelvis 1-2V Accession Number(s): [id number] cc: NILSA BRENNAN NP Reason for Exam: [...] 03/21/25 1052 DD/ 1044 TD/TT: 03/21/25 1044 E Learning Manager: Nilsa Brennan ANP IMG XR PROCEDURES Edited Result - Final * XR Hip 2 or 3 Views Right (03/21/2025 10:42 AM EST) Anatomical Region Laterality Modality Lower Extremities, Hip Right Radiograp hic Imaging 03/21/2025 10:4 2 AM EST Narrative 03/21/2025 10:54 AM EST [address] [address] XRay Report Signed Patient: Chelsie Nick MR#: [id number] : 1955 Acct:[id number] Age/Sex: 69 / F ADM Date: 03/21/25 Loc: HO.HHCX Attending Dr: Nilsa Brennan NP Ordering Physician: NILSA BRENNAN NP Date of Service: 03/21/25 Procedure(s): XR hip RT min 2V Accession Number(s): [id number] cc: NILSA BRENNAN NP Reason for Exam: [...] 03/21/25 1051 DD/ 1042 TD/TT: 03/21/25 1042 E Learning Manager: Procedure Note Donotuseinterpreter, Image - 03/21/[address] [place] [address] XRay Report Signed Patient: Chelsie Nick LMR#: [id number] : 4Acct:[id number] Age/Sex: 69 / FADM Date: 03/21/25 Loc: HO.HHCX Attending Dr: Nilsa Brennan GUN TESTER Ordering Physician: NILSA BRENNAN NP Date of Service: 03/21/25 Procedure(s): XR hip RT min 2V Accession Number(s): [id number] cc: NILSA BRENNAN NP Reason for Exam: [...] by: Anam Toscano MD 03/21/2025 10:51 AM [facility] Dictated By: Anam Toscano MD Signed By: <Electronically signed by Anam Toscano MD in OV> 03/21/25 1051 DD/ 1042 TD/TT: 03/21/25 1042 E Learning Manager: Nilsa Brennan ANP IMG XR PROCEDURES Edited Result - Final * XR DEXA APPENDICULAR SKELETON (02/07/2025 12:52 PM EDT) Anatomical Region Laterality Modality Abdomen Radiographic Blaire ging 02/07/2025 12:5 2 PM EDT Narrative 02/07/2025 1:27 PM EDT [address] [place] [address] Mammography Report Signed Patient: Chelsie Nick MR#: [id number] : 1955 Acct:[id number] Age/Sex: 69 / F ADM Date: 02/07/25 Loc: ROBB Attending Dr: Rashida Leslie MD Ordering Physician: Rashida Leslie MD Results: Date of Service: 02/07/25 Follow Up: Procedure(s): XR DEXA appendicular skeleton Accession Number(s): [id number] cc: Rashida Leslie MD; NILSA BRENNAN NP Reason For Exam: M81.0 - Age-related osteoporosis without current pathological fracture EXAMINATION: DXA BONE DENSITY EXTREMITY HISTORY: M81.0 - Age-related osteoporosis without current pathological fracture TECHNIQUE: [employer] Dual energy absorptiometry (DEXA) of the lumbar [...] of the [employer] [place] for Metabolic Bone Disease, a World Health Organization (WHO) Collaborating Center. Electronically signed by: Rufus Gloria MD 02/07/2025 01:24 PM EDT RP Dictated By: Rufus Gloria MD Signed By: <Electronically signed by Rufus Gloria MD in OV> 02/07/25 1324 DD/ 1252 TD/TT: 02/07/25 1305 E Learning Manager: Procedure Note Donotuseinterpreter, Image - 02/07/2025 [facility] [address] [place] [address] Mammography Report Signed Patient: Chelsie Nick LMR#: [id number] : 4Acct:[id number] Age/Sex: 69 / FADM Date: 02/07/25 Loc: ROBB Attending Dr: Rashida Leslie MD Ordering Physician: Rashida Leslie MDResults: Date of Service: 02/07/25Follow Up: Procedure(s): XR DEXA appendicular skeleton Accession Number(s): [id number] cc: Rashida Leslie MD; NILSA BRENNAN NP Reason For Exam: M81.0 - Age-related osteoporosis without currentpathological fracture EXAMINATION: DXA BONE DENSITY EXTREMITY HISTORY: M81.0 - Age-related osteoporosis without current pathological fracture TECHNIQUE: [employer] Dual energy absorptiometry (DEXA) of the lumbar [...] is a trademark of the [employer]'s [place] for Metabolic Bone Disease, a World Health Organization (WHO) Collaborating Center. Electronically signed by: Rufus Golria MD 02/07/2025 01:24 PM EDT Dictated By: Rufus Gloria MD Signed By: <Electronically signed by Rufus Gloria MD in OV> 02/07/25 1324 DD/ 1252 TD/TT: 02/07/25 1305 E Learning Manager: [facility] External Provider IMG XR PROCEDURES Final Result * BI Mammogram Screening Tomosynthesis Bilateral (08/10/2024 2:45 PM EDT) Anatomical Region Laterality Modality Breast Bilateral Mammography 08/10/2024 2:45 PM EDT Narrative 08/15/2024 5:14 PM EDT [address] [place] [address] Mammography Report Signed Patient: Chelsie Nick MR#: [id number] : 1955 Acct:[id number] Age/Sex: 69 / F ADM Date: 08/10/24 Loc: ROBB Attending Dr: Nilsa Brennan NP Ordering Physician: NILSA BRENNAN NP Results: 1Negative Date of Service: 08/10/24 Follow Up: 1 Year From Orig inal Mammogram Procedure(s): MM tomosynthesis screening BI Accession Number(s): [id number] cc: NILSA BRENNAN NP EXAMINATION: MM SCREENING [...] 08/15/24 1711 DD/ 1445 TD/TT: 08/10/24 1457 E Learning Manager: Procedure Note Donotuseinterpreter, Image - 08/15/2024 [facility] [address] [place] [address] Mammography Report Signed Patient: Chelsie Nick LMR#: [id number] : 1955cct:[id number] Age/Sex: 69 / FADM Date: 08/10/24 Loc: MAMMO Attending Dr: Nilsa Brennan NP Ordering Physician: NILSA BRENNAN NPResults: 1Negative Date of Service: 08/10/24Follow Up: 1 Year From Orig inal Mammogram Procedure(s): MM tomosynthesis screening BI Accession Number(s): [id number] cc: NILSA BRENNAN NP EXAMINATION: MM SCREENING [...] 08/15/24 1711 DD/ 1445 TD/TT: 08/10/24 1457 E Learning Manager: Nilsa CHRISTIANSON BI PROCEDURES Final Result * Colonoscopy (11/29/2021) Colonoscopy performed Historical Provider HEALTH MAINTENANCE Edited Result - Final from Last 3 Months or Most Recently Relevant to Health Maintenance Insurance [id number] [id number] MEDICARE SUPPLEMENT Care Teams Lithographic Photographer Relationship Specialty Start Date End Date Nilsa Brennan ANP [address] [place] [phone] PCP - General Family Medicine 03/26/20
--- OUTSIDE RECORDS SUMMARY | 2025-04-26 11:25 | XMS_ITS | Encounter Summary ---
Author Organization [employer] [facility] Address [address] [facility] 7t [place] [address] Care Team Providers Care Balance Wheel Hand Filer Name Role Phone Sneha Tipton Primary Care Provider [phone] Encounter Details Date Type Department Care Team (Latest Contact Info) Description 12/15/2018 Abstract [facility] CONVERSIONS Dental, Provider, DDS Social History [...] Description 06/01/2025 11:00 AM EST Office Visit [facility] [address] [place] [address] Sneha Tipton ANP [address] [place] [address] documented as of this encounter Visit Diagnoses Not on filedocumented in this encounter Care Teams Balance Wheel Hand Filer Relationship Specialty Start Date End Date Sneha Tipton ANP [address] [place] [address] PCP - General Family Medicine 03/26/20 documented as of this encounter
--- OUTSIDE RECORDS SUMMARY | 2025-04-26 11:26 | XMS_ITS | Encounter Summary ---
Author Organization [employer] Address [address] [facility] 7t [place] [address] Care Team Providers Care Right Of Way Worker Name Role Phone Sneha Tipton Primary Care Provider [phone] Reason for Visit * Reason Comments Med Refill Encounter Details Date Type Department Care Team ([facility] st Contact Info) Description 07/29/2023 Refill [facility] [address] [place], [place] [phone] Sneha Tipton ANP [address] [place] [address] Mixed hyperlipidemia Social History Tobacco Use Types [...] the past 12 months, has t he [employer], oil or water company threatened to shut [...] Description 06/01/2025 11:00 AM EST Office Visit [facility] [address] [place] [address] Sneha Tipton ANP [address] [place] [address] documented as of this encounter Visit Diagnoses Diagnosis Mixed hyperlipidemia documented in this encounter Care Teams Right Of Way Worker Relationship Specialty Start Date End Date Sneha Tpiton ANP [address] [place] [phone] PCP - General Family Medicine 03/26/20 documented as of this encounter
== END ==
LOC: HO.CARD 09:45
PROVIDERS: PCP Nurse Practitioner Primary Care; Visit Provider Internal Medicine Cardiovascular Disease
DX: Z01.810 Encounter for preprocedural cardiovascular examination (principal); R07.89 Other chest pain
CPT/HCPCS: 78452; 93017; A9500; J0280; J2785

== ENCOUNTER → 2025-04-26 09:48 | Outpatient (BNV) | payer MEDICARE, SELFPAY | PROVIDERS: PCP Nurse Practitioner Primary Care | DX: Z01.810 Encounter for preprocedural cardiovascular examination (principal) | CPT/HCPCS: 78452; 93016; 93018 ==

== ENCOUNTER 2025-05-05 09:12 | Emergency (ER) | payer MEDICARE, MEDICAID, SELFPAY ==
--- NOTE | ~2025-05-05 | XR_ITS ---
EXAMINATION: XR KNEE, RIGHT CLINICAL INFORMATION: pain COMPARISON: X-ray 06/30/2023 TECHNIQUE: Four views of the right knee. FINDINGS: No visible acute fracture, dislocation or suspicious bony lesion. Mild medial compartment joint space narrowing. Small effusion. No abnormal soft tissue calcification. XR/XR knee RT 3V IMPRESSION: No acute findings. Mild degenerative changes. Small effusion. Electronically signed by: Jose Angel Gutierrez MD 05/05/2025 10:24 AM [facility]
--- NOTE | ~2025-05-05 | US_ITS ---
EXAMINATION: US TRIPLEX LOWER EXTREMITY, RIGHT CLINICAL INFORMATION: Pain, possible DVT COMPARISON: None available. TECHNIQUE: Color-flow triplex imaging with spectral analysis and compression Doppler were performed on the right lower extremity. FINDINGS: Respiratory variation, normal compression and augmented flow are noted throughout the right lower extremity. The visualized common femoral vein, superficial femoral vein, profunda femoral vein, popliteal vein and midcalf peroneal and posterior tibial venous segments show no evidence of deep venous thrombosis. There is no Rod's cyst. US/US venous duplex LE RT IMPRESSION: No evidence of deep venous thrombosis involving the right lower extremity. Electronically signed by: Jose Angel Gutierrez MD 05/05/2025 12:10 PM [facility]
[2025-05-05 09:20] VITALS: BP 161/83; PULSE 74; RESP 16; TEMP 36.6; O2SAT 98; BMI 28.3
--- NOTE | 2025-05-05 09:41 | ED.GENADULT ---
HPI - General Adult General Chief complaint: Extremity Problem Stated complaint: r knee pain swollen Time Seen by Provider: 05/05/25 09:41 Source: patient, family (patient's daughter) and physician anesthesiologist (all interactions with this patient were facilitated with an [facility] wood pile driver operator (Reyna)) Mode of arrival: ambulatory Limitations: language barrier (all interactions with this patient were facilitated with an [facility] wood pile driver operator (Reyna)) History of Present Illness ED Provider: Debra Pritchard PA-C HPI narrative: Patient is a 69 year old female with a history of OAB, ISD, tobacco use, hyperthyroidism, and osteoporosis presenting to the emergency department today with right knee pain. Patient states that for awhile her right knee has been hurting but she recently developed worse pain that radiates into the thigh and swelling in the knee. Patient states that she is worried about a blood clot in her leg. Patient denies any trauma / falls / injuries. Patient denies any other complaints at this time. Related Data Home Medications ?Medication ?Instructions ?Recorded ?Confirmed atorvastatin 10 mg tablet 10 mg PO DAILY 10/15/20 02/23/25 ibuprofen 800 mg tablet 800 mg PO TID 08/11/22 02/23/25 Previous Rx's ?Medication ?Instructions ?Recorded calcium 325 mg-vit D3 12.5 1 tab PO DAILY #30 tabs 12/31/23 mcg-zinc 2.75 [id number]-jjnxlqcpx tablet (Citracal-D3 Maximum Plus) cholecalciferol (vitamin D3) 25 25 mcg PO DAILY 3 months #90 caps 11/28/24 mcg (1,000 unit) capsule oxybutynin chloride 10 mg 10 mg PO DAILY #90 tabs 03/09/25 tablet,extended release 24 hr Allergies Allergy/AdvReac Type Severity Reaction Status Date / Time No Known Allergies Allergy Verified 05/05/25 09:22 Review of Systems Constitutional: Constitutional: Reports as per HPI Eyes: Eyes: Reports as per HPI ENT: Reports as per HPI Cardiovascular: Cardiovascular: Reports as per HPI Respiratory: Respiratory: Reports as per HPI Gastrointestinal: Gastrointestinal: Reports as per HPI Genitourinary: Genitourinary: Reports as per HPI Musculoskeletal: Musculoskeletal: Reports as per HPI Integumentary/Breasts: Skin/Breast: Reports as per HPI Neurologic: Reports as per HPI Psychiatric: Psychiatric: Reports as per HPI Endocrine: Endocrine: Reports as per HPI Hematologic/Lymphatic: Hematologic/Lymphatic: Reports as per HPI Allergic/Immunologic: Allergic/Immunologic: Reports as per HPI [facility] Past Medical History Attestation statement: The following information was validated with the patient. (all information validated with the patient's daughter) Source: old records reviewed, obtained from family (patient's daughter provided additional history and confirmed the history provided by the patient. ) and nursing notes reviewed Medical History Atypical chest pain Personal history of nicotine dependence Multinodular thyroid OAB (overactive bladder) UTI (urinary tract infection) Stress incontinence in female Osteoporosis Hyperparathyroidism Vitamin D deficiency Toxic multinodul goiter Surgical History History of cystoscopy History of colonoscopy History of hysterectomy History of parathyroidectomy History of partial thyroidectomy History of ear surgery Family History Family History Father No problems noted. Mother Hypertension Arthritis Osteoporosis Social History Social History Alcohol intake: current Alcohol intake frequency: holidays/special occasions only Patient Tobacco Use Status: Former Tobacco user Tobacco use type: Cigarette Years Smoked: (onset 14yo, 1ppd x 54yrs, 50pyh - quit 2023) Smoked in Last 30 Days: No Use of substances other than those prescribed or required for medical reasons: No Advance Directives: No Advance Directives Information Provided: Yes Do you have a plan to hurt others: No Plan Physical Exam ED Vital Signs: Vital Signs - 24 hr 05/05/25 09:20 05/05/25 12:08 05/05/25 12:24 Temperature 97.8 F 97.9 F 97.9 F Pulse Rate 74 69 69 Respiratory Rate 16 15 15 Blood Pressure 161/83 H 164/90 H 164/90 H Pulse Oximetry 98 99 99 Oxygen Delivery Method Room Air Room Air Room Air BMI result Body Mass Index 28.3 Const General: cooperative, no acute distress, alert and awake Nutritional Appearance: well nourished Orientation/consciousness: patient oriented x3 HENMT Head: Yes normal to inspection and Yes atraumatic Ears: hearing grossly normal bilaterally and external ears normal General nose exam: Normal external nose present, no nasal discharge noted and no epistaxis Face and sinus: Yes normal facial exam, No abrasion and No laceration Mouth: Normal oral and palatal mucosa present, no drooling and no muffled voice Eyes General: appearance normal, both eyes and all related structures Periorbital: periorbital findings normal Eyelids: Yes eyelids normal Conjunctivae: conjunctivae normal Pupils: Equal, round and reactive pupils present EOM: EOMs intact bilaterally Neck Neck: Yes normal visual inspection and Yes full ROM Resp Effort & Inspection: normal respiratory effort and able to speak in complete sentences Neuro General: patient oriented x3, moves all extremities and CN's II-XI intact bilaterally Cranial nerves: Yes Equal, round and reactive pupils present Cognition (Neuro): normal cognition Extrem General: Yes normal to inspection, Yes full ROM and Yes capillary refill normal Psych Appearance: grossly normal Mental Status: mental status grossly normal Affect: normal affect Attitude: cooperative Thought process: Normal thought process present Thought content: Normal thought content present Insight: Good insight present (Psych) Medications Administered Discontinued Medications Generic Name Dose Route Start Last Admin Trade Name Madeleine PRN Reason Stop Dose Admin Ketorolac Tromethamine 15 mg 05/05/25 11:39 05/05/25 12:06 Ketorolac Tromethamine 15 Mg/Ml Vial IM 05/05/25 11:40 15 mg ONCE ONE Administration Procedures Orthopedic Splinting/Casting R knee effusion / OA: Side: right Lower Extremity Injury Location: knee Lower Extremity Immobilizer: Ryan wrap Medical Decision Making Medical Decision Making MDM Narrative: Patient is a 69 year old female with a history of OAB, ISD, tobacco use, hyperthyroidism, and osteoporosis presenting to the emergency department today with right knee pain. Patient's physical exam was as noted in the physical exam portion of this note. Patient had good ROM of the right knee Patient's right knee x-ray showed mild degenerative changes with a small effusion. Patient's right lower extremity US showed no evidence of DVT. Patient's right knee was wrapped in an RYAN wrap and the patient was given IM Toradol. Patient's PMS was intact prior to and after RYAN placement. I explained my physical exam findings as well as all test results to the patient and the patient's daughter. I answered all questions asked by the patient and the patient's daughter. I stressed the importance of the patient taking her medication as directed (either prescribed or as the over the counter packaging recommends). I stressed the importance of the patient following up with her primary care provider and the orthopedic team. I stressed the importance of the patient returning to the emergency department immediately if her symptoms were to worsen or if she were to develop any dizziness, shortness of breath, difficulty breathing, chest pain, blurry vision, loss of vision, nausea, vomiting, abdominal pain, fever, chills, back pain, or any other complaints. Patient and the patient's daughter verbalized agreement and understanding with this treatment plan and discharge. Differential Diagnosis Differential Diagnoses: The differential diagnosis associated with the presentation includes Right knee OA Right knee pain Right knee joint effusion DVT Admission/Observation Consideration of admission/observation: Escalation of care including admission/observation considered Patient would have been admitted to the hospital had her work up had any findings where hospital admission was appropriate and her clinical presentation warranted hospital admission. Independent Interpretation I performed an independent interpretation of an: Plain X-Ray and Ultrasound Interpretation: My interpretation is in agreement with the radiologist's impression of these imaging studies as written below. EXAMINATION: US TRIPLEX LOWER EXTREMITY, RIGHT CLINICAL INFORMATION: Pain, possible DVT COMPARISON: None available. TECHNIQUE: Color-flow triplex imaging with spectral analysis and compression Doppler were performed on the right lower extremity. FINDINGS: Respiratory variation, normal compression and augmented flow are noted throughout the right lower extremity. The visualized common femoral vein, superficial femoral vein, profunda femoral vein, popliteal vein and midcalf peroneal and posterior tibial venous segments show no evidence of deep venous thrombosis. There is no Rod's cyst. US/US venous duplex LE RT IMPRESSION: No evidence of deep venous thrombosis involving the right lower extremity. Electronically signed by: Jose Angel Gutierrez MD 05/05/2025 12:10 PM [facility] Dictated By: Jose Angel Gutierrez MD Signed By: Electronically signed by Jose Angel Gutierrez MD 05/05/25 1210 EXAMINATION: XR KNEE, RIGHT CLINICAL INFORMATION: pain COMPARISON: X-ray 06/30/2023 TECHNIQUE: Four views of the right knee. FINDINGS: No visible acute fracture, dislocation or suspicious bony lesion. Mild medial compartment joint space narrowing. Small effusion. No abnormal soft tissue calcification. XR/XR knee RT 3V IMPRESSION: No acute findings. Mild degenerative changes. Small effusion. Electronically signed by: Jose Angel Gutierrez MD 05/05/2025 10:24 AM EST RP Dictated By: Jose Angel Gutierrez MD Signed By: Electronically signed by Jose Angel Gutierrez MD 05/05/25 1024 Radiology Impression Discussion of test interpretation with radiology: I have reviewed the radiologist's reading. Independent Historian Clinical information obtained from an independent historian. History obtained from or confirmed by: Other (patient's daughter provided additional history and confirmed the history provided by the patient. ) Discharge Plan Discharge Clinical Impression: Arthritis, Knee pain Patient Disposition: Home, Self-Care Instructions: Osteoarthritis (DC), Knee Pain (ED) Additional Instructions: Your x-ray of the right knee showed evidence of arthritis with a very small amount of fluid. You were given a shot of IM Toradol and your right knee wrapped. You should follow up with the orthopedic team about this. Your right lower extremity was ultrasounded to rule out a blood clot because of your concern for that - it was negative. You do not have a blood clot. IF you are prescribed home medications and/or you are taking over the counter medications at home - it is very important you continue to do so as prescribed / directed unless told otherwise. SI le recetan medicamentos y/o est? tomando medicamentos de venta ines, es muy importante que contin?e haci?ndolo seg?n lo recetado/indicado a menos que le indiquen lo contrario. Follow up with your primary care provider. Return to the emergency department immediately if your symptoms worsen or if you develop any dizziness, shortness of breath, difficulty breathing, chest pain, blurry vision, loss of vision, nausea, vomiting, abdominal pain, fever, chills, back pain, or any other complaints. Cara?seguimiento?con shirley m?dico de atenci?n primaria. Acuda inmediatamente al servicio de urgencias si mana s?ntomas empeoran o si presenta falta de aliento, dificultad para respirar, dolor tor?cico, mareos, aturdimiento, dolor de espalda, dolor abdominal, fiebre, escalofr?os o cualquier otro s?ntoma. If you do not have a primary care provider - call any of the below numbers to establish and follow up with a primary care provider. Si no tiene un proveedor de atenci?n primaria, llame a cualquiera de los n?meros que aparecen a continuaci?n para establecer y hacer seguimiento con un proveedor de atenci?n primaria. [facility] Primary Care (Mobile) [phone] [place] [address], [address] [facility] Primary Care (2 [address] [place]) [phone] [place] [address], [address] [facility], [address] [facility] Primary Care ([address] [place]) [phone] [place] [address], [address] [facility], [address] [facility] Primary Care ([place]) [phone] [place] [address] 2 [facility], [address] [facility] Family Medicine [phone] [place] [address], [address] Please see the information below about our Patient Portal. If you are not yet enrolled in the [facility] Patient Portal, you will receive an enrollment email invitation following your visit to any [facility] setting. You may also self-enroll in the Patient Portal by visiting our website: [email or web address] The following information is required to access the Patient Portal: - Your [facility] Medical Record Number - Your personal home email address (must match what is in your electronic medical record, Registration staff can assist with this) - Name - Date of Capabilities of the Patient Portal: - Message some providers - View upcoming appointments - Access your health summary, medical history, and visit history - View current conditions and allergies - View procedure and lab results - View your medications, including guidelines, side effects, and precautions - Complete pre-appointment questionnaires requested by your provider - Ready summary reports of your office visits and procedures To access the Patient Portal Mobile Renée, follow these directions: - Search [employer] in the Renée Store or [employer] Store - Download the Renée - Search for [facility] - Enter your login/password Portal del paciente Si usted no esta inscrito en el portal de pacientes de [facility], recibira niyah invitacion de inscripcion despues de shirley visita al [facility] o al [facility] via correo electronico. Tambien puede inscribirse voluntariamente en el portal de pacientes visitando nuestra pagina web: [email or web address] La siguiente informacion sera requerida para acceder al portal: - Shirley leonard de historia medica de [facility] - Shirley direccion de correo electronico personal - Nombre - Fecha de nacimiento Capacidades: Las siguientes capacidades estan disponibles en el portal de pacientes: - Enviar mensajes a algunos doctores - Verificar proximas citas - Acceso a shirley historial de keith, registro medico e historial de visitas - John las condiciones actuales y alergias john procedimientos y resultados del laboratorio - John mana medicamentos, incluyendo las pautas - Efectos secundarios y precauciones - Completar o llenar formularios / cuestionarios de - Citas solicitadas por shirley doctor - Leer los resumenes de reportes medicos de mana visitas y procedimientos Demetrio acceder a la aplicacion movil: - Lj [employer] en la Renée Store o [employer] Store - Descargue la aplicacion - Lj [facility] - Ingrese shirley nombre de usuario / Contrasena Prescriptions: No Action atorvastatin 10 mg tablet 10 mg PO DAILY ibuprofen 800 mg tablet 800 mg PO TID cholecalciferol (vitamin D3) 25 mcg (1,000 unit) capsule 25 mcg PO DAILY 90 Days Qty: 90 2RF [id number]-puja [Citracal-D3 Maximum Plus] 325 mg-12.5 mcg -2.75 mg tablet 1 tab PO DAILY Qty: 30 4RF oxybutynin chloride 10 mg tablet extended release 24hr 10 mg PO DAILY Qty: 90 3RF Referrals: [facility] [Provider Group] Referral Note: Call to establish and follow up with the orthopedic team. Sneha Tipton NP [Primary Care Provider, Internal Medicine] Interventions: ED Discharge Assessment Last Done: 05/05/25 12:24 Discharge Date/Time: 05/05/25 12:30 Print Language: Macedonian
--- OUTSIDE RECORDS SUMMARY | 2025-05-05 10:17 | XMS_ITS | Encounter Summary ---
Author Organization [employer] Address [address] [facility] [address] [place] [address] Care Team Providers Care Story Teller Name Role Phone Sneha Tipton Primary Care Provider [phone] Reason for Visit * Reason Onset Date Comments Results 05/01/2025 Encounter Details Date Type Department Care Team (Latest Contact Info) Description 05/01/2025 Results Follow-Up [facility] MEDICINE [address] [place] [address] Sneha Tipton ANP [address] [place] [address] XR Hip 2 or 3 Views Right, Lipid Panel, Standard, Comprehensive Metabolic Panel, Additional followed-up results: 2 Social History Tobacco Use Types Packs/Day Years [...] encounter Miscellaneous Notes * Telephone Encounter - Katy Espinoza RN - 05/01/2025 9:48 AM EST Telephone call placed to pt regarding below results and POC. No answer, left v/m. * Telephone Encounter - Katy Espinoza RN - 05/01/2025 9:40 AM EST ----- Message from Sneha Tipton sent at 05/01/2025 9:39 AM EST ----- Labs ok but would recommend dose increase to atorvastatin to 20mg once daily. Can send if she agrees ----- Message ----- From: Interface, Lab Results In Sent: 03/22/2025 12:22 PM EST To: GENESIS Quinteros * Result Encounter Note - GENESIS Quinteros - 05/01/2025 9:39 AM EST Labs ok but would recommend dose increase to atorvastatin to 20mg once daily. Can send if she agrees * Result Encounter Note - GENESIS Quinteros - 05/01/2025 9:38 AM EST Please let pt know, XR showed mild arthritis, would recommend PT if she agrees for ongoing R hip pain documented in this encounter Plan of Treatment Upcoming Encounters Date Type Department Care Team (Late st Contact Info) Description 06/01/2025 11:00 AM EST Office Visit [facility] MEDICINE [address] [place] [address] Sneha Tipton ANP [address] [place] [address] documented as of this encounter Visit Diagnoses Not on filedocumented in this encounter Additional Health Concerns Assessment Noted Time PHQ-9 Depression Total Score: 10 025 2:47 PM EDT documented as of this encounter Care Teams Story Teller Relationship Specialty Start Date End Date Sneha Tipton ANP [address] [place] [address] PCP - General Family Medicine 03/26/20 documented as of this encounter
--- OUTSIDE RECORDS SUMMARY | 2025-05-05 10:17 | XMS_ITS | Clinical Summary ---
Author [facility] Address [address] [place] [address] Care Team Providers Care Food Runner Name Role Phone Unavailable Primary Care Provider [...]
--- OUTSIDE RECORDS SUMMARY | 2025-05-05 10:17 | XMS_ITS | Encounter Summary ---
Author Organization [facility] Address [address] [facility] [address]t [place] [address] Care Team Providers Care Community Center Director Name Role Phone Sneha Tipton Primary Care Provider [phone] Encounter Details Date Type Department Care Team (Latest Contact Info) Description 12/15/2018 Abstract [facility] CONVERSIONS Dental, Provider, DDS Social History Tobacco [...] 11:00 AM EST Office Visit [facility] MEDICINE [address] [place] [address] Sneha Tipton ANP [address] [place] [address] documented as of this encounter Visit Diagnoses Not on filedocumented in this encounter Care Teams Community Center Director Relationship Specialty Start Date End Date Sneha Tipton ANP [address] [place] [address] PCP - General Family Medicine 03/26/20 documented as of this encounter
--- OUTSIDE RECORDS SUMMARY | 2025-05-05 10:17 | XMS_ITS | Encounter Summary ---
Author Organization [employer] Address [address] [facility] [address] [place] [address] Care Team Providers Care Product Architect Name Role Phone Sneha Tipton Primary Care Provider Reason for Visit * Reason Comments Med Refill Encounter Details Date Type Department Care Team ([facility] st Contact Info) Description 07/29/2023 Refill [facility] MEDICINE [address] [place], [place] [phone] Sneha Tipton ANP [address] [place] [address] Mixed hyperlipidemia Social History Tobacco Use Types [...] the past 12 months, has t he [employer], [employer], oil or water company threatened to shut [...] Description 06/01/2025 11:00 AM EST Office Visit [facility] MEDICINE [address] [place] [address] Sneha Tipton ANP [address] [place] [address] documented as of this encounter Visit Diagnoses Diagnosis Mixed hyperlipidemia documented in this encounter Care Teams Product Architect Relationship Specialty Start Date End Date Sneha Tipton ANP [address] [place] [address] PCP - General Family Medicine 03/26/20 documented as of this encounter
--- OUTSIDE RECORDS SUMMARY | 2025-05-05 10:17 | XMS_ITS | Encounter Summary ---
Author Organization [employer] Address [address] [facility] [address] [place] [address] Care Team Providers Care Payroll Benefits Clerk Name Role Phone Sneha Tipton Primary Care Provider [phone] Encounter Details Date Type Department Care Team (Late st Contact Info) Description 08/26/2023 Abstract [facility] MEDICINE [address] [place], [place] [phone] Sneha Tipton ANP [address] [place] [address] Social History Tobacco Use Types Packs/Day Years [...] Visit [facility] MEDICINE [address] [place] [address] Sneha Tipton ANP [address] [place] [address] documented as of this encounter Visit Diagnoses Not on filedocumented in this encounter Care Teams Payroll Benefits Clerk Relationship Specialty Start Date End Date Sneha Tipton ANP [address] [place] [id number] PCP - General Family Medicine 03/26/20 documented as of this encounter
--- OUTSIDE RECORDS SUMMARY | 2025-05-05 10:17 | XMS_ITS | Clinical Summary ---
Author Organization [employer] Address [address] [place] [address] Care Team Providers Care Panelbeater Name Role Phone Danuta Nilsa HURTADO Primary Care Provider [phone] Allergies No known active allergies Medications diphenhydrAMINE [...] 65yo. LDCT form has been faxed to [facility]. Pt waiting for [...] Encounters Date Type Department Care Team Description 05/01/2025 Results Follow-Up [facility] [place] [address] Nilsa Brennan ANP XR Hip 2 or 3 Views Right, Lipid Panel, Standard, Comprehensive Metabolic Panel, Additional followed-up results: 2 03/31/2025 Orders Only [facility] External Provider, [facility] 03/23/2025 Telephone [facility] [address] Nilsa Brennan ANP Insurance 03/23/2025 Travel 03/21/2025 Telephone [facility] [place] [address] Nilsa Brennan ANP chart prep 02/10/2025 Telephone [facility] [place] [address] Nilsa Brennan ANP call back request from Last 3 Months Immunizations Immunization Administration [...] Description 06/01/2025 11:00 AM EST Office Visit [facility] [address] [place] [address] Nilsa Brennan ANP [address] [place], [place] [phone] Health Maintenance Due Date Last Done Comments CT Colonography 1955 FIT DNA/Cologuard 1955 FIT 1955 FOBT 1955 Sigmoidoscopy 1955 Hepatitis C Screening 07/16/1971 Zoster Vaccines (1 of 2) 07/16/2003 COVID-19 Vaccine ( - season) 2025 04/27/2021, 10/09/2020, 08/26/2020 Influenza Vaccine [...] Procedure Name Priority Date/Time Associated Diagnosis Comments NM HEART PERFUSION SPECT STRESS AND REST Routine 04/26/2025 10:57 AM EST LDCT LUNG SCREENING Routine 03/31/2025 1 1:07 [...] Recently Relevant to Health Maintenance Results * NM heart perfusion SPECT stress and rest (04/26/2025 10:57 AM EST) Anatomical Region Laterality Modality Body Nuclear Medicine 04/26/2025 10:5 7 AM EST Narrative 04/27/2025 4:50 PM EST [address] [address] Nuclear Medicine Report Signed Patient: Chelsie Nick MR#: [id number] : 1955 Acct:[id number] Age/Sex: 69 / F ADM Date: 04/26/25 Loc: HO.CARD Attending Dr: Wallace Barry MD Ordering Physician: Wallace Barry MD Date of Service: 04/26/25 Procedure(s): NM abelino perf SPECT rest str Accession Number(s): [id number] cc: NILSA BRENNAN NP; Wallace Baryr MD Reason for Exam: PRE-OP LEXISCAN STRESS TEST Lexiscan Myocardial perfusion study Indication: Preoperative cardiovascular stratification to evaluate for myocardial ischemia Technique: The patient was brought in for a Lexiscan perfusion study on 04/26/2025 and was injected 0.4 mg of Lexiscan intravenously. Within a minute of this injection 25 mCi of sestamibi was given intravenously. Images were obtained using the SPECT gamma camera interlaced with the gating device. Images were obtained in supine position. Resting perfusion study was performed on 04/27/2025. Patient was administered 25 mCi of sestamibi intravenously at rest. Images were then obtained in supine position. Images were processed with the software and compared side to side in short axis, horizontal long axis and vertical long axis views. Images obtained without without CT attenuation. Total DLP 85 mGy-cm. Findings: The stress perfusion study showed nonattenuated images show minimal thinning of the distal lateral wall of the LV myocardium. Remainder of the LV myocardium is normally perfused. Attenuated corrected images show normal uptake of radiotracer in all segments of the LV myocardium. There is suggestion of left ventricular hypertrophy. The gated study shows normal LV systolic function with visually estimated LVEF of greater than 55%. LV cavity is normal in size. The gated study shows normal systolic wall thickening and contraction of segments. Resting study shows no change in perfusion pattern compared to stress perfusion study. Gating at rest reveals normal systolic wall motion with ejection fraction at 55%. The findings are consistent with normal myocardial perfusion. NM/NM abelino perf SPECT rest str Impression: 1. Myocardial perfusion imaging study shows normal myocardial perfusion 2. Gated LVEF is 55% 3. Transient ischemic dilatation not present Nondiagnostic changes on EKG. Electronically signed by: Wallace Barry MD 04/27/2025 04:47 PM [facility] [place] Dictated By: Wallace Barry MD Signed By: <Electronically signed by Wallace Barry MD in OV> 04/27/25 1647 DD/ 1057 TD/TT: 04/27/25 1200 Printer Maintainer: Procedure Note Donotuseinterpreter, Image - 04/27/[address] [address] Nuclear Medicine Report Signed Patient: Chelsie Nick LMR#: [id number] : 4Acct:[id number] Age/Sex: 69 / FADM Date: 04/26/25 Loc: .[facility] Attending Dr: Wallace Barry MD Ordering Physician: Wallace Barry MD Date of Service: 04/26/25 Procedure(s): NM abelino perf SPECT rest str Accession Number(s): [id number] cc: NILSA BRENNAN DOUGH SHEETER; Wallace Barry MD Reason for Exam: PRE-OP LEXISCAN STRESS TEST Lexiscan Myocardial perfusion study Indication: Preoperative cardiovascular stratification to evaluate for myocardial ischemia Technique: The patient was brought in for a Lexiscan perfusion study on 04/26/2025 and was injected 0.4 mg of Lexiscan intravenously. Within a minute of this injection 25 mCi of sestamibi was given intravenously. Images were obtained using the SPECT gamma camera interlaced with the gating device. Images were obtained in supine position. Resting perfusion study was performed on 04/27/2025. Patient was administered 25 mCi of sestamibi intravenously at rest. Images were then obtained in supine position. Images were processed with the software and compared side to side in short axis, horizontal long axis and vertical long axis views. Images obtained without without CT attenuation. Total DLP 85 mGy-cm. Findings: The stress perfusion study showed nonattenuated images show minimal thinning of the distal lateral wall of the LV myocardium. Remainder of the LV myocardium is normally perfused. Attenuated corrected images show normal uptake of radiotracer in all segments of the LV myocardium. There is suggestion of left ventricular hypertrophy. The gated study shows normal LV systolic function with visually estimated LVEF of greater than 55%. LV cavity is normal in size. The gated study shows normal systolic wall thickening and contraction of segments. Resting study shows no change in perfusion pattern compared to stress perfusion study. Gating at rest reveals normal systolic wall motion with ejection fraction at 55%. The findings are consistent with normal myocardial perfusion. NM/NM abelino perf SPECT rest str Impression: 1. Myocardial perfusion imaging study shows normal myocardial perfusion 2. Gated LVEF is 55% 3. Transient ischemic dilatation not present Nondiagnostic changes on EKG. Electronically signed by: Wallace Barry MD 04/27/2025 04:47 PM EST RP Dictated By: Wallace Barry MD Signed By: <Electronically signed by Wallace Barry MD in OV> 04/27/25 1647 DD/ 1057 TD/TT: 04/27/25 1200 Printer Maintainer: [facility] External Provider IMG NM PROCEDURES Final Result * CT Lung Screening Low dose (03/31/2025 11:07 AM EST) Anatomical Region Laterality Modality Lung Computed Tomogra phy 03/31/2025 11:0 7 AM EST Narrative 03/31/2025 11:55 AM EST [place] [address] CT Scan Report Signed Patient: Chelsie Nick MR#: [id number] : 1955 Acct:[id number] Age/Sex: 69 / F ADM Date: 03/31/25 Loc: HO.CT Attending Dr: Navya Kinney PA-C Ordering Physician: Navya Kinney PA-C Date of Service: 03/31/25 Procedure(s): CT lung screening Accession Number(s): [id number] cc: Navya Kinney PA-C; NILSA BRENNAN NP Report Number: [id number]: Total DLP = 47.00 mGy-cm Reason for [...] for CT CHEST LOW DOSE CANCER SCREENING ([id number]) can be placed. Electronically signed by: Efrem Barnett MD 03/31/2025 11:52 AM EST Dictated By: Efrem Barnett MD Signed By: <Electronically signed by Efrem Barnett MD in OV> 03/31/25 1152 DD/ 1107 TD/TT: 03/31/25 1125 Printer Maintainer: Procedure Note Donotuseinterpreter, Image - 03/31/[address] [address] [address] Scan Report Signed Patient: Chelsie Nick LMR#: [id number] : 4Acct:[id number] Age/Sex: 69 / FADM Date: 03/31/25 Loc: HO.CT Attending Dr: Navya Kinney PA-C Ordering Physician: Navya Kinney PA-C Date of Service: 03/31/25 Procedure(s): CT lung screening Accession Number(s): [id number] cc: Navya Kinney PA-C; NILSA BRENNAN NP Report Number: [id number]: Total DLP = 47.00 mGy-cm Reason for [...] for CT CHEST LOW DOSE CANCER SCREENING ([id number]) can be placed. Electronically signed by: Efrem Barnett MD 03/31/2025 11:52 AM EST Dictated By: Efrem Barnett MD Signed By: <Electronically signed by Efrem Barnett MD in OV> 03/31/25 1152 DD/ 1107 TD/TT: 03/31/25 1125 Printer Maintainer: [facility] External Provider IMG CT PROCEDURES Final Result * Vitamin D, 25-Hydroxy, Total, Immunoassay (03/22/2025 10:42 AM EST) Vitamin D 25-OH Total 35.1 >30 ng/mL [facility] Comment: Health Based Reference Values*< 20 ng/mL Rnlnugasp99-67 ng/mL Insufficient> 30 ng/mL Sufficient*Jose J GARCIA. [...] ORDERABLES Final Resul t Performing Organization Address [facility] Co de Phone Number [facility] [address] [place] [phone] * Hemoglobin A1c (03/22/2025 10:42 AM EST) Hemoglobin A1c 5.7 <6.0 % [facility] Comment:Hemoglobin A1C Refer ence Range Adults: 4.8 - 6.0 % Non diabetic: < 6.0 % Goal: < 7.0 %Additional Action Suggested: > 8.0 %Note: Hemoglobin A1c results are invalid for patients with abnormal amounts of HbF. Blood transfusions may impact the HbA1c concentration in the patient sample. Estimated Average Glucose 117 mg/dL [facility] Comment:eAG = Estimated ave rage glucose which is %A1C expressed asaverage glucose, using the formula of the U5G-GtxjnquGyndxyx Glucose study (ADAG), Diabetes Care, Vol.31,#8,Dec. 2007 Blood Venous blood specimen / Unknown 03/22/2025 10:42 AM EST 03/22/2025 12:00 PM EST us Hoover Brennan [facility] LAB BLOOD ORDERABLES Final Resul t Performing Organization Address [facility] Co de Phone Number [facility] [address] [place] [phone] * (ABNORMAL) Lipid Panel, Standard (03/22/2025 10:42 AM EST) Triglycerides 143 <150 mg/dL [facility] Comment:Desirable Triglyceri de: less than 150 mg/dLBorderline High Triglyceride 150-199 mg/dLHigh Triglyceride: 200-499 mg/dLVery High Triglyceride: greater than or equal to 5OO mg/dL Cholesterol 187 <200 mg/dL [facility] Comment:Desirable Cholestero l: less than 200 mg/dLBorderline High Cholesterol: 200-239 mg/dLHigh Cholesterol: greater than 239 mg/dL LDL Cholesterol Calculated 116(H) <100 mg/dL [facility] Comment:Desirable LDL: less than 100 mg/dLNear Optimal/Above Optimal LDL: 110- 129 mg/dLBorderline High LDL: 130-159 mg/dLHigh LDL: 160-189 mg/dLVery High LDL: greater than or equal to 190 mg/dL HDL Cholesterol 43 >40 mg/dL [facility] Comment:Desirable HDL: great er than 40 mg/dL Note: This HDL assay may give artificially low results in patients with liver disease. Blood Venous blood specimen / Unknown 03/22/2025 10:42 AM EST 03/22/2025 12:06 PM EST us Nilsa Brennan [facility] LAB BLOOD ORDERABLES Final Resul t [facility] [address] [place] [phone] * (ABNORMAL) Comprehensive Metabolic Panel (03/22/2025 10:42 AM EST) Sodium 141 135 - 145 mmol/L [facility] Potassium 4.3 3.3 - 5.1 mmol/L [facility] Chloride 109(H) 96 - 108 mmol/L [facility] Carbon Dioxide 27 22 - 29 mmol/L [facility] Anion Gap 9(L) 12 - 20 [facility] Urea Nitrogen (BUN) 16 9 - 16 mg/dL [facility] Creatinine, Serum 0.77 0.5 - 1.4 mg/dL [facility] Estimated Glomerular Filt Rate >60 [facility] Comment:Chronic Kidney Disea se: Estimated GFR < 60 mL/min/1.70s8Rordqi Kidney Disease: Estimated GFR < 15 mL/min/1.73m2 Glucose 99 60 - 115 mg/dL [facility] Calcium 9.5 8.4 - 10.2 mg/dL [facility] Bilirubin, Total 0.5 0.0 - 1.0 mg/dL [facility] Aspartate Amino Transferase 22 5 - 31 U/L [facility] Alanine Aminotransferase 17 0 - 31 U/L [facility] Total Protein 7.5 6.5 - 8.0 g/dL [facility] Albumin Level 4.6 3.5 - 5.0 g/dL [facility] Alkaline Phosphatase 93 39 - 117 U/L [facility] Blood Venous blood specimen / Unknown 03/22/2025 10:42 AM EST 03/22/2025 12:06 PM EST Nilsa Brennan ANP LAB BLOOD ORDERABLES Final Resul t Performing Organization Address City/State/[facility] Co de Phone Number [facility] [address] [place] [phone] * XR Pelvis 1-2 Views (03/21/2025 10:44 AM EST) Anatomical Region Laterality Modality Body, Pelvis Radiographic Blaire ging 03/21/2025 10:4 4 AM EST Narrative 03/21/2025 10:54 AM EST [address] [address] XRay Report Signed Patient: Chelsie Nick MR#: [id number] : 1955 Acct:[id number] Age/Sex: 69 / F ADM Date: 03/21/25 Loc: HO.HHCX Attending Dr: Nilsa Brennan NP Ordering Physician: NILSA BRENNAN NP Date of Service: 03/21/25 Procedure(s): XR pelvis 1-2V Accession Number(s): [id number] cc: NILSA BRENNAN NP Reason for Exam: [...] in OV> 03/21/25 1052 DD/ 1044 TD/TT: 03/21/251043 Printer Maintainer: Procedure Note Donotuseinterpreter, Image - 03/21/[address] [address] XRay Report Signed Patient: Chelsie Nick LMR#: [id number] : 4Acct:[id number] Age/Sex: 69 / FADM Date: 03/21/25 Loc: HO.HHCX Attending Dr: Nilsa Brennan NP Ordering Physician: NILSA BRENNAN NP Date of Service: 03/21/25 Procedure(s): XR pelvis 1-2V Accession Number(s): [id number] cc: NILSA BRENNAN NP Reason for Exam: [...] in OV> 03/21/25 1052 DD/ 1044 TD/TT: 03/21/251043 Printer Maintainer: Nilsa HURTADO IM XR PROCEDURES Edited Result - Final * XR Hip 2 or 3 Views Right (03/21/2025 10:42 AM EST) Anatomical Region Laterality Modality Lower Extremities, Hip Right Radiograp hic Imaging 03/21/2025 10:4 2 AM EST Narrative 03/21/2025 10:54 AM EST [address] [place] [address] XRay Report Signed Patient: Chelsie Nick MR#: [id number] : 1955 Acct:[id number] Age/Sex: 69 / F ADM Date: 03/21/25 Loc: HO.TARIKCX Attending Dr: Nilsa Brennan NP Ordering Physician: NILSA BRENNAN NP Date of Service: 03/21/25 Procedure(s): XR hip RT min 2V Accession Number(s): [id number] cc: NILSA BRENNAN NP Reason for Exam: [...] by: Anam Toscano MD 03/21/2025 10:51 AM [facility] [place] Dictated By: Anam Toscano MD Signed By: <Electronically signed by Anam Toscano MD in OV> 03/21/25 1051 DD/ 1042 TD/TT: 03/21/25 1042 Printer Maintainer: Procedure Note Donotuseinterpreter, Image - 03/21/[address] [address] XRay Report Signed Patient: Chelsie Nick LMR#: [id number] : 1955cct:[id number] Age/Sex: 69 / FADM Date: 03/21/25 Loc: HO.TARIKCX Attending Dr: Nilsa Brennan NP Ordering Physician: NILSA BRENNAN NP Date of Service: 03/21/25 Procedure(s): XR hip RT min 2V Accession Number(s): [id number] cc: NILSA BRENNAN NP Reason for Exam: [...] 03/21/25 1051 DD/ 1042 TD/TT: 03/21/25 1042 Printer Maintainer: us Nilsa Brennan ANP IMG XR PROCEDURES Edited Result - Final * XR DEXA APPENDICULAR SKELETON (02/07/2025 12:52 PM EDT) Anatomical Region Laterality Modality Abdomen Radiographic Blaire ging 02/07/2025 12:5 2 PM EDT Narrative 02/07/2025 1:27 PM EDT [facility] [place] [address] Mammography Report Signed Patient: Chelsie Nick MR#: [id number] : 1955 Acct:[id number] Age/Sex: 69 / F ADM Date: 02/07/25 Loc: ROBB Attending Dr: Rashida Leslie MD Ordering Physician: Rashida Leslie MD Results: Date of Service: 02/07/25 Follow Up: Procedure(s): XR DEXA appendicular skeleton Accession Number(s): [id number] cc: Rashida Leslie MD; NILSA BRENNAN NP Reason For Exam: M81.0 - Age-related osteoporosis without current pathological fracture EXAMINATION: DXA BONE DENSITY EXTREMITY HISTORY: M81.0 - Age-related osteoporosis without current pathological fracture TECHNIQUE: ClickFox Dual energy absorptiometry (DEXA) of the lumbar [...] of the [employer] [place] for Metabolic Bone Disease, a World Health Organization (WHO) Collaborating Center. Electronically signed by: Rufus Gloria MD 02/07/2025 01:24 PM EDT Dictated By: Rufus Gloria MD Signed By: <Electronically signed by Rufus Gloria MD in OV> 02/07/25 1324 DD/ 1252 TD/TT: 02/07/25 1305 Printer Maintainer: Procedure Note Donotuseinterpreter, Image - 02/07/2025 [facility] [address] [place], [place] [address] Mammography Report Signed Patient: Chelsie Nick LMR#: [id number] : 4Acct:[id number] Age/Sex: 69 / FADM Date: 02/07/25 Loc: HOXUO Attending Dr: Rashida Leslie MD Ordering Physician: Rashida Leslieults: Date of Service: 02/07/25Follow Up: Procedure(s): XR DEXA appendicular skeleton Accession Number(s): [id number] cc: Rashida Leslie MD; NILSA BRENNAN NP Reason For Exam: M81.0 - Age-related osteoporosis without currentpathological fracture EXAMINATION: DXA BONE DENSITY EXTREMITY HISTORY: M81.0 - Age-related osteoporosis without current pathological fracture TECHNIQUE: ClickFox Dual energy absorptiometry (DEXA) of the lumbar [...] of the [employer] [place] for Metabolic Bone Disease, a World Health Organization (WHO) Collaborating Center. Electronically signed by: Rufus Gloria MD 02/07/2025 01:24 PM EDT Dictated By: Rufus Gloria MD Signed By: <Electronically signed by Rufus Gloria MD in OV> 02/07/25 1324 DD/ 1252 TD/TT: 02/07/25 1305 Printer Maintainer: [facility] External Provider IMG XR PROCEDURES Final Result * BI Mammogram Screening Tomosynthesis Bilateral (08/10/2024 2:45 PM EDT) Anatomical Region Laterality Modality Breast Bilateral Mammography 08/10/2024 2:45 PM EDT Narrative 08/15/2024 5:14 PM EDT [facility] [address] [place] [address] Mammography Report Signed Patient: Chelsie Nick MR#: [id number] : 1955 Acct:[id number] Age/Sex: 69 / F ADM Date: 08/10/24 Loc: ROBB Attending Dr: Nilsa Brennan NP Ordering Physician: NILSA BRENNAN NP Results: 1Negative Date of Service: 08/10/24 Follow Up: 1 Year From Orig ina Mammogram Procedure(s): MM tomosynthesis screening BI Accession Number(s): [id number] cc: NILSA BRENNAN NP EXAMINATION: MM SCREENING [...] 08/15/24 1711 DD/ 1445 TD/TT: 08/10/24 1457 Printer Maintainer: Procedure Note Donotuseinterpreter, Image - 08/15/2024 [facility] [address] [place] [address] Mammography Report Signed Patient: Chelsie Nick LMR#: [id number] : 1955cct:[id number] Age/Sex: 69 / FADM Date: 08/10/24 Loc: HO.MAMMO Attending Dr: Nilsa Brennan DOUGH SHEETER Ordering Physician: NILSA BRENNAN NPResults: 1Negative Date of Service: 08/10/24Follow Up: 1 Year From Orig ina Mammogram Procedure(s): MM tomosynthesis screening BI Accession Number(s): [id number] cc: NILSA BRENNAN NP EXAMINATION: MM SCREENING [...] 08/15/24 1711 DD/ 1445 TD/TT: 08/10/24 1457 Printer Maintainer: Nilsa Brennan ANP IMG BI PROCEDURES Final Result * Hm Colonoscopy (11/29/2021) Colonoscopy performed Historical Provider HEALTH MAINTENANCE Edited Result - Final from Last 3 Months or Most Recently Relevant to Health Maintenance Insurance [employer] [id number] MEDICARE SUPPLEMENT Care Teams Panelbeater Relationship Specialty Start Date End Date Nilsa Brennan ANP [address] [place] [phone] PCP - General Family Medicine 03/26/20
--- NOTE | 2025-05-05 10:40 | PC.NURSE ---
a&ox4. vss and up to date. pt presents to the ED c/o atraumatic right calf/knee pain. pt reports being symptomatic x 3 days. pt also reporting associated sob w/ the pain. denies recent travel/being on anticoagulation. pt otherwise in no apparent distress. on RA w/o difficulty - no sob/wob noted. respirations even/unlabored. pt pending US to be completed. plan of care ongoing. call muller placed within reach.
[2025-05-05 12:08] VITALS: BP 164/90; PULSE 69; RESP 15; TEMP 36.6; O2SAT 99
--- NOTE | 2025-05-05 12:18 | PC.NURSE ---
pt medicated per provider order. effectiveness pending. alton wrap applied to RLE. pt tolerated well.
[2025-05-05 12:24] VITALS: BP 164/90; PULSE 69; RESP 15; TEMP 36.6; O2SAT 99
== END 2025-05-05 12:30 | disposition home or self-care (01) ==
PROVIDERS: Emergency Provider Emergency Medicine; PCP Nurse Practitioner Primary Care
DX: M25.561 Pain in right knee (principal); M13.861 Other specified arthritis, right knee; M81.0 Age-related osteoporosis without current pathological fracture; Z87.891 Personal history of nicotine dependence; Z79.899 Other long term (current) drug therapy
CPT/HCPCS: 73562; 93971; 96372; 99284; J1885

== ENCOUNTER → 2025-05-05 09:42 | Outpatient (BNV) | payer MEDICARE, MEDICAID, SELFPAY | PROVIDERS: PCP Nurse Practitioner Primary Care; Visit Provider Radiology Diagnostic Ultrasound | DX: M79.661 Pain in right lower leg (principal); M17.11 Unilateral primary osteoarthritis, right knee; M25.461 Effusion, right knee | CPT/HCPCS: 73562; 93971 ==